=== PATIENT | female | born 1965 | race Caucasian/White ===

== ENCOUNTER → 2019-10-07 12:59 | Outpatient (BNVA) | payer MEDICAID, SELFPAY | PROVIDERS: Family Provider Internal Medicine; PCP Internal Medicine; Visit Provider Nurse Practitioner | DX: F33.2 Major depressive disorder, recurrent severe without psychotic features (principal); R41.83 Borderline intellectual functioning | CPT/HCPCS: 99213 ==

== ENCOUNTER → 2019-12-28 08:07 | Outpatient (BNVA) | payer MEDICAID, SELFPAY | PROVIDERS: Family Provider Internal Medicine; PCP Internal Medicine; Visit Provider Nurse Practitioner | DX: F33.2 Major depressive disorder, recurrent severe without psychotic features (principal); R41.83 Borderline intellectual functioning | CPT/HCPCS: 99214 ==

== ENCOUNTER → 2020-01-27 14:20 | Outpatient (BNVA) | payer MEDICAID, SELFPAY | PROVIDERS: Family Provider Internal Medicine; PCP Internal Medicine; Visit Provider Obstetrics & Gynecology | DX: Z12.4 Encounter for screening for malignant neoplasm of cervix (principal); B37.3 Candidiasis of vulva and vagina; L90.0 Lichen sclerosus et atrophicus; N90.4 Leukoplakia of vulva | CPT/HCPCS: 88175 ==

== ENCOUNTER → 2020-02-14 12:53 | Outpatient (BNVA) | payer MEDICAID, SELFPAY | PROVIDERS: Family Provider Internal Medicine; PCP Internal Medicine; Visit Provider Obstetrics & Gynecology | DX: R10.2 Pelvic and perineal pain (principal) | CPT/HCPCS: 76830 ==

== ENCOUNTER → 2020-03-05 13:01 | Outpatient (BNVA) | payer MEDICAID, SELFPAY | PROVIDERS: Family Provider Internal Medicine; PCP Internal Medicine; Visit Provider Obstetrics & Gynecology | DX: R87.612 Low grade squamous intraepithelial lesion on cytologic smear of cervix (LGSIL) (principal); B97.7 Papillomavirus as the cause of diseases classified elsewhere | CPT/HCPCS: 88305 ==

== ENCOUNTER → 2020-03-16 07:54 | Outpatient (BNVA) | payer MEDICAID, SELFPAY | PROVIDERS: Family Provider Internal Medicine; PCP Internal Medicine; Visit Provider Nurse Practitioner | DX: F33.2 Major depressive disorder, recurrent severe without psychotic features (principal); R41.83 Borderline intellectual functioning | CPT/HCPCS: 99213 ==

== ENCOUNTER 2020-04-29 14:23 | Emergency (ER) | payer MEDICAID, SELFPAY ==
[2020-04-29 14:35] VITALS: BP 153/92; PULSE 98; RESP 16; TEMP 36.6; O2SAT 95; BMI 30.5
--- NOTE | 2020-04-29 16:05 | ED_ITS ---
Documented by User: Adelaida Nguyen APRN 04/29/20 17:02 HPI - General Adult General: Chief complaint: General Medical Stated complaint: WEAKNESS; VOMITING Time Seen by Provider: 04/29/20 15:55 Source: patient Mode of arrival: ambulatory Limitations: no limitations History of Present Illness: HPI narrative: Patient states she ate a bowl of Cheerios this morning and felt fine until around 12 PM at that time she had an isolated incident of vomiting. She states that she vomits if her blood sugar gets too high, and that her blood sugar at that point was 300. Patient says she is a very difficult to control diabetic and that she sees endocrinology in [place] along with Dr. Landa locally. She presents to the ER because she feels that something is wrong causing her blood sugar to be more elevated than normal. Onset (ago): hour(s) Associated symptoms: Reports nausea, vomiting (once) and weakness Treatments prior to arrival: none Review of Systems General: Reports: 10 or more systems reviewed and unremarkable except in HPI and below GI: Reports: nausea and vomiting (once) [facility] ED PFSH: Medical History (Updated 04/29/20 @ 17:21 by DIANA Walsh) Borderline intellectual functioning Major depressive disorder, recurrent severe without psychotic features Yeast infection involving the vagina and surrounding area Family History Father Diabetes Grandmother Diabetes paternal Brother Diabetes Grandfather Stroke paternal Sister Thyroid condition Denies family history of Clotting disorder Hyperlipidemia Anesthesia complication Bleeding disorder Hypertension Social History Smoking and tobacco status: former smoker Quit status (tobacco): has quit using tobacco Year quit tobacco: 2009 Alcohol intake: never Physical Exam Const: COMMON NORMALS: no acute distress, average body habitus and patient oriented x3 HENMT: COMMON NORMALS: normocephalic and atraumatic HEAD & SCALP: normocephalic and atraumatic Eye: COMMON NORMALS: Equal, round and reactive pupils present and EOMs intact bilaterally PUPIL: Yes Equal, round and reactive pupils present Neck/C-Spine: COMMON NORMALS: full ROM, no lymphadenopathy, supple and no JVD Lymph: LYMPHATIC: no lymphadenopathy noted and no lymphedema noted Chest: COMMONS NORMALS: normal inspection of the chest and normal palpation of entire chest wall Resp: COMMON NORMALS: normal respiratory effort, No retractions, No use of accessory muscles and clear to auscultation bilaterally AUSCULTATION: clear to auscultation bilaterally Cardio: COMMON NORMALS: no JVD, regular rate, regular rhythm, S1 normal heart sound present and S2 normal heart sound present RATE: regular rate RHYTHM: regular rhythm HEART SOUNDS: S1 normal heart sound present and S2 normal heart sound present GI: COMMON NORMALS: Normal to inspection, nondistended, normoactive bowel sounds present, Soft to palpation and non-tender PALPATION: Yes Soft to palpation Extremity: COMMON NORMALS: normal to inspection, full ROM and capillary refill normal Neuro: COMMON NORMALS: patient oriented x3 Psych: COMMON NORMALS: mental status grossly normal Skin: COMMON NORMALS: no rashes or lesions noted, no wounds and turgor normal GENERAL SKIN EXAM: no rashes or lesions noted and turgor normal Course Vital Signs: Vital signs: Vital Signs Temperature 97.9 F 04/29/20 14:35 Pulse Rate 86 04/29/20 17:21 Respiratory Rate 14 04/29/20 17:21 Blood Pressure 126/63 04/29/20 17:21 Pulse Oximetry 94 04/29/20 17:21 MDM - General Adult Lab Data: Labs: Lab Results 04/29/20 04/29/20 04/29/20 Range/Units 16:11 16:11 16:15 WBC 10.8 H (4.0-10.0) 10^3/ uL RBC 5.04 (4.1-5.3) 10^6/u L Hgb 14.4 (11.5-15.3) g/dL Hct 43.2 (37.0-47.0) % MCV 85.7 (81-99) fL MCH 28.6 (28.0-34.0) pg MCHC 33.3 (30.0-36.0) g/dL RDW 12.0 L (12.1-15.1) % Plt Count 247 (130-400) 10^3/c mm MPV 10.8 H (7.4-10.4) fL Neut % (Auto) 72.2 % Lymph % (Auto) 19.6 % [place] % (Auto) 6.5 % Eos % (Auto) 0.4 % Baso % (Auto) 0.6 % Neut # (Auto) 7.77 H (1.8-7.7) 10^3/u L Lymph # (Auto) 2.1 (0.8-4.8) 10^3/u L [place] # (Auto) 0.7 (0.2-0.9) 10^3/u L Eos # (Auto) 0.0 (0.0-0.8) 10^3/u L Baso # (Auto) 0.1 (0.0-0.1) 10^3/u L Nucleated RBC % (a uto) 0 % Nucleated RBCs # 0.0 /100WBC Sodium 132 L (136-145) mmol/L Potassium 3.8 (3.5-5.1) mmol/L Chloride 97 L (98-107) mmol/L Carbon Dioxide 25 (22-29) mmol/L Anion Gap 13.8 (5-19) BUN 8 (6-20) mg/dL Creatinine 0.7 (0.5-0.9) mg/dL GFR Calculation 86.6 L (90-130) mL/min Glucose 255 H (65-115) mg/dL Calculated Osmolal ity 279 L (285-295) mOsm/k g Calcium 9.7 (8.5-10.5) mg/dL Total Bilirubin 0.6 (0.15-1.2) mg/dL AST 27 (0-32) U/L ALT 57 H (0-33) U/L Alkaline Phosphata se 121 H (35-105) IU/L Total Protein 7.5 (6.6-8.7) g/dL Albumin 4.4 (3.5-5.2) g/dL Globulin 3.1 (1.3-4.6) g/dL Lipase 16 (13-60) U/L Urine Color Straw (Yellow) Urine Appearance Clear (CLEAR) Urine pH 5 (5-7) Ur Specific Gravit y 1.020 (1.005-1.030) Urine Protein Neg (Negative) Urine Glucose (UA) 4+ H (Normal) Urine Ketones 1+ H (Negative) Urine Blood Neg (Negative) Urine Nitrate Negative (Negative) Urine Bilirubin Neg (NEGATIVE) Urine Urobilinogen Norm (Negative) mg/dL Ur Leukocyte Adriana ase Negative (Negative) Discharge Plan Discharge Patient Disposition: Home Clinical Impression: Uncontrolled diabetes mellitus Qualifiers: Diabetes mellitus type: type 2 Glycemic state: with hyperglycemia Qualified Code(s): E11.65 - Type 2 diabetes mellitus with hyperglycemia Condition: Stable Prescriptions: New Zofran 4 mg tablet 4 mg PO Q6H PRN (Reason: nausea and vomiting) Qty: 14 RF: 0 No Action bupropion HCl [Wellbutrin XL] 150 mg tablet extended release 24 hr 150 mg PO QAM Qty: 30 RF: 2 bupropion HCl [Wellbutrin XL] 300 mg tablet extended release 24 hr 300 mg PO QAM Qty: 30 RF: 2 metformin 500 mg tablet 1,000 mg PO BID RF: 0 Bydureon 2 mg/0.65 mL pen injector 2 mg SUBCUT Q7D RF: 0 lisinopril 20 mg tablet 20 mg PO DAILY RF: 0 insulin aspart U-100 [Novolog Flexpen U-100 Insulin] 100 unit/mL (3 mL) insulin pen 30 unit SUBCUT TID RF: 0 Lantus Solostar U-100 Insulin 100 unit/mL (3 mL) insulin pen 86 unit SUBCUT BEDTIME RF: 0 Zyrtec 10 mg capsule 10 mg PO DAILY PRN (Reason: Allergy Symptoms) RF: 0 Pepcid 20 mg Tablet 20 mg PO BID PRN (Reason: UNKNOWN) RF: 0 Crestor 20 mg Tablet 20 mg PO BEDTIME RF: 0 hydrocortisone 1 % ointment 1 applic TOPICAL PRN RF: 0 trazodone 100 mg tablet 200 mg PO BEDTIME RF: 0 hydroxyzine HCl 25 mg tablet 50 mg PO BEDTIME RF: 0 Discharge Orders: Discharge Order (Routine); Ordered 04/29/20 Ordered By: Hope Shell Referrals: HARJINDER LANDA DO [Primary Care Provider] - Patient Instructions: Diabetes Mellitus Type 2 in Adults (ED) Activity Restrictions/Additional Instructions: Please followup with your emergency communications operator to try and gain better control of your blood sugars. Return to ED for repetitive episodes of vomiting, abdominal pain, diarrhea, generally feeling ill, or any other concerns you may have. Sign Out Sign Out Data: Patient Sign Out occurred on 04/29/20 at 17:16. Patient's care was discussed, and care was transferred from to DIANA Walsh. Coding Level of Care Code ED Load Out Person for Chg Fwd Exam Comprehensive Documented by User: DIANA Walsh 04/29/20 17:32 HPI - General Adult General: Chief complaint: General Medical Stated complaint: WEAKNESS; VOMITING Time Seen by Provider: 04/29/20 15:55 PFSH ED PFSH: Medical History (Updated 04/29/20 @ 17:21 by DIANA Walsh) Borderline intellectual functioning Major depressive disorder, recurrent severe without psychotic features Yeast infection involving the vagina and surrounding area Family History Father Diabetes Grandmother Diabetes paternal Brother Diabetes Grandfather Stroke paternal Sister Thyroid condition Denies family history of Clotting disorder Hyperlipidemia Anesthesia complication Bleeding disorder Hypertension Social History Smoking and tobacco status: former smoker Quit status (tobacco): has quit using tobacco Year quit tobacco: 2009 Alcohol intake: never Course Vital Signs: Vital signs: Vital Signs Temperature 97.9 F 04/29/20 14:35 Pulse Rate 86 04/29/20 17:21 Respiratory Rate 14 04/29/20 17:21 Blood Pressure 126/63 04/29/20 17:21 Pulse Oximetry 94 04/29/20 17:21 MDM - General Adult MDM Narrative: Medical decision making narrative: I assumed care of patient from LAYLA Gonsales. I agree with her HPI. I went in and spoke to patient myself to confirm her past history. She tells me earlier this morning after eating a bowl of Cheerios she had one single episode of nonbloody vomit. Patient tells me she checks her blood sugars daily and they normally run anywhere from 200-500. Patient tells me she just saw her emergency communications operator in [place] last week. Patient's vitals are completely stable. Her labs overall are non-concerning. Her glucose is 255 which again according to her history is normal for her. Her potassium and bicarb are normal. She is not complaining of any pain currently. She had one isolated episode of vomiting. At this time I have no concerns for DKA or other emergent process. Patient will be sent home with nausea medications should this persist and return to ED precautions were given. Lab Data: Labs: Lab Results 04/29/20 04/29/20 04/29/20 Range/Units 16:11 16:11 16:15 WBC 10.8 H (4.0-10.0) 10^3/ uL RBC 5.04 (4.1-5.3) 10^6/u L Hgb 14.4 (11.5-15.3) g/dL Hct 43.2 (37.0-47.0) % MCV 85.7 (81-99) fL MCH 28.6 (28.0-34.0) pg MCHC 33.3 (30.0-36.0) g/dL RDW 12.0 L (12.1-15.1) % Plt Count 247 (130-400) 10^3/c mm MPV 10.8 H (7.4-10.4) fL Neut % (Auto) 72.2 % Lymph % (Auto) 19.6 % [place] % (Auto) 6.5 % Eos % (Auto) 0.4 % Baso % (Auto) 0.6 % Neut # (Auto) 7.77 H (1.8-7.7) 10^3/u L Lymph # (Auto) 2.1 (0.8-4.8) 10^3/u L [place] # (Auto) 0.7 (0.2-0.9) 10^3/u L Eos # (Auto) 0.0 (0.0-0.8) 10^3/u L Baso # (Auto) 0.1 (0.0-0.1) 10^3/u L Nucleated RBC % (a uto) 0 % Nucleated RBCs # 0.0 /100WBC Sodium 132 L (136-145) mmol/L Potassium 3.8 (3.5-5.1) mmol/L Chloride 97 L (98-107) mmol/L Carbon Dioxide 25 (22-29) mmol/L Anion Gap 13.8 (5-19) BUN 8 (6-20) mg/dL Creatinine 0.7 (0.5-0.9) mg/dL GFR Calculation 86.6 L (90-130) mL/min Glucose 255 H (65-115) mg/dL Calculated Osmolal ity 279 L (285-295) mOsm/k g Calcium 9.7 (8.5-10.5) mg/dL Total Bilirubin 0.6 (0.15-1.2) mg/dL AST 27 (0-32) U/L ALT 57 H (0-33) U/L Alkaline Phosphata se 121 H (35-105) IU/L Total Protein 7.5 (6.6-8.7) g/dL Albumin 4.4 (3.5-5.2) g/dL Globulin 3.1 (1.3-4.6) g/dL Lipase 16 (13-60) U/L Urine Color Straw (Yellow) Urine Appearance Clear (CLEAR) Urine pH 5 (5-7) Ur Specific Gravit y 1.020 (1.005-1.030) Urine Protein Neg (Negative) Urine Glucose (UA) 4+ H (Normal) Urine Ketones 1+ H (Negative) Urine Blood Neg (Negative) Urine Nitrate Negative (Negative) Urine Bilirubin Neg (NEGATIVE) Urine Urobilinogen Norm (Negative) mg/dL Ur Leukocyte Adriana ase Negative (Negative) Discharge Plan Discharge Patient Disposition: Home Clinical Impression: Uncontrolled diabetes mellitus Qualifiers: Diabetes mellitus type: type 2 Glycemic state: with hyperglycemia Qualified Code(s): E11.65 - Type 2 diabetes mellitus with hyperglycemia Condition: Stable Prescriptions: New Zofran 4 mg tablet 4 mg PO Q6H PRN (Reason: nausea and vomiting) Qty: 14 RF: 0 No Action bupropion HCl [Wellbutrin XL] 150 mg tablet extended release 24 hr 150 mg PO QAM Qty: 30 RF: 2 bupropion HCl [Wellbutrin XL] 300 mg tablet extended release 24 hr 300 mg PO QAM Qty: 30 RF: 2 metformin 500 mg tablet 1,000 mg PO BID RF: 0 Bydureon 2 mg/0.65 mL pen injector 2 mg SUBCUT Q7D RF: 0 lisinopril 20 mg tablet 20 mg PO DAILY RF: 0 insulin aspart U-100 [Novolog Flexpen U-100 Insulin] 100 unit/mL (3 mL) insulin pen 30 unit SUBCUT TID RF: 0 Lantus Solostar U-100 Insulin 100 unit/mL (3 mL) insulin pen 86 unit SUBCUT BEDTIME RF: 0 Zyrtec 10 mg capsule 10 mg PO DAILY PRN (Reason: Allergy Symptoms) RF: 0 Pepcid 20 mg Tablet 20 mg PO BID PRN (Reason: UNKNOWN) RF: 0 Crestor 20 mg Tablet 20 mg PO BEDTIME RF: 0 hydrocortisone 1 % ointment 1 applic TOPICAL PRN RF: 0 trazodone 100 mg tablet 200 mg PO BEDTIME RF: 0 hydroxyzine HCl 25 mg tablet 50 mg PO BEDTIME RF: 0 Discharge Orders: Discharge Order (Routine); Ordered 04/29/20 Ordered By: Hope Shell Referrals: HARJINDER LANDA DO [Primary Care Provider] - Patient Instructions: Diabetes Mellitus Type 2 in Adults (ED) Activity Restrictions/Additional Instructions: Please followup with your emergency communications operator to try and gain better control of your blood sugars. Return to ED for repetitive episodes of vomiting, abdominal pain, diarrhea, generally feeling ill, or any other concerns you may have. Sign Out Sign Out Data: Patient Sign Out occurred on 04/29/20 at 17:16. Patient's care was discussed, and care was transferred from to DIANA Walsh. Coding Level of Care Code ED Load Out Person for Mecheg Fwd Exam Comprehensive
[2020-04-29 16:16] LABS: Basophils # 0.1 10^3/uL (0.0-0.1); Basophils % 0.6 %; Eosinophils % 0.4 %; Hematocrit 43.2 % (37.0-47.0); Hemoglobin 14.4 g/dL (11.5-15.3); Lymphocytes # 2.1 10^3/uL (0.8-4.8); Lymphocytes % 19.6 %; Mean Corpuscular HGB Conc 33.3 g/dL (30.0-36.0); Mean Corpuscular Hemoglobin 28.6 pg (28.0-34.0); Mean Corpuscular Volume 85.7 fL (81-99); Mean Platelet Volume 10.8 fL (7.4-10.4); Monocytes # 0.7 10^3/uL (0.2-0.9); Monocytes % 6.5 %; Neutrophils # 7.77 10^3/uL (1.8-7.7); Neutrophils % 72.2 %; Nucleated Red Blood Cells % 0 %; Platelet Count 247 10^3/cmm (130-400); Red Blood Count 5.04 10^6/uL (4.1-5.3); White Blood Count 10.8 10^3/uL (4.0-10.0)
[2020-04-29 16:33] LABS: Add Urine Microscopic? NO
[2020-04-29 16:34] LABS: Alanine Aminotransferase 57 U/L (0-33); Albumin Level 4.4 g/dL (3.5-5.2); Alkaline Phosphatase 121 IU/L (35-105); Anion Gap 13.8 (5-19); Aspartate Amino Transferase 27 U/L (0-32); Blood Urea Nitrogen 8 mg/dL (6-20); Calcium 9.7 mg/dL (8.5-10.5); Carbon Dioxide 25 mmol/L (22-29); Chloride 97 mmol/L (98-107); Globulin 3.1 g/dL (1.3-4.6); Glomerular Filtration Rate 86.6 mL/min (90-130); Glucose 255 mg/dL (65-115); Lipase 16 U/L (13-60); Osmolality Calculated 279 mOsm/kg (285-295); Potassium 3.8 mmol/L (3.5-5.1); Sodium 132 mmol/L (136-145); Total Bilirubin 0.6 mg/dL (0.15-1.2); Total Protein 7.5 g/dL (6.6-8.7)
[2020-04-29 16:38] LABS: Bilirubin Urine Neg (NEGATIVE); Blood Urine Neg (Negative); Glucose Urine UA 4+ (Normal); Ketones Urine 1+ (Negative); Leukocyte Esterase Urine Negative (Negative); Nitrate Urine Negative (Negative); Protein Urine Neg (Negative); Urine Appearance Clear (CLEAR); Urine Color Straw (Yellow); Urobilinogen Urine Norm (Negative); pH Urine 5 (5-7)
[2020-04-29 17:21] VITALS: BP 126/63; PULSE 86; RESP 14; O2SAT 94
[2020-04-29 17:38] VITALS: BP 144/79; PULSE 85; RESP 14; O2SAT 95
== END 2020-04-29 17:39 | disposition home or self-care (01) ==
PROVIDERS: Nurse Practitioner Family; Emergency Provider Physician Assistant; PCP Internal Medicine
DX: E11.65 Type 2 diabetes mellitus with hyperglycemia (principal); Z79.4 Long term (current) use of insulin; Z87.891 Personal history of nicotine dependence
CPT/HCPCS: 12345; 36415; 80053; 81003; 83690; 85025; 99282

== ENCOUNTER → 2020-06-25 07:40 | Outpatient (BNVA) | payer MEDICAID, SELFPAY | PROVIDERS: PCP Internal Medicine; Visit Provider Nurse Practitioner | DX: R41.83 Borderline intellectual functioning (principal); F33.2 Major depressive disorder, recurrent severe without psychotic features | CPT/HCPCS: 99213 ==

== ENCOUNTER → 2020-07-10 09:55 | Outpatient (BNVA) | payer MEDICAID, SELFPAY | PROVIDERS: PCP Internal Medicine; Visit Provider Internal Medicine | DX: B37.3 Candidiasis of vulva and vagina (principal); E11.40 Type 2 diabetes mellitus with diabetic neuropathy, unspecified; E78.5 Hyperlipidemia, unspecified; I10 Essential (primary) hypertension | CPT/HCPCS: 99204 ==

== ENCOUNTER 2020-09-07 13:10 | Outpatient (CLI) | payer MEDICAID, SELFPAY ==
--- NOTE | 2020-09-07 13:14 | MM_ITS ---
WS: [id number] Bilateral screening digital mammogram, 09/07/2020 Clinical Data: SCREENING Comparison: 02/06/2016, 05/11/2013, 04/01/2011, 07/05/2007. Findings: The breast parenchymal pattern shows heterogeneous density No spiculated masses or clustered calcific ations are seen. There are no secondary signs of carcinoma. Is a calcification in the medial aspect o f the right breast unchanged. MM/[place] [id number] Impression: 1. Negative bilateral mammogram unchanged. 2. Recommend annual screening mammograms. BIRADS: 1-Negative FOLLOW UP: 1 Year Follow-up The CAD cargo checker was used.
== END 2020-09-07 13:11 | disposition home or self-care (01) ==
LOC: RADSHAW 13:13
PROVIDERS: PCP Internal Medicine; Visit Provider Family Medicine
DX: Z12.31 Encounter for screening mammogram for malignant neoplasm of breast (principal)
CPT/HCPCS: 77067

== ENCOUNTER → 2020-09-11 08:13 | Outpatient (BNVA) | payer MEDICAID, SELFPAY | PROVIDERS: PCP Internal Medicine; Visit Provider Nurse Practitioner | DX: R41.83 Borderline intellectual functioning (principal); F33.2 Major depressive disorder, recurrent severe without psychotic features | CPT/HCPCS: 99213 ==

== ENCOUNTER → 2020-10-09 12:39 | Outpatient (BNVA) | payer MEDICAID, SELFPAY | PROVIDERS: PCP Internal Medicine; Visit Provider Internal Medicine | DX: E11.42 Type 2 diabetes mellitus with diabetic polyneuropathy (principal); Z79.4 Long term (current) use of insulin | CPT/HCPCS: 99215 ==

== ENCOUNTER → 2021-01-10 08:18 | Outpatient (BNVA) | payer MEDICAID, SELFPAY | PROVIDERS: PCP Internal Medicine; Visit Provider Nurse Practitioner | DX: R41.83 Borderline intellectual functioning (principal); F33.2 Major depressive disorder, recurrent severe without psychotic features | CPT/HCPCS: 99214 ==

== ENCOUNTER → 2021-04-09 08:03 | Outpatient (BNVA) | payer MEDICAID, SELFPAY | PROVIDERS: PCP Internal Medicine; Visit Provider Nurse Practitioner | DX: F33.2 Major depressive disorder, recurrent severe without psychotic features (principal); R41.83 Borderline intellectual functioning | CPT/HCPCS: 99214 ==

== ENCOUNTER → 2021-07-04 08:32 | Outpatient (BNVA) | payer MEDICARE, MEDICAID, SELFPAY | PROVIDERS: PCP Internal Medicine; Visit Provider Nurse Practitioner | DX: F33.2 Major depressive disorder, recurrent severe without psychotic features (principal); R41.83 Borderline intellectual functioning | CPT/HCPCS: 99214 ==

== ENCOUNTER 2021-08-07 12:36 | Outpatient (CLI) | payer MEDICARE, MEDICAID, SELFPAY ==
--- NOTE | 2021-08-07 12:44 | XR_ITS ---
WS: [id number] Exam: XR KUB [id number] Date/Time of Exam: 08/07/2021 12:56 PM Reason For Exam: ABDOMINAL BLOATING/CONSTIPATION No bowel obstruction or free air. No sign of organ enlargement. Moderate amount of stool in the colon . Regional bony structures are intact. Nonspecific small pelvic calcifications. XR/XR KUB [id number] IMPRESSION: 1. No acute abdominal process identified. 2. Moderate amount retained stool in the colon.
== END 2021-08-07 12:37 | disposition home or self-care (01) ==
LOC: RAD 12:39
PROVIDERS: PCP Internal Medicine; Visit Provider Nurse Practitioner Family
DX: R14.0 Abdominal distension (gaseous) (principal)
CPT/HCPCS: 74018

== ENCOUNTER 2021-10-28 14:56 | Outpatient (CLI) | payer MEDICARE, MEDICAID, SELFPAY ==
--- NOTE | 2021-10-28 15:24 | CT_ITS ---
WS: [id number] CT NECK WITH CONTRAST HISTORY: OTALGIA, BILATERAL TECHNIQUE: Contiguous 5 mm axial images are performed through the neck with intravenous contrast. Sag ittal and coronal reformats are also submitted. All CT scans at [facility] use at least one o f these dose optimization techniques: automated exposure control; mA and/or kV adjustment per patient size (includes targeted exams where dose is matched to clinical indication); or iterative reconstruc tion. CONTRAST: CONTRAST: Omnipaque 300; 95 mL IV. DLP: 218.19 mGy.cm COMPARISON: None available. Nasopharynx, oropharynx, hypopharynx and larynx are unremarkable. No soft tissue masses or abnormal e nhancement. Torus tubarius and fossa of Rosenmuller and parapharyngeal fat are normal. No significant lymphadenopathy is identified. Thyroid gland and salivary glands are normally enhancing with no masses. No osseous abnormalities. Visualized portions of the skull base demonstrate no abnormalities. Orbits and globes are within norm al limits. No soft tissue masses. Visualized paranasal sinuses and mastoid air cells are normal. Lung apices are clear. CT/CT neck w con* [id number] IMPRESSION: Unremarkable neck CT. No neck mass or adenopathy.
[2021-10-28] MEDS: iohexol 300 mg/mL 100 mL Btl IV (15:49)
== END 2021-10-28 14:57 | disposition home or self-care (01) ==
LOC: RAD 14:58
PROVIDERS: PCP Nurse Practitioner Family; Visit Provider Specialist
DX: H92.03 Otalgia, bilateral (principal)
CPT/HCPCS: 70491

== ENCOUNTER → 2021-11-12 11:13 | Outpatient (BNVA) | payer MEDICARE, MEDICAID, SELFPAY | PROVIDERS: PCP Nurse Practitioner Family; Visit Provider Nurse Practitioner | DX: F33.2 Major depressive disorder, recurrent severe without psychotic features (principal); R41.83 Borderline intellectual functioning | CPT/HCPCS: 99214 ==

== ENCOUNTER → 2022-02-11 14:30 | Outpatient (BNVA) | payer MEDICARE, MEDICAID, SELFPAY | PROVIDERS: PCP Nurse Practitioner Family; Visit Provider Nurse Practitioner | DX: F33.2 Major depressive disorder, recurrent severe without psychotic features (principal); R41.83 Borderline intellectual functioning | CPT/HCPCS: 99214 ==

== ENCOUNTER 2022-03-25 13:11 | Outpatient (CLI) | payer MEDICARE, MEDICAID, SELFPAY ==
--- NOTE | 2022-03-25 13:25 | XR_ITS ---
WS: [id number] Exam: XR cervical spine fl/ex [id number] Date/Time of Exam: 03/25/2022 1:27 PM Reason For Exam: CERVICALGIA Flexion and extension views of the cervical spine demonstrate no instability or subluxation. Mild fac et DJD at all levels. Straightening of the C-spine. Disc spaces are preserved. Normal paraspinal soft tissues. XR/XR cervical spine fl/ex [id number] IMPRESSION: 1. No flexion or extension instability. Minimal degenerative change. Straighten ing.
== END 2022-03-25 13:12 | disposition home or self-care (01) ==
PROVIDERS: PCP Nurse Practitioner Family; Visit Provider Nurse Practitioner
DX: M54.2 Cervicalgia (principal)
CPT/HCPCS: 72040

== ENCOUNTER → 2022-05-01 14:48 | Outpatient (BNVA) | payer MEDICARE, MEDICAID, SELFPAY | PROVIDERS: PCP Nurse Practitioner Family; Visit Provider Internal Medicine | DX: E11.42 Type 2 diabetes mellitus with diabetic polyneuropathy (principal); E78.5 Hyperlipidemia, unspecified; Z79.4 Long term (current) use of insulin | CPT/HCPCS: 99214 ==

== ENCOUNTER 2022-06-04 13:19 | Outpatient (CLI) | payer MEDICARE, MEDICAID, SELFPAY ==
--- NOTE | 2022-06-04 13:27 | MM_ITS ---
WS: [id number] BILATERAL 3D TOMOSYNTHESIS DIGITAL SCREENING MAMMOGRAPHY WITH CAD CLINICAL INFORMATION: SCREENING HISTORY: Screening mammogram. No current complaints. COMPARISON: September 07, 2020 TECHNIQUE: Bilateral CC and MLO views. FINDINGS: The breasts are composed of heterogeneous fibroglandular density tissue, which can limit the detectio n of small underlying mass lesions. No suspicious mass, asymmetry, calcifications, or architectural d istortion. No evidence of malignancy. Punctate and lucent centered calcifications. Stable dystrophic calcification RIGHT breast. MM/[place] [id number] IMPRESSION: BI-RADS: 2-Benign FOLLOW UP: 1 Year Follow-up Recommend return to annual screening mammography.
== END 2022-06-04 13:20 | disposition home or self-care (01) ==
LOC: RAD 13:19
PROVIDERS: PCP Nurse Practitioner Family; Visit Provider Nurse Practitioner Family
DX: Z12.31 Encounter for screening mammogram for malignant neoplasm of breast (principal)
CPT/HCPCS: 77063; 77067

== ENCOUNTER → 2022-07-28 14:48 | Outpatient (BNVA) | payer MEDICARE, MEDICAID, SELFPAY | PROVIDERS: PCP Nurse Practitioner Family; Visit Provider Surgery | DX: K59.00 Constipation, unspecified (principal); K21.9 Gastro-esophageal reflux disease without esophagitis; Z86.010 Personal history of colon polyps | CPT/HCPCS: 99203 ==

== ENCOUNTER 2022-10-29 12:22 | Outpatient (CLI) | payer MEDICARE, MEDICAID, SELFPAY ==
--- NOTE | 2022-10-29 13:53 | XR_ITS ---
WS: [id number] XR lumbar spine 6V w f/e [id number] REASON FOR EXAM: PIRIFORMIS MUSCLE SPASM, RIGHT FINDINGS: Mild rotatory scoliosis convex left. Normal lordosis. Minimal biconcave compression deformities L1-L5. Intervertebral disc spaces are relatively well-preserved. Mild narrowing of the disc space at L5-S1. No spondylolysis. 3 mm of anterolisthesis of L5 on S1. Mild to moderate degenerative changes in the facet joints L4-S1. XR/XR lumbar spine 6V w f/e [id number] IMPRESSION: Degenerative spondylosis as above.
== END 2022-10-29 12:23 | disposition home or self-care (01) ==
LOC: LAB 12:28 → RAD 12:31
PROVIDERS: PCP Family Medicine; Visit Provider Family Medicine
DX: M62.838 Other muscle spasm (principal); M51.36 Other intervertebral disc degeneration, lumbar region
CPT/HCPCS: 72114

== ENCOUNTER 2022-11-05 13:04 | Outpatient (CLI) | payer MEDICARE, MEDICAID, SELFPAY ==
--- NOTE | 2022-11-05 13:22 | XR_ITS ---
WS: [id number] Right hip, 2 views, 11/05/2022 Clinical Data: R LEG PAIN/R SCIATICA Comparison: None. Findings: No fractures or dislocations are seen. The hip joint is intact. The right hip shows no erosion, scler osis, narrowing, cyst formation or fragmentation of the right femoral head. The soft tissues are not remarkable. The adjacent pelvis is normal. XR/XR hip RT 2-3V wo/w pel* [id number] Impression: Negative right hip. Tonnis classification: grade 0: normal radiographs
--- NOTE | 2022-11-05 13:24 | XR_ITS ---
WS: [id number] Right femur and thigh, AP and lateral views, 11/05/2022 Clinical Data: R LEG PAIN/R SCIATICA Comparison: None. Findings: No fractures or dislocations are seen. The soft tissues are normal. The visualized knee shows no abno rmalities. XR/XR femur RT min 2V* [id number] Impression: Negative right femur and thigh.
== END 2022-11-05 13:05 | disposition home or self-care (01) ==
PROVIDERS: PCP Family Medicine; Visit Provider Nurse Practitioner Family
DX: M79.604 Pain in right leg (principal); M54.31 Sciatica, right side
CPT/HCPCS: 73502; 73552

== ENCOUNTER → 2022-11-20 14:20 | Outpatient (BNVA) | payer MEDICARE, MEDICAID, SELFPAY | PROVIDERS: PCP Family Medicine; Visit Provider Internal Medicine | DX: E11.40 Type 2 diabetes mellitus with diabetic neuropathy, unspecified (principal); E11.42 Type 2 diabetes mellitus with diabetic polyneuropathy; E78.5 Hyperlipidemia, unspecified; Z79.4 Long term (current) use of insulin; Z79.84 Long term (current) use of oral hypoglycemic drugs | CPT/HCPCS: 99214 ==

== ENCOUNTER → 2022-12-15 14:25 | Outpatient (BNVA) | payer MEDICARE, MEDICAID, SELFPAY | PROVIDERS: PCP Family Medicine; Referring Provider Nurse Practitioner Family; Visit Provider Specialist | DX: M70.61 Trochanteric bursitis, right hip (principal) | CPT/HCPCS: 20610; 73502; 99214; J1100; J2795; J3301 ==

== ENCOUNTER 2023-01-08 13:09 | Outpatient (RCR) | payer MEDICARE, MEDICAID, SELFPAY | END 2023-01-28 23:59 | disposition home or self-care (01) | LOC: SPT 13:09 | PROVIDERS: PCP Family Medicine; Visit Provider Specialist | DX: M25.551 Pain in right hip (principal); M70.61 Trochanteric bursitis, right hip | CPT/HCPCS: 97110; 97161 ==

== ENCOUNTER 2023-01-29 06:00 | Outpatient (RCR) | payer MEDICARE, MEDICAID, SELFPAY | END 2023-02-04 23:59 | disposition home or self-care (01) | LOC: SPT 06:00 | PROVIDERS: PCP Family Medicine; Visit Provider Specialist | DX: M25.551 Pain in right hip (principal); M70.61 Trochanteric bursitis, right hip | CPT/HCPCS: 97110 ==

== ENCOUNTER → 2023-02-24 14:12 | Outpatient (BNVA) | payer MEDICARE, MEDICAID, SELFPAY | PROVIDERS: PCP Family Medicine; Visit Provider Internal Medicine | DX: E11.40 Type 2 diabetes mellitus with diabetic neuropathy, unspecified (principal); E11.42 Type 2 diabetes mellitus with diabetic polyneuropathy; E78.5 Hyperlipidemia, unspecified; Z79.4 Long term (current) use of insulin; Z79.84 Long term (current) use of oral hypoglycemic drugs | CPT/HCPCS: 99214 ==

== ENCOUNTER → 2023-04-29 15:38 | Outpatient (BNVA) | payer MEDICARE, MEDICAID, SELFPAY | PROVIDERS: PCP Family Medicine; Visit Provider Internal Medicine | DX: E11.40 Type 2 diabetes mellitus with diabetic neuropathy, unspecified (principal); E78.5 Hyperlipidemia, unspecified | CPT/HCPCS: 36415; 80053; 80061; 82044; 83036 ==

== ENCOUNTER → 2023-06-04 11:19 | Outpatient (BNVA) | payer MEDICARE, MEDICAID, SELFPAY | PROVIDERS: PCP Family Medicine; Visit Provider Internal Medicine | DX: E11.40 Type 2 diabetes mellitus with diabetic neuropathy, unspecified (principal); E11.42 Type 2 diabetes mellitus with diabetic polyneuropathy; Z79.4 Long term (current) use of insulin; E78.5 Hyperlipidemia, unspecified; Z79.84 Long term (current) use of oral hypoglycemic drugs | CPT/HCPCS: 99214 ==

== ENCOUNTER → 2023-06-29 13:11 | Outpatient (BNVA) | payer MEDICARE, MEDICAID, SELFPAY | PROVIDERS: PCP Family Medicine; Visit Provider Podiatrist Foot & Ankle Surgery | DX: B35.1 Tinea unguium (principal); E11.40 Type 2 diabetes mellitus with diabetic neuropathy, unspecified; E11.42 Type 2 diabetes mellitus with diabetic polyneuropathy; Z79.4 Long term (current) use of insulin | CPT/HCPCS: 11721; 99203 ==

== ENCOUNTER 2023-08-05 10:35 | Outpatient (CLI) | payer MEDICARE, MEDICAID, SELFPAY ==
--- NOTE | 2023-08-05 10:39 | USCV_ITS ---
Julia Lovett Age: 58 Gender: F : 1965 Exam Date: 08/05/2023 11:12 Ordering Phys: Kati Singh DO Technologist: BENEDICTO Exam Location: [facility] [place] Indication: LE Pain Risk Factors: Previous Vascular Surgery: RIGHT LEFT BP: 166.0 / 110.00 BP: 149.0/ 92.00 0 0 Waveform Velocity (cm/s) Velocity (cm/s) Waveform Triphasic 111.1 Iliac Prox 114.9 Triphasic Triphasic 91.1 Iliac Mid 97.7 Triphasic Triphasic 97.1 Iliac Distal 109.5 Triphasic Triphasic 78.4 SKIN TOGGLER 101.0 Triphasic Triphasic 101.3 SFA Prox 108.8 Triphasic Triphasic 89.9 SFA Mid 87.0 Triphasic Biphasic SFA Dist Triphasic 78.4 76.2 Biphasic 47.9 POP 48.9 Triphasic Biphasic 58.1 QA ARCHITECT 65.5 Triphasic Biphasic 72.6 DPA 81.1 Triphasic 1.0 SHANTANU 1.0 FINDINGS Normal arterial Doppler flow velocities and waveforms. No unstable plaques or lesions noted. Resting SHANTANU 1.0 on the right side Resting SHANTANU of 1.0 on the left CONCLUSIONS 1. Normal resting ABIs bilaterally with anormal arterial Doppler waveforms and velocities 2. No evidence of any significant arterial obstruction, based on the above findings. Dr Asim Mares MD [facility] (Electronically Signed) Final Date: 07 August 2023 12:17 S
== END 2023-08-05 10:36 | disposition home or self-care (01) ==
LOC: RAD 10:35
PROVIDERS: PCP Family Medicine; Visit Provider Family Medicine
DX: M79.605 Pain in left leg (principal); M79.604 Pain in right leg
CPT/HCPCS: 93925

== ENCOUNTER → 2023-08-07 10:40 | Outpatient (BNVA) | payer MEDICARE, MEDICAID, SELFPAY | PROVIDERS: PCP Family Medicine; Visit Provider Internal Medicine | DX: E11.42 Type 2 diabetes mellitus with diabetic polyneuropathy (principal); Z79.4 Long term (current) use of insulin; E11.40 Type 2 diabetes mellitus with diabetic neuropathy, unspecified; E78.5 Hyperlipidemia, unspecified | CPT/HCPCS: 99214 ==

== ENCOUNTER → 2023-09-28 12:36 | Outpatient (BNVA) | payer MEDICARE, MEDICAID, SELFPAY ==
[2023-08-26 14:35] VITALS: BP 121/85; BMI 27.8
== END ==
PROVIDERS: PCP Family Medicine; Visit Provider Podiatrist Foot & Ankle Surgery
DX: B35.1 Tinea unguium (principal); E11.40 Type 2 diabetes mellitus with diabetic neuropathy, unspecified; E11.42 Type 2 diabetes mellitus with diabetic polyneuropathy; Z79.4 Long term (current) use of insulin
CPT/HCPCS: 11721

== ENCOUNTER → 2023-10-14 10:33 | Outpatient (BNVA) | payer MEDICARE, MEDICAID, SELFPAY ==
[2023-08-26 14:35] VITALS: BP 121/85; BMI 27.8
== END ==
PROVIDERS: PCP Family Medicine; Visit Provider Internal Medicine
DX: E11.42 Type 2 diabetes mellitus with diabetic polyneuropathy (principal); Z79.4 Long term (current) use of insulin; E78.5 Hyperlipidemia, unspecified; Z79.85 Long-term (current) use of injectable non-insulin antidiabetic drugs
CPT/HCPCS: 99214

== ENCOUNTER 2023-11-05 12:48 | Outpatient (CLI) | payer MEDICARE, MEDICAID, SELFPAY ==
[2023-08-26 14:35] VITALS: BP 121/85; BMI 27.8
--- NOTE | 2023-11-05 13:53 | OP.DCCON ---
Reason for Visit: Type 2 diabetes mellitius with diabetic polyneurop Person Interviewed: Patient Medical History, Labs and Background: DM2, neuropathy Height: 5 ft 4 in Weight: 164 lb BMI: 28.2 kg/m2 Weight History: When asked, Julia replied she never really was heavy and didn't give any more information. Concerns and Goals: As she walked in, Julia said she knew I was going to tell her to cut carbs and she has talked about eating before. I asked how could I best help her and she said Diabetes and lowering her A1c. Sleep Hygiene: It sounds as if Julia has a difficult time following asleep and she mentioned taking meds and listening to music helped her fall asleep Physical Activity: Julia mentioned she walks everyday and likes doing thins with her friends like walking or Bingo, movies, etc. Feeding Issues: Dentures Other Feeding Issues: She mentioned her dentures but said they don't really affect her eating. Food Allergies and Sensitivities: At first Julia said she had no allergies, but then she said she didn't like milk and it made her stomach hurt. 24 Hour Recall: Breakfast Time: 7-9am 2 poptarts, coffee w/no sugar Snack Time: Lunch Time: 1pm sandwich w/lunchmeat and cheese, water, potato chips Snack Time: orange or banana Dinner Time: 4-5pm chicken nuggets -10, tater tots, bag salad water Snack Time: potato chips Soda vs Milk vs Water: She mentioned liking fast food but couldn't answer re: frequency of meals. Additional Comments: Julia mentioned not liking sweet, but then stated she needed to stop eating sweets. The conversation, though pleasant, seemed to veer between contradicting statements. It was unintentional I think and showed a sort of free flow of thought that was hard to follow? She also said she had spoken with other professionals about a diabetic diet and knew a lot and started our time together telling me what I was probably going to tell her. Recommendations: Assessment: Julia wants to lower her A1c and wants to get rid of the pain from her neuropathy, but doesn't seem motivated to actually change. It was easy to discuss things with her, but she had the attitude of I have heard this before and know what you are going to say - but in a very congenial way. Nutrition Dx: Altered nutr. related labs r/t per Pt's report a high HbA1c AEB consult for DM education. Intervention: Though pleasant, Julia was fidgety and didn't want to be there. We talked through the Diabetic MyPlate emphasizing the importance of balancing carbs w/protein and fat, and then she would say I am trying to not eat carbs and I don't like sweets. I printed of 5 days of diabetic meal plans of 1500 kcals and suggested she get ideas for meals or use the way they balance meals as a template. We also talked about drinking water, staying active, and asking her daughter and sister (whom she chose) to be her support system as she tries to make changes. Monitoring and Evaluation: Julia was eager to leave after 30 minutes so we wrapped things up and I pointed out my office number and email on the take home sheet where we together wrote down goals. As I walked her out she surprised me by asking how she could see me again. I told her to talk to her provider and have them send another order for f/u MNT. Coding Level of Care Code Nutrition/Individ/Init 30 Min Time Spent (min) 30
== END 2023-11-05 12:49 | disposition home or self-care (01) ==
LOC: DIET 12:49
PROVIDERS: PCP Family Medicine; Visit Provider Internal Medicine
DX: Z71.3 Dietary counseling and surveillance (principal); E11.42 Type 2 diabetes mellitus with diabetic polyneuropathy; Z79.4 Long term (current) use of insulin; Z68.28 Body mass index [BMI] 28.0-28.9, adult
CPT/HCPCS: 97802

== ENCOUNTER 2023-11-09 13:08 | Outpatient (CLI) | payer MEDICARE, MEDICAID, SELFPAY ==
[2023-08-26 14:35] VITALS: BP 121/85; BMI 27.8
--- NOTE | 2023-11-09 13:09 | MM_ITS ---
WS: [id number] BILATERAL 3D TOMOSYNTHESIS DIGITAL SCREENING MAMMOGRAPHY WITH CAD CLINICAL INFORMATION: SCREENING HISTORY: Screening mammogram. No current complaints. COMPARISON: 2021 TECHNIQUE: Bilateral CC and MLO views. FINDINGS: The breasts are composed of heterogeneous fibroglandular density tissue, which can limit the detectio n of small underlying mass lesions. No suspicious mass, asymmetry, calcifications, or architectural d istortion. No evidence of malignancy. Dystrophic calcification RIGHT breast. A few incidental punctat e calcifications. IMPRESSION: MM/[place] [id number] BI-RADS: 2-Benign FOLLOW UP: 1 Year Follow-up Recommend return to annual screening mammography.
== END 2023-11-09 13:09 | disposition home or self-care (01) ==
LOC: RAD 13:08
PROVIDERS: PCP Family Medicine; Visit Provider Family Medicine
DX: Z12.31 Encounter for screening mammogram for malignant neoplasm of breast (principal)
CPT/HCPCS: 77063; 77067

== ENCOUNTER → 2023-12-16 11:16 | Outpatient (BNVA) | payer MEDICARE, MEDICAID, SELFPAY ==
[2023-08-26 14:35] VITALS: BP 121/85; BMI 27.8
== END ==
PROVIDERS: PCP Family Medicine; Visit Provider Internal Medicine
DX: E11.42 Type 2 diabetes mellitus with diabetic polyneuropathy (principal); Z79.4 Long term (current) use of insulin; E78.5 Hyperlipidemia, unspecified; E11.40 Type 2 diabetes mellitus with diabetic neuropathy, unspecified; Z79.85 Long-term (current) use of injectable non-insulin antidiabetic drugs
CPT/HCPCS: 99214

== ENCOUNTER → 2023-12-28 13:01 | Outpatient (BNVA) | payer MEDICARE, MEDICAID, SELFPAY ==
[2023-12-16 12:16] VITALS: BP 121/85; BMI 27.8
== END ==
PROVIDERS: PCP Family Medicine; Visit Provider Podiatrist Foot & Ankle Surgery
DX: B35.1 Tinea unguium (principal); E11.40 Type 2 diabetes mellitus with diabetic neuropathy, unspecified; E11.42 Type 2 diabetes mellitus with diabetic polyneuropathy; Z79.4 Long term (current) use of insulin
CPT/HCPCS: 11721

== ENCOUNTER → 2024-02-12 11:55 | Outpatient (BNVA) | payer MEDICARE, MEDICAID, SELFPAY ==
[2023-12-16 12:16] VITALS: BP 121/85; BMI 27.8
== END ==
PROVIDERS: PCP Family Medicine; Visit Provider Internal Medicine
DX: E11.42 Type 2 diabetes mellitus with diabetic polyneuropathy (principal); Z79.4 Long term (current) use of insulin; E78.5 Hyperlipidemia, unspecified; Z79.85 Long-term (current) use of injectable non-insulin antidiabetic drugs
CPT/HCPCS: 99214

== ENCOUNTER → 2024-02-23 13:51 | Outpatient (BNVA) | payer MEDICARE, MEDICAID, SELFPAY ==
[2023-12-16 12:16] VITALS: BP 121/85; BMI 27.8
== END ==
PROVIDERS: PCP Family Medicine; Visit Provider Podiatrist Foot & Ankle Surgery
DX: B35.1 Tinea unguium (principal); E11.40 Type 2 diabetes mellitus with diabetic neuropathy, unspecified; E11.42 Type 2 diabetes mellitus with diabetic polyneuropathy; Z79.4 Long term (current) use of insulin
CPT/HCPCS: 11721

== ENCOUNTER → 2024-03-21 12:41 | Outpatient (BNVA) | payer MEDICARE, MEDICAID, SELFPAY ==
[2023-12-16 12:16] VITALS: BP 121/85; BMI 27.8
== END ==
PROVIDERS: PCP Family Medicine; Visit Provider Surgery
DX: Z12.11 Encounter for screening for malignant neoplasm of colon (principal); Z86.010 Personal history of colon polyps; K21.9 Gastro-esophageal reflux disease without esophagitis
CPT/HCPCS: 99214

== ENCOUNTER → 2024-04-26 14:03 | Outpatient (BNVA) | payer MEDICARE, MEDICAID, SELFPAY ==
[2023-12-16 12:16] VITALS: BP 121/85; BMI 27.8
== END ==
PROVIDERS: PCP Family Medicine; Visit Provider Podiatrist Foot & Ankle Surgery
DX: B35.1 Tinea unguium (principal); E11.40 Type 2 diabetes mellitus with diabetic neuropathy, unspecified; E11.42 Type 2 diabetes mellitus with diabetic polyneuropathy; Z79.4 Long term (current) use of insulin
CPT/HCPCS: 11721

== ENCOUNTER 2024-05-11 05:38 | Day surgery (SDC) | payer MEDICARE, MEDICAID, SELFPAY ==
[2023-12-16 12:16] VITALS: BP 121/85; BMI 27.8
[2024-05-11 06:11] VITALS: PULSE 105; RESP 18; TEMP 36.3; O2SAT 97; BMI 27.4
[2024-05-11] MEDS: sodium chloride 0.9% 1,000 ML 30 ML IV (06:14)
[2024-05-11 06:26] LABS: Glucose Point of Care 352 mg/dL (70-110)
--- NOTE | 2024-05-11 06:32 | ANES.PREANE2 ---
Pre-Anesthetic Assessment Height/Weight: Height 1.63 m Weight 72.575 kg Temp Pulse Resp Pulse Ox O2 Del Method 97.3 F L 105 H 18 97 Room Air 05/11/24 06:11 05/11/24 06:11 05/11/24 06:11 05/11/24 06:11 05/11/24 06:11 Operation Date: 05/11/24 07:00 Proposed Procedures p EGD 69165, [id number], G0105, Z12.11, Z86.010, K21.9(Not Applicable) - Bishnu Kendall DO s Colonoscopy(Not Applicable) - Bishnu Kendall DO Familial anesthetic complications: None Was Beta Joan taken within 24 hours: N/A Was Clonidine taken within 24 hours: N/A Last intake: Intake Last Liquid Date 05/10/24 Last Liquid Time 22:00 Last Solid Date 05/09/24 Last Solid Time 15:00 Social No alcohol and No tobacco Exam alert, oriented x 3, clear to auscultation bilaterally and regular rate & rhythm Airway Submandibular: within normal limits Cervical ROM: within normal limits Mallampati: Class II Dentition: false History/ROS No significant history except as noted and No significant complaints Pulmonary None reported CV/HEM Hypertension None reported Hepatic None reported GI Gastroesophageal Reflux Disease Metabolic Diabetes Mellitus and Hyperlipidemia [facility] Osteoarthritis/DJD Neuropsych Neuropathy Anesthetic Plan ASA status: 3 Anesthesia: Anesthesia Evaluation, General and MAC Risk of > 500 ml blood loss (7ml/kg in children): No Medications/Allergies Home Medications Medication Instructions Recorded Confirmed Last Taken Type cetirizine 10 mg capsule (Zyrtec) 10 mg PO DAILY PRN Allergy Symptoms 01/27/20 05/09/24 Unknown History lisinopril 20 mg tablet 20 mg PO DAILY 01/27/20 05/09/24 05/09/24 History famotidine 20 mg tablet (Pepcid) 20 mg PO BID PRN UNKNOWN 04/29/20 05/09/24 Unknown History hydrocortisone 1 % topical ointment 1 applic topical PRN 04/29/20 05/09/24 Unknown History ondansetron HCl 4 mg tablet 4 mg PO Q6H PRN nausea and 04/29/20 05/09/24 Unknown Rx (Zofran) vomiting #14 tabs nystatin 100,000 unit/gram topical 1 applic topical BID 5 days #30 02/19/21 05/09/24 05/09/24 Rx cream grams triamcinolone acetonide 0.1 % 1 applic topical BID 5 days #80 02/19/21 05/09/24 05/09/24 Rx topical cream grams lancets 32 gauge #400 ea 03/11/22 05/09/24 Unknown Rx blood sugar diagnostic #400 ea 05/19/22 05/09/24 Unknown Rx blood-glucose meter #1 ea 05/19/22 05/09/24 Unknown Rx lancets 33 gauge (OneTouch Delica #400 ea 08/27/22 05/09/24 Unknown Rx Lancets) tizanidine 2 mg capsule 2 mg PO BID PRN Spasms 11/18/22 05/09/24 Unknown History diabetic shoes with 3 inserts #1 ea 09/28/23 05/09/24 Unknown Rx blood-glucose meter,continuous #1 ea 10/14/23 05/09/24 Unknown Rx (Dexcom G7 Quality Assurance Consultant) blood-glucose sensor (Dexcom G7 #9 ea 10/14/23 05/09/24 Unknown Rx Sensor device) blood sugar diagnostic (OneTouch #400 ea 12/10/23 05/09/24 Unknown Rx Verio test strips) pen needle, diabetic 31 gauge x #100 ea 02/12/24 05/09/24 Unknown Rx 5/16 bupropion HCl 150 mg 24 hr tablet, 150 mg PO QAM #90 tabs 03/11/24 05/09/24 05/09/24 Rx extended release (Wellbutrin XL) bupropion HCl 300 mg 24 hr tablet, 300 mg PO QAM #90 tabs 03/11/24 05/09/24 05/09/24 Rx extended release (Wellbutrin XL) pen needle, diabetic 32 gauge x #100 ea 04/27/24 05/09/24 Unknown Rx 5/32 (BD Ultra-Fine Elyse Pen Needle) atorvastatin 40 mg tablet 40 mg PO BEDTIME 05/09/24 05/09/24 05/09/24 History cyanocobalamin (vitamin B-12) 1,000 mcg IM .QMO 05/09/24 05/09/24 05/09/24 History 1,000 mcg/mL injection solution gabapentin 600 mg tablet 600 mg PO TID 05/09/24 05/09/24 05/09/24 History hydroxyzine HCl 25 mg tablet 50 mg PO BEDTIME 05/09/24 05/09/24 05/09/24 History insulin aspart U-100 100 unit/mL 10 unit SUBCUT TID 05/09/24 05/09/24 05/09/24 History (3 mL) subcutaneous pen (Novolog FlexPen U-100 Insulin aspart) insulin glargine 100 unit/mL (3 70 unit SUBCUT BEDTIME 05/09/24 05/09/24 05/09/24 History mL) subcutaneous pen (Lantus Solostar U-100 Insulin) naproxen 500 mg tablet 500 mg PO BID PRN Pain 05/09/24 05/09/24 Unknown History trazodone 100 mg tablet 300 mg PO BEDTIME 05/09/24 05/09/24 05/09/24 History Allergies Allergy/AdvReac Type Severity Reaction Status Date / Time No Known Allergies Allergy Verified 04/26/24 14:17 Current Medications Generic Name Dose Route Start Last Admin Trade Name Freq PRN Reason Stop Dose Admin Sodium Chloride 1,000 mls @ 30 mls/hr 05/11/24 06:00 05/11/24 06:14 Sodium Chloride 0.9% IV 05/12/24 05:59 30 mls/hr .Q24H TOBIN Administration PFSH Anesthesia Medical History History of colon polyps GERD (gastroesophageal reflux disease) Psychiatric care Type 2 diabetes mellitus Yeast infection involving the vagina and surrounding area Borderline intellectual functioning Major depressive disorder, recurrent severe without psychotic features Surgical History Hx of colonoscopy with polypectomy 2016 H/O tubal ligation H/O section x2 Family History Father Diabetes Grandmother Diabetes paternal Brother Diabetes Grandfather Stroke paternal Sister Thyroid disease Denies family history of Clotting disorder Hyperlipidemia Anesthesia complication Bleeding disorder Hypertension Social History Smoking and tobacco/nicotine status: never used tobacco/nicotine Quit status (tobacco/nicotine): has quit using Year quit tobacco: 2012 Second hand smoke exposure: Yes Alcohol intake: never Substance/Drug Use: never Adopted: No Caregiver/support person: No Lives independently: Yes Household members: none Housing: Apartment Marital status: Marital status details: 2005 Number of children: 2 Number of grandchildren: 3 Highest education level completed: 9th Grade Current occupational status: disabled Pets and animals: No Leisure activites: music, games, reading and other 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
[2024-05-11] MEDS: insulin regular-human 10 UNIT in SYRINGE 1 EACH IVP (06:36)
--- NOTE | 2024-05-11 07:01 | PM.HP ---
Providers/Chief Complaint Primary Care Provider: Kati Singh DO Chief Complaint: Z12.11 History of Present Illness Julia Lovett is a 59 year old female Review of Systems General: Reports: 10 or more systems reviewed and unremarkable except in HPI and below Medications/Allergies Home Medications Medication Instructions Recorded Confirmed Last Taken Type cetirizine 10 mg capsule (Zyrtec) 10 mg PO DAILY PRN Allergy Symptoms 01/27/20 05/09/24 Unknown History lisinopril 20 mg tablet 20 mg PO DAILY 01/27/20 05/09/24 05/09/24 History famotidine 20 mg tablet (Pepcid) 20 mg PO BID PRN UNKNOWN 04/29/20 05/09/24 Unknown History hydrocortisone 1 % topical ointment 1 applic topical PRN 04/29/20 05/09/24 Unknown History ondansetron HCl 4 mg tablet 4 mg PO Q6H PRN nausea and 04/29/20 05/09/24 Unknown Rx (Zofran) vomiting #14 tabs nystatin 100,000 unit/gram topical 1 applic topical BID 5 days #30 02/19/21 05/09/24 05/09/24 Rx cream grams triamcinolone acetonide 0.1 % 1 applic topical BID 5 days #80 02/19/21 05/09/24 05/09/24 Rx topical cream grams lancets 32 gauge #400 ea 03/11/22 05/09/24 Unknown Rx blood sugar diagnostic #400 ea 05/19/22 05/09/24 Unknown Rx blood-glucose meter #1 ea 05/19/22 05/09/24 Unknown Rx lancets 33 gauge (OneTouch Delica #400 ea 08/27/22 05/09/24 Unknown Rx Lancets) tizanidine 2 mg capsule 2 mg PO BID PRN Spasms 11/18/22 05/09/24 Unknown History diabetic shoes with 3 inserts #1 ea 09/28/23 05/09/24 Unknown Rx blood-glucose meter,continuous #1 ea 10/14/23 05/09/24 Unknown Rx (Dexcom G7 Head Mechanic) blood-glucose sensor (Dexcom G7 #9 ea 10/14/23 05/09/24 Unknown Rx Sensor device) blood sugar diagnostic (OneTouch #400 ea 12/10/23 05/09/24 Unknown Rx Verio test strips) pen needle, diabetic 31 gauge x #100 ea 02/12/24 05/09/24 Unknown Rx 5/16 bupropion HCl 150 mg 24 hr tablet, 150 mg PO QAM #90 tabs 03/11/24 05/09/24 05/09/24 Rx extended release (Wellbutrin XL) bupropion HCl 300 mg 24 hr tablet, 300 mg PO QAM #90 tabs 03/11/24 05/09/24 05/09/24 Rx extended release (Wellbutrin XL) pen needle, diabetic 32 gauge x #100 ea 04/27/24 05/09/24 Unknown Rx / (BD Ultra-Fine Elyse Pen Needle) atorvastatin 40 mg tablet 40 mg PO BEDTIME 05/09/24 05/09/24 05/09/24 History cyanocobalamin (vitamin B-12) 1,000 mcg IM .QMO 05/09/24 05/09/24 05/09/24 History 1,000 mcg/mL injection solution gabapentin 600 mg tablet 600 mg PO TID 05/09/24 05/09/24 05/09/24 History hydroxyzine HCl 25 mg tablet 50 mg PO BEDTIME 05/09/24 05/09/24 05/09/24 History insulin aspart U-100 100 unit/mL 10 unit SUBCUT TID 05/09/24 05/09/24 05/09/24 History (3 mL) subcutaneous pen (Novolog FlexPen U-100 Insulin aspart) insulin glargine 100 unit/mL (3 70 unit SUBCUT BEDTIME 05/09/24 05/09/24 05/09/24 History mL) subcutaneous pen (Lantus Solostar U-100 Insulin) naproxen 500 mg tablet 500 mg PO BID PRN Pain 05/09/24 05/09/24 Unknown History trazodone 100 mg tablet 300 mg PO BEDTIME 05/09/24 05/09/24 05/09/24 History Allergies Allergy/AdvReac Type Severity Reaction Status Date / Time No Known Allergies Allergy Verified 04/26/24 14:17 PFSH Acute PFSH: Medical History History of colon polyps GERD (gastroesophageal reflux disease) Psychiatric care Type 2 diabetes mellitus Yeast infection involving the vagina and surrounding area Borderline intellectual functioning Major depressive disorder, recurrent severe without psychotic features Surgical History Hx of colonoscopy with polypectomy 2016 H/O tubal ligation H/O section x2 Family History Father Diabetes Grandmother Diabetes paternal Brother Diabetes Grandfather Stroke paternal Sister Thyroid disease Denies family history of Clotting disorder Hyperlipidemia Anesthesia complication Bleeding disorder Hypertension Social History Smoking and tobacco/nicotine status: never used tobacco/nicotine Quit status (tobacco/nicotine): has quit using Year quit tobacco: 2012 Second hand smoke exposure: Yes Alcohol intake: never Substance/Drug Use: never Adopted: No Caregiver/support person: No Lives independently: Yes Household members: none Housing: Apartment Marital status: Marital status details: 2005 Number of children: 2 Number of grandchildren: 3 Highest education level completed: 9th Grade Current occupational status: disabled Pets and animals: No Leisure activites: music, games, reading and other Leisure activities details: [employer] Sexually active: Yes Do you think of yourself as: Straight/Heterosexual Current gender identity: Female Soraida/Adventist: Episcopalian Special soraida needs: No Agree to transfusion: Yes Female Reproductive History: Para: 2 Spontaneous abortions: Yes Vitals/I&O/Wt Last Vital Signs Temp 97.3 F L 05/11/24 06:11 Pulse 105 H 05/11/24 06:11 Resp 18 05/11/24 06:11 Pulse Ox 97 05/11/24 06:11 O2 Del Method Room Air 05/11/24 06:11 Weight last 48 hrs Weight 160 lb A&P Assessment and plan (1) History of colon polyps: Plan Colonoscopy Attestations Medical Necessity Statement*: Home Coding Level of Care Code Acute Code for Chg Fwd Diagnoses History of colon polyps Z86.010
[2024-05-11 07:27] VITALS: BP 106/73; PULSE 83; RESP 14; TEMP 36.3; O2SAT 94
[2024-05-11 07:29] LABS: Glucose Point of Care 274 mg/dL (70-110)
[2024-05-11 07:35] VITALS: BP 118/79; PULSE 91; RESP 18; O2SAT 97
--- NOTE | 2024-05-11 08:40 | ANE.PACU2 ---
Inpatient post-anesthesia follow up: Airway intact: Yes Vital signs: Temperature 97.3 F Pulse Rate 91 Respiratory Rate 18 Blood Pressure 118/79 Pulse Oximetry 97 Oxygen Delivery Me thod Room Air Oxygen Flow Rate Fraction of Inspir ed Oxygen Hydration adequate: Yes Nausea and vomiting: No Pain level: 1 Mental status: Baseline
== END 2024-05-11 08:41 | disposition home or self-care (01) ==
PROVIDERS: PCP Family Medicine; Visit Provider Surgery
PROC: 0DJ08ZZ Inspection of Upper Intestinal Tract, Via Natural or Artificial Opening Endoscopic (ICD-10-PCS; CPT 43235; principal; 2024-05-11 07:00)
PROC: 0DJD8ZZ Inspection of Lower Intestinal Tract, Via Natural or Artificial Opening Endoscopic (ICD-10-PCS; CPT 45378; 2024-05-11 07:00)
DX: Z12.11 Encounter for screening for malignant neoplasm of colon (principal); Z86.010 Personal history of colon polyps; K29.70 Gastritis, unspecified, without bleeding; K21.00 Gastro-esophageal reflux disease with esophagitis, without bleeding; Z79.4 Long term (current) use of insulin; E78.5 Hyperlipidemia, unspecified; M19.90 Unspecified osteoarthritis, unspecified site; E11.40 Type 2 diabetes mellitus with diabetic neuropathy, unspecified; Z87.891 Personal history of nicotine dependence
CPT/HCPCS: 36416; 43239; 45378; 82962; 88305; 88342; J1815; J2704; J7030

== ENCOUNTER → 2024-05-26 10:07 | Outpatient (BNVA) | payer MEDICARE, MEDICAID, SELFPAY ==
[2023-12-16 12:16] VITALS: BP 121/85; BMI 27.8
== END ==
PROVIDERS: PCP Family Medicine; Visit Provider Surgery
DX: Z09 Encounter for follow-up examination after completed treatment for conditions other than malignant neoplasm (principal); K21.00 Gastro-esophageal reflux disease with esophagitis, without bleeding; R10.13 Epigastric pain; R14.0 Abdominal distension (gaseous); R11.0 Nausea
CPT/HCPCS: 99214

== ENCOUNTER → 2024-06-06 11:08 | Outpatient (BNVA) | payer MEDICARE, MEDICAID, SELFPAY ==
[2023-12-16 12:16] VITALS: BP 121/85; BMI 27.8
== END ==
PROVIDERS: PCP Family Medicine; Visit Provider Internal Medicine
DX: E11.42 Type 2 diabetes mellitus with diabetic polyneuropathy (principal); E78.5 Hyperlipidemia, unspecified; Z79.85 Long-term (current) use of injectable non-insulin antidiabetic drugs; Z79.4 Long term (current) use of insulin
CPT/HCPCS: 99214

== ENCOUNTER 2024-06-27 09:27 | Outpatient (CLI) | payer MEDICARE, MEDICAID, SELFPAY ==
[2023-12-16 12:16] VITALS: BP 121/85; BMI 27.8
--- NOTE | 2024-06-27 10:00 | NM_ITS ---
WS: [id number] NUCLEAR MEDICINE HIDA SCAN WITH GALLBLADDER EJECTION FRACTION HISTORY: Epsigastric pain COMPARISON: None available. TECHNIQUE: The patient was intravenously injected with 8.7 mCi of TC99m Mebrofenin. Immediate imaging over the right upper quadrant was followed by 5 minute image and additional images for a total of 60 minutes. Normal uptake of radiotracer throughout the liver. Activity identified in the gallbladder at 15 minutes and well distended by 60 minutes. Activity in the proximal small bowel was seen by 15 minutes. Good washout of the radiotracer from the liver by 60 minutes. The patient then drank 8 ounces of Ensure Plus. Ejection fraction at 70 minutes was 86%. Normal GB ej ection fraction is 35-75%. Post fatty meal symptoms: None. NM/NM hepatobiliary w phar* [id number] IMPRESSION: 1. Normal HIDA scan. 2. Normal gallbladder ejection fraction.
== END 2024-06-27 09:28 | disposition home or self-care (01) ==
PROVIDERS: PCP Family Medicine; Visit Provider Surgery
DX: R14.0 Abdominal distension (gaseous) (principal); R10.13 Epigastric pain; K21.00 Gastro-esophageal reflux disease with esophagitis, without bleeding
CPT/HCPCS: 78227; A9537

== ENCOUNTER → 2024-06-28 14:27 | Outpatient (BNVA) | payer MEDICARE, MEDICAID, SELFPAY ==
[2023-12-16 12:16] VITALS: BP 121/85; BMI 27.8
== END ==
PROVIDERS: PCP Family Medicine; Visit Provider Podiatrist Foot & Ankle Surgery
DX: B35.1 Tinea unguium (principal); E11.40 Type 2 diabetes mellitus with diabetic neuropathy, unspecified; E11.42 Type 2 diabetes mellitus with diabetic polyneuropathy; Z79.4 Long term (current) use of insulin
CPT/HCPCS: 11721

== ENCOUNTER → 2024-07-11 08:46 | Outpatient (BNVA) | payer MEDICARE, MEDICAID, SELFPAY ==
[2023-12-16 12:16] VITALS: BP 121/85; BMI 27.8
== END ==
PROVIDERS: PCP Family Medicine; Visit Provider Surgery
DX: K82.8 Other specified diseases of gallbladder (principal)
CPT/HCPCS: 99214

== ENCOUNTER → 2024-08-01 11:44 | Outpatient (BNVA) | payer MEDICARE, MEDICAID, SELFPAY ==
[2024-08-01 12:22] VITALS: BP 121/85; BMI 27.8
== END ==
PROVIDERS: PCP Family Medicine; Visit Provider Internal Medicine
DX: E11.42 Type 2 diabetes mellitus with diabetic polyneuropathy (principal); E78.5 Hyperlipidemia, unspecified; Z79.4 Long term (current) use of insulin
CPT/HCPCS: 99214

== ENCOUNTER → 2024-08-16 11:32 | Outpatient (BNVA) | payer MEDICARE, MEDICAID, SELFPAY ==
[2024-08-01 12:22] VITALS: BP 121/85; BMI 27.8
== END ==
PROVIDERS: PCP Family Medicine; Visit Provider Internal Medicine Cardiovascular Disease
DX: R07.9 Chest pain, unspecified (principal)
CPT/HCPCS: 93005; 99204

== ENCOUNTER → 2024-09-07 14:48 | Outpatient (BNVA) | payer MEDICARE, MEDICAID, SELFPAY ==
[2024-08-01 12:22] VITALS: BP 121/85; BMI 27.8
== END ==
PROVIDERS: PCP Family Medicine; Visit Provider Podiatrist Foot & Ankle Surgery
DX: B35.1 Tinea unguium (principal); E11.40 Type 2 diabetes mellitus with diabetic neuropathy, unspecified; E11.42 Type 2 diabetes mellitus with diabetic polyneuropathy; Z79.4 Long term (current) use of insulin; L84 Corns and callosities
CPT/HCPCS: 11056; 11721

== ENCOUNTER 2024-09-13 05:38 | Day surgery (SDC) | payer MEDICARE, MEDICAID, SELFPAY ==
[2024-08-01 12:22] VITALS: BP 121/85; BMI 27.8
[2024-09-13] VITALS (10 sets, daily range): BP systolic 111–152; BP diastolic 71–88; PULSE 93–107; RESP 12–28; TEMP 36.1–36.6; O2SAT 92–97; BMI 27.4
[2024-09-13 06:12] LABS: Glucose Point of Care 323 mg/dL (70-110)
--- NOTE | 2024-09-13 06:19 | P.ANESASSM_ITS ---
Pre-Anesthetic Assessment Height/Weight: Height 5 ft 4 in Weight 160 lb Temp Pulse Resp BP Pulse Ox O2 Del Method 97.0 F L 93 16 149/88 97 Room Air 09/13/24 06:06 09/13/24 06:06 09/13/24 06:06 09/13/24 06:06 09/13/24 06:06 09/13/24 06:06 Preop Diagnosis: Biliary dyskinesia Operation Date: 09/13/24 07:00 Proposed Procedures p Laparoscopic Cholecystectomy - 97261, k82.8(Not Applicable) - Bishnu Kendall, DO Was Beta Joan taken within 24 hours: N/A Was Clonidine taken within 24 hours: N/A Last intake: Intake Last Liquid Date 09/12/24 Last Liquid Time 20:00 Last Solid Date 09/12/24 Last Solid Time 18:00 Social No alcohol and No tobacco Quit smoking in 2018 Exam alert, oriented x 3, clear to auscultation bilaterally and regular rate & rhythm Airway Submandibular: within normal limits Cervical ROM: within normal limits Mallampati: Class II Comments: Comments: Edentulous Anesthetic Plan ASA status: 3 Anesthesia: General Other: No prior issues with anesthesia NPO since yesterday History of type 2 diabetes on insulin. Preop BS 323. Hemoglobin A1c 10.8. Patient takes 60 units of Lantus at bedtime and 40 units NovoLog before meals. She only took half her insulin. Will give 20 units insulin and recheck GERD on Protonix Hypertension on lisinopril Labs pending EKG showing sinus rhythm Plan for GETA Medications/Allergies Home Medications Medication Instructions Recorded Confirmed Last Taken Type cetirizine 10 mg capsule (Zyrtec) 10 mg PO DAILY PRN Allergy Symptoms 01/27/20 09/12/24 09/12/24 History lisinopril 20 mg tablet 20 mg PO DAILY 01/27/20 09/12/24 09/11/24 History lancets 32 gauge #400 ea 03/11/22 09/07/24 Unknown Rx blood sugar diagnostic #400 ea 05/19/22 09/07/24 Unknown Rx blood-glucose meter #1 ea 05/19/22 09/07/24 Unknown Rx tizanidine 2 mg capsule 2 mg PO BEDTIME PRN Spasms 11/18/22 09/12/24 09/11/24 History diabetic shoes with 3 inserts #1 ea 09/28/23 09/07/24 Unknown Rx blood-glucose meter,continuous #1 ea 10/14/23 09/07/24 Unknown Rx (Dexcom G7 County Engineer) blood-glucose sensor (Dexcom G7 #9 ea 10/14/23 09/07/24 Unknown Rx Sensor device) blood sugar diagnostic (OneTouch #400 ea 12/10/23 09/07/24 Unknown Rx Verio test strips) pen needle, diabetic 31 gauge x #100 ea 02/12/24 09/07/24 Unknown Rx 01/13 cyanocobalamin (vitamin B-12) 1,000 mcg IM .QMO 05/09/24 09/12/24 08/30/24 History 1,000 mcg/mL injection solution gabapentin 600 mg tablet 1,200 mg PO BEDTIME 05/09/24 09/12/24 09/11/24 History naproxen 500 mg tablet 500 mg PO BID PRN Pain 05/09/24 09/12/24 09/11/24 History pen needle, diabetic 32 gauge x #100 ea 06/06/24 09/07/24 Unknown Rx (BD Elyse 2nd Gen Pen Needle) bupropion HCl 150 mg 24 hr tablet, 150 mg PO QAM #90 tabs 06/09/24 09/12/24 09/12/24 Rx extended release (Wellbutrin XL) bupropion HCl 300 mg 24 hr tablet, 300 mg PO QAM #90 tabs 06/09/24 09/12/24 09/12/24 Rx extended release (Wellbutrin XL) hydroxyzine HCl 25 mg tablet 50 mg (2 x 25 mg) PO BEDTIME #60 06/09/24 09/12/24 09/11/24 Rx tabs trazodone 100 mg tablet 300 mg (3 x 100 mg) PO BEDTIME #90 06/09/24 09/12/24 09/11/24 Rx tabs diabetic shoes with 3 inserts #1 ea 06/28/24 09/07/24 Unknown Rx atorvastatin 80 mg tablet (Lipitor) 80 mg PO DAILY #90 tabs 08/16/24 09/12/24 09/12/24 Rx ezetimibe 10 mg tablet (Zetia) 10 mg PO DAILY #30 tabs 08/16/24 09/12/24 09/12/24 Rx insulin aspart U-100 100 unit/mL 40 unit SUBCUT TID 09/12/24 09/12/24 09/12/24 History (3 mL) subcutaneous pen (Novolog FlexPen U-100 Insulin aspart) insulin glargine 100 unit/mL (3 60 unit SUBCUT BEDTIME 09/12/24 09/12/24 09/11/24 History mL) subcutaneous pen (Lantus Solostar U-100 Insulin) lancets 33 gauge (OneTouch Delica #100 ea 09/12/24 Unknown Rx Plus Lancet) montelukast 10 mg tablet 10 mg PO DAILY 09/12/24 09/12/24 09/12/24 History (Singulair) pantoprazole 40 mg tablet,delayed 40 mg PO DAILY 09/12/24 09/12/24 09/12/24 History release (Protonix) Allergies Allergy/AdvReac Type Severity Reaction Status Date / Time No Known Allergies Allergy Verified 09/12/24 09:29 [facility] Anesthesia Medical History History of colon polyps GERD (gastroesophageal reflux disease) Psychiatric care Type 2 diabetes mellitus Yeast infection involving the vagina and surrounding area Borderline intellectual functioning Major depressive disorder, recurrent severe without psychotic features Surgical History Hx of colonoscopy with polypectomy 2016 H/O tubal ligation H/O section x2 Family History Father Diabetes Grandmother Diabetes paternal Brother Diabetes Grandfather Stroke paternal Sister Thyroid disease Denies family history of Clotting disorder Hyperlipidemia Anesthesia complication Bleeding disorder Hypertension Social History Smoking and tobacco/nicotine status: former use of tobacco/nicotine Quit status (tobacco/nicotine): has quit using Year quit tobacco: 2012 Second hand smoke exposure: Yes Alcohol intake: never Substance/Drug Use: never Adopted: No Caregiver/support person: No Lives independently: Yes Household members: none Housing: Apartment Marital status: Marital status details: 2005 Number of children: 2 Number of grandchildren: 3 Highest education level completed: 9th Grade Current occupational status: disabled Pets and animals: No Leisure activites: music, games, reading and other Leisure activities details: Recommend Sexually active: Yes Do you think of yourself as: Straight/Heterosexual Current gender identity: Female Soraida/Anglican: Uatsdin Special soraida needs: No Agree to transfusion: Yes Female Reproductive History Para: 2 Spontaneous abortions: Yes Data Anesthesia 09/13/24 06:09 09/13/24 06:09 Cardiac Studies: 2 No Data to Display
[2024-09-13] MEDS: sodium chloride 0.9% 1,000 ML 30 ML IV (06:20)
[2024-09-13 06:26] LABS: Basophils # 0.1 10^3/uL (0.0-0.1); Basophils % 0.7 %; Eosinophils # 0.2 10^3/uL (0.0-0.8); Eosinophils % 2.1 %; Hematocrit 40.2 % (36-47); Lymphocytes # 3.2 10^3/uL (0.8-4.8); Lymphocytes % 37.2 %; Mean Corpuscular HGB Conc 34.1 g/dL (30-55); Mean Corpuscular Hemoglobin 28.5 pg (27-33); Mean Corpuscular Volume 83.6 fl (85-98); Mean Platelet Volume 10.8 fL (7.4-10.4); Monocytes # 0.8 10^3/uL (0.2-0.9); Monocytes % 9.8 %; Neutrophils # 4.23 10^3/uL (1.8-7.7); Neutrophils % 49.5 %; Nucleated Red Blood Cells % 0 %; Platelet Count 248 10^3/cmm (157-399); Red Blood Count 4.81 10^6/uL (3.85-5.65); Red Cell Distribution Width 12.2 % (12.1-15.1); White Blood Count 8.55 10^3/uL (3.29-11.43)
[2024-09-13] MEDS: insulin regular-human 100 units/1 mL 20 UNIT IVP (06:41)
[2024-09-13 06:42] LABS: Anion Gap 15.2 (5-19); Blood Urea Nitrogen 14 mg/dL (8-23); Calcium 9.3 mg/dL (8.5-10.5); Carbon Dioxide 26 mmol/L (22-29); Chloride 96 mmol/L (98-107); Creatinine Clr Calc Pharmacy 97.3565; Glucose 315 mg/dL (65-115); Osmolality Calculated 289 mOsm/kg (285-295); Potassium 4.2 mmol/L (3.5-5.1); Sodium 133 mmol/L (136-145)
--- NOTE | 2024-09-13 06:59 | P.HP_ITS ---
Providers/Chief Complaint 2 Primary Care Provider: Kati Singh DO Chief Complaint: K82.8 History of Present Illness Julia Lovett is a 59 year old female Review of Systems 2 General: Reports: 10 or more systems reviewed and unremarkable except in HPI and below Medications/Allergies Home Medications Medication Instructions Recorded Confirmed Last Taken Type cetirizine 10 mg capsule (Zyrtec) 10 mg PO DAILY PRN Allergy Symptoms 01/27/20 09/12/24 09/12/24 History lisinopril 20 mg tablet 20 mg PO DAILY 01/27/20 09/12/24 09/11/24 History lancets 32 gauge #400 ea 03/11/22 09/07/24 Unknown Rx blood sugar diagnostic #400 ea 05/19/22 09/07/24 Unknown Rx blood-glucose meter #1 ea 05/19/22 09/07/24 Unknown Rx tizanidine 2 mg capsule 2 mg PO BEDTIME PRN Spasms 11/18/22 09/12/24 09/11/24 History diabetic shoes with 3 inserts #1 ea 09/28/23 09/07/24 Unknown Rx blood-glucose meter,continuous #1 ea 10/14/23 09/07/24 Unknown Rx (Dexcom G7 Door Frame Builder) blood-glucose sensor (Dexcom G7 #9 ea 10/14/23 09/07/24 Unknown Rx Sensor device) blood sugar diagnostic (OneTouch #400 ea 12/10/23 09/07/24 Unknown Rx Verio test strips) pen needle, diabetic 31 gauge x #100 ea 02/12/24 09/07/24 Unknown Rx 5/16 cyanocobalamin (vitamin B-12) 1,000 mcg IM .QMO 05/09/24 09/12/24 08/30/24 History 1,000 mcg/mL injection solution gabapentin 600 mg tablet 1,200 mg PO BEDTIME 05/09/24 09/12/24 09/11/24 History naproxen 500 mg tablet 500 mg PO BID PRN Pain 05/09/24 09/12/24 09/11/24 History pen needle, diabetic 32 gauge x #100 ea 06/06/24 09/07/24 Unknown Rx 5/32 (BD Elyse 2nd Gen Pen Needle) bupropion HCl 150 mg 24 hr tablet, 150 mg PO QAM #90 tabs 06/09/24 09/12/24 09/12/24 Rx extended release (Wellbutrin XL) bupropion HCl 300 mg 24 hr tablet, 300 mg PO QAM #90 tabs 06/09/24 09/12/24 09/12/24 Rx extended release (Wellbutrin XL) hydroxyzine HCl 25 mg tablet 50 mg (2 x 25 mg) PO BEDTIME #60 06/09/24 09/12/24 09/11/24 Rx tabs trazodone 100 mg tablet 300 mg (3 x 100 mg) PO BEDTIME #90 06/09/24 09/12/24 09/11/24 Rx tabs diabetic shoes with 3 inserts #1 ea 06/28/24 09/07/24 Unknown Rx atorvastatin 80 mg tablet (Lipitor) 80 mg PO DAILY #90 tabs 08/16/24 09/12/24 09/12/24 Rx ezetimibe 10 mg tablet (Zetia) 10 mg PO DAILY #30 tabs 08/16/24 09/12/24 09/12/24 Rx insulin aspart U-100 100 unit/mL 40 unit SUBCUT TID 09/12/24 09/12/24 09/12/24 History (3 mL) subcutaneous pen (Novolog FlexPen U-100 Insulin aspart) insulin glargine 100 unit/mL (3 60 unit SUBCUT BEDTIME 09/12/24 09/12/24 09/11/24 History mL) subcutaneous pen (Lantus Solostar U-100 Insulin) lancets 33 gauge (OneTouch Delica #100 ea 09/12/24 Unknown Rx Plus Lancet) montelukast 10 mg tablet 10 mg PO DAILY 09/12/24 09/12/24 09/12/24 History (Singulair) pantoprazole 40 mg tablet,delayed 40 mg PO DAILY 09/12/24 09/12/24 09/12/24 History release (Protonix) Allergies Allergy/AdvReac Type Severity Reaction Status Date / Time No Known Allergies Allergy Verified 09/12/24 09:29 PFSH Acute 2 PFSH: Medical History History of colon polyps GERD (gastroesophageal reflux disease) Psychiatric care Type 2 diabetes mellitus Yeast infection involving the vagina and surrounding area Borderline intellectual functioning Major depressive disorder, recurrent severe without psychotic features Surgical History Hx of colonoscopy with polypectomy 2016 H/O tubal ligation H/O section x2 Family History Father Diabetes Grandmother Diabetes paternal Brother Diabetes Grandfather Stroke paternal Sister Thyroid disease Denies family history of Clotting disorder Hyperlipidemia Anesthesia complication Bleeding disorder Hypertension Social History Smoking and tobacco/nicotine status: former use of tobacco/nicotine Quit status (tobacco/nicotine): has quit using Year quit tobacco: 2012 Second hand smoke exposure: Yes Alcohol intake: never Substance/Drug Use: never Adopted: No Caregiver/support person: No Lives independently: Yes Household members: none Housing: Apartment Marital status: Marital status details: 2005 Number of children: 2 Number of grandchildren: 3 Highest education level completed: 9th Grade Current occupational status: disabled Pets and animals: No Leisure activites: music, games, reading and other Leisure activities details: [employer] Sexually active: Yes Do you think of yourself as: Straight/Heterosexual Current gender identity: Female Soraida/Oriental Orthodox: Christian Special soraida needs: No Agree to transfusion: Yes Female Reproductive History: Para: 2 Spontaneous abortions: Yes Vitals/I&O/Wt Last Vital Signs Temp 97.0 F L 09/13/24 06:06 Pulse 93 09/13/24 06:06 Resp 16 09/13/24 06:06 BP 149/88 09/13/24 06:06 Pulse Ox 97 09/13/24 06:06 O2 Del Method Room Air 09/13/24 06:06 Weight last 48 hrs Weight 160 lb Data 09/13/24 06:09 09/13/24 06:09 A&P Assessment and plan (1) Biliary dyskinesia: Plan LAPAROSCOPIC CHOLECYSTECTOMY Attestations 2 Medical Necessity Statement*: home Coding Level of Care Code Acute Code for Chg Fwd Diagnoses Biliary dyskinesia K82.8
[2024-09-13] MEDS: ceFAZolin 2,000 mg SDV 2000 MG IVP (07:00)
[2024-09-13] MEDS: lidocaine-epi 2% PF 1:200,000 20 mL SDV 5 ML XX (07:30)
[2024-09-13 07:37] LABS: Glucose Point of Care 231 mg/dL (70-110)
--- NOTE | 2024-09-13 07:39 | P.OP_ITS ---
Operative Report Date of procedure: September 13, 2024 Surgeon: Bishnu Kendall DO Brief History: This is a very pleasant 59-year-old female who presented to my office with abdominal pain nausea and bloating with eating. She was diagnosed with biliary dyskinesia. Laparoscopic cholecystectomy is indicated. The risks and benefits were explained and documented. Procedure: Preoperative diagnosis: Biliary dyskinesia Postoperative diagnosis: Same Procedure performed: Laparoscopic cholecystectomy Surgeon: Dr. Bishnu Kendall DO Estimated blood loss: 5 mL Specimens: Gallbladder to pathology Complications: None apparent Description of procedure: Patient was wheeled into the operative room and placed on the OR table in a supine position. Abdomen was inspected prepped and draped in usual sterile fashion. Time-out was performed and all present were in agreement. A 15 blade scalp was used to make a stab incision in the left upper quadrant and intra- abdominal insufflation was achieved using a Veress needle. After localizing the tissue incisions were made and a 5 millimeter trocar was placed into the umbilicus as well as 2 in the right upper quadrant. A 12 millimeter trocar was placed in the epigastrium. Gallbladder was grasped and elevated. The triangle of Calot was carefully dissected using blunt dissection and electrocautery until the triangle of Calot clearly identified. The cystic duct was clipped proximally and double clipped distally. The duct was then ligated proximally. The cystic artery was doubly clipped and ligated. The gallbladder was then rem esteban from the liver bed using electrocautery. The gallbladder was removed from the abdomen using an Endo-Catch bag through the epigastric incision. The liver bed was inspected and no bleeding was seen. The abdomen was irrigated and suctioned. All ports removed. Skin was washed and dried. Incisions were closed with 4-0 Monocryl in a subcuticular interrupted fashion. Skin glue was applied. Patient tolerated the procedure well.
[2024-09-13 08:12] LABS: Glucose Point of Care 149 mg/dL (70-110)
[2024-09-13 08:26] LABS: Glucose Point of Care 172 mg/dL (70-110)
--- NOTE | 2024-09-13 09:37 | ANE.PACU2 ---
Inpatient post-anesthesia follow up: Airway intact: Yes Vital signs: Temperature 98 F Pulse Rate 93 Respiratory Rate 15 Blood Pressure 133/72 Pulse Oximetry 95 Oxygen Delivery Me thod Room Air Oxygen Flow Rate Fraction of Inspir ed Oxygen Hydration adequate: Yes Nausea and vomiting: No Pain level: 1 Mental status: Baseline
--- NOTE | 2024-09-13 09:58 | SUR.PHASEII ---
09 [facility] called to pick pt up to bring home [id number] [facility] here and pt assisted to vehicle, still no c/o pain
== END 2024-09-13 09:30 | disposition home or self-care (01) ==
PROVIDERS: Student in an Organized Health Care Education/Training Program; PCP Family Medicine; Visit Provider Surgery
PROC: 0FT44ZZ Resection of Gallbladder, Percutaneous Endoscopic Approach (ICD-10-PCS; CPT 47562; principal; 2024-09-13 07:00)
DX: K80.10 Calculus of gallbladder with chronic cholecystitis without obstruction (principal); E11.9 Type 2 diabetes mellitus without complications; Z79.4 Long term (current) use of insulin; K21.9 Gastro-esophageal reflux disease without esophagitis; I10 Essential (primary) hypertension; Z87.891 Personal history of nicotine dependence
CPT/HCPCS: 47562; 36415; 36416; 80048; 82962; 85025; 88304; J0690; J1200; J1815; J2371; J2704; J3010; J3490; J7030

== ENCOUNTER → 2024-09-26 09:58 | Outpatient (BNVA) | payer MEDICARE, MEDICAID, SELFPAY ==
[2024-08-01 12:22] VITALS: BP 121/85; BMI 27.8
== END ==
PROVIDERS: PCP Family Medicine; Visit Provider Surgery
DX: K58.9 Irritable bowel syndrome, unspecified (principal); R10.13 Epigastric pain; R14.0 Abdominal distension (gaseous); Z90.49 Acquired absence of other specified parts of digestive tract
CPT/HCPCS: 99214

== ENCOUNTER → 2024-10-24 10:25 | Outpatient (BNVA) | payer MEDICARE, MEDICAID, SELFPAY ==
[2024-08-01 12:22] VITALS: BP 121/85; BMI 27.8
== END ==
PROVIDERS: PCP Family Medicine; Visit Provider Surgery
DX: K58.9 Irritable bowel syndrome, unspecified (principal); R14.0 Abdominal distension (gaseous)
CPT/HCPCS: 99214

== ENCOUNTER → 2024-11-02 11:33 | Outpatient (BNVA) | payer MEDICARE, MEDICAID, SELFPAY ==
[2024-11-02 12:15] VITALS: BP 121/85; BMI 27.8
== END ==
PROVIDERS: PCP Family Medicine; Visit Provider Internal Medicine
DX: E11.42 Type 2 diabetes mellitus with diabetic polyneuropathy (principal); Z79.4 Long term (current) use of insulin; E11.40 Type 2 diabetes mellitus with diabetic neuropathy, unspecified; E78.5 Hyperlipidemia, unspecified
CPT/HCPCS: 99214

== ENCOUNTER → 2024-11-09 14:46 | Outpatient (BNVA) | payer MEDICARE, MEDICAID, SELFPAY ==
[2024-11-02 12:15] VITALS: BP 121/85; BMI 27.8
== END ==
PROVIDERS: PCP Family Medicine; Visit Provider Podiatrist Foot & Ankle Surgery
DX: E11.40 Type 2 diabetes mellitus with diabetic neuropathy, unspecified (principal); B35.1 Tinea unguium; E11.42 Type 2 diabetes mellitus with diabetic polyneuropathy; Z79.4 Long term (current) use of insulin
CPT/HCPCS: 11056; 11721

== ENCOUNTER 2024-11-10 09:45 | Outpatient (CLI) | payer MEDICARE, MEDICAID, SELFPAY ==
[2024-11-02 12:15] VITALS: BP 121/85; BMI 27.8
[2024-11-10 11:00] LABS: Glucose Fasting 227 mg/dL (74-106)
[2024-11-11 06:41] LABS: C-Peptide 0.25 ng/mL (0.80-3.85)
== END 2024-11-10 09:46 | disposition home or self-care (01) ==
PROVIDERS: PCP Family Medicine; Visit Provider Internal Medicine
DX: E11.42 Type 2 diabetes mellitus with diabetic polyneuropathy (principal); Z79.4 Long term (current) use of insulin; E11.40 Type 2 diabetes mellitus with diabetic neuropathy, unspecified
CPT/HCPCS: 36415; 82947; 84681; 86337; 86341

== ENCOUNTER → 2024-11-15 09:54 | Outpatient (BNVA) | payer MEDICARE, MEDICAID, SELFPAY ==
[2024-11-02 12:15] VITALS: BP 121/85; BMI 27.8
== END ==
PROVIDERS: PCP Family Medicine; Visit Provider Nurse Practitioner Family
DX: E11.42 Type 2 diabetes mellitus with diabetic polyneuropathy (principal); I10 Essential (primary) hypertension; E78.2 Mixed hyperlipidemia; Z79.4 Long term (current) use of insulin
CPT/HCPCS: 80053; 80061; 99213

== ENCOUNTER 2024-11-30 20:24 | Inpatient (IN) | payer MEDICARE, MEDICAID, SELFPAY ==
[2024-11-02 12:15] VITALS: BP 121/85; BMI 27.8
[2024-11-30 20:25] VITALS: BP 167/83; PULSE 114; RESP 18; TEMP 36.6; O2SAT 97; BMI 26.2
--- NOTE | 2024-11-30 20:33 | W.ED.GENADLT ---
HPI - General Adult General: Chief complaint: General Medical Stated complaint: high bs Time Seen by Provider: 11/30/24 20:27 History of Present Illness: 59-year-old female with a history of GERD, insulin-dependent type 2 diabetes, hypertension borderline intellectual function and depression who presents to the emergency room with hyperglycemia. She says she has not taken her insulin in about a week because she did not have any way of checking her sugar. She says she called the ambulance today because she was just feeling worse. Generalized malaise and fatigue. She has some nausea but no vomiting. No fevers. No chest pain. No shortness of breath. No abdominal pain. Related Data Home Medications ?Medication ?Instructions ?Recorded ?Confirmed cetirizine 10 mg capsule (Zyrtec) 10 mg PO DAILY PRN Allergy Symptoms 01/27/20 11/15/24 tizanidine 2 mg capsule 2 mg PO BEDTIME PRN Spasms 11/18/22 11/15/24 gabapentin 600 mg tablet 1,200 mg PO BEDTIME 05/09/24 11/15/24 naproxen 500 mg tablet 500 mg PO BID PRN Pain 05/09/24 11/15/24 Held on 09/13/24. Instructions: Resume on 09/16/24. insulin aspart U-100 100 unit/mL 40 unit SUBCUT TID 09/12/24 11/15/24 (3 mL) subcutaneous pen (Novolog FlexPen U-100 Insulin aspart) montelukast 10 mg tablet 10 mg PO DAILY 09/12/24 11/15/24 (Singulair) pantoprazole 40 mg tablet,delayed 40 mg PO DAILY 09/12/24 11/15/24 release (Protonix) Previous Rx's ?Medication ?Instructions ?Recorded lancets 32 gauge #400 ea 03/11/22 blood sugar diagnostic #400 ea 05/19/22 blood-glucose meter #1 ea 05/19/22 diabetic shoes with 3 inserts #1 ea 09/28/23 blood-glucose meter,continuous #1 ea 10/14/23 (Dexcom G7 Benefits Analyst) blood-glucose sensor (Dexcom G7 #9 ea 10/14/23 Sensor device) blood sugar diagnostic (OneTouch #400 ea 12/10/23 Verio test strips) pen needle, diabetic 31 gauge x #100 ea 02/12/2401/13 pen needle, diabetic 32 gauge x #100 ea 06/06/24 (BD Elyse 2nd Gen Pen Needle) diabetic shoes with 3 inserts #1 ea 06/28/24 atorvastatin 80 mg tablet (Lipitor) 80 mg PO DAILY #90 tabs 08/16/24 ezetimibe 10 mg tablet (Zetia) 10 mg PO DAILY #30 tabs 08/16/24 docusate sodium 100 mg capsule 100 mg PO BID #14 caps 09/13/24 (Colace) hydrocodone 7.5 mg-acetaminophen 1 tab PO Q6H PRN pain #20 tabs 09/13/24 325 mg tablet bupropion HCl 150 mg 24 hr tablet, 150 mg PO QAM #90 tabs 10/07/24 extended release (Wellbutrin XL) bupropion HCl 300 mg 24 hr tablet, 300 mg PO QAM #90 tabs 10/07/24 extended release (Wellbutrin XL) hydroxyzine HCl 25 mg tablet 50 mg (2 x 25 mg) PO BEDTIME #60 10/07/24 tabs trazodone 100 mg tablet 300 mg (3 x 100 mg) PO BEDTIME #90 10/07/24 tabs insulin glargine 100 unit/mL (3 See Rx Instructions .Route 10/12/24 mL) subcutaneous pen (Lantus .COMPLEX #75 mL Solostar U-100 Insulin) dicyclomine 20 mg tablet 40 mg (2 x 20 mg) PO QID 1 month 10/24/24 #240 tabs amlodipine 5 mg tablet 5 mg PO DAILY #30 tabs 11/15/24 lancets 33 gauge (OneTouch Delyandel #100 ea 11/28/24 Plus Lancet) Allergies Allergy/AdvReac Type Severity Reaction Status Date / Time No Known Allergies Allergy Verified 11/30/24 20:30 Review of Systems Narrative: Constitutional symptoms: Negative except as documented in HPI. Skin symptoms: Negative except as documented in HPI. Eye symptoms: Negative except as documented in HPI. ENMT symptoms: Negative except as documented in HPI. Respiratory symptoms: Negative except as documented in HPI. Cardiovascular symptoms: Negative except as documented in HPI. Gastrointestinal symptoms: Negative except as documented in HPI. Genitourinary symptoms: Negative except as documented in HPI. Musculoskeletal symptoms: Negative except as documented in HPI. Neurologic symptoms: Negative except as documented in HPI. Psychiatric symptoms: Negative except as documented in HPI. Endocrine symptoms: Negative except as documented in HPI. PFSH ED PFSH: Medical History History of colon polyps GERD (gastroesophageal reflux disease) Psychiatric care Type 2 diabetes mellitus Yeast infection involving the vagina and surrounding area Borderline intellectual functioning Major depressive disorder, recurrent severe without psychotic features Surgical History Hx laparoscopic cholecystectomy 09/13/24 Dr. Kendall Hx of colonoscopy with polypectomy 2016 H/O tubal ligation H/O section x2 Family History Father Diabetes Grandmother Diabetes paternal Brother Diabetes Grandfather Stroke paternal Sister Thyroid disease Denies family history of Clotting disorder Hyperlipidemia Anesthesia complication Bleeding disorder Hypertension Social History Smoking and tobacco/nicotine status: never used tobacco/nicotine Quit status (tobacco/nicotine): has quit using Year quit tobacco: 2012 Second hand smoke exposure: Yes Alcohol intake: never Substance/Drug Use: never Adopted: No Caregiver/support person: No Lives independently: Yes Household members: none Housing: Apartment Marital status: Marital status details: 2005 Number of children: 2 Number of grandchildren: 3 Highest education level completed: 9th Grade Current occupational status: disabled Pets and animals: No Leisure activites: music, games, reading and other Leisure activities details: [employer] Sexually active: Yes Do you think of yourself as: Straight/Heterosexual Current gender identity: Female Soraida/Baptist: Restorationist Special soraida needs: No Agree to transfusion: Yes Female Reproductive History: Para: 2 Spontaneous abortions: Yes Physical Exam Narrative: EXAM NARRATIVE: General: Alert, no acute distress. Skin: Warm, dry. Head: Normocephalic, atraumatic. Neck: Supple, trachea midline. Eye: Extraocular movements are intact. Ears, nose, mouth and throat: Tacky oral mucosa Cardiovascular: Regular, tachycardic, normal peripheral perfusion. Respiratory: Lungs are clear to auscultation, respirations are non-labored, breath sounds are equal, Symmetrical chest wall expansion. Gastrointestinal: Soft, Nontender, Non distended Musculoskeletal: Normal ROM, no deformity. Neurological: Alert and oriented, No focal neurological deficit observed. Psychiatric: Cooperative, appropriate mood & affect. Course Vital Signs: Vital signs: Vital Signs Temperature 97.9 F 11/30/24 20:25 Pulse Rate 114 H 11/30/24 20:25 Respiratory Rate 18 11/30/24 20:25 Blood Pressure 167/83 11/30/24 20:25 Pulse Oximetry 97 11/30/24 20:25 Oxygen Delivery Me thod Room Air 11/30/24 20:25 MDM - General Adult Medical Decision Making Medical decision making: Differential diagnosis for the patient with hyperglycemia would include but not be limited to and would be based on the above HPI review of systems and physical exam: DKA. Dehydration. Renal failure. Concern for electrolyte abnormalities. Concern for underlying infection that might result in hyperglycemia. Medical non-compliance Orders placed to evaluate differential diagnosis of the patient with hyperglycemia are based on the above differential, HPI and physical exam. Arterial blood gas: 7. with a bicarb of 9 on room air. Metabolic acidosis. EKG: Time 2041. Rate 120. Sinus tachycardia, No ST-T changes, no ectopy, normal [place] & QRS intervals, This was reviewed and interpreted by myself the ER physician at 2045. Lab Review: Laboratory results were reviewed and interpreted by myself the emergency room physician. Patient has a fairly significant leukocytosis with a white count of 22,000. No anemia. She does have some renal failure with a BUN/creatinine of 41.9. Blood glucose 722. Bicarb is 11. Potassium is little elevated at 6.3. Sodium is 124 but likely secondary to her glucose. I reviewed the patient's medical record. history of GERD, insulin-dependent type 2 diabetes, hypertension borderline intellectual function and depression Reexamination: Patient remained stable. No increased work of breathing. No altered mental status. No focal motor deficits. Consultation: I spoke with Dr. De Luna who is on-call for the hospitalist service who agrees to admission to the intensive care unit. Assessment and plan: Diabetic ketoacidosis Hyperglycemia Medical noncompliance Acute renal failure Dehydration Sepsis Urinary tract infection ?2 L normal saline bolus. ?10 units IV insulin ? 2 L normal saline bolus ? Initiating insulin drip. -concern for sepsis with the white count 22,000 with an 88% left shift. ?Patient has a fairly significant leukocytosis. And she was little tachycardic so she could be septic I think this is just from her hyperglycemia and DKA but I am giving broad-spectrum antibiotics and fluids. ?Urinalysis did come back and she does have a significant urinary tract infection. -2L normal saline bolus. -Cefepime e ?Added a chest x-ray. -Sepsis quality measures. -Lactic acid with a reflex was ordered. -Blood cultures were ordered. -I discussed the patient with the hospitalist on-call who is admitting the patient. - Discussed findings and plan with patient. Answered any questions. - All laboratory values were reviewed and interpreted personally by myself, the ER physician - All imaging was reviewed and interpreted personally by myself, the ER physician. - Evaluation and treatment of this problem were appropriate in the emergency setting Critical care -I spent a total of >35 minutes of critical care time managing the patient, independent of any other practitioner. -The time involved in the performance of separately reportable procedures was not counted towards critical care time. Lab Data 11/30/24 20:29 11/30/24 20: Laboratory Results WBC 22.43 10^3/uL (3.29-11.43) H 11/30/24 20: RBC 4.46 10^6/uL (3.85-5.65) 11/30/24 20: Hgb 11.90 g/dL (11.27-16.99) 11/30/24 20: Hct 38.4 % (36-47) 11/30/24: MCV 86.1 fl (85-98) 11/30/24 20: MCH 26.7 pg (27-33) L 11/30/24 20: MCHC 31.0 g/dL (30-55) 11/30/24 20: RDW 12.2 % (12.1-15.1) 11/30/24: Plt Count 536 10^3/cmm (157-399) H 11/30/24 20: MPV 9.9 fL (7.4-10.4) 11/30/24 20: Neut % (Auto) 88.6 % 11/30/24: Lymph % (Auto) 5.2 % 11/30/24: [place] % (Auto) 3.3 % 11/30/24: Eos % (Auto) 0.0 % 11/30/24: Baso % (Auto) 0.5 % 11/30/24: Neut # (Auto) 19.88 10^3/uL (1.8-7.7) H 11/30/24: Lymph # (Auto) 1.2 10^3/uL (0.8-4.8) 11/30/24: [place] # (Auto) 0.7 10^3/uL (0.2-0.9) 11/30/24: Eos # (Auto) 0.0 10^3/uL (0.0-0.8) 11/30/24 Baso # (Auto) 0.1 10^3/uL (0.0-0.1) 11/30/24 Nucleated RBC % (auto) 0 % 11/30/24 Nucleated RBCs # 0.0 /100WBC 11/30/24 Specimen Type Arterial 11/30/24: Sample Site Radial, right 11/30/24: ABG pH 7.18 (7.35-7.45) L* 11/30/24: ABG pCO2 24.8 mmHg (35-45) L 11/30/24: ABG pO2 85.6 mmHg (80.0-100.0) 11/30/24: ABG PO2/FiO2 Ratio 356 11/30/24: ABG HCO3 9.2 mmol/L (22-26) L 11/30/24 20: ABG O2 Saturation 96.2 11/30/24: ABG Base Excess -17.5 mmol/L (-2.0-2.0) L 11/30/24: [place] Test Pos 11/30/24: A-a O2 Gradient 6.6 mmHg (5-10) 11/30/24: Hematocrit 33.7 % (37-47) L 11/30/24: Hgb O2 Saturation 96.3 % (95-100) 11/30/24: Carboxyhemoglobin 1.0 %THgb (0.4-20.1) 11/30/24 20:34 Methemoglobin < 0.0 % (0.4-1.5) L 11/30/24 20:34 Total Hemoglobin 11.0 g/dL (12-16) L 11/30/24 20:34 Sodium 126.0 mmol/L (131-143) L 11/30/24 20:34 Potassium 6.1 mmol/L (3.5-5.0) H 11/30/24 20:34 Glucose 717.0 mg/dL (70-115) H 11/30/24 20:34 Ionized Calcium 1.2 mmol/L (1.1-1.4) 11/30/24:34 O2 Delivery Device Room air 11/30/24 20: FiO2 24.0 % 11/30/24 20:34 Club Room Attendant ID [id number] 11/30/24 20:34 Sodium 124 mmol/L (136-145) L 11/30/24 20: Potassium 6.3 mmol/L (3.5-5.1) H 11/30/24 20: Chloride 79 mmol/L (98-107) L 11/30/24 20:29 Carbon Dioxide 11 mmol/L (22-29) L 11/30/24 20: Anion Gap 40.3 (5-19) H 11/30/24 20:29 BUN 48 mg/dL (8-23) H 11/30/24 20:29 Creatinine 1.9 mg/dL (0.5-0.9) H 11/30/24 20:29 GFR Calculation 27.0 mL/min (90-130) L 11/30/24 20:29 Glucose 722 mg/dL (65-115) H* 11/30/24 20:29 POC Glucose > 600 mg/dL (70-110) H* 11/30/24 21:00 Calculated Osmolality 305 mOsm/kg (285-295) H 11/30/24 20: Calcium 10.1 mg/dL (8.5-10.5) 11/30/24 20: Total Bilirubin 0.3 mg/dL (0.15-1.2) 11/30/24 20: AST 9 U/L (0-32) 11/30/24 20:29 ALT 15 U/L (0-33) 11/30/24 20:29 Alkaline Phosphatase 264 U/L (35-105) H 11/30/24 20:29 Total Protein 8.7 g/dL (6.6-8.7) 11/30/24 20: Albumin 4.2 g/dL (3.5-5.2) 11/30/24 20: Globulin 4.5 g/dL (1.3-4.6) 11/30/24 20: Urine Color Other (Yellow) A 11/30/24 21: Urine Appearance Slightly cloudy (CLEAR) 11/30/24 21: Urine pH 5 (5-7) 11/30/24 21: Ur Specific [place] 1.015 (1.005-1.030) 11/30/24 21: Urine Protein Trace (Negative) 11/30/24 21: Urine Glucose (UA) 4+ (Normal) H 11/30/24 21: Urine Ketones 3+ (Negative) H 11/30/24 21: Urine Blood 3+ (Negative) H 11/30/24 21: Urine Nitrate Negative (Negative) 11/30/24 21: Urine Bilirubin Neg (Negative) 11/30/24 21: Urine Urobilinogen Norm mg/dL (Negative) 11/30/24 21:05 Ur Leukocyte Esterase 1+ (Negative) H 11/30/24 21:05 Urine RBC 0-4 /hpf (0-2) H 11/30/24 21:05 Urine WBC 40-55 /hpf (0-5) H 11/30/24 21:05 Ur Squamous Epith Cells 0-4 /hpf (0-5) H 11/30/24 21:05 Amorphous Sediment Not Reportable 11/30/24 21:05 Urine Bacteria Trace /hpf (NONE) 11/30/24 21:05 Serum Ketones Positive (Negative) H 11/30/24 20:29 Influenza A (PCR) Negative (Negative) 11/30/24 20:44 Influenza Type B (PCR) Negative (Negative) 11/30/24 20:44 RSV (PCR) Negative (Negative) 11/30/24 20:44 SARS-CoV-2 (PCR) Negative (Negative) 11/30/24 20:44 No radiology studies performed this visit Discharge Plan Discharge Patient Disposition: Admitted As Inpatient Clinical Impression: DKA (diabetic ketoacidosis), Acute renal failure, Dehydration, Hyperglycemia, Sepsis, Urinary tract infection Condition: Stable Coding Level of Care Code ED Physical Education Specialist for Nik Brenner
[2024-11-30] MEDS: ondansetron 2 mg/ML SDV 2 mL 4 MG IVP ×2 (20:42→23:16)
[2024-11-30] MEDS: sodium chloride 0.9% 1,000 ML 999 ML IV ×2 (20:42→21:31)
--- NOTE | 2024-11-30 20:42 | ECG_ITS ---
[facility]: 2024-11-30 Pat Name: Julia Lovett Department: Room: Gender: Female Group Controller: : [id number] Requested By: Génesis Suarez Order Number: [id number] Naz MD: Alan Domínguez M.D. Measurements Intervals [place] Rate: 120 P: 97 [place]: 180 QRS: -3 QRSD: 103 T: 29 QT: 331 QTc: 468 Interpretive Statements SINUS TACHYCARDIA PROBABLE INFERIOR MYOCARDIAL INFARCTION , PROBABLY OLD [35 ms Q WAVE IN II/aVF] Compared to ECG 08/16/2024 11:37:28 Myocardial infarct finding now present Sinus rhythm no longer present Electronically Signed On 12-01-2024 17:35:34 CDT by Alan Domínguez M.D. [id number] [id number]
[2024-11-30 20:43] LABS: ABG PCO2 24.8 mmHg (35-45); Alveolar-Arterial Oxygen Gradi 6.6 mmHg (5-10); Arterial Blood Gas Hematocrit 33.7 % (37-47); Base Excess ABG -17.5 mmol/L (-2.0-2.0); Blood Gas Allen Test Pos; Blood Gas Operator Identificat jlb; Blood Gas Sample Site Radial, right; Blood Gas Sample Type Arterial; HCO3 ABG 9.2 mmol/L (22-26); HGB O2 Sat 96.3 % (95-100); Ionized Calcium Level - ABG 1.2 mmol/L (1.1-1.4); Methemoglobin < 0.0 % (0.4-1.5); Oxygen Device ROOM AIR; Oxygen Saturation ABG 96.2; PO2 ABG 85.6 mmHg (80.0-100.0); PO2 FiO2 Ratio Arterial Blood 356; Potassium Level - ABG 6.1 mmol/L (3.5-5.0)
[2024-11-30] MEDS: insulin regular-human 100 units/1 mL 10 UNIT IVP (20:43)
[2024-11-30 20:45] LABS: ABG PH Result 7.18 (7.35-7.45)
[2024-11-30 20:54] LABS: Ketone (Acetest) Serum Positive (Negative)
[2024-11-30 20:55] LABS: Basophils # 0.1 10^3/uL (0.0-0.1); Basophils % 0.5 %; Hematocrit 38.4 % (36-47); Lymphocytes # 1.2 10^3/uL (0.8-4.8); Lymphocytes % 5.2 %; Mean Corpuscular Hemoglobin 26.7 pg (27-33); Mean Corpuscular Volume 86.1 fl (85-98); Mean Platelet Volume 9.9 fL (7.4-10.4); Monocytes # 0.7 10^3/uL (0.2-0.9); Monocytes % 3.3 %; Neutrophils # 19.88 10^3/uL (1.8-7.7); Neutrophils % 88.6 %; Nucleated Red Blood Cells % 0 %; Platelet Count 536 10^3/cmm (157-399); Red Blood Count 4.46 10^6/uL (3.85-5.65); Red Cell Distribution Width 12.2 % (12.1-15.1); White Blood Count 22.43 10^3/uL (3.29-11.43)
[2024-11-30 21:03] LABS: Glucose Point of Care > 600 mg/dL (70-110)
[2024-11-30 21:05] LABS: Alanine Aminotransferase 15 U/L (0-33); Albumin Level 4.2 g/dL (3.5-5.2); Alkaline Phosphatase 264 U/L (35-105); Anion Gap 40.3 (5-19); Aspartate Amino Transferase 9 U/L (0-32); Blood Urea Nitrogen 48 mg/dL (8-23); Calcium 10.1 mg/dL (8.5-10.5); Carbon Dioxide 11 mmol/L (22-29); Chloride 79 mmol/L (98-107); Creatinine Clr Calc Pharmacy 30.1129; Globulin 4.5 g/dL (1.3-4.6); Osmolality Calculated 305 mOsm/kg (285-295); Potassium 6.3 mmol/L (3.5-5.1); Sodium 124 mmol/L (136-145); Total Bilirubin 0.3 mg/dL (0.15-1.2); Total Protein 8.7 g/dL (6.6-8.7)
[2024-11-30 21:07] LABS: Glucose 722 mg/dL (65-115)
[2024-11-30 21:26] LABS: Influenza A NEGATIVE (Negative); Influenza B NEGATIVE (Negative); Respiratory Syncytial Virus Ce NEGATIVE (Negative); SARS-CoV-2 PCR NEGATIVE (Negative)
[2024-11-30] MEDS: INSULIN REGULAR IN 0.9 % NACL 100 UNIT/100 ML BAG 6.5 UNIT IV (21:28)
--- NOTE | 2024-11-30 21:29 | XRR_ITS ---
PROCEDURE INFORMATION: Exam: XR Chest Exam date and time: 11/30/2024 9:41 PM Age: 59 years old Clinical indication: Other: Weakness TECHNIQUE: Imaging protocol: Radiologic exam of the chest. Views: 1 view. COMPARISON: No relevant prior studies available. FINDINGS: Lungs: Clear, symmetrically inflated lungs. Pleural spaces: No pleural effusion. No pneumothorax. Heart/Mediastinum: Cardiac silhouette is normal in size for technique. Bones/joints: Age appropriate. XR/XR chest 1V portable [id number] IMPRESSION: No acute cardiopulmonary abnormality.
[2024-11-30 21:51] LABS: Bilirubin Urine Neg (Negative); Blood Urine 3+ (Negative); Glucose Urine UA 4+ (Normal); Ketones Urine 3+ (Negative); Leukocyte Esterase Urine 1+ (Negative); Nitrate Urine Negative (Negative); Protein Urine Trace (Negative); Specific Gravity, Urine 1.015 (1.005-1.030); UA Slide Review UA Slide Review Perf; Urine Appearance Slightly Cloudy (CLEAR); Urine Color Other (Yellow); Urobilinogen Urine Norm (Negative); pH Urine 5 (5-7)
[2024-11-30 21:52] LABS: RBC Urine 0-4 /hpf (0-2)
[2024-11-30 21:53] LABS: Add Urine Culture? Yes; Bacteria Urine TRACE /hpf; Squamous Epithelial Cell Urine 0-4 /hpf (0-5); WBC Urine 40-55 /hpf (0-5)
[2024-11-30] MEDS: cefepime 2,000 mg SDV 2000 MG IVP (21:53)
[2024-11-30] MEDS: famotidine 20 mg/2 mL INJ 40 MG IVP (21:54)
[2024-11-30] MEDS: ondansetron hcl ODT 4 mg Tab 8 MG PO (21:54)
[2024-11-30 22:12] LABS: Lactic Sepsis W/Reflex 1.8 mmol/L (0.5-2.2)
[2024-11-30 22:25] VITALS: BP 143/86; PULSE 123; RESP 21; O2SAT 97
--- NOTE | 2024-11-30 22:25 | P.HP_ITS ---
Providers/Chief Complaint 2 Admitting Physician: Pratibha De Luna MD Primary Care Provider: Kati Singh DO Chief Complaint: high bs History of Present Illness History was obtained from the patient and her daughter, Arlin, who was on the phone. Julia Lovett is a 59 year old female, w/ IDDM2 w/ diabetic neuropathy, HTN, HLD, GERD, IBS, and MDD who was brought to [facility]'s ED on 11/30/2024, via EMS, on 11/30/2024, with complaints of nausea and poor energy, poor appetite, and generalized weakness since Tuesday 11/28. She states that she has felt dizzy and light headed such that when she gets up, she gets the urge to lose consciousness. She states that she visited her daughter on Thursday night 11/27 and when she got home, she fell because she was so dizzy and light headed. She states that her nausea, poor appetite, generalized weakness, malaise and poor energy progressed to the point that she called EMS. She called EMS and they checked her BG and it was >600. She states that she has a glucometer, but it has not been working. Her daughter says that her BG has been out of control for the last two weeks. She states that her dexcom became detached around Thursday11/21/2024 and her daughter states that when the patient visited her 2 weeks ago, her Dexcome was constantly alarming due to the high glucose levels. She endorses chills, viscual disturbances, increased urinary urgency/frequency. She tells me that she has a vaginal yeast infection, and when asked why, she endorses vaginal pruritus and burning. She denies fever, GI symptoms, SOB, CP, palpitations In the ED her vital signs were significant for tachycardia. Her labs are significant for leukocytosis of 22.4, lactic acid of 1.8, hyponatremia of 124, hyperkalemia of 6.3, bicarb of 11, BG of >723, ABG of 7.18/24/85.6, and an KACEY w/ Cr of 1.9 (Baseline Cr of 0.6 in 08/2024). Her CXR showed no acute abnormality. Her UA was concerning for possible UTI. She was given 40 mEq of IV K-Phos, 10 units IVP of insulin regular x 1, and she was started on an insulin drip. 4 mg IVP x 1 of Zofran, & 8 mg p.o. of Zofran x 1. 1L NS bolus x 2 was ordered, but she was given 1L. While examining the patient, the patient had a wound in her left index finger, which the patient states that she had within the last 2 weeks. Per daughter, there was greenish/yellow abscess from the wound and the patient declined to go to and see the physician. #DKA: Continue insulin drip. #Sepsis: likely secondary to a UTI. f/u BCx, UCx. Started Cefepime #Possible Vaginal Candidiasis: #IDDM2 w/ diabetic neuropathy #Hyponatremia: Likely pseudohyponatremia - Continue Insulin drip and IVF. #High AGAP Metabolic acidosis - Due to DKA #KACEY: Likely pre-renal. Continue IVF #HTN: IV Hydralazine prn. Held home meds #HLD: Held #GERD: Pantoprazole IV #MDD: She sees a therapist in addition to being on Bupropion. #Seasonal Allergic rhinitis: Held #IBS: Held Review of Systems 2 Narrative: Constitutional: (-) fever(s), (+) chills, (-) body aches, (+) poor appetite, (-) change in weight, (+) fatigue, (+) malaise, (-) night sweats, (-) diaphoresis Eyes: (-) change in vision, (+) blurry vision, (+) diplopia, (-) floaters, ENT: (-) ear pain, (-) ear discharge, (-) aural fullness, (-) tinnitus, (+) chronic nasal discharge due to allergic rhinitis, (-)nasal congestion, (-) post nasal drip, (-)dysphagia, (-)odynophagia, (-)hoarseness, Card: (-) Chest pain, (-) palpitations, (-) pedal edema, (-) orthopnea, (+) lightheadedness, (+) syncope, (+) pre-syncope, (-) leg pain with exertion Resp: (-)dyspnea, (-)dyspnea on exertion, (-) cough, (-) wheezing, (-) hemoptysis GI: (+) abdominal pain, (+) nausea, (-) vomiting, (-) hematemesis, (-) diarrhea, (-) constipation, (-) hematochezia, (-) melena : (-) flank pain, (-) dysuria, (-) hematuria, (+) urinary urgency, (+) urinary frequency, (-)oliguria, (-) difficulty voiding, (-) urinary incontinence, (+) genital pruritis and burning, (-)vaginal odor, (-) vaginal discharge MSK: (-) myalgias, (-) arthralgias Skin/Breast: (-) rash, (-) sores, (-) new lesions, (-) breast tenderness, (-) breast pain, or (-) nipple discharge Neuro: (-) headaches, (-) dizziness, (-) generalized weakness, (-) weakness in the extremities, (-) numbness in extremities, (+) tingling, (-) frequent falls, (-) Slurred speech present, (-) seizure-like activity Psych: (-) anxiety, (+) depression, (-)paranoia, (-) visual hallucinations, (-) auditory hallucinations, (-)tactile hallucinations, (-) suicidal ideation, (-) homicidal ideation Endo: (+) polyuria, (-) polydipsia, (-) polyphagia, (-)cold intolerance, (-) heat intolerance Heme/Lymph: (+) easy bruising, (-) easy bleeding, (-) petechiae, (-) purpura, (- ) enlarged lymph nodes, (-) tender lymph nodes Allergy/Immunlogy: (-) food intolerance, (-) hives/urticaria, (-) itchy/watery eyes, (-) tongue/throat swelling, (-) facial swelling, Medications/Allergies Home Medications ?Medication ?Instructions ?Recorded ?Confirmed ?Last Taken ?Type cetirizine 10 mg capsule (Zyrtec) 10 mg PO DAILY PRN A llergy Symptoms 01/27/20 11/15/24 09/12/24 History lancets 32 gauge #400 ea 03/11/22 11/11/24 Un known Rx blood sugar diagnostic #400 ea 05/19/22 11/11/24 Un known Rx blood-glucose meter #1 ea 05/19/22 11/11/24 Unkn own Rx tizanidine 2 mg capsule 2 mg PO BEDTIME PRN Spasms 0 11/18/22 11/15/24 09/11/24 History diabetic shoes with 3 inserts #1 ea 09/28/23 11/11/24 Unknown Rx blood-glucose meter,continuous #1 ea 10/14/23 11/11/24 Unknown Rx (Dexcom G7 Business Analytics Analyst) blood-glucose sensor (Dexcom G7 #9 ea 10/14/23 5 Unknown Rx Sensor device) blood sugar diagnostic (OneTouch #400 ea 12/10/2310/29 Unknown Rx Verio test strips) pen needle, diabetic 31 gauge x #100 ea 02/12/2411/11 Unknown Rx /16 gabapentin 600 mg tablet 1,200 mg PO BEDTIME 05/09/24 11/15/24 09/11/24 History naproxen 500 mg tablet 500 mg PO BID PRN Pain 05/0911/15/24 09/11/24 History Held on 09/13/24. Instructions: Resume on 09/16/24. pen needle, diabetic 32 gauge x #100 ea 06/06/2411/11 Unknown Rx 5/32 (BD Elyse 2nd Gen Pen Needle) diabetic shoes with 3 inserts #1 ea 06/28/24 11/11/24 Unknown Rx atorvastatin 80 mg tablet (Lipitor) 80 mg PO DAILY #90 tabs 08/16/24 11/15/24 09/12/24 Rx ezetimibe 10 mg tablet (Zetia) 10 mg PO DAILY #30 tabs 08/16/24 11/15/24 09/12/24 Rx insulin aspart U-100 100 unit/mL 40 unit SUBCUT TID 11/15/24 09/12/24 History (3 mL) subcutaneous pen (Novolog FlexPen U-100 Insulin aspart) montelukast 10 mg tablet 10 mg PO DAILY 09/12/2410/2909/12/24 History (Singulair) pantoprazole 40 mg tablet,delayed 40 mg PO DAILY 09/1211/15/24 09/12/24 History release (Protonix) docusate sodium 100 mg capsule 100 mg PO BID #14 caps 09/13/24 11/15/24 Unknown Rx (Colace) hydrocodone 7.5 mg-acetaminophen 1 tab PO Q6H PRN pain #20 tabs 09/13/24 11/15/24 Unknown Rx 325 mg tablet bupropion HCl 150 mg 24 hr tablet, 150 mg PO QAM #90 t abs 10/07/24 11/15/24 Unknown Rx extended release (Wellbutrin XL) bupropion HCl 300 mg 24 hr tablet, 300 mg PO QAM #90 t abs 10/07/24 11/15/24 Unknown Rx extended release (Wellbutrin XL) hydroxyzine HCl 25 mg tablet 50 mg (2 x 25 mg) PO BEDT JEFFREY #60 10/07/24 11/15/24 Unknown Rx tabs trazodone 100 mg tablet 300 mg (3 x 100 mg) PO BEDTI ME #90 10/07/24 11/15/24 Unknown Rx tabs insulin glargine 100 unit/mL (3 See Rx Instructions .R oute 10/12/24 11/15/24 Unknown Rx mL) subcutaneous pen (Lantus .COMPLEX #75 mL Solostar U-100 Insulin) dicyclomine 20 mg tablet 40 mg (2 x 20 mg) PO QID 1 m onth 10/24/24 11/15/24 Unknown Rx #240 tabs amlodipine 5 mg tablet 5 mg PO DAILY #30 tabs 11/15 Unknown Rx lancets 33 gauge (OneTouch Delica #100 ea 11/28/24 Un known Rx Plus Lancet) Allergies Allergy/AdvReac Type Severity Reaction Status Date / Time No Known Allergies Allergy Verified 11/30/24 20:30 PFSH Acute 2 PFSH: Medical History History of colon polyps GERD (gastroesophageal reflux disease) Psychiatric care Type 2 diabetes mellitus Yeast infection involving the vagina and surrounding area Borderline intellectual functioning Major depressive disorder, recurrent severe without psychotic features Surgical History Hx laparoscopic cholecystectomy 09/13/24 Dr. Kendall Hx of colonoscopy with polypectomy 2016 H/O tubal ligation H/O section x2 Family History Father Diabetes Grandmother Diabetes paternal Brother Diabetes Grandfather Stroke paternal Sister Thyroid disease Denies family history of Clotting disorder Hyperlipidemia Anesthesia complication Bleeding disorder Hypertension Social History (Updated 11/30/24 @ 23:49 by Pratibha De Luna MD) Smoking and tobacco/nicotine status: former use of tobacco/nicotine Quit status (tobacco/nicotine): has quit using Year quit tobacco: 2012 Second hand smoke exposure: Yes Alcohol intake: never Substance/Drug Use: never Adopted: No Caregiver/support person: No Lives independently: Yes Household members: none Housing: Apartment Marital status: Marital status details: 2005 Number of children: 2 Number of grandchildren: 3 Highest education level completed: 9th Grade Current occupational status: disabled Pets and animals: No Leisure activites: music, games, reading and other Leisure activities details: [employer] Sexually active: Yes Do you think of yourself as: Straight/Heterosexual Current gender identity: Female Soraida/Christian: Denominational Special soraida needs: No Agree to transfusion: Yes Female Reproductive History: Para: 2 Spontaneous abortions: Yes Vitals/I&O/Wt Last Vital Signs Temp 97.9 F 11/30/24 20:25 Pulse 114 H 11/30/24 20:25 Resp 18 11/30/24 20:25 BP 167/83 11/30/24 20:25 Pulse Ox 97 11/30/24 20:25 O2 Del Method Room Air 11/30/24 20:25 11/30/24 11/30/24 11/30/24 06:59 14:59 22:59 Intake Total 500 / 500 Balance 500 / 500 Weight last 48 hrs Weight 69.4 kg Physical Exam 2 Narrative: Constitutional: GENERAL APPEARANCE: cooperative, uncomfortable; not combative. HENT: HEAD & SCALP: normocephalic and atraumatic; NOSE: external nose not normal EXTERNAL EAR: no external ears normal MOUTH: Normal oral and palatal mucosa present THROAT: posterior oropharynx normal Eye: PERRL, EOMI, normal conjunctiva b/l Neck: normal visual inspection, trachea midline, No anterior neck swelling, No tracheal deviation, no submandibular swelling, Thyroid normal , cervical ROM normal Lymph: no cervical, supraclavicular LAD Resp: no use of accessory muscles, CTAB, no w/r/r Cardio: RRR, no m/r/g, or clicks. 2+ radial and DP pulses. GI: normoactive bowel sounds, non-tender, non-distended, no guarding, no rigidity, no rebound tenderness, no hepatosplenomegaly. : (-) Pedro in place draining urine Back/Pelvis: Deferred Extremity: No clubbing, No cyanosis and No edema Neuro: AO to person, place and time. CN normal except as noted. Normal gait present. 5/5 motor strength present throughout. Normal motor muscle tone present throughout. No tremor noted. No motor abnormalities present. Psych: APPEARANCE: Yes grossly normal ATTITUDE: Yes calm and Yes engaged ACTIVITY/MOTOR BEHAVIOR: Yes appropriate eye contact SPEECH: Yes normal speech MOOD & AFFECT: Yes euthymic mood THOUGHT PROCESS: __ THOUGHT CONTENT: ___ ATTENTION/CONCENTRATION: Yes attention grossly intact MEMORY/COGNITION: Yes memory grossly intact Data 11/30/24 20:29 11/30/24 20:29 Micro: Microbiology 11/30/24 21:30 Blood Culture - Preliminary Blood SPECIMEN COLLECTED 11/30/24 21:20 Blood Culture - Preliminary Blood SPECIMEN COLLECTED A&P Assessment and plan (1) DKA (diabetic ketoacidosis): (2) Insulin dependent diabetes mellitus: (3) Vaginal yeast infection: (4) Acute renal failure: (5) Dehydration: (6) Urinary tract infection: (7) Sepsis: (8) Acute kidney injury: (9) Hyponatremia: (10) Diabetic neuropathy: Qualifiers: Diabetes mellitus type: type 2 (11) Major depressive disorder, recurrent severe without psychotic features: (12) High anion gap metabolic acidosis: Plan Julia Lovett is a 59 year old female, w/ IDDM2 w/ diabetic neuropathy, HTN, HLD, GERD, IBS, and MDD who was brought to [facility]'s ED on 11/30/2024, via EMS, on 11/30/2024, with complaints of nausea and poor energy, poor appetite, and generalized weakness since Tuesday 11/28. #DKA: Continue insulin drip. #Sepsis: likely secondary to a UTI. f/u BCx, UCx. Started Cefepime #Possible Vaginal Candidiasis: - Fluconazole x 1 ordered. #Possible UTI #IDDM2 w/ diabetic neuropathy #Hyponatremia: Likely pseudohyponatremia - Continue Insulin drip and IVF. #High AGAP Metabolic acidosis - Due to DKA #KACEY: Likely pre-renal. Continue IVF #HTN: IV Hydralazine prn. Held home meds #HLD: Held #GERD: Pantoprazole IV #MDD: She sees a therapist in addition to being on Bupropion. #Seasonal Allergic rhinitis: Held #IBS: Held DVT ppx:Lovenox CODE STATUS: Full code. PDMP PDMP Reviewed: Not Reviewed Attestations 2 Medical Necessity Statement*: Patient will need to be hospitalized for greater than 2 midnights for her diabetic ketoacidosis, hyperglycemia, hyponatremia, KACEY, possible sepsis, secondary to a UTI, and high anion gap metabolic acidosis. Time Spent in Patient Care: >70mins was spent on providing critical care at bedside, chart review, interviewing the patient and her daughter Maral, lab/image review, plan formulation, counseling the patient and the daughter, coordination of care, and communication of plan of care to the patient and her daughter. Coding Level of Care Code Critical Care >/= 30 minutes Critical care time (in minutes): 70 The high probability of a clinically significant, sudden or life threatening deterioration, as referenced in this documentation, required my full and direct attention, intervention and personal management. The critical care time shown is in addition to time spent performing any reported separately billable procedures and includes the following: [x] Data and vital sign review and interpretation [x ] Patient assessment, examination and intervention [x] Medication orders and management [x] Patient/Family updates as able [x] Care Coordination and Documentation. Diagnoses DKA (diabetic ketoacidosis) E11.10 Insulin dependent diabetes mellitus Vaginal yeast infection B37.3 Acute renal failure N17.9 Dehydration E86.0 Urinary tract infection N39.0 Sepsis A41.9 Acute kidney injury N17.9 Hyponatremia E87.1 Diabetic neuropathy E11.40 Diabetes mellitus type: type 2 Major depressive disorder, recurrent severe without psychotic features F33.2 High anion gap metabolic acidosis E87.29
[2024-11-30 22:30] LABS: Glucose Point of Care > 600 mg/dL (70-110)
--- NOTE | 2024-11-30 22:37 | PC.NURSE ---
This nurse notified Dr De Luna of patient's blood glucose per accucheck still reading HI , and explained that per protocol that insulin drip would be increased and patient would require an insulin weight-based bolus. Annamarie instructed nursing staff to increase as per listed protocol and as discussed.
--- NOTE | 2024-11-30 22:53 | PC.NURSE ---
Insulin drip on pump, as well as math, verified with Mery HART.
[2024-11-30 22:59] LABS: INR 1.09 (0.8-1.2); Partial Thromboplastin Time 24.5 SECONDS (23.9-36.7)
--- NOTE | 2024-11-30 23:24 | PC.NURSE ---
pt up to bedside commode at this time with 1 assist
[2024-12-01] VITALS (247 sets, daily range): BP systolic 101–181; BP diastolic 56–132; PULSE 82–132; RESP 0–27; TEMP 36.6–37.1; O2SAT 94–99; BMI 25.7
[2024-12-01 00:17] LABS: Glucose Point of Care 520 mg/dL (70-110)
--- NOTE | 2024-12-01 00:24 | PC.NURSE ---
Pt arrived at 0005. Dr De Luna at bedside reviewed insulin and gave verbal order to titrate from 15.5 ml to 8 ml/hr
[2024-12-01] MEDS: prochlorperazine 10 mg/2 mL Inj IVP (00:55)
[2024-12-01 01:02] LABS: Glucose Point of Care 454 mg/dL (70-110)
[2024-12-01 01:14] LABS: Blood Urea Nitrogen 46 mg/dL (8-23); Calcium 9.3 mg/dL (8.5-10.5); Carbon Dioxide 13 mmol/L (22-29); Chloride 92 mmol/L (98-107); Creatinine Clr Calc Pharmacy 28.3428; Glomerular Filtration Rate 25.4 mL/min (90-130); Magnesium 2.2 mg/dL (1.7-2.3); Osmolality Calculated 305 mOsm/kg (285-295); Phosphorus 4.1 mg/dL (2.5-4.5); Sodium 130 mmol/L (136-145)
[2024-12-01 01:17] LABS: Glucose 506 mg/dL (65-115)
[2024-12-01] MEDS: acetaminophen 325 mg Tablet 650 MG PO ×2 (01:28→13:57)
[2024-12-01] MEDS: pantoprazole 40 mg SDV IVP (01:29)
[2024-12-01 02:16] LABS: Glucose Point of Care 402 mg/dL (70-110)
[2024-12-01] MEDS: fluconazole 100 mg Tablet 200 MG PO (02:34)
[2024-12-01 03:20] LABS: Glucose Point of Care 397 mg/dL (70-110)
[2024-12-01 04:16] LABS: Glucose Point of Care 373 mg/dL (70-110)
[2024-12-01 04:31] LABS: Alanine Aminotransferase 11 U/L (0-33); Albumin Level 3.5 g/dL (3.5-5.2); Alkaline Phosphatase 213 U/L (35-105); Anion Gap 25.4 (5-19); Aspartate Amino Transferase 6 U/L (0-32); Blood Urea Nitrogen 43 mg/dL (8-23); Calcium 8.7 mg/dL (8.5-10.5); Carbon Dioxide 14 mmol/L (22-29); Chloride 95 mmol/L (98-107); Creatinine Clr Calc Pharmacy 28.3428; Globulin 3.7 g/dL (1.3-4.6); Glomerular Filtration Rate 25.4 mL/min (90-130); Glucose 408 mg/dL (65-115); Magnesium 2.2 mg/dL (1.7-2.3); Osmolality Calculated 296 mOsm/kg (285-295); Potassium 5.4 mmol/L (3.5-5.1); Sodium 129 mmol/L (136-145); Total Bilirubin 0.3 mg/dL (0.15-1.2); Total Protein 7.2 g/dL (6.6-8.7)
[2024-12-01 05:17] LABS: Glucose Point of Care 378 mg/dL (70-110)
[2024-12-01 06:28] LABS: Glucose Point of Care 303 mg/dL (70-110)
[2024-12-01] MEDS: INSULIN REGULAR IN 0.9 % NACL 100 UNIT/100 ML BAG 14 UNIT IV (06:28)
[2024-12-01] MEDS: sodium chloride 0.9% 1,000 ML 125 ML IV (06:28)
[2024-12-01 07:01] LABS: Glucose Point of Care 271 mg/dL (70-110)
[2024-12-01] MEDS: dextrose 5%-sod chloride 0.45% 1,000 ML 125 ML IV ×2 (08:07→15:24)
[2024-12-01 08:08] LABS: Glucose Point of Care 163 mg/dL (70-110)
[2024-12-01 08:37] LABS: Anion Gap 18.4 (5-19); Blood Urea Nitrogen 40 mg/dL (8-23); Calcium 8.8 mg/dL (8.5-10.5); Carbon Dioxide 19 mmol/L (22-29); Chloride 100 mmol/L (98-107); Creatinine Clr Calc Pharmacy 28.3428; Glomerular Filtration Rate 25.4 mL/min (90-130); Glucose 175 mg/dL (65-115); Osmolality Calculated 290 mOsm/kg (285-295); Phosphorus 2.3 mg/dL (2.5-4.5); Potassium 4.4 mmol/L (3.5-5.1); Sodium 133 mmol/L (136-145)
--- NOTE | 2024-12-01 08:37 | PC.PHAR ---
Pt unresponsive it the room. Phoned the pharmacy for current med list, last fill dates and day supply.
[2024-12-01 09:10] LABS: Glucose Point of Care 105 mg/dL (70-110)
[2024-12-01 09:23] LABS: C Reactive Protein 168.7 mg/L (0.0-4.9)
[2024-12-01 09:30] LABS: Procalcitonin 0.82 ng/mL (0-0.5)
[2024-12-01 10:19] LABS: Basophils # 0.1 10^3/uL (0.0-0.1); Basophils % 0.5 %; Eosinophils # 0.1 10^3/uL (0.0-0.8); Eosinophils % 0.5 %; Hematocrit 32.2 % (36-47); Lymphocytes # 2.2 10^3/uL (0.8-4.8); Mean Corpuscular HGB Conc 32.9 g/dL (30-55); Mean Corpuscular Hemoglobin 27.7 pg (27-33); Mean Corpuscular Volume 84.3 fl (85-98); Mean Platelet Volume 9.5 fL (7.4-10.4); Monocytes # 2.4 10^3/uL (0.2-0.9); Monocytes % 9.8 %; Neutrophils # 19.19 10^3/uL (1.8-7.7); Nucleated Red Blood Cells % 0 %; Platelet Count 413 10^3/cmm (157-399); Red Blood Count 3.82 10^6/uL (3.85-5.65); Red Cell Distribution Width 12.3 % (12.1-15.1); White Blood Count 24.25 10^3/uL (3.29-11.43)
[2024-12-01] MEDS: potassium chloride ER 20 mEq Tablet 40 MEQ PO (10:22)
[2024-12-01] MEDS: sennosides 8.6 mg Tablet 17.2 MG PO (10:22)
[2024-12-01] MEDS: docusate sodium 100 mg Capsule 200 MG PO (10:22)
[2024-12-01 10:29] LABS: Glucose Point of Care 133 mg/dL (70-110)
[2024-12-01 10:30] LABS: Erythrocyte Sedimentation Rate 80 mm/hr (0-15)
[2024-12-01 10:59] LABS: Glucose Point of Care 160 mg/dL (70-110)
--- NOTE | 2024-12-01 11:37 | CT_ITS ---
WS: [id number] CT RIGHT HAND, NONCONTRAST HISTORY: index finger cellultis Technique: All CT scans at [facility] use at least one of these dose optimization techniques: automated exposure control; mA and/or kV adjustment per patient size (includes targeted exams where dose is matched to clinical indication); or iterative reconstruction. DLP: 111.46 mGy.cm COMPARISON: None available. Soft tissue edema surrounding the second finger. No fluid collection identified on this unenhanced exam. Area of most significant edema to the mid to distal finger. No underlying foreign body. No bone destruction. Normal carpal rows. No fractures. CT/CT hand RT wo con* [id number] IMPRESSION: 1. Soft tissue edema RIGHT second finger. No focal abscess identified on this unenhanced exam. 2. No osteomyelitis or foreign body.
--- NOTE | 2024-12-01 11:47 | CT_ITS ---
WS: [id number] CT ABDOMEN AND PELVIS NONCONTRAST HISTORY: n/v TECHNIQUE: Imaging performed through the abdomen and pelvis. Coronal and sagittal reformats are submitted. All CT scans at [facility] use at least one of these dose optimization techniques: automated exposure control; mA and/or kV adjustment per patient size (includes targeted exams where dose is matched to clinical indication); or iterative reconstruction. DLP: 512.05 mGy.cm COMPARISON: None available. Lower thorax: Micronodule LEFT lung base. No pneumonia. Normal size heart. Liver: Liver is enlarged with diffuse hepatic steatosis. Gallbladder: Prior cholecystectomy. Pancreas: Normal size and attenuation. Normal pancreatic duct. No pancreatitis or mass. Spleen: Normal. Adrenal glands: Normal. No mass. Right kidney: Kidney is measuring top normal size length 12.9 cm. No obstruction or perinephric stranding. Nonobstructing calcification lower pole. Left kidney: Kidney is measuring slightly enlarged at 13.2 cm. No perinephric stranding or obstruction. Aorta: Mild atherosclerosis abdominal aorta with no aneurysm. No free fluid, intraperitoneal air or significant lymphadenopathy. GI tract: Mild constipation. No colitis or obstruction. Abdominal wall: Negative. No hernia. Pelvis: Pedro catheter present in the urinary bladder. Bladder is nondistended. No pelvic mass. Osseous structures: Unremarkable. CT/CT abdomen pelvis wo con [id number] IMPRESSION: 1. Hepatic steatosis and hepatomegaly. 2. No renal obstruction. 3. Both kidneys are measuring top normal to slightly enlarged. There is no per inephric stranding. 4. No free fluid or adenopathy. 5. Mild diffuse constipation. 6. Pedro catheter present.
[2024-12-01 11:54] LABS: Glucose Point of Care 197 mg/dL (70-110)
--- NOTE | 2024-12-01 12:48 | PC.NURSE ---
Patient is calling out and moaning in room, when assessed patient denies pain or discomfort and states, I am just tired.
[2024-12-01 13:10] LABS: Glucose Point of Care 302 mg/dL (70-110)
--- NOTE | 2024-12-01 13:25 | PHA.VACGOAL ---
Vancomycin Goal - Goal Vancomycin Goal:: 15-20 mg/L Vancomycin Indication:: Other (SEPSIS) - Therapy Current therapy:: Pip/Tazo Day of therpy:: Day 1 of [] Actual body weight (kg): 149 lb 14.629 oz - Data Labs: WBC 24.25 10^3/uL (3.29-11.43) H 12/01/24 10:05 RBC 3.82 10^6/uL (3.85-5.65) L 12/01/24 10:05 Hgb 10.60 g/dL (11.27-16.99) L 12/01/24 10:05 Hct 32.2 % (36-47) L 12/01/24 10:05 MCV 84.3 fl (85-98) L 12/01/24 10:05 MCH 27.7 pg (27-33) 12/01/24 10:05 MCHC 32.9 g/dL (30-55) D 12/01/24 10:05 RDW 12.3 % (12.1-15.1) 12/01/24 10:05 Sodium 133 mmol/L (136-145) L 12/01/24 08:00 Potassium 4.4 mmol/L (3.5-5.1) 12/01/24 08:00 Chloride 100 mmol/L (98-107) 12/01/24 08:00 Carbon Dioxide 19 mmol/L (22-29) L 12/01/24 08:00 Anion Gap 18.4 (5-19) 12/01/24 08:00 BUN 40 mg/dL (8-23) H 12/01/24 08:00 Creatinine 2.0 mg/dL (0.5-0.9) H 12/01/24 08:00 GFR Calculation 25.4 mL/min (90-130) L 12/01/24 08:00 Last dialysis session:: N/A Treatment plan:: new consult Regimen:: INITIAL LOADING DOSE OF 2000 MG PER DOSING PROTOCOL. DUE TO CRCL < 30. WILL PULSE DOSE INTERMITTENTLY. VANC LEVEL TO BE DRAWN 24 HOURS POST-LOADING DOSE. Follow up:: VANC LEVEL 12/01 @1400
[2024-12-01 13:33] LABS: Anion Gap 18.5 (5-19); Blood Urea Nitrogen 39 mg/dL (8-23); Calcium 8.7 mg/dL (8.5-10.5); Carbon Dioxide 19 mmol/L (22-29); Chloride 99 mmol/L (98-107); Glomerular Filtration Rate 28.7 mL/min (90-130); Glucose 233 mg/dL (65-115); Magnesium 2.1 mg/dL (1.7-2.3); Osmolality Calculated 289 mOsm/kg (285-295); Phosphorus 2.6 mg/dL (2.5-4.5); Potassium 5.5 mmol/L (3.5-5.1); Sodium 131 mmol/L (136-145)
[2024-12-01] MEDS: piperacillin-tazobactam 3.375 GM in sodium chloride 0.9% (plus) 50 ML IV ×2 (13:46→21:08)
[2024-12-01 14:14] LABS: Glucose Point of Care 272 mg/dL (70-110)
[2024-12-01] MEDS: vancomycin 2,000 MG/400 ML PIGGYBACK 200 MG IV (15:03)
[2024-12-01 15:14] LABS: Glucose Point of Care 273 mg/dL (70-110)
--- NOTE | 2024-12-01 15:52 | P.PN_ITS ---
Subjective 2 Subjective: Patient was seen this morning, she is alert to person, not to place, not to time, she can follow commands, she does not recognize that she is here in the hospital, no facial droop, slurring of words, no focal weakness, no headache, no blurry vision, she reports dysuria, reports vaginitis, denies being sexually active, denies any hematuria, no vaginal bleeding, no vaginal discharge, no history of STDs, no diarrhea, denies any back pain Vitals/I&O/Wt Last Vital Signs Temp 98.6 F 12/01/24 13:05 Pulse 99 12/01/24 14:58 Resp 18 12/01/24 14:15 BP 151/81 12/01/24 14:15 Pulse Ox 98 12/01/24 14:15 O2 Del Method Room Air 12/01/24 14:15 12/01/24 12/01/24 12/01/24 06:59 14:59 22:59 Intake Total 2084.317 / 2593.200 251.718 / 251.718 965.417 / 1217.135 Balance 2084.317 / 2593.200 251.718 / 251.718 965.417 / 1217.135 Weight last 48 hrs Weight 68 kg Weight 68 kg Weight 68 kg Weight 69.4 kg Physical Exam 2 Const: COMMON NORMALS: no acute distress EXAM LIMITATIONS: altered mental status ORIENTATION/CONSCIOUSNESS: Yes awake, Yes oriented to person and Yes confused; not oriented to place and not oriented to time Eye: COMMON NORMALS: Equal, round and reactive pupils present and EOMs intact bilaterally PUPIL: Yes Equal, round and reactive pupils present OTHER: Kernig sign is negative,brudunski sign is negative Neck/C-Spine: COMMON NORMALS: no lymphadenopathy Resp: COMMON NORMALS: normal respiratory effort, No retractions, No use of accessory muscles and clear to auscultation bilaterally AUSCULTATION: clear to auscultation bilaterally Cardio: COMMON NORMALS: regular rate, regular rhythm, S1 normal heart sound present and S2 normal heart sound present RATE: regular rate RHYTHM: r egular rhythm HEART SOUNDS: S1 normal heart sound present and S2 normal heart sound present GI: COMMON NORMALS: Normal to inspection, nondistended, normoactive bowel sounds present and non-tender : OTHER: Vaginal exam, with nursing staff Ansley at bedside, has erythema of labium minora bilaterally, frothy white discharge, no Bartholin gland cysts palpable Extremity: COMMON NORMALS: no pedal edema NARRATIVE EXTREMITY EXAM: right hand, swelling second finger Neuro: SENSORIUM/ORIENTATION: Yes oriented to person, No oriented to place and No oriented to time Urinary Catheter Management: Pedro: Cath Placed During This Visit: yes Urinary Catheter Date of Insertion: 12/01/24 Urinary Catheter Time of Insertion: 10:24 Data 12/01/24 10:05 12/01/24 12:47 Micro: Microbiology 11/30/24 21:30 Blood Culture - Preliminary Blood SPECIMEN COLLECTED 11/30/24 21:20 Blood Culture - Preliminary Blood SPECIMEN COLLECTED A&P Assessment and plan (1) DKA (diabetic ketoacidosis): (2) Insulin dependent diabetes mellitus: (3) Vaginal yeast infection: (4) Acute renal failure: (5) Dehydration: (6) Urinary tract infection: (7) Sepsis: (8) Acute kidney injury: (9) Hyponatremia: (10) Diabetic neuropathy: Qualifiers: Diabetes mellitus type: type 2 (11) Major depressive disorder, recurrent severe without psychotic features: (12) High anion gap metabolic acidosis: Plan Julia Lovett is a 59 year old female, w/ IDDM2 w/ diabetic neuropathy, HTN, HLD, GERD, IBS, and MDD who was brought to [facility]'s ED on 11/30/2024, via EMS, on 11/30/2024, with complaints of nausea and poor energy, poor appetite, and generalized weakness since Tuesday 11/28. # Diabetic ketoacidosis -Diabetic ketoacidosis protocol -Insulin drip -Check blood sugars hourly -Once anion gap less than 14, switch to subcu insulin, and long-acting -Maintain potassium more than 4.5 -Currently on D5 half-normal saline at 125 cc an hour # Acute encephalopathy -Source likely urinary tract infection -However does complain of nausea/vomiting, CT scan abdomen pelvis -Does have possible cellulitis of second finger right hand CT scan # Cellulitis second finger right hand -CT scan right hand #Sepsis: -Source likely UTI -Pro-Kristopher 0.8, CRP 160.7 -Vancomycin, Zosyn -Follow blood cultures -Follow urine cultures #Vaginal Candidiasis: -Status post 1 dose fluconazole #IDDM2 w/ diabetic neuropathy #Hyponatremia: Pseudohyponatremia from hyperglycemia #High AGAP Metabolic acidosis -Combination of sepsis, DKA #KACEY: Likely sec to dehydration, prerenal, CT scan abdomen pelvis #HTN: IV Hydralazine prn. #HLD: Hold #GERD: IV Protonix #MDD: Hold home medications #IBS: Hold home medications DVT ppx:Lovenox CODE STATUS: Full code. PDMP PDMP Reviewed: Not Reviewed Attestations 2 Medical Necessity Statement*: Patient requires hospitalization for acute encephalopathy, UTI, diabetic ketoacidosis increased anion gap metabolic acidosis, acute kidney injury Coding Level of Care Code Critical Care >/= 30 minutes Critical care time (in minutes): 45 The high probability of a clinically significant, sudden or life threatening deterioration, as referenced in this documentation, required my full and direct attention, intervention and personal management. The critical care time shown is in addition to time spent performing any reported separately billable procedures and includes the following: [x] Data and vital sign review and interpretation [x ] Patient assessment, examination and intervention [x] Medication orders and management [x] Patient/Family updates as able [x] Care Coordination and Documentation. Diagnoses DKA (diabetic ketoacidosis) E11.10 Insulin dependent diabetes mellitus Vaginal yeast infection B37.3 Acute renal failure N17.9 Dehydration E86.0 Urinary tract infection N39.0 Sepsis A41.9 Acute kidney injury N17.9 Hyponatremia E87.1 Diabetic neuropathy E11.40 Diabetes mellitus type: type 2 Major depressive disorder, recurrent severe without psychotic features F33.2 High anion gap metabolic acidosis E87.29
[2024-12-01 16:12] LABS: Glucose Point of Care 256 mg/dL (70-110)
[2024-12-01 16:20] LABS: Alcohol Level < 10 mg/dL (0-10)
[2024-12-01 16:52] LABS: Amphetamines Screen Urine Negative (Negative); Barbiturates Screen Urine Negative (Negative); Benzodiazepines Screen Urine Negative (Negative); Cocaine Screen Urine Negative (Negative); Opiate Screen Urine Negative (Negative); PCP Screen Urine Negative (Negative); THC Screen Urine Negative (Negative)
[2024-12-01 17:33] LABS: Glucose Point of Care 211 mg/dL (70-110)
[2024-12-01 18:24] LABS: Glucose Point of Care 154 mg/dL (70-110)
[2024-12-01 18:46] LABS: Anion Gap 18.9 (5-19); Blood Urea Nitrogen 36 mg/dL (8-23); Calcium 8.4 mg/dL (8.5-10.5); Carbon Dioxide 17 mmol/L (22-29); Chloride 100 mmol/L (98-107); Creatinine Clr Calc Pharmacy 37.7904; Glomerular Filtration Rate 35.4 mL/min (90-130); Glucose 160 mg/dL (65-115); Osmolality Calculated 284 mOsm/kg (285-295); Potassium 4.9 mmol/L (3.5-5.1); Sodium 131 mmol/L (136-145)
[2024-12-01 19:16] LABS: Glucose Point of Care 178 mg/dL (70-110)
[2024-12-01 20:31] LABS: Glucose Point of Care 211 mg/dL (70-110)
[2024-12-01] MEDS: gabapentin 300 mg Capsule 600 MG PO (20:49)
[2024-12-01] MEDS: enoxaparin 30 mg/0.3 mL Syringe SUBCUT (20:50)
[2024-12-01] MEDS: ondansetron 4 MG Tablet PO (20:51)
[2024-12-01 21:31] LABS: Glucose Point of Care 286 mg/dL (70-110)
--- NOTE | 2024-12-01 22:25 | PC.NURSE ---
Consistent carb diet Dr. De Luna contacted unit and gave order to let patient eat. D5-1/2NS and insulin infusions discussed. Order verified again to let patient eat consistent carb diet.
[2024-12-01 22:29] LABS: Glucose Point of Care 339 mg/dL (70-110)
[2024-12-01] MEDS: sodium chloride 0.9% 1,000 ML 150 ML IV (23:03)
--- NOTE | 2024-12-01 23:07 | PC.NURSE ---
Insulin Drip Dr. De Luna on unit and blood glucose discussed. Verbal orders received to titrate insulin to 6 units/hr, change maintenance fluid to NS at 150 ml/hr, and call with next blood sugar check.
--- NOTE | 2024-12-01 23:49 | PC.NURSE ---
Insulin Drip Dr. De Luna notified of patient's blood glucose 325. Order received to keep insulin drip at 6 units/hr.
[2024-12-01] MEDS: trazodone 50 mg Tablet PO (23:52)
[2024-12-02] VITALS (41 sets, daily range): BP systolic 117–170; BP diastolic 42–113; PULSE 89–116; RESP 10–27; TEMP 36.2–36.8; O2SAT 96–99
[2024-12-02 00:24] LABS: Anion Gap 16.6 (5-19); Blood Urea Nitrogen 30 mg/dL (8-23); Calcium 8.5 mg/dL (8.5-10.5); Carbon Dioxide 18 mmol/L (22-29); Chloride 98 mmol/L (98-107); Creatinine Clr Calc Pharmacy 33.3444; Glomerular Filtration Rate 30.7 mL/min (90-130); Glucose 327 mg/dL (65-115); Osmolality Calculated 285 mOsm/kg (285-295); Potassium 4.6 mmol/L (3.5-5.1); Sodium 128 mmol/L (136-145)
[2024-12-02] MEDS: hyDRALAzine 20 mg/mL INJ 1 mL 10 MG IVP ×3 (00:28→22:17)
[2024-12-02 00:32] LABS: Glucose Point of Care 300 mg/dL (70-110)
[2024-12-02 00:32] LABS: Glucose Point of Care 325 mg/dL (70-110)
--- NOTE | 2024-12-02 01:07 | PC.NURSE ---
NS Dr. De Luna notified of patient's glucose 300; orders received to keep insulin at 6 units/hr and to increase NS to 250 ml/hr.
[2024-12-02 01:28] LABS: Glucose Point of Care 232 mg/dL (70-110)
--- NOTE | 2024-12-02 02:03 | PC.NURSE ---
Fluids Dr. De Luna contacted with latest blood sugar; orders received to bolus remaining amount of NS bag hanging which is 500 ml then start D5-1/2NS at 150 ml/hr and keep insulin administering at 6 units/hr. Additional order received to make patient npo again.
[2024-12-02] MEDS: INSULIN REGULAR IN 0.9 % NACL 100 UNIT/100 ML BAG 6 UNIT IV (02:16)
[2024-12-02] MEDS: dextrose 5%-sod chloride 0.45% 1,000 ML 150 ML IV (02:34)
[2024-12-02 03:00] LABS: Glucose Point of Care 140 mg/dL (70-110)
--- NOTE | 2024-12-02 03:04 | PC.NURSE ---
Blood Glucose Dr. De Luna notified of blood glucose 140 and of insulin decreased to 1 unit/hr per protocol. No new orders received.
[2024-12-02 04:22] LABS: Glucose Point of Care 217 mg/dL (70-110)
[2024-12-02 04:31] LABS: Anion Gap 16.7 (5-19); Blood Urea Nitrogen 26 mg/dL (8-23); Calcium 8.2 mg/dL (8.5-10.5); Carbon Dioxide 17 mmol/L (22-29); Chloride 100 mmol/L (98-107); Creatinine Clr Calc Pharmacy 37.7904; Glomerular Filtration Rate 35.4 mL/min (90-130); Glucose 193 mg/dL (65-115); Osmolality Calculated 278 mOsm/kg (285-295); Potassium 4.7 mmol/L (3.5-5.1); Sodium 129 mmol/L (136-145)
[2024-12-02 04:43] LABS: C Reactive Protein 132.3 mg/L (0.0-4.9)
[2024-12-02] MEDS: piperacillin-tazobactam 3.375 GM in sodium chloride 0.9% (plus) 50 ML IV ×3 (05:02→22:16)
[2024-12-02] MEDS: pantoprazole 40 mg SDV IVP (05:02)
[2024-12-02] MEDS: orphenadrine 30 mg/mL Inj 2 mL 60 MG IVP (05:04)
[2024-12-02 05:15] LABS: Glucose Point of Care 235 mg/dL (70-110)
[2024-12-02] MEDS: ondansetron 4 MG Tablet PO ×2 (05:17→20:18)
[2024-12-02 06:12] LABS: Glucose Point of Care 282 mg/dL (70-110)
[2024-12-02 08:20] LABS: Glucose Point of Care 346 mg/dL (70-110)
--- NOTE | 2024-12-02 08:31 | PC.SOCIAL ---
IMM Update Pg. 2 of IMM updated and copy provided at bedside.
[2024-12-02] MEDS: sodium chloride 0.9% 1,000 ML 125 ML IV (08:35)
[2024-12-02 09:10] LABS: Anion Gap 16.7 (5-19); Blood Urea Nitrogen 24 mg/dL (8-23); Calcium 8.2 mg/dL (8.5-10.5); Carbon Dioxide 17 mmol/L (22-29); Chloride 100 mmol/L (98-107); Creatinine Clr Calc Pharmacy 38.1681; Glomerular Filtration Rate 35.4 mL/min (90-130); Glucose 363 mg/dL (65-115); Magnesium 1.8 mg/dL (1.7-2.3); Osmolality Calculated 287 mOsm/kg (285-295); Phosphorus 1.7 mg/dL (2.5-4.5); Potassium 4.7 mmol/L (3.5-5.1); Sodium 129 mmol/L (136-145)
[2024-12-02 09:13] LABS: Glucose Point of Care 327 mg/dL (70-110)
[2024-12-02 09:17] LABS: Procalcitonin 0.69 ng/mL (0-0.5)
[2024-12-02] MEDS: sennosides 8.6 mg Tablet 17.2 MG PO (10:25)
[2024-12-02] MEDS: docusate sodium 100 mg Capsule 200 MG PO (10:25)
[2024-12-02] MEDS: morphine 4 mg/mL SDV 1 mL 2 MG IVP (10:26)
[2024-12-02 10:35] LABS: Glucose Point of Care 237 mg/dL (70-110)
[2024-12-02 10:38] LABS: Basophils # 0.1 10^3/uL (0.0-0.1); Basophils % 0.5 %; Eosinophils # 0.2 10^3/uL (0.0-0.8); Eosinophils % 0.9 %; Hematocrit 31.5 % (36-47); Lymphocytes # 1.9 10^3/uL (0.8-4.8); Mean Corpuscular HGB Conc 32.4 g/dL (30-55); Mean Corpuscular Hemoglobin 26.6 pg (27-33); Mean Platelet Volume 9.7 fL (7.4-10.4); Monocytes # 1.1 10^3/uL (0.2-0.9); Monocytes % 6.5 %; Neutrophils # 12.79 10^3/uL (1.8-7.7); Neutrophils % 79.2 %; Nucleated Red Blood Cells % 0 %; Platelet Count 406 10^3/cmm (157-399); Red Blood Count 3.84 10^6/uL (3.85-5.65); Red Cell Distribution Width 12.4 % (12.1-15.1); White Blood Count 16.15 10^3/uL (3.29-11.43)
[2024-12-02 11:00] LABS: Anion Gap 15.7 (5-19); Blood Urea Nitrogen 23 mg/dL (8-23); Calcium 8.2 mg/dL (8.5-10.5); Carbon Dioxide 17 mmol/L (22-29); Chloride 103 mmol/L (98-107); Creatinine Clr Calc Pharmacy 40.8944; Glomerular Filtration Rate 38.4 mL/min (90-130); Glucose 270 mg/dL (65-115); Osmolality Calculated 285 mOsm/kg (285-295); Potassium 4.7 mmol/L (3.5-5.1); Sodium 131 mmol/L (136-145)
[2024-12-02 12:27] LABS: Glucose Point of Care 180 mg/dL (70-110)
[2024-12-02] MEDS: dextrose 5%-sod chloride 0.45% 1,000 ML 125 ML IV ×2 (12:28→20:45)
[2024-12-02 14:17] LABS: Glucose Point of Care 206 mg/dL (70-110)
[2024-12-02 14:17] LABS: Glucose Point of Care 239 mg/dL (70-110)
[2024-12-02 14:58] LABS: Anion Gap 17.6 (5-19); Blood Urea Nitrogen 20 mg/dL (8-23); Calcium 7.9 mg/dL (8.5-10.5); Carbon Dioxide 16 mmol/L (22-29); Chloride 100 mmol/L (98-107); Creatinine Clr Calc Pharmacy 40.8944; Glomerular Filtration Rate 38.4 mL/min (90-130); Glucose 246 mg/dL (65-115); Osmolality Calculated 279 mOsm/kg (285-295); Potassium 4.6 mmol/L (3.5-5.1); Sodium 129 mmol/L (136-145); Vancomycin Trough 14.7 ug/mL (10-15)
--- NOTE | 2024-12-02 14:59 | PM.PN ---
Subjective Subjective: Patient was seen this morning, she is alert oriented x 3, follows all commands, denies any fevers, chills, cough, discussed her anion gap being 18 with bicarb at 17, she is still in diabetic ketoacidosis plan on getting insulin drip until her gap closes to 14-15, bicarb has improved, blood sugars are also increasing to 300s, Vitals/I&O/Wt Last Vital Signs Temp 97.2 F L 12/02/24 12:00 Pulse 92 12/02/24 14:00 Resp 12 12/02/24 14:00 BP 148/87 12/02/24 14:00 Pulse Ox 98 12/02/24 14:00 O2 Del Method Room Air 12/02/24 14:00 12/01/24 12/02/24 12/02/24 22:59 06:59 14:59 Intake Total 1440.584 / 4367.882 6342.416 / 3734.718 171.817 / 171.817 Output Total 1300 / 1300 2150 / 3450 Balance 140.584 / 392.302 -107.584 / 284.718 171.817 / 171.817 Weight last 48 hrs Weight 69.5 kg Weight 68 kg Weight 68 kg Weight 68 kg Weight 69.4 kg Physical Exam Const: COMMON NORMALS: no acute distress and patient oriented x3 Resp: COMMON NORMALS: normal respiratory effort, No retractions, No use of accessory muscles and clear to auscultation bilaterally AUSCULTATION: clear to auscultation bilaterally Cardio: COMMON NORMALS: regular rate, regular rhythm, S1 normal heart sound present and S2 normal heart sound present RATE: regular rate RHYTHM: regular rhythm HEART SOUNDS: S1 normal heart sound present and S2 normal heart sound present GI: COMMON NORMALS: Normal to inspection, nondistended, normoactive bowel sounds present and non-tender Extremity: COMMON NORMALS: no clubbing, cyanosis or edema, no calf tenderness and no pedal edema Neuro: COMMON NORMALS: patient oriented x3 Psych: COMMON NORMALS: mental status grossly normal Urinary Catheter Management: Pedro: Cath Placed During This Visit: yes Reason for Continuing Indwelling Catheter: Accurate Measurement of Urinary Output in Critically Ill Patients Urinary Catheter Date of Insertion: 12/01/24 Urinary Catheter Time of Insertion: 10:24 Data 12/02/24 09:58 12/02/24 14:23 Micro: Microbiology 11/30/24 21:05 Urine Culture - Preliminary Urine,Clean Catch Gram Negative Rods 11/30/24 21:30 Blood Culture - Preliminary Blood NEGATIVE TO DATE 11/30/24 21:20 Blood Culture - Preliminary Blood NEGATIVE TO DATE A&P Assessment and plan (1) DKA (diabetic ketoacidosis): (2) Insulin dependent diabetes mellitus: (3) Vaginal yeast infection: (4) Acute renal failure: (5) Dehydration: (6) Urinary tract infection: (7) Sepsis: (8) Acute kidney injury: (9) Hyponatremia: (10) Diabetic neuropathy: Qualifiers: Diabetes mellitus type: type 2 (11) Major depressive disorder, recurrent severe without psychotic features: (12) High anion gap metabolic acidosis: Plan Julia Lovett is a 59 year old female, w/ IDDM2 w/ diabetic neuropathy, HTN, HLD, GERD, IBS, and MDD who was brought to [facility]'s ED on 11/30/2024, via EMS, on 11/30/2024, with complaints of nausea and poor energy, poor appetite, and generalized weakness since Tuesday 11/28. # Diabetic ketoacidosis -Diabetic ketoacidosis protocol -Insulin drip -Check blood sugars hourly -Once anion gap less than 14, switch to subcu insulin, and long-acting -Maintain potassium more than 4.5 -Currently on D5 half-normal saline at 125 cc an hour # Acute encephalopathy -Source likely urinary tract infection -However does complain of nausea/vomiting, CT scan abdomen pelvis no acute findings -Does have possible cellulitis of second finger # Cellulitis second finger right hand -CT scan right hand CT/CT hand RT wo con* [id number] IMPRESSION: 1. Soft tissue edema RIGHT second finger. No focal abscess identified on this unenhanced exam. 2. No osteomyelitis or foreign body. #Sepsis: -Source likely UTI -Pro-Kristopher 0.8, CRP 160.7 -Vancomycin, Zosyn -Follow blood cultures -Follow urine cultures #Vaginal Candidiasis: -Status post 1 dose fluconazole #IDDM2 w/ diabetic neuropathy #Hyponatremia: Pseudohyponatremia from hyperglycemia #High AGAP Metabolic acidosis -Combination of sepsis, DKA #KACEY: Likely sec to dehydration, prerenal, CT scan abdomen pelvis #HTN: IV Hydralazine prn. #HLD: Hold #GERD: IV Protonix #MDD: Hold home medications #IBS: Hold home medications DVT ppx:Lovenox CODE STATUS: Full code. Plan for today continue insulin drip, once anion gap closes, bicarb improved blood sugars improved from transition to subcu insulin, continue BMP every 4 hours, PDMP PDMP Reviewed: Not Reviewed Attestations Medical Necessity Statement*: Patient requires hospitalization for diabetic ketoacidosis, sepsis, UTI Coding Level of Care Code Critical Care >/= 30 minutes Critical care time (in minutes): 35 The high probability of a clinically significant, sudden or life threatening deterioration, as referenced in this documentation, required my full and direct attention, intervention and personal management. The critical care time shown is in addition to time spent performing any reported separately billable procedures and includes the following: [x] Data and vital sign review and interpretation [x] Patient assessment, examination and intervention [x] Medication orders and management [x] Patient/Family updates as able [x] Care Coordination and Documentation. Diagnoses DKA (diabetic ketoacidosis) E11.10 Insulin dependent diabetes mellitus Vaginal yeast infection B37.3 Acute renal failure N17.9 Dehydration E86.0 Urinary tract infection N39.0 Sepsis A41.9 Acute kidney injury N17.9 Hyponatremia E87.1 Diabetic neuropathy E11.40 Diabetes mellitus type: type 2 Major depressive disorder, recurrent severe without psychotic features F33.2 High anion gap metabolic acidosis E87.29
[2024-12-02 15:14] LABS: Glucose Point of Care 253 mg/dL (70-110)
[2024-12-02 16:27] LABS: Glucose Point of Care 265 mg/dL (70-110)
[2024-12-02] MEDS: acetaminophen 325 mg Tablet 650 MG PO (18:02)
[2024-12-02 18:09] LABS: Glucose Point of Care 249 mg/dL (70-110)
[2024-12-02 18:10] LABS: Glucose Point of Care 273 mg/dL (70-110)
[2024-12-02 19:11] LABS: Glucose Point of Care 252 mg/dL (70-110)
[2024-12-02 19:16] LABS: Anion Gap 14.7 (5-19); Blood Urea Nitrogen 20 mg/dL (8-23); Calcium 8.1 mg/dL (8.5-10.5); Carbon Dioxide 19 mmol/L (22-29); Chloride 101 mmol/L (98-107); Creatinine Clr Calc Pharmacy 44.0402; Glomerular Filtration Rate 41.8 mL/min (90-130); Glucose 248 mg/dL (65-115); Osmolality Calculated 281 mOsm/kg (285-295); Potassium 4.7 mmol/L (3.5-5.1); Sodium 130 mmol/L (136-145)
[2024-12-02] MEDS: gabapentin 300 mg Capsule 600 MG PO (20:18)
[2024-12-02] MEDS: enoxaparin 30 mg/0.3 mL Syringe SUBCUT (20:18)
[2024-12-02 20:25] LABS: Glucose Point of Care 203 mg/dL (70-110)
[2024-12-02 21:26] LABS: Glucose Point of Care 144 mg/dL (70-110)
[2024-12-02 22:56] LABS: Glucose Point of Care 155 mg/dL (70-110)
[2024-12-02 23:18] LABS: Anion Gap 17.7 (5-19); Blood Urea Nitrogen 19 mg/dL (8-23); Calcium 8.2 mg/dL (8.5-10.5); Carbon Dioxide 18 mmol/L (22-29); Chloride 101 mmol/L (98-107); Creatinine Clr Calc Pharmacy 44.0402; Glomerular Filtration Rate 41.8 mL/min (90-130); Glucose 179 mg/dL (65-115); Osmolality Calculated 281 mOsm/kg (285-295); Potassium 4.7 mmol/L (3.5-5.1); Sodium 132 mmol/L (136-145)
[2024-12-03] VITALS (30 sets, daily range): BP systolic 114–163; BP diastolic 61–132; PULSE 86–108; RESP 11–31; TEMP 36.2–36.9; O2SAT 95–99
[2024-12-03 00:16] LABS: Glucose Point of Care 239 mg/dL (70-110)
[2024-12-03] MEDS: acetaminophen 325 mg Tablet 650 MG PO ×2 (00:17→09:55)
[2024-12-03 00:38] LABS: Glucose Point of Care 189 mg/dL (70-110)
[2024-12-03 01:25] LABS: Glucose Point of Care 259 mg/dL (70-110)
[2024-12-03 02:29] LABS: Glucose Point of Care 286 mg/dL (70-110)
[2024-12-03] MEDS: ondansetron 4 MG Tablet PO (02:34)
[2024-12-03 03:17] LABS: Glucose Point of Care 268 mg/dL (70-110)
[2024-12-03 03:59] LABS: Anion Gap 12.4 (5-19); Blood Urea Nitrogen 16 mg/dL (8-23); Calcium 8.1 mg/dL (8.5-10.5); Carbon Dioxide 19 mmol/L (22-29); Chloride 104 mmol/L (98-107); Creatinine Clr Calc Pharmacy 44.0402; Glomerular Filtration Rate 41.8 mL/min (90-130); Glucose 283 mg/dL (65-115); Osmolality Calculated 283 mOsm/kg (285-295); Potassium 4.4 mmol/L (3.5-5.1); Sodium 131 mmol/L (136-145)
[2024-12-03 04:01] LABS: Procalcitonin 0.46 ng/mL (0-0.5)
[2024-12-03 04:17] LABS: Glucose Point of Care 252 mg/dL (70-110)
--- NOTE | 2024-12-03 04:31 | PC.NURSE ---
Insulin Dr. De Luna notified of patient's anion gap 12.4, bicarb 19. Orders to be placed by physician for lantus, insulin, and diet.
[2024-12-03] MEDS: dextrose 5%-sod chloride 0.45% 1,000 ML 125 ML IV (05:08)
[2024-12-03] MEDS: piperacillin-tazobactam 3.375 GM in sodium chloride 0.9% (plus) 50 ML IV ×3 (05:10→22:11)
[2024-12-03] MEDS: insulin glargine 100 units/1 mL 65 UNIT SUBCUT (05:10)
[2024-12-03] MEDS: pantoprazole 40 mg SDV IVP (05:12)
[2024-12-03 05:24] LABS: Glucose Point of Care 222 mg/dL (70-110)
[2024-12-03 06:57] LABS: Glucose Point of Care 212 mg/dL (70-110)
[2024-12-03 07:08] LABS: Glucose Point of Care 225 mg/dL (70-110)
[2024-12-03 07:14] LABS: Anion Gap 12.8 (5-19); Blood Urea Nitrogen 15 mg/dL (8-23); Calcium 8.1 mg/dL (8.5-10.5); Carbon Dioxide 18 mmol/L (22-29); Chloride 104 mmol/L (98-107); Creatinine Clr Calc Pharmacy 40.7595; Glomerular Filtration Rate 38.4 mL/min (90-130); Glucose 239 mg/dL (65-115); Osmolality Calculated 281 mOsm/kg (285-295); Potassium 3.8 mmol/L (3.5-5.1); Sodium 131 mmol/L (136-145)
[2024-12-03] MEDS: vancomycin 500 MG in sodium chloride 0.9% (plus) 100 ML 200 MG IV ×2 (09:46→19:44)
[2024-12-03 10:44] LABS: Basophils # 0.1 10^3/uL (0.0-0.1); Basophils % 0.5 %; Eosinophils # 0.2 10^3/uL (0.0-0.8); Eosinophils % 1.3 %; Hematocrit 32.7 % (36-47); Lymphocytes # 2.2 10^3/uL (0.8-4.8); Lymphocytes % 17.4 %; Mean Corpuscular HGB Conc 31.8 g/dL (30-55); Mean Corpuscular Hemoglobin 26.6 pg (27-33); Mean Corpuscular Volume 83.6 fl (85-98); Mean Platelet Volume 9.3 fL (7.4-10.4); Monocytes % 7.9 %; Neutrophils # 8.93 10^3/uL (1.8-7.7); Neutrophils % 70.7 %; Nucleated Red Blood Cells % 0 %; Platelet Count 381 10^3/cmm (157-399); Red Blood Count 3.91 10^6/uL (3.85-5.65); Red Cell Distribution Width 12.6 % (12.1-15.1); White Blood Count 12.64 10^3/uL (3.29-11.43)
[2024-12-03 11:53] LABS: Glucose Point of Care 314 mg/dL (70-110)
--- NOTE | 2024-12-03 12:08 | PC.NURSE ---
called to clarify insulin order. Called Dr. Gilbert to clarify insulin orders. Patient has 20units scheduled TID AC and sliding scale also ordered. Orders to give 20units now and recheck blood glucose in [address] Gilbert with blood glucose.
[2024-12-03] MEDS: insulin lispro 100 unit/1 mL 20 UNIT SUBCUT ×2 (12:09→17:37)
[2024-12-03 13:13] LABS: Glucose Point of Care 388 mg/dL (70-110)
[2024-12-03] MEDS: insulin lispro 100 unit/1 mL 8 UNIT SUBCUT (13:58)
--- NOTE | 2024-12-03 14:43 | P.PN_ITS ---
Subjective 2 Subjective: Patient was seen this morning, she is alert oriented x 3, following all commands, denies any fevers, no chills, no cough, does report feeling fatigue and malaise this morning, she is off the insulin drip, on subcu insulin, Lantus, blood sugar slowing increasing to 300s, denies any polyuria, no polydipsia, discussed monitoring her blood sugars closely, monitoring her BMP Vitals/I&O/Wt Last Vital Signs Temp 97.2 F L 12/03/24 07:30 Pulse 100 12/03/24 14:00 Resp 14 12/03/24 14:00 BP 152/125 12/03/24 14:00 Pulse Ox 97 12/03/24 14:00 O2 Del Method Room Air 12/03/24 14:00 12/02/24 12/03/24 12/03/24 22:59 06:59 14:59 Intake Total 1024.633 / 6348.029 4636.258 / 2308.708 944.333 / 944.333 Output Total 2400 / 2400 2125 / 4525 Balance -1375.367 / -1203.550 -1012.742 / -2216.292 944.333 / 944.333 Weight last 48 hrs Weight 69 kg Weight 69.5 kg Physical Exam 2 Const: COMMON NORMALS: no acute distress and patient oriented x3 Resp: COMMON NORMALS: normal respiratory effort, No retractions, No use of accessory muscles and clear to auscultation bilaterally AUSCULTATION: clear to auscultation bilaterally Cardio: COMMON NORMALS: regular rate, regular rhythm, S1 normal heart sound present and S2 normal heart sound present RATE: regular rate RHYTHM: r egular rhythm HEART SOUNDS: S1 normal heart sound present and S2 normal heart sound present GI: COMMON NORMALS: Normal to inspection, nondistended, normoactive bowel sounds present and non-tender Extremity: COMMON NORMALS: no pedal edema Neuro: COMMON NORMALS: patient oriented x3 Psych: COMMON NORMALS: mental status grossly normal Urinary Catheter Management: Pedro: Cath Placed During This Visit: yes Reason for Continuing Indwelling Catheter: Accurate Measurement of Urinary Output in Critically Ill Patients Urinary Catheter Date of Insertion: 12/01/24 Urinary Catheter Time of Insertion: 10:24 Data 12/03/24 10:29 12/03/24 06:46 Micro: Microbiology 11/30/24 21:05 Urine Culture - Final Urine,Clean Catch Proteus mirabilis A&P Assessment and plan (1) DKA (diabetic ketoacidosis): (2) Insulin dependent diabetes mellitus: (3) Vaginal yeast infection: (4) Acute renal failure: (5) Dehydration: (6) Urinary tract infection: (7) Sepsis: (8) Acute kidney injury: (9) Hyponatremia: (10) Diabetic neuropathy: Qualifiers: Diabetes mellitus type: type 2 (11) Major depressive disorder, recurrent severe without psychotic features: (12) High anion gap metabolic acidosis: Plan Julia Lovett is a 59 year old female, w/ IDDM2 w/ diabetic neuropathy, HTN, HLD, GERD, IBS, and MDD who was brought to [facility]'s ED on 11/30/2024, via EMS, on 11/30/2024, with complaints of nausea and poor energy, poor appetite, and generalized weakness since Tuesday 11/28. # Diabetic ketoacidosis, anion gap closed, transition to subcu insulin - Lantus 65 units in the morning -Takes 20 units 3 times daily with meals -Will add a low-dose insulin sliding scale on top of that -Check blood sugars hourly - Monitor blood sugars closely # Acute encephalopathy, resolving -Source likely urinary tract infection -However does complain of nausea/vomiting, CT scan abdomen pelvis no acute findings -Does have possible cellulitis of second finger # Cellulitis second finger right hand -CT scan right hand CT/CT hand RT wo con* [id number] IMPRESSION: 1. Soft tissue edema RIGHT second finger. No focal abscess identified on this unenhanced exam. 2. No osteomyelitis or foreign body. #Sepsis: -Source likely UTI -Pro-Kristopher 0.8, CRP 160.7 -Vancomycin, Zosyn -Follow blood cultures -Follow urine cultures showing Proteus species #Vaginal Candidiasis: -Status post 1 dose fluconazole #IDDM2 w/ diabetic neuropathy #Hyponatremia: Pseudohyponatremia from hyperglycemia #High AGAP Metabolic acidosis resolved -Combination of sepsis, DKA #KACEY: Likely sec to dehydration, prerenal, CT scan abdomen pelvis #HTN: IV Hydralazine prn. #HLD: Hold #GERD: IV Protonix #MDD: Hold home medications #IBS: Hold home medications DVT ppx:Lovenox CODE STATUS: Full code. Plan for today will monitor blood sugars on subcu insulin, potentially move out of ICU based upon repeat BMP PDMP PDMP Reviewed: Not Reviewed Attestations 2 Medical Necessity Statement*: Patient requires hospitalization for DKA, UTI Diagnoses DKA (diabetic ketoacidosis) E11.10 Insulin dependent diabetes mellitus Vaginal yeast infection B37.3 Acute renal failure N17.9 Dehydration E86.0 Urinary tract infection N39.0 Sepsis A41.9 Acute kidney injury N17.9 Hyponatremia E87.1 Diabetic neuropathy E11.40 Diabetes mellitus type: type 2 Major depressive disorder, recurrent severe without psychotic features F33.2 High anion gap metabolic acidosis E87.29
[2024-12-03 15:01] LABS: Glucose Point of Care 285 mg/dL (70-110)
[2024-12-03 15:20] LABS: Blood Urea Nitrogen 16 mg/dL (8-23); Calcium 8.4 mg/dL (8.5-10.5); Carbon Dioxide 19 mmol/L (22-29); Chloride 103 mmol/L (98-107); Creatinine Clr Calc Pharmacy 35.6646; Glomerular Filtration Rate 32.9 mL/min (90-130); Glucose 294 mg/dL (65-115); Osmolality Calculated 282 mOsm/kg (285-295); Sodium 130 mmol/L (136-145)
[2024-12-03 17:35] LABS: Glucose Point of Care 199 mg/dL (70-110)
[2024-12-03] MEDS: insulin lispro 100 unit/1 mL SUBCUT (17:37)
[2024-12-03] MEDS: sodium chloride 0.9% 1,000 ML 125 ML IV (19:45)
[2024-12-03] MEDS: enoxaparin 40 mg/0.4 mL Syringe SUBCUT (20:16)
[2024-12-03] MEDS: gabapentin 300 mg Capsule 600 MG PO (20:16)
--- NOTE | 2024-12-03 22:25 | PC.NURSE ---
Telephone order per Dr. De Luna for 40 mg PO protonix once. Pt complaining of heartburn/indigestion.
[2024-12-03 22:36] LABS: Glucose Point of Care 224 mg/dL (70-110)
[2024-12-03] MEDS: pantoprazole DR 40 mg Tablet PO (23:19)
[2024-12-03] MEDS: trazodone 50 mg Tablet PO (23:19)
[2024-12-04] VITALS (49 sets, daily range): BP systolic 105–175; BP diastolic 53–130; PULSE 88–112; RESP 9–24; TEMP 36.6–37.2; O2SAT 95–99
[2024-12-04 04:12] LABS: Basophils # 0.1 10^3/uL (0.0-0.1); Basophils % 0.6 %; Eosinophils # 0.1 10^3/uL (0.0-0.8); Hematocrit 33.8 % (36-47); Lymphocytes # 1.9 10^3/uL (0.8-4.8); Lymphocytes % 14.9 %; Mean Corpuscular HGB Conc 32.2 g/dL (30-55); Mean Corpuscular Hemoglobin 26.9 pg (27-33); Mean Corpuscular Volume 83.5 fl (85-98); Mean Platelet Volume 9.2 fL (7.4-10.4); Monocytes # 0.9 10^3/uL (0.2-0.9); Neutrophils # 9.22 10^3/uL (1.8-7.7); Nucleated Red Blood Cells % 0 %; Platelet Count 389 10^3/cmm (157-399); Red Blood Count 4.05 10^6/uL (3.85-5.65); Red Cell Distribution Width 12.7 % (12.1-15.1); White Blood Count 12.62 10^3/uL (3.29-11.43)
[2024-12-04] MEDS: hyDRALAzine 20 mg/mL INJ 1 mL 10 MG IVP ×2 (04:14→22:39)
[2024-12-04 04:37] LABS: Procalcitonin 0.41 ng/mL (0-0.5)
[2024-12-04] MEDS: morphine 4 mg/mL SDV 1 mL 2 MG IVP (04:42)
[2024-12-04 04:44] LABS: Alanine Aminotransferase 12 U/L (0-33); Albumin Level 3.5 g/dL (3.5-5.2); Alkaline Phosphatase 183 U/L (35-105); Anion Gap 18.3 (5-19); Aspartate Amino Transferase 8 U/L (0-32); Blood Urea Nitrogen 19 mg/dL (8-23); Calcium 8.6 mg/dL (8.5-10.5); Carbon Dioxide 21 mmol/L (22-29); Chloride 99 mmol/L (98-107); Creatinine Clr Calc Pharmacy 35.6646; Globulin 2.9 g/dL (1.3-4.6); Glomerular Filtration Rate 32.9 mL/min (90-130); Glucose 406 mg/dL (65-115); Osmolality Calculated 295 mOsm/kg (285-295); Phosphorus 3.1 mg/dL (2.5-4.5); Potassium 5.3 mmol/L (3.5-5.1); Sodium 133 mmol/L (136-145); Total Bilirubin 0.3 mg/dL (0.15-1.2); Total Protein 6.4 g/dL (6.6-8.7)
[2024-12-04 04:49] LABS: C Reactive Protein 62.6 mg/L (0.0-4.9)
[2024-12-04] MEDS: pantoprazole 40 mg SDV IVP (06:18)
[2024-12-04] MEDS: piperacillin-tazobactam 3.375 GM in sodium chloride 0.9% (plus) 50 ML IV ×3 (06:18→21:44)
[2024-12-04] MEDS: sodium chloride 0.9% 1,000 ML 125 ML IV ×2 (07:12→15:13)
[2024-12-04 07:26] LABS: Glucose Point of Care 386 mg/dL (70-110)
[2024-12-04] MEDS: insulin glargine 100 units/1 mL 75 UNIT SUBCUT (07:35)
[2024-12-04] MEDS: vancomycin 500 MG in sodium chloride 0.9% (plus) 100 ML 200 MG IV (07:35)
[2024-12-04] MEDS: insulin lispro 100 unit/1 mL 20 UNIT SUBCUT ×2 (07:35→12:09)
[2024-12-04 09:13] LABS: Glucose Point of Care 381 mg/dL (70-110)
[2024-12-04] MEDS: sennosides 8.6 mg Tablet 17.2 MG PO (09:29)
[2024-12-04] MEDS: docusate sodium 100 mg Capsule 200 MG PO (09:29)
--- NOTE | 2024-12-04 09:39 | PC.NURSE ---
Verified with Dr. Gilbert insulin sliding scale. Verbal to recheck BG in thirty minutes and dose sliding scale.
[2024-12-04] MEDS: insulin lispro 100 unit/1 mL SUBCUT ×3 (10:19→19:55)
[2024-12-04 10:20] LABS: Glucose Point of Care 379 mg/dL (70-110)
[2024-12-04 11:56] LABS: Glucose Point of Care 326 mg/dL (70-110)
[2024-12-04 13:15] LABS: Anion Gap 16.5 (5-19); Blood Urea Nitrogen 21 mg/dL (8-23); Carbon Dioxide 20 mmol/L (22-29); Chloride 101 mmol/L (98-107); Glomerular Filtration Rate 30.7 mL/min (90-130); Glucose 307 mg/dL (65-115); Osmolality Calculated 291 mOsm/kg (285-295); Potassium 4.5 mmol/L (3.5-5.1); Sodium 133 mmol/L (136-145)
[2024-12-04 13:17] LABS: Creatinine Clr Calc Pharmacy 33.2333
[2024-12-04 13:38] LABS: Glucose Point of Care 291 mg/dL (70-110)
[2024-12-04 15:53] LABS: Adenovirus Not Detected (NOT DETECT); Chlamydia Pneumoniae Not Detected (NOT DETECT); Coronavirus 229E,HKU1,NL63,OC4 Not Detected (NOT DETECT); Human Metapneumovirus Not Detected (NOT DETECT); Human Rhinovirus/Enterovirus Not Detected (NOT DETECT); Influenza A Not Detected (NOT DETECT); Influenza A H1 Not Detected (NOT DETECT); Influenza A H1-2009 Not Detected (NOT DETECT); Influenza A H3 Not Detected (NOT DETECT); Influenza B Not Detected (NOT DETECT); Mycoplasma Pneumoniae Not Detected (NOT DETECT); Parainfluenza Virus Type 1 Not Detected (NOT DETECT); Parainfluenza Virus Type 2 Not Detected (NOT DETECT); Parainfluenza Virus Type 3 Not Detected (NOT DETECT); Parainfluenza Virus Type 4 Not Detected (NOT DETECT); Respiratory Syncytial Virus A Not Detected (NOT DETECT); Respiratory Syncytial Virus B Not Detected (NOT DETECT); SARS-COV-2 Not Detected (NOT DETECT)
--- NOTE | 2024-12-04 16:16 | P.PN_ITS ---
Subjective 2 Subjective: Patient was seen this morning, she is alert oriented x 3, following all commands, denies any fevers, no chills no nausea, no vomiting, she does report feeling unwell, Vitals/I&O/Wt Last Vital Signs Temp 98.9 F 12/04/24 12:30 Pulse 95 12/04/24 16:00 Resp 15 12/04/24 16:00 BP 136/83 12/04/24 16:00 Pulse Ox 99 12/04/24 16:00 O2 Del Method Room Air 12/04/24 16:00 12/04/24 12/04/24 12/04/24 06:59 14:59 22:59 Intake Total 1530 / 2864.333 322 / 322 1000 / 1322 Output Total 2000 / 3600 1000 / 1000 Balance -470 / -735.667 -678 / -678 1000 / 322 Weight last 48 hrs Weight 67.5 kg Weight 69 kg Physical Exam 2 Const: COMMON NORMALS: no acute distress and patient oriented x3 Resp: COMMON NORMALS: normal respiratory effort, No retractions, No use of accessory muscles and clear to auscultation bilaterally AUSCULTATION: clear to auscultation bilaterally Cardio: COMMON NORMALS: regular rate, regular rhythm, S1 normal heart sound present and S2 normal heart sound present RATE: regular rate RHYTHM: r egular rhythm HEART SOUNDS: S1 normal heart sound present and S2 normal heart sound present GI: COMMON NORMALS: Normal to inspection, nondistended, normoactive bowel sounds present and non-tender Extremity: COMMON NORMALS: no pedal edema Neuro: COMMON NORMALS: patient oriented x3 Psych: COMMON NORMALS: mental status grossly normal Urinary Catheter Management: Pedro: Cath Placed During This Visit: yes Reason for Continuing Indwelling Catheter: Accurate Measurement of Urinary Output in Critically Ill Patients Urinary Catheter Date of Insertion: 12/01/24 Urinary Catheter Time of Insertion: 10:24 Data 12/04/24 03:57 12/04/24 12:53 Micro: Microbiology 11/30/24 21:05 Urine Culture - Final Urine,Clean Catch Proteus mirabilis A&P Assessment and plan (1) DKA (diabetic ketoacidosis): (2) Insulin dependent diabetes mellitus: (3) Vaginal yeast infection: (4) Acute renal failure: (5) Dehydration: (6) Urinary tract infection: (7) Sepsis: (8) Acute kidney injury: (9) Hyponatremia: (10) Diabetic neuropathy: Qualifiers: Diabetes mellitus type: type 2 (11) Major depressive disorder, recurrent severe without psychotic features: (12) High anion gap metabolic acidosis: Plan Julia Lovett is a 59 year old female, w/ IDDM2 w/ diabetic neuropathy, HTN, HLD, GERD, IBS, and MDD who was brought to [facility]'s ED on 11/30/2024, via EMS, on 11/30/2024, with complaints of nausea and poor energy, poor appetite, and generalized weakness since Tuesday 11/28. # Diabetic ketoacidosis, anion gap closed, transition to subcu insulin, however blood sugars continue to be elevated -At home she uses Lantus 80 units in the evening, and 20 units of NovoLog 3 times daily Plan - Lantus 75 units in the morning - NovoLog 20 units 3 times daily with meals -Will low-dose insulin sliding scale on top of that -Check blood sugars 3 times daily - Monitor blood sugars closely # Acute encephalopathy, resolving -Source likely urinary tract infection -However does complain of nausea/vomiting, CT scan abdomen pelvis no acute findings -Does have possible cellulitis of second finger # Cellulitis second finger right hand -CT scan right hand CT/CT hand RT wo con* [id number] IMPRESSION: 1. Soft tissue edema RIGHT second finger. No focal abscess identified on this unenhanced exam. 2. No osteomyelitis or foreign body. - Monitor #Sepsis: -Source likely UTI -Pro-Kristopher 0.8, CRP 160.7 - Zosyn -Follow blood cultures -Follow urine cultures showing Proteus species Proteus UTI, zosyn #Vaginal Candidiasis: -Status post 1 dose fluconazole #IDDM2 w/ diabetic neuropathy #Hyponatremia: Pseudohyponatremia from hyperglycemia #High AGAP Metabolic acidosis resolved -Combination of sepsis, DKA #KACEY: Likely sec to dehydration, prerenal, CT scan abdomen pelvis #HTN: IV Hydralazine prn. #HLD: Hold #GERD: IV Protonix #MDD: Hold home medications #IBS: Hold home medications DVT ppx:Lovenox CODE STATUS: Full code. Plan for today plan for today, diabetic ketoacidosis, resolved moved to medical floors, monitor blood sugars closely, UTI continue Zosyn, cellulitis, continue Zosyn, add doxycycline PDMP PDMP Reviewed: Not Reviewed Attestations 2 Medical Necessity Statement*: Patient requires hospitalization for hyperglycemia, UTI, cellulitis Diagnoses DKA (diabetic ketoacidosis) E11.10 Insulin dependent diabetes mellitus Vaginal yeast infection B37.3 Acute renal failure N17.9 Dehydration E86.0 Urinary tract infection N39.0 Sepsis A41.9 Acute kidney injury N17.9 Hyponatremia E87.1 Diabetic neuropathy E11.40 Diabetes mellitus type: type 2 Major depressive disorder, recurrent severe without psychotic features F33.2 High anion gap metabolic acidosis E87.29
[2024-12-04 17:10] LABS: Glucose Point of Care 162 mg/dL (70-110)
--- NOTE | 2024-12-04 17:12 | PC.NURSE ---
Telephone order from Dr. Gilbert for 10units humalog insulin, recheck BG in one hour and call DR. Alcantar BG is 162 now, 20 scheduled Humalog not given.
[2024-12-04] MEDS: acetaminophen 325 mg Tablet 650 MG PO ×2 (17:21→23:11)
[2024-12-04] MEDS: doxycycline 100 mg Tablet PO (17:22)
[2024-12-04] MEDS: insulin lispro 100 unit/1 mL 10 UNIT SUBCUT (17:22)
--- NOTE | 2024-12-04 18:25 | PC.NURSE ---
Dr arguello verbal order to stop sliding scale insulin order and give 5 units humalog now.
[2024-12-04 18:40] LABS: Vancomycin Trough 15.2 ug/mL (10-15)
[2024-12-04] MEDS: gabapentin 300 mg Capsule 600 MG PO (21:44)
[2024-12-04] MEDS: enoxaparin 40 mg/0.4 mL Syringe SUBCUT (21:44)
[2024-12-04 22:05] LABS: Glucose Point of Care 116 mg/dL (70-110)
[2024-12-04] MEDS: trazodone 50 mg Tablet PO (23:11)
[2024-12-05] MEDS: HYDROcodone-acetaminophen 7.5-325 mg Tablet 1 TAB PO ×3 (00:12→22:20)
[2024-12-05] MEDS: sodium chloride 0.9% 1,000 ML 125 ML IV ×3 (00:12→22:18)
[2024-12-05 03:37] LABS: Basophils # 0.1 10^3/uL (0.0-0.1); Basophils % 0.7 %; Eosinophils # 0.3 10^3/uL (0.0-0.8); Eosinophils % 1.9 %; Hematocrit 29.9 % (36-47); Lymphocytes # 2.9 10^3/uL (0.8-4.8); Mean Corpuscular HGB Conc 31.8 g/dL (30-55); Mean Corpuscular Hemoglobin 26.5 pg (27-33); Mean Corpuscular Volume 83.3 fl (85-98); Mean Platelet Volume 9.3 fL (7.4-10.4); Monocytes # 1.1 10^3/uL (0.2-0.9); Monocytes % 8.2 %; Neutrophils % 65.3 %; Nucleated Red Blood Cells % 0 %; Platelet Count 379 10^3/cmm (157-399); Red Blood Count 3.59 10^6/uL (3.85-5.65); Red Cell Distribution Width 12.7 % (12.1-15.1); White Blood Count 13.63 10^3/uL (3.29-11.43)
[2024-12-05 03:56] LABS: Alanine Aminotransferase 10 U/L (0-33); Albumin Level 3.1 g/dL (3.5-5.2); Alkaline Phosphatase 157 U/L (35-105); Anion Gap 13.9 (5-19); Aspartate Amino Transferase 12 U/L (0-32); Blood Urea Nitrogen 20 mg/dL (8-23); Calcium 8.2 mg/dL (8.5-10.5); Carbon Dioxide 21 mmol/L (22-29); Chloride 102 mmol/L (98-107); Creatinine Clr Calc Pharmacy 37.6644; Globulin 3.2 g/dL (1.3-4.6); Glomerular Filtration Rate 35.4 mL/min (90-130); Glucose 182 mg/dL (65-115); Magnesium 1.7 mg/dL (1.7-2.3); Osmolality Calculated 283 mOsm/kg (285-295); Phosphorus 2.5 mg/dL (2.5-4.5); Potassium 3.9 mmol/L (3.5-5.1); Sodium 133 mmol/L (136-145); Total Bilirubin 0.3 mg/dL (0.15-1.2); Total Protein 6.3 g/dL (6.6-8.7)
[2024-12-05] MEDS: buPROPion XL (24 HR) 300 mg Tablet PO (05:13)
[2024-12-05] MEDS: buPROPion XL (24 HR) 150 mg Tablet PO (05:13)
[2024-12-05] MEDS: piperacillin-tazobactam 3.375 GM in sodium chloride 0.9% (plus) 50 ML IV ×3 (05:14→22:19)
[2024-12-05] MEDS: pantoprazole 40 mg SDV IVP (05:14)
[2024-12-05 05:40] VITALS: BP 154/80; PULSE 99; RESP 17; TEMP 36.6; O2SAT 91; BMI 25.4
[2024-12-05 06:39] LABS: Glucose Point of Care 156 mg/dL (70-110)
[2024-12-05] MEDS: insulin glargine 100 units/1 mL 75 UNIT SUBCUT (06:51)
[2024-12-05] MEDS: insulin lispro 100 unit/1 mL 15 UNIT SUBCUT ×3 (06:51→18:08)
[2024-12-05 07:51] LABS: Glucose Point of Care 223 mg/dL (70-110)
[2024-12-05 08:00] VITALS: BP 159/76; PULSE 95; RESP 18; TEMP 36.5; O2SAT 95
[2024-12-05] MEDS: docusate sodium 100 mg Capsule 200 MG PO (09:02)
[2024-12-05] MEDS: sennosides 8.6 mg Tablet 17.2 MG PO (09:02)
[2024-12-05] MEDS: atorvastatin 40 mg Tablet 80 MG PO (09:02)
[2024-12-05] MEDS: doxycycline 100 mg Tablet PO ×2 (09:02→18:09)
[2024-12-05] MEDS: amlodipine 5 mg Tablet PO (09:02)
--- NOTE | 2024-12-05 10:35 | PC.SOCIAL ---
IMM Updated Updated pt on IMM. No questions voiced. Provided pt a copy. Initialed, dated, & timed copy in chart.
[2024-12-05 11:00] LABS: Glucose Point of Care 215 mg/dL (70-110)
[2024-12-05 11:39] VITALS: BP 161/84; PULSE 102; RESP 18; TEMP 36.4; O2SAT 94
[2024-12-05 16:31] LABS: Glucose Point of Care 230 mg/dL (70-110)
--- NOTE | 2024-12-05 16:48 | P.PN_ITS ---
Subjective 2 Subjective: Patient was seen this morning, she denies any fevers, chills, no cough, no nausea, vomiting does report generalized weakness and fatigue Vitals/I&O/Wt Last Vital Signs Temp 97.5 F L 12/05/24 11:39 Pulse 102 H 12/05/24 11:39 Resp 18 12/05/24 11:39 BP 161/84 12/05/24 11:39 Pulse Ox 94 12/05/24 11:39 O2 Del Method Room Air 12/05/24 11:39 12/05/24 12/05/24 12/05/24 06:59 14:59 22:59 Intake Total 1550 / 3952 4269.626 / 4269.626 Output Total 1150 / 4300 1700 / 1700 Balance 400 / -348 4269.626 / 4269.626 -1700 / 2569.626 Weight last 48 hrs Weight 67.132 kg Weight 67.5 kg Physical Exam 2 Const: COMMON NORMALS: no acute distress and patient oriented x3 Resp: COMMON NORMALS: normal respiratory effort, No retractions, No use of accessory muscles and clear to auscultation bilaterally AUSCULTATION: clear to auscultation bilaterally Cardio: COMMON NORMALS: regular rate, regular rhythm, S1 normal heart sound present and S2 normal heart sound present RATE: regular rate RHYTHM: r egular rhythm HEART SOUNDS: S1 normal heart sound present and S2 normal heart sound present GI: COMMON NORMALS: Normal to inspection, nondistended, normoactive bowel sounds present and non-tender Extremity: COMMON NORMALS: no pedal edema Neuro: COMMON NORMALS: patient oriented x3 Psych: COMMON NORMALS: mental status grossly normal Urinary Catheter Management: Pedro: Cath Placed During This Visit: yes Reason for Continuing Indwelling Catheter: Accurate Measurement of Urinary Output in Critically Ill Patients Urinary Catheter Date of Insertion: 12/01/24 Urinary Catheter Time of Insertion: 10:24 Data 12/05/24 02:34 12/05/24 02:34 A&P Assessment and plan (1) DKA (diabetic ketoacidosis): (2) Insulin dependent diabetes mellitus: (3) Vaginal yeast infection: (4) Acute renal failure: (5) Dehydration: (6) Urinary tract infection: (7) Sepsis: (8) Acute kidney injury: (9) Hyponatremia: (10) Diabetic neuropathy: Qualifiers: Diabetes mellitus type: type 2 (11) Major depressive disorder, recurrent severe without psychotic features: (12) High anion gap metabolic acidosis: Plan Julia Lovett is a 59 year old female, w/ IDDM2 w/ diabetic neuropathy, HTN, HLD, GERD, IBS, and MDD who was brought to [facility]'s ED on 11/30/2024, via EMS, on 11/30/2024, with complaints of nausea and poor energy, poor appetite, and generalized weakness since Tuesday 11/28. # Diabetic ketoacidosis, anion gap closed, transition to subcu insulin, however blood sugars continue to be elevated -At home she uses Lantus 80 units in the evening, and 20 units of NovoLog 3 times daily Plan - Lantus 75 units in the morning - NovoLog 20 units 3 times daily with meals -Will low-dose insulin sliding scale on top of that -Check blood sugars 3 times daily - Monitor blood sugars closely # Acute encephalopathy, resolving -Source likely urinary tract infection -However does complain of nausea/vomiting, CT scan abdomen pelvis no acute findings -Does have possible cellulitis of second finger # Cellulitis second finger right hand -CT scan right hand CT/CT hand RT wo con* [id number] IMPRESSION: 1. Soft tissue edema RIGHT second finger. No focal abscess identified on this unenhanced exam. 2. No osteomyelitis or foreign body. - Monitor #Sepsis: -Source likely UTI -Pro-Kristopher 0.8, CRP 160.7 - Zosyn -Follow blood cultures -Follow urine cultures showing Proteus species Proteus UTI, zosyn #Vaginal Candidiasis: -Status post 1 dose fluconazole #IDDM2 w/ diabetic neuropathy #Hyponatremia: Pseudohyponatremia from hyperglycemia #High AGAP Metabolic acidosis resolved -Combination of sepsis, DKA #KACEY: Likely sec to dehydration, prerenal, CT scan abdomen pelvis #HTN: IV Hydralazine prn. #HLD: Hold #GERD: IV Protonix #MDD: Hold home medications #IBS: Hold home medications DVT ppx:Lovenox CODE STATUS: Full code. Plan for today continue antibiotics, monitor blood sugars PDMP PDMP Reviewed: Not Reviewed Attestations 2 Medical Necessity Statement*: Patient requires hospitalization for hypoglycemia, UTI Diagnoses DKA (diabetic ketoacidosis) E11.10 Insulin dependent diabetes mellitus Vaginal yeast infection B37.3 Acute renal failure N17.9 Dehydration E86.0 Urinary tract infection N39.0 Sepsis A41.9 Acute kidney injury N17.9 Hyponatremia E87.1 Diabetic neuropathy E11.40 Diabetes mellitus type: type 2 Major depressive disorder, recurrent severe without psychotic features F33.2 High anion gap metabolic acidosis E87.29
[2024-12-05 18:00] VITALS: BP 154/70; PULSE 98; RESP 19; TEMP 37.1; O2SAT 96
[2024-12-05 20:53] LABS: Glucose Point of Care 233 mg/dL (70-110)
[2024-12-05 21:08] VITALS: BP 161/81; PULSE 99; RESP 14; TEMP 36.8; O2SAT 96
[2024-12-05] MEDS: gabapentin 300 mg Capsule 600 MG PO (22:19)
[2024-12-05] MEDS: trazodone 50 mg Tablet PO (22:20)
[2024-12-05] MEDS: hyDRALAzine 20 mg/mL INJ 1 mL 10 MG IVP (22:21)
[2024-12-05] MEDS: enoxaparin 40 mg/0.4 mL Syringe SUBCUT (23:09)
[2024-12-06 01:38] VITALS: BP 154/73; PULSE 100; RESP 18; TEMP 37.1; O2SAT 96
[2024-12-06 05:53] LABS: Basophils # 0.1 10^3/uL (0.0-0.1); Basophils % 0.8 %; Eosinophils # 0.3 10^3/uL (0.0-0.8); Eosinophils % 2.3 %; Hematocrit 29.2 % (36-47); Mean Corpuscular HGB Conc 31.2 g/dL (30-55); Mean Corpuscular Hemoglobin 26.7 pg (27-33); Mean Corpuscular Volume 85.6 fl (85-98); Mean Platelet Volume 9.2 fL (7.4-10.4); Monocytes # 1.1 10^3/uL (0.2-0.9); Monocytes % 8.3 %; Neutrophils # 8.56 10^3/uL (1.8-7.7); Neutrophils % 63.1 %; Nucleated Red Blood Cells % 0 %; Platelet Count 347 10^3/cmm (157-399); Red Blood Count 3.41 10^6/uL (3.85-5.65); White Blood Count 13.58 10^3/uL (3.29-11.43)
[2024-12-06] MEDS: sodium chloride 0.9% 1,000 ML 125 ML IV (05:58)
[2024-12-06] MEDS: piperacillin-tazobactam 3.375 GM in sodium chloride 0.9% (plus) 50 ML IV (05:58)
[2024-12-06] MEDS: insulin lispro 100 unit/1 mL 15 UNIT SUBCUT ×2 (05:59→13:17)
[2024-12-06] MEDS: buPROPion XL (24 HR) 300 mg Tablet PO (05:59)
[2024-12-06] MEDS: buPROPion XL (24 HR) 150 mg Tablet PO (05:59)
[2024-12-06] MEDS: HYDROcodone-acetaminophen 7.5-325 mg Tablet 1 TAB PO (05:59)
[2024-12-06] MEDS: pantoprazole 40 mg SDV IVP (05:59)
[2024-12-06] MEDS: insulin glargine 100 units/1 mL 75 UNIT SUBCUT (06:00)
[2024-12-06 06:03] VITALS: BP 144/77; PULSE 104; RESP 18; TEMP 37.1; O2SAT 97; BMI 25.4
[2024-12-06 06:13] LABS: Alanine Aminotransferase 11 U/L (0-33); Alkaline Phosphatase 156 U/L (35-105); Anion Gap 14.9 (5-19); Aspartate Amino Transferase 10 U/L (0-32); Blood Urea Nitrogen 15 mg/dL (8-23); Calcium 8.3 mg/dL (8.5-10.5); Carbon Dioxide 21 mmol/L (22-29); Chloride 103 mmol/L (98-107); Globulin 3.3 g/dL (1.3-4.6); Glomerular Filtration Rate 41.8 mL/min (90-130); Glucose 211 mg/dL (65-115); Magnesium 1.6 mg/dL (1.7-2.3); Osmolality Calculated 287 mOsm/kg (285-295); Phosphorus 2.9 mg/dL (2.5-4.5); Potassium 3.9 mmol/L (3.5-5.1); Sodium 135 mmol/L (136-145); Total Bilirubin 0.2 mg/dL (0.15-1.2); Total Protein 6.3 g/dL (6.6-8.7)
[2024-12-06 07:04] LABS: Glucose Point of Care 165 mg/dL (70-110)
[2024-12-06 07:46] VITALS: BP 126/51; PULSE 102; RESP 16; TEMP 36.8; O2SAT 95
[2024-12-06] MEDS: sennosides 8.6 mg Tablet 17.2 MG PO (08:50)
[2024-12-06] MEDS: docusate sodium 100 mg Capsule 200 MG PO (08:50)
[2024-12-06] MEDS: amlodipine 5 mg Tablet PO (08:50)
[2024-12-06] MEDS: doxycycline 100 mg Tablet PO (08:50)
[2024-12-06] MEDS: atorvastatin 40 mg Tablet 80 MG PO (08:50)
[2024-12-06 11:38] LABS: Glucose Point of Care 151 mg/dL (70-110)
[2024-12-06 11:45] VITALS: BP 163/77; PULSE 97; RESP 17; TEMP 36.8; O2SAT 96
--- NOTE | 2024-12-06 11:48 | P.DS_ITS ---
Discharge Providers Date of Admission: 11/30/24 21:13 Date of Discharge: December 06, 2024 Attending Provider at Admission: Pratibha De Luna MD Attending Provider at Discharge: Reg Gilbert MD Primary Care Provider: Kati Singh DO Diagnoses at Discharge Discharge Diagnosis (1) DKA (diabetic ketoacidosis): Status: Acute (2) Insulin dependent diabetes mellitus: Status: Acute (3) Vaginal yeast infection: Status: Acute (4) Acute renal failure: Status: Acute (5) Dehydration: Status: Acute (6) Urinary tract infection: Status: Acute (7) Sepsis: Status: Acute (8) Acute kidney injury: Status: Acute (9) Hyponatremia: Status: Acute (10) Diabetic neuropathy: Status: Acute Qualifiers: Diabetes mellitus type: type 2 (11) Major depressive disorder, recurrent severe without psychotic features: Status: Acute (12) High anion gap metabolic acidosis: Status: Acute Reason for Visit Reason for Visit: high bs Hospital Course Hospital Course This is a 59-year-old female with past medical history of insulin-dependent type 2 diabetes mellitus, diabetic neuropathy, hypertension hyperlipidemia GERD, IBS major depressive disorder, who presents [facility] due to nausea vomiting Patient presented to [facility] for diabetic ketoacidosis, required ICU admission, insulin drip, had slow clinical progress, but overall clinically improved, eventually anion gap closed, blood sugars reasonable, transition to NovoLog and Lantus. Patient will be discharged on NovoLog 12 units 3 times daily, continue home glargine 80 units daily For her urinary tract infection, sepsis, received IV antibiotics, overall clinically improved, urine cultures growing Proteus, discharged on p.o. antibiotics For concerns for cellulitis, right hand, second digit, received IV antibiotics, transition to p.o. antibiotics, CT scan no evidence of osteomyelitis/drainable abscess, continue p.o. antibiotics, follow-up with Dr. Richard as outpatient Physical Exam Const: COMMON NORMALS: no acute distress and patient oriented x3 Resp: COMMON NORMALS: normal respiratory effort, No retractions, No use of accessory muscles and clear to auscultation bilaterally AUSCULTATION: clear to auscultation bilaterally Cardio: COMMON NORMALS: regular rate, regular rhythm, S1 normal heart sound present and S2 normal heart sound present RATE: regular rate RHYTHM: regular rhythm HEART SOUNDS: S1 normal heart sound present and S2 normal heart sound present GI: COMMON NORMALS: Normal to inspection, nondistended, normoactive bowel sounds present and non-tender Extremity: COMMON NORMALS: no pedal edema Neuro: COMMON NORMALS: patient oriented x3 Psych: COMMON NORMALS: mental status grossly normal Skin: NARRATIVE SKIN EXAM: Right hand, second digit, PIP joint area, rash, area of cellulitis significantly improved, no significant drainage, no significant tenderness, no pain with range of motion, Urinary Catheter Management: Pedro: Cath Placed During This Visit: yes Reason for Continuing Indwelling Catheter: Accurate Measurement of Urinary Output in Critically Ill Patients Urinary Catheter Date of Insertion: 12/01/24 Urinary Catheter Time of Insertion: 10:24 Discharge Data Studies Completed and Pending Completed Studies During Hospitalization Category Date Time Status CT abdomen pelvis wo con [id number] Routine Cat Scan 12/01/24 11:[address] hand RT wo con* [id number] Routine Cat Scan 12/01/24 11:37 Completed XR chest 1V portable [id number] Stat Exams 11/30/24 21:29 Completed Radiology Impressions Chest X-Ray 11/30/24 21:29 IMPRESSION: No acute cardiopulmonary abnormality. Hand CT 12/01/24 11:37 IMPRESSION: 1. Soft tissue edema RIGHT second finger. No focal abscess identified on this unenhanced exam. 2. No osteomyelitis or foreign body. Abdomen/Pelvis CT 12/01/24 11:47 IMPRESSION: 1. Hepatic steatosis and hepatomegaly. 2. No renal obstruction. 3. Both kidneys are measuring top normal to slightly enlarged. There is no perinephric stranding. 4. No free fluid or adenopathy. 5. Mild diffuse constipation. 6. Pedro catheter present. Laboratory Results WBC 13.58 10^3/uL (3.29-11.43) H 12/06/24 05:08 RBC 3.41 10^6/uL (3.85-5.65) L 12/06/24 05:08 Hgb 9.10 g/dL (11.27-16.99) L 12/06/24 05:08 Hct 29.2 % (36-47) L 12/06/24 05:08 MCV 85.6 fl (85-98) 12/06/24 05:08 MCH 26.7 pg (27-33) L 12/06/24 05:08 MCHC 31.2 g/dL (30-55) 12/06/24 05:08 RDW 13.0 % (12.1-15.1) 12/06/24 05:08 Plt Count 347 10^3/cmm (157-399) 12/06/24 05:08 MPV 9.2 fL (7.4-10.4) 12/06/24 05:08 Neut % (Auto) 63.1 % 12/06/24 05:08 Lymph % (Auto) 22.0 % 12/06/24 05:08 [place] % (Auto) 8.3 % 12/06/24 05:08 Eos % (Auto) 2.3 % 12/06/24 05:08 Baso % (Auto) 0.8 % 12/06/24 05:08 Neut # (Auto) 8.56 10^3/uL (1.8-7.7) H 12/06/24 05:08 Lymph # (Auto) 3.0 10^3/uL (0.8-4.8) 12/06/24 05:08 [place] # (Auto) 1.1 10^3/uL (0.2-0.9) H 12/06/24 05:08 Eos # (Auto) 0.3 10^3/uL (0.0-0.8) 12/06/24 05:08 Baso # (Auto) 0.1 10^3/uL (0.0-0.1) 12/06/24 05:08 Nucleated RBC % (auto) 0 % 12/06/24 05:08 Nucleated RBCs # 0.0 /100WBC 12/06/24 05:08 ESR 80 mm/hr (0-15) H 12/01/24 10:05 PT 14.80 SECONDS (12.1-14.9) 11/30/24 20:29 INR 1.09 (0.8-1.2) 11/30/24 20:29 APTT 24.5 SECONDS (23.9-36.7) 11/30/24 20:29 Specimen Type Arterial 11/30/24 20:34 Sample Site Radial, right 11/30/24 20:34 ABG pH 7.18 (7.35-7.45) L* 11/30/24 20:34 ABG pCO2 24.8 mmHg (35-45) L 11/30/24 20:34 ABG pO2 85.6 mmHg (80.0-100.0) 11/30/24 20:34 ABG PO2/FiO2 Ratio 356 11/30/24 20:34 ABG HCO3 9.2 mmol/L (22-26) L 11/30/24 20:34 ABG O2 Saturation 96.2 11/30/24 20:34 ABG Base Excess -17.5 mmol/L (-2.0-2.0) L 11/30/24 20:34 [place] Test Pos 11/30/24 20:34 A-a O2 Gradient 6.6 mmHg (5-10) 11/30/24 20:34 Hematocrit 33.7 % (37-47) L 11/30/24 20:34 Hgb O2 Saturation 96.3 % (95-100) 11/30/24 20:34 Carboxyhemoglobin 1.0 %THgb (0.4-20.1) 11/30/24 20:34 Methemoglobin < 0.0 % (0.4-1.5) L 11/30/24 20:34 Total Hemoglobin 11.0 g/dL (12-16) L 11/30/24 20:34 Sodium 126.0 mmol/L (131-143) L 11/30/24 20:34 Potassium 6.1 mmol/L (3.5-5.0) H 11/30/24 20:34 Glucose 717.0 mg/dL (70-115) H 11/30/24 20:34 Ionized Calcium 1.2 mmol/L (1.1-1.4) 11/30/24 20:34 O2 Delivery Device Room air 11/30/24 20:34 FiO2 24.0 % 11/30/24 20:34 Manager Transport ID jlb 11/30/24 20:34 Sodium 135 mmol/L (136-145) L 12/06/24 05:08 Potassium 3.9 mmol/L (3.5-5.1) 12/06/24 05:08 Chloride 103 mmol/L (98-107) 12/06/24 05:08 Carbon Dioxide 21 mmol/L (22-29) L 12/06/24 05:08 Anion Gap 14.9 (5-19) 12/06/24 05:08 BUN 15 mg/dL (8-23) 12/06/24 05:08 Creatinine 1.3 mg/dL (0.5-0.9) H 12/06/24 05:08 GFR Calculation 41.8 mL/min (90-130) L 12/06/24 05:08 Glucose 211 mg/dL (65-115) H 12/06/24 05:08 POC Glucose 151 mg/dL (70-110) H 12/06/24 11:14 Calculated Osmolality 287 mOsm/kg (285-295) 12/06/24 05:08 Lactic Acid 1.8 mmol/L (0.5-2.2) 11/30/24 21:30 Calcium 8.3 mg/dL (8.5-10.5) L 12/06/24 05:08 Phosphorus 2.9 mg/dL (2.5-4.5) 12/06/24 05:08 Magnesium 1.6 mg/dL (1.7-2.3) L 12/06/24 05:08 Total Bilirubin 0.2 mg/dL (0.15-1.2) 12/06/24 05:08 AST 10 U/L (0-32) 12/06/24 05:08 ALT 11 U/L (0-33) 12/06/24 05:08 Alkaline Phosphatase 156 U/L (35-105) H 12/06/24 05:08 C-Reactive Protein 62.6 mg/L (0.0-4.9) H 12/04/24 03:57 Total Protein 6.3 g/dL (6.6-8.7) L 12/06/24 05:08 Albumin 3.0 g/dL (3.5-5.2) L 12/06/24 05:08 Globulin 3.3 g/dL (1.3-4.6) 12/06/24 05:08 Procalcitonin 0.41 ng/mL (0-0.5) 12/04/24 03:57 Urine Color Other (Yellow) A 11/30/24 21:05 Urine Appearance Slightly cloudy (CLEAR) 11/30/24 21:05 Urine pH 5 (5-7) 11/30/24 21:05 Ur Specific [place] 1.015 (1.005-1.030) 11/30/24 21:05 Urine Protein Trace (Negative) 11/30/24 21:05 Urine Glucose (UA) 4+ (Normal) H 11/30/24 21:05 Urine Ketones 3+ (Negative) H 11/30/24 21:05 Urine Blood 3+ (Negative) H 11/30/24 21:05 Urine Nitrate Negative (Negative) 11/30/24 21:05 Urine Bilirubin Neg (Negative) 11/30/24 21:05 Urine Urobilinogen Norm mg/dL (Negative) 11/30/24 21:05 Ur Leukocyte Esterase 1+ (Negative) H 11/30/24 21:05 Urine RBC 0-4 /hpf (0-2) H 11/30/24 21:05 Urine WBC 40-55 /hpf (0-5) H 11/30/24 21:05 Ur Squamous Epith Cells 0-4 /hpf (0-5) H 11/30/24 21:05 Amorphous Sediment Not Reportable 11/30/24 21:05 Urine Bacteria Trace /hpf (NONE) 11/30/24 21:05 Vancomycin Trough 15.2 ug/mL (10-15) H 12/04/24 18:12 Urine Opiates Screen Negative ng/mL (Negative) 12/01/24 15:59 Ur Barbiturates Screen Negative ng/mL (Negative) 12/01/24 15:59 Ur Phencyclidine Scrn Negative ng/mL (Negative) 12/01/24 15:59 Ur Amphetamines Screen Negative ng/mL (Negative) 12/01/24 15:59 U Benzodiazepines Scrn Negative ng/mL (Negative) 12/01/24 15:59 Urine Cocaine Screen Negative ng/mL (Negative) 12/01/24 15:59 U Marijuana (THC) Screen Negative ng/mL (Negative) 12/01/24 15:59 Ethyl Alcohol < 10 mg/dL (0-10) 12/01/24 12:47 Serum Ketones Positive (Negative) H 11/30/24 20:29 Adenovirus (PCR) Not detected (NOT DETECT) 12/04/24 13:56 C. pneumoniae DNA (PCR) Not detected (NOT DETECT) 12/04/24 13:56 Coronavirus 229E (PCR) Not detected (NOT DETECT) 12/04/24 13:56 Human Metapneumovir PCR Not detected (NOT DETECT) 12/04/24 13:56 Influenza A (H1) PCR Not detected (NOT DETECT) 12/04/24 13:56 Influenza A (PCR) Negative (Negative) 11/30/24 20:44 Influ A (H1/09) PCR Not detected (NOT DETECT) 12/04/24 13:56 Influenza A (H3) PCR Not detected (NOT DETECT) 12/04/24 13:56 Influenza Type A (PCR) Not detected (NOT DETECT) 12/04/24 13:56 Influenza Type B (PCR) Not detected (NOT DETECT) 12/04/24 13:56 M. pneumoniae (PCR) Not detected (NOT DETECT) 12/04/24 13:56 Parainfluenza 1 (PCR) Not detected (NOT DETECT) 12/04/24 13:56 Parainfluenza 2 (PCR) Not detected (NOT DETECT) 12/04/24 13:56 Parainfluenza 3 (PCR) Not detected (NOT DETECT) 12/04/24 13:56 Parainfluenza 4 (PCR) Not detected (NOT DETECT) 12/04/24 13:56 RSV (PCR) Negative (Negative) 11/30/24 20:44 RSV Type A (PCR) Not detected (NOT DETECT) 12/04/24 13:56 RSV Type B (PCR) Not detected (NOT DETECT) 12/04/24 13:56 Entero/Rhino (PCR) Not detected (NOT DETECT) 12/04/24 13:56 SARS-CoV-2 (PCR) Not detected (NOT DETECT) 12/04/24 13:56 Vitals Last Vital Signs Temp 98.3 F 12/06/24 11:45 Pulse 97 12/06/24 11:45 Resp 17 12/06/24 11:45 BP 163/77 12/06/24 11:45 Pulse Ox 96 12/06/24 11:45 O2 Del Method Room Air 12/06/24 11:45 Discharge Plan Discharge Patient Disposition: Home Condition: Stable Prescriptions: New (DME) Dexcom G7 Sensor Device See Rx Instructions .Route Qty: 1 0RF Rx Instructions: As directed (DME) Dexcom G7 [employer] Misc See Rx Instructions .Route Qty: 1 0RF Rx Instructions: As directed (DME) Dexcom G7 [employer] Misc See Rx Instructions .Route Qty: 1 0RF Rx Instructions: As directed (DME) Dexcom G7 Sensor Device See Rx Instructions .Route Qty: 1 0RF Rx Instructions: As directed cefdinir 300 mg capsule 300 mg PO BID 5 Days Qty: 10 0RF doxycycline hyclate 100 mg tablet 100 mg PO BID 5 Days Qty: 10 0RF glucagon HCl [Glucagon (HCl) Emergency Kit] 1 mg recon soln 1 mg IM Q20M PRN (Reason: hypoglycemia) Qty: 1 0RF Rx Instructions: until target blood sugar attained Continued Zyrtec 10 mg capsule 10 mg PO DAILY PRN (Reason: Allergy Symptoms) (DME) Dexcom G7 [employer] Misc See Rx Instructions .Route Qty: 1 0RF Rx Instructions: As directed (DME) blood sugar diagnostic Strip See Rx Instructions .Route Qty: 400 3RF Rx Instructions: Check BS 5 times a day. atorvastatin [Lipitor] 80 mg tablet 80 mg PO DAILY Qty: 90 3RF ezetimibe [Zetia] 10 mg tablet 10 mg PO DAILY Qty: 30 5RF bupropion HCl [Wellbutrin XL] 300 mg tablet extended release 24 hr 300 mg PO QAM Qty: 90 0RF Rx Instructions: along with 150mg ta=577gn total bupropion HCl [Wellbutrin XL] 150 mg tablet extended release 24 hr 150 mg PO QAM Qty: 90 0RF Rx Instructions: along with 300mg ww=477iu total trazodone 100 mg tablet 300 mg PO BEDTIME Qty: 90 2RF hydroxyzine HCl 25 mg tablet 50 mg PO BEDTIME Qty: 60 2RF amlodipine 5 mg tablet 5 mg PO DAILY Qty: 30 2RF gabapentin 600 mg tablet 1,200 mg PO BEDTIME montelukast [Singulair] 10 mg Tablet 10 mg PO DAILY hydrocodone-acetaminophen 7.5-325 mg tablet 1 tab PO Q6H PRN (Reason: pain) Qty: 20 0RF docusate sodium [Colace] 100 mg capsule 100 mg PO BID Qty: 14 0RF tizanidine 2 mg tablet 2 mg PO BEDTIME PRN (Reason: Pain) lisinopril 20 mg tablet 20 mg PO QAM cyanocobalamin (vitamin B-12) 1,000 mcg/mL solution 1,000 mcg IM .Q30D omeprazole 20 mg capsule,delayed release(DR/EC) 20 mg PO DAILY ondansetron 4 mg tablet,disintegrating 4 mg PO Q6H PRN (Reason: Nausea) Changed insulin glargine [Lantus Solostar U-100 Insulin] 100 unit/mL (3 mL) insulin pen See Rx Instructions .ROUTE .COMPLEX Qty: 75 1RF Dose Instruction: inject 80 units SUBCUTANEOUSLY AT BEDTIME Rx Instructions: inject 80 units SUBCUTANEOUSLY QAM insulin aspart U-100 [Novolog FlexPen U-100 Insulin] 100 unit/mL (3 mL) insulin pen 12 unit SUBCUT TID Qty: 15 0RF Discontinued dicyclomine 20 mg tablet 40 mg PO QID 30 Days Qty: 240 12RF naproxen 500 mg tablet 500 mg PO BID PRN (Reason: Pain) No Action (DME) Dexcom G7 Sensor Device See Rx Instructions .ROUTE .MEDSUPPLY Qty: 9 0RF Rx Instructions: Change every 10days (DME) diabetic shoes with 3 inserts See Rx Instructions .Route .MEDSUPPLY Qty: 1 0RF Rx Instructions: As directed to HOME (DME) blood-glucose meter Misc See Rx Instructions .Route Qty: 1 0RF Rx Instructions: Check BS 5 times a day. (DME) pen needle, diabetic 31 gauge x 5/16 needle See Rx Instructions .Route Qty: 100 3RF Rx Instructions: check sugars 5 times a day (DME) pen needle, diabetic [BD Elyse 2nd Gen Pen Needle] 32 gauge x 5/32 needle See Rx Instructions .ROUTE .COMPLEX Qty: 100 3RF Dose Instruction: check sugars five times a DAY Rx Instructions: check sugars five times a DAY (DME) lancets 32 gauge misc See Rx Instructions .Route Qty: 400 3RF Rx Instructions: Check BS 4 times a day. (DME) diabetic shoes with 3 inserts See Rx Instructions .Route .MEDSUPPLY Qty: 1 0RF Rx Instructions: As directed to the shoe guys (DME) OneTouch Verio test strips Strip See Rx Instructions .Route Qty: 400 3RF Rx Instructions: Check Blood Sugar up to 3 Type 2 diabetes mellitus E11.42 (DME) lancets [OneTouch Delica Plus Lancet] 33 gauge misc See Rx Instructions .ROUTE .COMPLEX Qty: 100 3RF Dose Instruction: CHECK SUGARS FIVE TIMES A DAY Rx Instructions: CHECK SUGARS FIVE TIMES A DAY Discharge Orders: Discharge Order (Routine); Ordered 12/06/24 Ordered By: Reg Gilbert Other Ambulatory Orders: DME: Walker (Order) Location: None Selected Ordered By: Reg Gilbert Referrals: [facility] [place] [Outside] Kati Singh DO [Primary Care Provider] - 12/12/24 1:30 pm Kaiser Richard DO [Physician] - 7-10 days (right hand, 2 digit, cellulitis) Discharge Diet: Cardiac Discharge Activity: Resume usual activity Patient Instructions: Doxycycline (By mouth), Cefdinir (By mouth), Opioid Safety Activity Restrictions/Additional Instructions: - For your soft tissue edema, right second finger, continue antibiotics, keep area clean and dry, follow-up with orthopedics - For UTI continue antibiotics -Please monitor your blood sugars closely -Monitor your blood sugars 3 times daily as after meals -Please record your blood sugars, and a blood sugar log -If your blood sugar is greater than 500 go to the emergency room -If your blood sugar is less than 60 or at anytime you feel lightheaded or dizzy or diaphoretic or have chest palpitations check your blood sugar, and eat a hard candy or drink orange juice and go immediately to the emergency room -Remember hypoglycemia kills, so if his blood sugar is less than 60 we have to increase it by taking in a sugary meal such as a hard candy or orange juice and go to the emergency room -If you have any questions please call us where here to help Discharge Attestations Time Spent in Discharge Care*: greater than 30 min Quality Metrics Clinical Quality Measures [ No reported AMI, CVA or VTE this stay] Coding Level of Care Code 81019 Total time (in minutes) for Discharge: 45 Diagnoses DKA (diabetic ketoacidosis) E11.10 Insulin dependent diabetes mellitus Vaginal yeast infection B37.3 Acute renal failure N17.9 Dehydration E86.0 Urinary tract infection N39.0 Sepsis A41.9 Acute kidney injury N17.9 Hyponatremia E87.1 Diabetic neuropathy E11.40 Diabetes mellitus type: type 2 Major depressive disorder, recurrent severe without psychotic features F33.2 High anion gap metabolic acidosis E87.29
[2024-12-06 14:06] LABS: Glucose Point of Care 299 mg/dL (70-110)
[2024-12-06 15:23] VITALS: BP 163/77; PULSE 97; RESP 17; TEMP 36.8; O2SAT 96
== END 2024-12-06 16:10 | disposition home or self-care (01) | DRG 871 ==
LOC: ER 21:56 → ICU 23:29 → MEDSURG 12-04 23:03
PROVIDERS: Admitting Provider Internal Medicine; Emergency Provider Emergency Medicine; PCP Family Medicine; Visit Provider Family Medicine
DX: A41.9 Sepsis, unspecified organism (principal); E11.10 Type 2 diabetes mellitus with ketoacidosis without coma; G93.41 Metabolic encephalopathy; B37.49 Other urogenital candidiasis; N17.9 Acute kidney failure, unspecified; N39.0 Urinary tract infection, site not specified; F33.2 Major depressive disorder, recurrent severe without psychotic features; R65.20 Severe sepsis without septic shock; Z79.4 Long term (current) use of insulin; E86.0 Dehydration; E11.40 Type 2 diabetes mellitus with diabetic neuropathy, unspecified; E78.5 Hyperlipidemia, unspecified; I10 Essential (primary) hypertension; K21.9 Gastro-esophageal reflux disease without esophagitis; K58.9 Irritable bowel syndrome, unspecified; B96.4 Proteus (mirabilis) (morganii) as the cause of diseases classified elsewhere; L03.011 Cellulitis of right finger; Z87.891 Personal history of nicotine dependence; Z86.0100 Personal history of colon polyps, unspecified; Z90.49 Acquired absence of other specified parts of digestive tract; T38.3X6A Underdosing of insulin and oral hypoglycemic [antidiabetic] drugs, initial encounter; Z91.128 Patient's intentional underdosing of medication regimen for other reason; R41.83 Borderline intellectual functioning; Z79.891 Long term (current) use of opiate analgesic
CPT/HCPCS: 36415; 36416; 36600; 51702; 71045; 73200; 74176; 80048; 80051; 80053; 80202; 80306; 80307; 81001; 82009; 82330; 82805; 82962; 83605; 83735; 84100; 84145; 85025; 85610; 85651; 85730; 86140; 87040; 87077; 87086; 87186; 87486; 87581; 87633; 87637; 93005; 96365; 96366; 96367; 96372; 96374; 96375; 96376; 97161; 97165; 99285; J0360; J0692; J0780; J1650; J1815; J2270; J2360; J2405; J2470; J2543; J3370; J3372; J3490; J7030; J7799; J9999; Q0162

== ENCOUNTER 2024-12-09 12:53 | Outpatient (CLI) | payer OTHER, MEDICAID, SELFPAY ==
[2024-11-02 12:15] VITALS: BP 121/85; BMI 27.8
== END 2024-12-09 12:54 | disposition home or self-care (01) ==
LOC: LAB 12:55
PROVIDERS: PCP Family Medicine; Visit Provider Internal Medicine
DX: E11.10 Type 2 diabetes mellitus with ketoacidosis without coma (principal); E11.42 Type 2 diabetes mellitus with diabetic polyneuropathy; Z79.4 Long term (current) use of insulin
CPT/HCPCS: 36415; 86337; 86341

== ENCOUNTER 2024-12-10 18:38 | Observation (INO) | payer OTHER, MEDICAID, SELFPAY ==
[2024-11-02 12:15] VITALS: BP 121/85; BMI 27.8
[2024-12-10 18:45] VITALS: BP 179/94; PULSE 92; RESP 18; TEMP 36.6; O2SAT 94; BMI 26.1
[2024-12-10 18:59] LABS: Basophils # 0.1 10^3/uL (0.0-0.1); Basophils % 0.7 %; Eosinophils # 0.1 10^3/uL (0.0-0.8); Eosinophils % 1.2 %; Hematocrit 30.8 % (36-47); Lymphocytes # 2.4 10^3/uL (0.8-4.8); Lymphocytes % 19.4 %; Mean Corpuscular HGB Conc 32.5 g/dL (30-55); Mean Corpuscular Hemoglobin 27.2 pg (27-33); Mean Corpuscular Volume 83.9 fl (85-98); Mean Platelet Volume 9.6 fL (7.4-10.4); Monocytes # 1.1 10^3/uL (0.2-0.9); Neutrophils # 8.25 10^3/uL (1.8-7.7); Neutrophils % 67.6 %; Nucleated Red Blood Cells % 0 %; Platelet Count 359 10^3/cmm (157-399); Red Blood Count 3.67 10^6/uL (3.85-5.65); Red Cell Distribution Width 13.2 % (12.1-15.1); White Blood Count 12.17 10^3/uL (3.29-11.43)
[2024-12-10 19:01] LABS: Glucose Point of Care 427 mg/dL (70-110)
[2024-12-10 19:14] LABS: Alanine Aminotransferase 11 U/L (0-33); Albumin Level 3.7 g/dL (3.5-5.2); Alkaline Phosphatase 187 U/L (35-105); Anion Gap 19.4 (5-19); Aspartate Amino Transferase 9 U/L (0-32); Blood Urea Nitrogen 36 mg/dL (8-23); Calcium 9.5 mg/dL (8.5-10.5); Carbon Dioxide 22 mmol/L (22-29); Chloride 93 mmol/L (98-107); Creatinine Clr Calc Pharmacy 35.6518; Globulin 3.7 g/dL (1.3-4.6); Glomerular Filtration Rate 32.9 mL/min (90-130); Glucose 438 mg/dL (65-115); Osmolality Calculated 297 mOsm/kg (285-295); Potassium 4.4 mmol/L (3.5-5.1); Sodium 130 mmol/L (136-145); Total Bilirubin 0.2 mg/dL (0.15-1.2); Total Protein 7.4 g/dL (6.6-8.7)
[2024-12-10 20:20] VITALS: BP 137/86; PULSE 83; RESP 16; O2SAT 94
[2024-12-10 20:31] LABS: Glucose Point of Care 434 mg/dL (70-110)
--- NOTE | 2024-12-10 20:43 | W.ED.RECABL ---
HPI - Recheck/Abnormal Lab/Rx General: Chief Complaint: Recheck/Abnormal Lab/Rx Stated Complaint: hyperglycemia Time Seen by Provider: 12/10/24 18:42 Source: patient, family and EMS Mode of arrival: EMS Limitations: no limitations History of Present Illness: Patient has some forgetfulness. Daughter is on the phone on speaker phone to help with history. Brought in by EMS for hypoglycemia. Patient was reportedly recently admitted for DKA. Has been out of her NovoLog. Still does not have her NovoLog but was discharged home regardless has been taking her Lantus. Even tried to use the Lantus to do a bolus dose but then the tourniquet going up. Patient has a Dexcom but her sugar has not been below 300 so it just Adlee reads high. Patient has not seen his sugar below 300 at home in the past few months. They report that she is eating minimal carbs but just unable control sugar. She is reportedly on 60 units of Lantus nightly and supposed to be on 20 units of NovoLog 3 times a day but has been out. Today patient has had essentially no carbs and still has a sugar in the 400s on arrival. Related Data Home Medications ?Medication ?Instructions ?Recorded ?Confirmed cetirizine 10 mg capsule (Zyrtec) 10 mg PO DAILY PRN Allergy Symptoms 01/27/20 12/01/24 gabapentin 600 mg tablet 1,200 mg PO BEDTIME 05/09/24 12/01/24 montelukast 10 mg tablet 10 mg PO DAILY 09/12/24 12/01/24 (Singulair) cyanocobalamin (vitamin B-12) 1,000 mcg IM .Q30D 12/01/24 12/01/24 1,000 mcg/mL injection solution lisinopril 20 mg tablet 20 mg PO QAM 12/01/24 12/01/24 omeprazole 20 mg capsule,delayed 20 mg PO DAILY 12/01/24 12/01/24 release ondansetron 4 mg disintegrating 4 mg PO Q6H PRN Nausea 12/01/24 12/01/24 tablet tizanidine 2 mg tablet 2 mg PO BEDTIME PRN Pain 12/01/24 12/01/24 Previous Rx's ?Medication ?Instructions ?Recorded lancets 32 gauge #400 ea 03/11/22 blood sugar diagnostic #400 ea 05/19/22 blood-glucose meter #1 ea 05/19/22 diabetic shoes with 3 inserts #1 ea 09/28/23 blood-glucose meter,continuous #1 ea 10/14/23 (Dexcom G7 Men'S Garment Fitter) blood-glucose sensor (Dexcom G7 #9 ea 10/14/23 Sensor device) blood sugar [facility] 12/10/23 Verio test strips) pen needle, diabetic 31 gauge x #100 ea 02/12/2401/13 pen needle, diabetic 32 gauge x #100 ea 06/06/24 (BD Elyse 2nd Gen Pen Needle) diabetic shoes with 3 inserts #1 ea 06/28/24 atorvastatin 80 mg tablet (Lipitor) 80 mg PO DAILY #90 tabs 08/16/24 ezetimibe 10 mg tablet (Zetia) 10 mg PO DAILY #30 tabs 08/16/24 docusate sodium 100 mg capsule 100 mg PO BID #14 caps 09/13/24 (Colace) hydrocodone 7.5 mg-acetaminophen 1 tab PO Q6H PRN pain #20 tabs 09/13/24 325 mg tablet bupropion HCl 150 mg 24 hr tablet, 150 mg PO QAM #90 tabs 10/07/24 extended release (Wellbutrin XL) bupropion HCl 300 mg 24 hr tablet, 300 mg PO QAM #90 tabs 10/07/24 extended release (Wellbutrin XL) hydroxyzine HCl 25 mg tablet 50 mg (2 x 25 mg) PO BEDTIME #60 10/07/24 tabs trazodone 100 mg tablet 300 mg (3 x 100 mg) PO BEDTIME #90 10/07/24 tabs amlodipine 5 mg tablet 5 mg PO DAILY #30 tabs 11/15/24 lancets 33 gauge (OneTouch Delica #100 ea 11/28/24 Plus Lancet) blood-glucose meter,continuous #1 ea 12/06/24 (Dexcom G7 Men'S Garment Fitter) blood-glucose meter,continuous #1 ea 12/06/24 (Dexcom G7 Men'S Garment Fitter) blood-glucose sensor (Dexcom G7 #1 ea 12/06/24 Sensor device) blood-glucose sensor (Dexcom G7 #1 ea 12/06/24 Sensor device) cefdinir 300 mg capsule 300 mg PO BID 5 days #10 caps 12/06/24 doxycycline hyclate 100 mg tablet 100 mg PO BID 5 days #10 tabs 12/06/24 glucagon HCl 1 mg solution for 1 mg IM Q20M PRN hypoglycemia #1 ea 12/06/24 injection (Glucagon (HCl) Emergency Kit) insulin aspart U-100 100 unit/mL 12 unit (0.12 mL) SUBCUT TID #15 mL 12/06/24 (3 mL) subcutaneous pen (Novolog FlexPen U-100 Insulin aspart) insulin glargine 100 unit/mL (3 See Rx Instructions .Route 12/06/24 mL) subcutaneous pen (Lantus .COMPLEX #75 mL Solostar U-100 Insulin) Allergies Allergy/AdvReac Type Severity Reaction Status Date / Time No Known Allergies Allergy Verified 11/30/24 20:30 Review of Systems General: Reports: 10 or more systems reviewed and unremarkable except in HPI and below PFSH ED PFSH: Medical History History of colon polyps GERD (gastroesophageal reflux disease) Psychiatric care Type 2 diabetes mellitus Yeast infection involving the vagina and surrounding area Borderline intellectual functioning Major depressive disorder, recurrent severe without psychotic features Surgical History Hx laparoscopic cholecystectomy 09/13/24 Dr. Kendall Hx of colonoscopy with polypectomy 2016 H/O tubal ligation H/O section x2 Family History Father Diabetes Grandmother Diabetes paternal Brother Diabetes Grandfather Stroke paternal Sister Thyroid disease Denies family history of Clotting disorder Hyperlipidemia Anesthesia complication Bleeding disorder Hypertension Social History (Updated 11/30/24 @ 23:49 by Pratibha De Luna MD) Smoking and tobacco/nicotine status: former use of tobacco/nicotine Quit status (tobacco/nicotine): has quit using Year quit tobacco: 2012 Second hand smoke exposure: Yes Alcohol intake: never Substance/Drug Use: never Adopted: No Caregiver/support person: No Lives independently: Yes Household members: none Housing: Apartment Marital status: Marital status details: 2005 Number of children: 2 Number of grandchildren: 3 Highest education level completed: 9th Grade Current occupational status: disabled Pets and animals: No Leisure activites: music, games, reading and other Leisure activities details: [employer] Sexually active: Yes Do you think of yourself as: Straight/Heterosexual Current gender identity: Female Soraida/Synagogue: Bahai Special soraida needs: No Agree to transfusion: Yes Female Reproductive History: Para: 2 Spontaneous abortions: Yes Physical Exam Const: COMMON NORMALS: no acute distress, average body habitus, patient oriented x3, healthy appearing, alert and well nourished GENERAL APPEARANCE: well kempt and well developed HENMT: COMMON NORMALS: normocephalic, atraumatic, external ears normal and moist oral mucous membranes HEAD & SCALP: normocephalic and atraumatic EXTERNAL EAR: Yes external ears normal Eye: COMMON NORMALS: Equal, round and reactive pupils present, EOMs intact bilaterally and conjunctivae normal CONJUNCTIVA: Yes conjunctivae normal PUPIL: Yes Equal, round and reactive pupils present Neck/C-Spine: COMMON NORMALS: full ROM, no lymphadenopathy and supple Chest: CHEST: Yes Symmetrical chest wall rise and No Surgical scars present (Chest) Resp: COMMON NORMALS: normal respiratory effort, No retractions, No use of accessory muscles and clear to auscultation bilaterally AUSCULTATION: clear to auscultation bilaterally Cardio: COMMON NORMALS: regular rate, regular rhythm, S1 normal heart sound present, S2 normal heart sound present, No gallops present (Cardio), No clicks present (Cardio), No murmurs present (Cardio) and No rub (Cardio) RATE: regular rate RHYTHM: regular rhythm HEART SOUNDS: S1 normal heart sound present, S2 normal heart sound present and no murmurs PERIPHERAL PULSES: other (Radial pulses 2+ and symmetric) GI: COMMON NORMALS: Soft to palpation, non-tender and no masses INSPECTION: No abdominal distension PALPATION: Yes Soft to palpation, No Guarding due to palpation present (GI) and No Rebound tenderness present : COMMON NORMALS: Yes no CVA tenderness BLADDER/KIDNEY EXAM: Yes no CVA tenderness Back/Pelvis: COMMON NORMALS: no CVA tenderness Extremity: COMMON NORMALS: normal to inspection, full ROM, capillary refill normal and no clubbing, cyanosis or edema Neuro: COMMON NORMALS: patient oriented x3 SENSORIUM/ORIENTATION: Yes alert Psych: APPEARANCE: Yes well kempt Skin: COMMON NORMALS: no rashes or lesions noted, no wounds, turgor normal and no jaundice GENERAL SKIN EXAM: no rashes or lesions noted and turgor normal Course Vital Signs: Vital signs: Vital Signs Temperature 98 F 12/10/24 18:45 Pulse Rate 83 12/10/24 21:37 Respiratory Rate 16 12/10/24 21:37 Blood Pressure 162/85 12/10/24 21:37 Pulse Oximetry 95 12/10/24 21:37 Oxygen Delivery Me thod Room Air 12/10/24 21:37 MDM - Recheck/Abnormal Lab/Rx Medical Decision Making 5-year-old female with recent episode of DKA. Sent up here for persistent elevated blood sugar. Patient has a Dexcom but is noted nothing but high for the past few months. Patient was recent hospital and even on day of discharge was having blood sugars in the 400s. Was prescribed NovoLog to take at home but has been able to get it secondary to insuranc issue versus pharmaceutical availability. Patient is taking her Lantus but is only taking 60 units. Per the discharge summary it appears she should been taking 80 units. Of note however patient have not achieve glycemic control at time of discharge reviewing the lab work. Unsure how patient with encephalopathy is supposed to go home and control blood sugar when we could not control it in the hospital. Dr. Arenas is in agreement and will admit the patient. Medical Records I reviewed the patient's medical records. Lab Data I reviewed the patient's lab results. 12/10/24 18:53 12/10/24 18:53 Laboratory Results WBC 12.17 10^3/uL (3.29-11.43) H 12/10/24 18:53 RBC 3.67 10^6/uL (3.85-5.65) L 12/10/24 18:53 Hgb 10.00 g/dL (11.27-16.99) L 12/10/24 18:53 Hct 30.8 % (36-47) L 12/10/24 18:53 MCV 83.9 fl (85-98) L 12/10/24 18:53 MCH 27.2 pg (27-33) 12/10/24 18:53 MCHC 32.5 g/dL (30-55) 12/10/24 18:53 RDW 13.2 % (12.1-15.1) 12/10/24 18:53 Plt Count 359 10^3/cmm (157-399) 12/10/24 18:53 MPV 9.6 fL (7.4-10.4) 12/10/24 18:53 Neut % (Auto) 67.6 % 12/10/24 18:53 Lymph % (Auto) 19.4 % 12/10/24 18:53 Morrison % (Auto) 9.0 % 12/10/24 18:53 Eos % (Auto) 1.2 % 12/10/24 18:53 Baso % (Auto) 0.7 % 12/10/24 18:53 Neut # (Auto) 8.25 10^3/uL (1.8-7.7) H 12/10/24 18:53 Lymph # (Auto) 2.4 10^3/uL (0.8-4.8) 12/10/24 18:53 Morrison # (Auto) 1.1 10^3/uL (0.2-0.9) H 12/10/24 18:53 Eos # (Auto) 0.1 10^3/uL (0.0-0.8) 12/10/24 18:53 Baso # (Auto) 0.1 10^3/uL (0.0-0.1) 12/10/24 18:53 Nucleated RBC % (auto) 0 % 12/10/24 18:53 Nucleated RBCs # 0.0 /100WBC 12/10/24 18:53 Sodium 130 mmol/L (136-145) L 12/10/24 18:53 Potassium 4.4 mmol/L (3.5-5.1) 12/10/24 18:53 Chloride 93 mmol/L (98-107) L 12/10/24 18:53 Carbon Dioxide 22 mmol/L (22-29) 12/10/24 18:53 Anion Gap 19.4 (5-19) H 12/10/24 18:53 BUN 36 mg/dL (8-23) H 12/10/24 18:53 Creatinine 1.6 mg/dL (0.5-0.9) H 12/10/24 18:53 GFR Calculation 32.9 mL/min (90-130) L 12/10/24 18:53 Glucose 438 mg/dL (65-115) H 12/10/24 18:53 POC Glucose 266 mg/dL (70-110) H 12/10/24 22:51 Calculated Osmolality 297 mOsm/kg (285-295) H 12/10/24 18:53 Calcium 9.5 mg/dL (8.5-10.5) 12/10/24 18:53 Total Bilirubin 0.2 mg/dL (0.15-1.2) 12/10/24 18:53 AST 9 U/L (0-32) 12/10/24 18:53 ALT 11 U/L (0-33) 12/10/24 18:53 Alkaline Phosphatase 187 U/L (35-105) H 12/10/24 18:53 Total Protein 7.4 g/dL (6.6-8.7) 12/10/24 18:53 Albumin 3.7 g/dL (3.5-5.2) 12/10/24 18:53 Globulin 3.7 g/dL (1.3-4.6) 12/10/24 18:53 Urine Color Yellow (Yellow) 12/10/24 21:12 Urine Appearance Slightly cloudy (CLEAR) 12/10/24 21:12 Urine pH 6 (5-7) 12/10/24 21:12 Ur Specific [place] 1.005 (1.005-1.030) 12/10/24 21:12 Urine Protein Neg (Negative) 12/10/24 21:12 Urine Glucose (UA) 4+ (Normal) H 12/10/24 21:12 Urine Ketones Negative (Negative) 12/10/24 21:12 Urine Blood 2+ (Negative) A 12/10/24 21:12 Urine Nitrate Negative (Negative) 12/10/24 21:12 Urine Bilirubin Neg (Negative) 12/10/24 21:12 Urine Urobilinogen Norm mg/dL (Negative) 12/10/24 21:12 Ur Leukocyte Esterase 2+ (Negative) A 12/10/24 21:12 Urine RBC 0-2 /hpf (0-2) 12/10/24 21:12 Urine WBC >100 /hpf (0-5) H 12/10/24 21:12 Ur Squamous Epith Cells 0-5 /hpf (0-5) 12/10/24 21:12 Amorphous Sediment Not Reportable 12/10/24 21:12 Urine Bacteria None seen /hpf (NONE) 12/10/24 21:12 Hyaline Casts 0.40 /lpf 12/10/24 21:12 All radiology interpretation(s) finalized by discharge Discharge Plan Discharge Patient Disposition: Admitted As Inpatient Clinical Impression: Acute hyperglycemia, Encephalopathy acute, Insulin dependent diabetes mellitus Condition: Stable Discharge Diet: Diabetic Coding Level of Care Code ED Remote Broadcast Technician for Nik Brenner
[2024-12-10 21:26] LABS: Add Urine Culture? Yes; Add Urine Microscopic? YES; Bacteria Urine None Seen /hpf; Bilirubin Urine Neg (Negative); Blood Urine 2+ (Negative); Glucose Urine UA 4+ (Normal); Ketones Urine Negative (Negative); Leukocyte Esterase Urine 2+ (Negative); Nitrate Urine Negative (Negative); Protein Urine Neg (Negative); RBC Urine 0-2 /hpf (0-2); Specific Gravity, Urine 1.005 (1.005-1.030); Squamous Epithelial Cell Urine 0-5 /hpf (0-5); Urine Appearance Slightly Cloudy (CLEAR); Urine Color Yellow (Yellow); Urobilinogen Urine Norm (Negative); WBC Urine >100 /hpf (0-5); pH Urine 6 (5-7)
[2024-12-10] MEDS: insulin regular-human 100 units/1 mL 10 UNIT IVP (21:30)
--- NOTE | 2024-12-10 21:30 | PC.NURSE ---
bg 337
[2024-12-10] MEDS: sodium chloride 0.9% 1,000 ML 999 ML IV (21:36)
--- NOTE | 2024-12-10 21:36 | PC.NURSE ---
only gave 5 units of regular insulin per dr verbal order
[2024-12-10 21:37] VITALS: BP 162/85; PULSE 83; RESP 16; O2SAT 95
[2024-12-10 21:49] LABS: Glucose Point of Care 337 mg/dL (70-110)
--- NOTE | 2024-12-10 22:41 | PM.HP ---
Providers/Chief Complaint Admitting Physician: Barry Arenas MD Primary Care Provider: Kati Singh DO Chief Complaint: hyperglycemia History of Present Illness Julia Lovett is a 59 year old female with history of poorly controlled diabetes. She was recently discharged from the hospital with DKA, UTI and yeast infection. She just received her antibiotics but has not started taking them yet. She did not receive the NovoLog states the [facility] pharmacy did not have it. She has been using Lantus 60 units a day instead of 80 units a day but also is using it as a sliding scale but it has not been effective. Blood sugars have been running mostly high and manual glucometer check corresponds to over 500. She had some blood sugars 180-250 but most of them are all high. 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 Medications/Allergies Home Medications ?Medication ?Instructions ?Recorded ?Confirmed ?Last Taken ?Type cetirizine 10 mg capsule (Zyrtec) 10 mg PO DAILY PRN Allergy Symptoms 01/27/20 12/01/24 09/12/24 History lancets 32 gauge #400 ea 03/11/22 12/01/24 Unknown Rx blood sugar diagnostic #400 ea 05/19/22 12/01/24 Unknown Rx blood-glucose meter #1 ea 05/19/22 12/01/24 Unknown Rx diabetic shoes with 3 inserts #1 ea 09/28/23 12/01/24 Unknown Rx blood-glucose meter,continuous #1 ea 10/14/23 12/01/24 Unknown Rx (Dexcom G7 Test Center Administrator) blood-glucose sensor (Dexcom G7 #9 ea 10/14/23 12/01/24 Unknown Rx Sensor device) blood sugar diagnostic (OneTouch #400 ea 12/10/23 12/01/24 Unknown Rx Verio test strips) pen needle, diabetic 31 gauge x #100 ea 02/12/24 12/01/24 Unknown Rx 5/16 gabapentin 600 mg tablet 1,200 mg PO BEDTIME 05/09/24 12/01/24 09/11/24 History pen needle, diabetic 32 gauge x #100 ea 06/06/24 12/01/24 Unknown Rx (BD Elyse 2nd Gen Pen Needle) diabetic shoes with 3 inserts #1 ea 06/28/24 12/01/24 Unknown Rx atorvastatin 80 mg tablet (Lipitor) 80 mg PO DAILY #90 tabs 08/16/24 12/01/24 09/12/24 Rx ezetimibe 10 mg tablet (Zetia) 10 mg PO DAILY #30 tabs 08/16/24 12/01/24 09/12/24 Rx montelukast 10 mg tablet 10 mg PO DAILY 09/12/24 12/01/24 09/12/24 History (Singulair) docusate sodium 100 mg capsule 100 mg PO BID #14 caps 09/13/24 12/01/24 Unknown Rx (Colace) hydrocodone 7.5 mg-acetaminophen 1 tab PO Q6H PRN pain #20 tabs 09/13/24 12/01/24 Unknown Rx 325 mg tablet bupropion HCl 150 mg 24 hr tablet, 150 mg PO QAM #90 tabs 10/07/24 12/01/24 Unknown Rx extended release (Wellbutrin XL) bupropion HCl 300 mg 24 hr tablet, 300 mg PO QAM #90 tabs 10/07/24 12/01/24 Unknown Rx extended release (Wellbutrin XL) hydroxyzine HCl 25 mg tablet 50 mg (2 x 25 mg) PO BEDTIME #60 10/07/24 12/01/24 Unknown Rx tabs trazodone 100 mg tablet 300 mg (3 x 100 mg) PO BEDTIME #90 10/07/24 12/01/24 Unknown Rx tabs amlodipine 5 mg tablet 5 mg PO DAILY #30 tabs 11/15/24 12/01/24 Unknown Rx lancets 33 gauge (OneTouch Delica #100 ea 11/28/24 12/01/24 Unknown Rx Plus Lancet) cyanocobalamin (vitamin B-12) 1,000 mcg IM .Q30D 12/01/24 12/01/24 Unknown History 1,000 mcg/mL injection solution lisinopril 20 mg tablet 20 mg PO QAM 12/01/24 12/01/24 Unknown History omeprazole 20 mg capsule,delayed 20 mg PO DAILY 12/01/24 12/01/24 Unknown History release ondansetron 4 mg disintegrating 4 mg PO Q6H PRN Nausea 12/01/24 12/01/24 Unknown History tablet tizanidine 2 mg tablet 2 mg PO BEDTIME PRN Pain 12/01/24 12/01/24 Unknown History blood-glucose meter,continuous #1 ea 12/06/24 Unknown Rx (Dexcom G7 Test Center Administrator) blood-glucose meter,continuous #1 ea 12/06/24 Unknown Rx (Dexcom G7 Test Center Administrator) blood-glucose sensor (Dexcom G7 #1 ea 12/06/24 Unknown Rx Sensor device) blood-glucose sensor (Dexcom G7 #1 ea 12/06/24 Unknown Rx Sensor device) cefdinir 300 mg capsule 300 mg PO BID 5 days #10 caps 12/06/24 Unknown Rx doxycycline hyclate 100 mg tablet 100 mg PO BID 5 days #10 tabs 12/06/24 Unknown Rx glucagon HCl 1 mg solution for 1 mg IM Q20M PRN hypoglycemia #1 ea 12/06/24 Unknown Rx injection (Glucagon (HCl) Emergency Kit) insulin aspart U-100 100 unit/mL 12 unit (0.12 mL) SUBCUT TID #15 mL 12/06/24 12/01/24 09/12/24 Rx (3 mL) subcutaneous pen (Novolog FlexPen U-100 Insulin aspart) insulin glargine 100 unit/mL (3 See Rx Instructions .Route 12/06/24 12/01/24 Unknown Rx mL) subcutaneous pen (Lantus .COMPLEX #75 mL Solostar U-100 Insulin) Allergies Allergy/AdvReac Type Severity Reaction Status Date / Time No Known Allergies Allergy Verified 11/30/24 20:30 PFSH Acute PFSH: Medical History History of colon polyps GERD (gastroesophageal reflux disease) Psychiatric care Type 2 diabetes mellitus Yeast infection involving the vagina and surrounding area Borderline intellectual functioning Major depressive disorder, recurrent severe without psychotic features Surgical History Hx laparoscopic cholecystectomy 09/13/24 Dr. Kendall Hx of colonoscopy with polypectomy 2016 H/O tubal ligation H/O section x2 Family History Father Diabetes Grandmother Diabetes paternal Brother Diabetes Grandfather Stroke paternal Sister Thyroid disease Denies family history of Clotting disorder Hyperlipidemia Anesthesia complication Bleeding disorder Hypertension Social History (Updated 11/30/24 @ 23:49 by Pratibha De Luna MD) Smoking and tobacco/nicotine status: former use of tobacco/nicotine Quit status (tobacco/nicotine): has quit using Year quit tobacco: 2012 Second hand smoke exposure: Yes Alcohol intake: never Substance/Drug Use: never Adopted: No Caregiver/support person: No Lives independently: Yes Household members: none Housing: Apartment Marital status: Marital status details: 2005 Number of children: 2 Number of grandchildren: 3 Highest education level completed: 9th Grade Current occupational status: disabled Pets and animals: No Leisure activites: music, games, reading and other Leisure activities details: [employer] Sexually active: Yes Do you think of yourself as: Straight/Heterosexual Current gender identity: Female Soraida/Worship: Orthodoxy Special soraida needs: No Agree to transfusion: Yes Female Reproductive History: Para: 2 Spontaneous abortions: Yes Vitals/I&O/Wt Last Vital Signs Temp 98 F 12/10/24 18:45 Pulse 83 12/10/24 21:37 Resp 16 12/10/24 21:37 BP 162/85 12/10/24 21:37 Pulse Ox 95 12/10/24 21:37 O2 Del Method Room Air 12/10/24 21:37 12/10/24 12/10/24 12/10/24 06:59 14:59 22:59 Intake Total 0 / 0 Balance 0 / 0 Weight last 48 hrs Weight 68.946 kg Physical Exam Narrative: General well-developed well-nourished modestly overweight female in no acute cardiopulmonary stress Oral edentulous no exudate CV regular rate and rhythm Lungs clear to auscultation bilaterally Abdomen positive bowel sounds soft soft nontender Calves no edema Mentation alert and orient x 3 Data 12/10/24 18:53 12/10/24 18:53 A&P Assessment and plan (1) Insulin dependent diabetes mellitus: Patient will be on Lantus 80 units and add high-dose sliding scale insulin Humalog. If her kidney function improves she may be a candidate for metformin but I would avoid that right now for risk of lactic acidosis with creatinine at 1.6 (2) Acute hyperglycemia: Start insulin. This should decrease the polyuria and patient is to be taking p.o. well (3) CKD (chronic kidney disease): GFR has been running 30-50 avoid metformin she may be a candidate for Jardiance or semaglutide (4) Borderline intellectual functioning: I think the patient has poor understanding of her insulin and Dexcom. Her daughter is helping her and patient is currently staying with her but daughter did not come in today. Also the patient has been out of her Humalog for a month PDMP PDMP Reviewed: Not Reviewed Attestations Medical Necessity Statement*: Patient will be admitted to the hospital on observation with 1-2 midnights expected for controlling her blood sugars and helping her to obtain insulin. She will need diabetic teaching Coding Level of Care Code 34848 Diagnoses Insulin dependent diabetes mellitus Acute hyperglycemia R73.9 CKD (chronic kidney disease) N18.9 Borderline intellectual functioning R41.83 Time Spent (min) 55
[2024-12-10 22:54] LABS: Glucose Point of Care 266 mg/dL (70-110)
[2024-12-10 23:07] VITALS: BP 137/77; PULSE 79; RESP 16; O2SAT 93
[2024-12-10 23:11] LABS: Thyroid Stimulating Hormone 1.72 uIU/mL (0.27-4.20)
[2024-12-10 23:34] VITALS: BP 143/78; PULSE 84; RESP 18; O2SAT 94
[2024-12-10] MEDS: gabapentin 400 mg Capsule 1200 MG PO (23:55)
[2024-12-10] MEDS: cefTRIAXone 1,000 mg SDV 1000 MG IVP (23:57)
[2024-12-10] MEDS: trazodone 100 mg Tablet 300 MG PO (23:58)
[2024-12-11] VITALS: BP 144/64; PULSE 81; RESP 16; TEMP 36.7; O2SAT 93
[2024-12-11 00:01] VITALS: BMI 19.3
[2024-12-11] MEDS: sodium chloride 0.9% 1,000 ML 999 ML IV (00:13)
[2024-12-11 04:00] VITALS: BP 132/80; PULSE 78; RESP 17; TEMP 36.8; O2SAT 95
[2024-12-11 06:27] LABS: Glucose Point of Care 166 mg/dL (70-110)
[2024-12-11 07:02] LABS: Anion Gap 15.2 (5-19); Blood Urea Nitrogen 29 mg/dL (8-23); Calcium 8.7 mg/dL (8.5-10.5); Carbon Dioxide 24 mmol/L (22-29); Chloride 102 mmol/L (98-107); Glomerular Filtration Rate 35.4 mL/min (90-130); Glucose 161 mg/dL (65-115); Osmolality Calculated 293 mOsm/kg (285-295); Potassium 4.2 mmol/L (3.5-5.1); Sodium 137 mmol/L (136-145)
[2024-12-11 07:07] LABS: Creatinine Clr Calc Pharmacy 34.0189
[2024-12-11 07:30] VITALS: BP 118/67; PULSE 77; RESP 17; TEMP 37.1; O2SAT 96
[2024-12-11] MEDS: amlodipine 5 mg Tablet PO (08:36)
[2024-12-11] MEDS: docusate sodium 100 mg Capsule PO ×2 (08:36→17:07)
[2024-12-11] MEDS: ezetimibe 10 mg Tablet PO (08:37)
[2024-12-11] MEDS: enoxaparin 40 mg/0.4 mL Syringe SUBCUT (08:37)
[2024-12-11] MEDS: pantoprazole DR 40 mg Tablet PO (08:37)
[2024-12-11] MEDS: buPROPion XL (24 HR) 300 mg Tablet PO (08:37)
[2024-12-11] MEDS: atorvastatin 40 mg Tablet 80 MG PO (08:37)
[2024-12-11] MEDS: lisinopril 20 mg Tablet PO (08:37)
[2024-12-11] MEDS: insulin lispro 100 unit/1 mL SUBCUT ×4 (08:38→21:23)
[2024-12-11] MEDS: insulin glargine 100 units/1 mL 80 UNIT SUBCUT (08:40)
[2024-12-11 11:00] LABS: Glucose Point of Care 239 mg/dL (70-110)
[2024-12-11 11:13] VITALS: BP 142/80; PULSE 83; RESP 17; TEMP 36.4; O2SAT 95
--- NOTE | 2024-12-11 13:24 | P.PN_ITS ---
Subjective 2 Subjective: Patient was seen this morning, she is alert oriented x 3, following all commands, denies any fevers, chills, nausea, no vomiting, no dysuria, no hematuria Vitals/I&O/Wt Last Vital Signs Temp 97.6 F 12/11/24 11:13 Pulse 83 12/11/24 11:13 Resp 17 12/11/24 11:13 BP 142/80 12/11/24 11:13 Pulse Ox 95 12/11/24 11:13 O2 Del Method Room Air 12/11/24 11:13 12/10/24 12/11/24 12/11/24 22:59 06:59 14:59 Intake Total 0 / 0 1999 480 / 480 Balance 0 / 0 1999 480 / 480 Weight last 48 hrs Weight 53.025 kg Weight 51.075 kg Weight 68.946 kg Physical Exam 2 Const: COMMON NORMALS: no acute distress and patient oriented x3 Resp: COMMON NORMALS: normal respiratory effort, No retractions, No use of accessory muscles and clear to auscultation bilaterally AUSCULTATION: clear to auscultation bilaterally Cardio: COMMON NORMALS: regular rate, regular rhythm, S1 normal heart sound present and S2 normal heart sound present RATE: regular rate RHYTHM: r egular rhythm HEART SOUNDS: S1 normal heart sound present and S2 normal heart sound present GI: COMMON NORMALS: Normal to inspection, nondistended, normoactive bowel sounds present and non-tender Extremity: COMMON NORMALS: no calf tenderness and no pedal edema Neuro: COMMON NORMALS: patient oriented x3 Psych: COMMON NORMALS: mental status grossly normal Data 12/10/24 18:53 12/11/24 06:31 A&P Assessment and plan (1) Insulin dependent diabetes mellitus: (2) Acute hyperglycemia: (3) CKD (chronic kidney disease): (4) Borderline intellectual functioning: Plan Acute hyperglycemia - During her last hospitalization she was managed on NovoLog 12 units 3 times daily, with Lantus 80 units daily - Will continue Lantus 80 units daily - Will switch to NovoLog sliding scale - Patient will require extensive diabetic education, during this hospitalization -Likely discharge tomorrow, once blood sugars are under control - Urinary tract infection continue Rocephin PDMP PDMP Reviewed: Not Reviewed Attestations 2 Medical Necessity Statement*: Patient requires hospitalization for type 2 diabetes, hyperglycemia Diagnoses Insulin dependent diabetes mellitus Acute hyperglycemia R73.9 CKD (chronic kidney disease) N18.9 Borderline intellectual functioning R41.83
[2024-12-11 15:38] VITALS: BP 121/79; PULSE 90; RESP 18; TEMP 35.8; O2SAT 97
[2024-12-11 16:46] LABS: Glucose Point of Care 268 mg/dL (70-110)
[2024-12-11] MEDS: acetaminophen 325 mg Tablet 650 MG PO (17:07)
[2024-12-11 20:08] VITALS: BP 146/78; PULSE 96; RESP 16; TEMP 36.6; O2SAT 95
[2024-12-11 20:50] LABS: Glucose Point of Care 415 mg/dL (70-110)
[2024-12-11] MEDS: trazodone 100 mg Tablet 300 MG PO (21:24)
[2024-12-11] MEDS: gabapentin 400 mg Capsule 1200 MG PO (21:25)
[2024-12-11] MEDS: cefTRIAXone 1,000 mg SDV 1000 MG IVP (22:37)
[2024-12-12 00:12] VITALS: BP 161/82; PULSE 79; RESP 16; TEMP 37; O2SAT 97
[2024-12-12 03:14] LABS: Basophils # 0.1 10^3/uL (0.0-0.1); Basophils % 0.7 %; Eosinophils # 0.3 10^3/uL (0.0-0.8); Eosinophils % 1.9 %; Hematocrit 28.3 % (36-47); Lymphocytes # 3.4 10^3/uL (0.8-4.8); Lymphocytes % 24.7 %; Mean Corpuscular HGB Conc 31.4 g/dL (30-55); Mean Corpuscular Hemoglobin 27.1 pg (27-33); Mean Corpuscular Volume 86.3 fl (85-98); Mean Platelet Volume 10.4 fL (7.4-10.4); Monocytes # 1.4 10^3/uL (0.2-0.9); Monocytes % 10.4 %; Neutrophils # 8.29 10^3/uL (1.8-7.7); Neutrophils % 60.4 %; Nucleated Red Blood Cells % 0 %; Platelet Count 370 10^3/cmm (157-399); Red Blood Count 3.28 10^6/uL (3.85-5.65); Red Cell Distribution Width 13.3 % (12.1-15.1); White Blood Count 13.71 10^3/uL (3.29-11.43)
[2024-12-12 03:38] LABS: Blood Urea Nitrogen 27 mg/dL (8-23); Calcium 8.9 mg/dL (8.5-10.5); Carbon Dioxide 25 mmol/L (22-29); Chloride 100 mmol/L (98-107); Creatinine Clr Calc Pharmacy 31.8927; Glomerular Filtration Rate 32.9 mL/min (90-130); Glucose 187 mg/dL (65-115); Osmolality Calculated 292 mOsm/kg (285-295); Sodium 136 mmol/L (136-145)
[2024-12-12 03:40] LABS: Anion Gap 14.9 (5-19); Potassium 3.9 mmol/L (3.5-5.1)
[2024-12-12 05:32] VITALS: BP 127/64; PULSE 85; RESP 15; TEMP 37.2; O2SAT 96
[2024-12-12 07:05] LABS: Glucose Point of Care 162 mg/dL (70-110)
[2024-12-12 07:09] VITALS: BP 107/65; PULSE 84; RESP 17; TEMP 36.4; O2SAT 95
[2024-12-12] MEDS: atorvastatin 40 mg Tablet 80 MG PO (08:47)
[2024-12-12] MEDS: buPROPion XL (24 HR) 300 mg Tablet PO (08:47)
[2024-12-12] MEDS: pantoprazole DR 40 mg Tablet PO (08:47)
[2024-12-12] MEDS: amlodipine 5 mg Tablet PO (08:47)
[2024-12-12] MEDS: lisinopril 20 mg Tablet PO (08:47)
[2024-12-12] MEDS: enoxaparin 40 mg/0.4 mL Syringe SUBCUT (08:47)
[2024-12-12] MEDS: docusate sodium 100 mg Capsule PO (08:47)
[2024-12-12] MEDS: ezetimibe 10 mg Tablet PO (08:47)
[2024-12-12] MEDS: insulin lispro 100 unit/1 mL SUBCUT ×2 (08:49→13:15)
[2024-12-12] MEDS: insulin glargine 100 units/1 mL 80 UNIT SUBCUT (10:59)
--- NOTE | 2024-12-12 11:00 | PC.CHAP ---
Pastoral Care Encounter/Spiritual Assessment Type of Contact [] Declined risk management director visit [] Patient/Family/Request visit [] Outpatient visit [] Follow-up visit [] Physician referral [] Code/Alert [x] Routine visit [] Staff referral [] Actively dying [x] Patient sleeping [] Family support [] [] Out of room [] Palliative care [] [] Receiving care in room [] Pre-surgical visit [] Trauma [] Long length of stay [] ICU visit [] Other: Relational/Emotional Strength [] Patient feels connected with others/family/visitors/staff [] Distress [] Loneliness/isolation [] Abandonment Spirituality of Patient [] Person of Soraida [] Attends Episcopalian of their Soraida [] Believes in Prayer [] Reads Bible or Rastafarian materials [] There are Spiritual issues to be addressed Lead Ramp Service Man Interventions [x] Prayer [] Active listening [] Non-anxious presence [] Spiritual/emotional support [] Crisis/trauma care [] Spiritual counseling [] Bereavement support [] Provided bereavement packet [] Provided Bible/devotional materials [] Provided toy/stuffed animal, coloring book to patient or family member [] Provided Communion [] Anointing/[place] [] Salvation [] Completed spiritual assessment [] Other: Impact on Illness or Injury [] Angry [] Fearful [] Anxious [] Often cries [] Exhaustion [] Unable to work [] Unable to attend orthodox [] Unable to walk/stand [] Unable to read [] Unable to drive [] Unable to eat/drink [] Unable to sleep [] Unable to be with family [] Patient intubated [] Other: Summary Time spent with patient
[2024-12-12 11:14] LABS: Glucose Point of Care 291 mg/dL (70-110)
[2024-12-12 11:20] VITALS: BP 118/74; PULSE 89; RESP 17; TEMP 36.3; O2SAT 97
--- NOTE | 2024-12-12 13:00 | P.DS_ITS ---
Discharge Providers Date of Admission: 12/10/24 22:35 Date of Discharge: December 12, 2024 Attending Provider at Admission: Barry Arenas MD Attending Provider at Discharge: Reyonld Rodriguez MD Primary Care Provider: Kati Singh DO Diagnoses at Discharge Discharge Diagnosis (1) Insulin dependent diabetes mellitus: Status: Acute (2) Acute hyperglycemia: Status: Acute (3) CKD (chronic kidney disease): Status: Chronic (4) Borderline intellectual functioning: Status: Acute Reason for Visit Reason for Visit: hyperglycemia Brief History: History as per HPI: Julia Lovett is a 59 year old female with history of poorly controlled diabetes. She was recently discharged from the hospital with DKA, UTI and yeast infection. She just received her antibiotics but has not started taking them yet. She did not receive the NovoLog states the [facility] pharmacy did not have it. She has been using Lantus 60 units a day instead of 80 units a day but also is using it as a sliding scale but it has not been effective. Blood sugars have been running mostly high and manual glucometer check corresponds to over 500. She had some blood sugars 180-250 but most of them are all high. Hospital Course Hospital Course Patient was admitted to the hospital for evaluation and management of uncontrolled hyperglycemia. DKA was ruled out. She was started on IV hydration. Her insulins were adjusted. Patient and her daughter was counseled in detail regarding blood sugar management and insulin dosage. She has been discharged in hemodynamically stable condition on Lantus 50 units twice daily, Humalog 5 units 3 times daily premeals along with sliding scale which has been provided to the patient. Glipizide 5 mg oral daily has been added to the medication list. Dose of bupropion has been changed to 300 mg oral daily. Gabapentin has been changed to 600 mg twice daily rather than 1200 mg nightly. She is advised to follow-up to her primary care provider and with endocrinology office with the Dexcom readings within next 1 month for further adjustment of medications. Physical Exam Const: COMMON NORMALS: no acute distress and patient oriented x3 Resp: COMMON NORMALS: normal respiratory effort, No retractions, No use of accessory muscles and clear to auscultation bilaterally AUSCULTATION: clear to auscultation bilaterally Cardio: COMMON NORMALS: regular rate, regular rhythm, S1 normal heart sound present and S2 normal heart sound present RATE: regular rate RHYTHM: regular rhythm HEART SOUNDS: S1 normal heart sound present and S2 normal heart sound present GI: COMMON NORMALS: Normal to inspection, nondistended, normoactive bowel sounds present and non-tender Extremity: COMMON NORMALS: no calf tenderness and no pedal edema Neuro: COMMON NORMALS: patient oriented x3 Psych: COMMON NORMALS: mental status grossly normal Discharge Data Studies Completed and Pending Pending at discharge Category Date Time Status Urine Culture Stat Lab 12/10/24 21:12 Results Laboratory Results WBC 13.71 10^3/uL (3.29-11.43) H 12/12/24 01:41 RBC 3.28 10^6/uL (3.85-5.65) L 12/12/24 01:41 Hgb 8.90 g/dL (11.27-16.99) L 12/12/24 01:41 Hct 28.3 % (36-47) L 12/12/24 01:41 MCV 86.3 fl (85-98) 12/12/24 01:41 MCH 27.1 pg (27-33) 12/12/24 01:41 MCHC 31.4 g/dL (30-55) 12/12/24 01:41 RDW 13.3 % (12.1-15.1) 12/12/24 01:41 Plt Count 370 10^3/cmm (157-399) 12/12/24 01:41 MPV 10.4 fL (7.4-10.4) 12/12/24 01:41 Neut % (Auto) 60.4 % 12/12/24 01:41 Lymph % (Auto) 24.7 % 12/12/24 01:41 [place]pher[place] % (Auto) 10.4 % 12/12/24 01:41 Eos % (Auto) 1.9 % 12/12/24 01:41 Baso % (Auto) 0.7 % 12/12/24 01:41 Neut # (Auto) 8.29 10^3/uL (1.8-7.7) H 12/12/24 01:41 Lymph # (Auto) 3.4 10^3/uL (0.8-4.8) 12/12/24 01:41 Mcpherson # (Auto) 1.4 10^3/uL (0.2-0.9) H 12/12/24 01:41 Eos # (Auto) 0.3 10^3/uL (0.0-0.8) 12/12/24 01:41 Baso # (Auto) 0.1 10^3/uL (0.0-0.1) 12/12/24 01:41 Nucleated RBC % (auto) 0 % 12/12/24 01:41 Nucleated RBCs # 0.0 /100WBC 12/12/24 01:41 Sodium 136 mmol/L (136-145) 12/12/24 01:41 Potassium 3.9 mmol/L (3.5-5.1) 12/12/24 01:41 Chloride 100 mmol/L (98-107) 12/12/24 01:41 Carbon Dioxide 25 mmol/L (22-29) 12/12/24 01:41 Anion Gap 14.9 (5-19) 12/12/24 01:41 BUN 27 mg/dL (8-23) H 12/12/24 01:41 Creatinine 1.6 mg/dL (0.5-0.9) H 12/12/24 01:41 GFR Calculation 32.9 mL/min (90-130) L 12/12/24 01:41 Glucose 187 mg/dL (65-115) H 12/12/24 01:41 POC Glucose 291 mg/dL (70-110) H 12/12/24 10:58 Calculated Osmolality 292 mOsm/kg (285-295) 12/12/24 01:41 Calcium 8.9 mg/dL (8.5-10.5) 12/12/24 01:41 Total Bilirubin 0.2 mg/dL (0.15-1.2) 12/10/24 18:53 AST 9 U/L (0-32) 12/10/24 18:53 ALT 11 U/L (0-33) 12/10/24 18:53 Alkaline Phosphatase 187 U/L (35-105) H 12/10/24 18:53 Total Protein 7.4 g/dL (6.6-8.7) 12/10/24 18:53 Albumin 3.7 g/dL (3.5-5.2) 12/10/24 18:53 Globulin 3.7 g/dL (1.3-4.6) 12/10/24 18:53 TSH 1.72 uIU/mL (0.27-4.20) 12/10/24 18:53 Urine Color Yellow (Yellow) 12/10/24 21:12 Urine Appearance Slightly cloudy (CLEAR) 12/10/24 21:12 Urine pH 6 (5-7) 12/10/24 21:12 Ur Specific [place] 1.005 (1.005-1.030) 12/10/24 21:12 Urine Protein Neg (Negative) 12/10/24 21:12 Urine Glucose (UA) 4+ (Normal) H 12/10/24 21:12 Urine Ketones Negative (Negative) 12/10/24 21:12 Urine Blood 2+ (Negative) A 12/10/24 21:12 Urine Nitrate Negative (Negative) 12/10/24 21:12 Urine Bilirubin Neg (Negative) 12/10/24 21:12 Urine Urobilinogen Norm mg/dL (Negative) 12/10/24 21:12 Ur Leukocyte Esterase 2+ (Negative) A 12/10/24 21:12 Urine RBC 0-2 /hpf (0-2) 12/10/24 21:12 Urine WBC >100 /hpf (0-5) H 12/10/24 21:12 Ur Squamous Epith Cells 0-5 /hpf (0-5) 12/10/24 21:12 Amorphous Sediment Not Reportable 12/10/24 21:12 Urine Bacteria None seen /hpf (NONE) 12/10/24 21:12 Hyaline Casts 0.40 /lpf 12/10/24 21:12 Vitals Last Vital Signs Temp 97.4 F L 12/12/24 11:20 Pulse 89 12/12/24 11:20 Resp 17 12/12/24 11:20 BP 118/74 12/12/24 11:20 Pulse Ox 97 12/12/24 11:20 O2 Del Method Room Air 12/12/24 11:20 Discharge Plan Discharge Patient Disposition: Home Health Service Condition: Stable Prescriptions: New (DME) lancets Misc See Rx Instructions .ROUTE .MEDSUPPLY Qty: 100 0RF Rx Instructions: As directed insulin lispro [Humalog KwikPen Insulin] 100 unit/mL insulin pen See Protocol SUBCUT TID Qty: 15 0RF Protocol: Insulin Corrective High-Dose Regimen Condition: Fingerstick Blood Glucose Dose/Route: Insulin Units Condition: 141-180 mg/dl Dose/Route: 2 units/SQ Condition: 181-220 mg/dl Dose/Route: 3 units/SQ Condition: 221-260 mg/dl Dose/Route: 4 units/SQ Condition: 261-300 mg/dl Dose/Route: 6 units/SQ Condition: 301-350 mg/dl Dose/Route: 8 units/SQ Condition: 351-400 mg/dl Dose/Route: 10 units/SQ Condition: greater than 400 mg/dl Dose/Route: 12 units/SQ glipizide 5 mg tablet 5 mg PO DAILY Qty: 30 0RF Continued Zyrtec 10 mg capsule 10 mg PO DAILY PRN (Reason: Allergy Symptoms) atorvastatin [Lipitor] 80 mg tablet 80 mg PO DAILY Qty: 90 3RF ezetimibe [Zetia] 10 mg tablet 10 mg PO DAILY Qty: 30 5RF bupropion HCl [Wellbutrin XL] 300 mg tablet extended release 24 hr 300 mg PO QAM Qty: 90 0RF Rx Instructions: along with 150mg vc=[id number] total trazodone 100 mg tablet 300 mg PO BEDTIME Qty: 90 2RF hydroxyzine HCl 25 mg tablet 50 mg PO BEDTIME Qty: 60 2RF amlodipine 5 mg tablet 5 mg PO DAILY Qty: 30 2RF montelukast [Singulair] 10 mg Tablet 10 mg PO DAILY hydrocodone-acetaminophen 7.5-325 mg tablet 1 tab PO Q6H PRN (Reason: pain) Qty: 20 0RF docusate sodium [Colace] 100 mg capsule 100 mg PO BID Qty: 14 0RF tizanidine 2 mg tablet 2 mg PO BEDTIME PRN (Reason: Pain) lisinopril 20 mg tablet 20 mg PO QAM cyanocobalamin (vitamin B-12) 1,000 mcg/mL solution 1,000 mcg IM .Q30D omeprazole 20 mg capsule,delayed release(DR/EC) 20 mg PO DAILY ondansetron 4 mg tablet,disintegrating 4 mg PO Q6H PRN (Reason: Nausea) glucagon HCl [Glucagon (HCl) Emergency Kit] 1 mg recon soln 1 mg IM Q20M PRN (Reason: hypoglycemia) Qty: 1 0RF Rx Instructions: until target blood sugar attained Changed gabapentin 600 mg tablet 600 mg PO BID Qty: 10 0RF insulin aspart U-100 [Novolog FlexPen U-100 Insulin] 100 unit/mL (3 mL) insulin pen 5 unit SUBCUT TID Qty: 15 0RF Rx Instructions: In addition to the sliding scale insulin glargine [Lantus Solostar U-100 Insulin] 100 unit/mL (3 mL) insulin pen 50 unit SUBCUT BID Qty: 15 1RF Rx Instructions: 50 units subcutaneously twice daily Discontinued bupropion HCl [Wellbutrin XL] 150 mg tablet extended release 24 hr 150 mg PO QAM Qty: 90 0RF Rx Instructions: along with 300mg pb=898ic total Discharge Orders: Discharge Order (Routine); Ordered 12/12/24 Ordered By: Reynold Rodriguez Referrals: [facility]) [Outside] Kati Singh DO [Primary Care Provider] - 12/19/24 10:30 am Adri Watson MD [Physician] - 01/04/25 11:45 am (We have notified your physician's clinic of the need for a follow-up appointment to be scheduled. If you have not heard from them within the next 2 business days, please call them directly. ) Discharge Diet: Diabetic Discharge Activity: Resume usual activity and Increase activity as tolerated Patient Instructions: Glipizide (By mouth), Insulin Lispro (By injection) (Humalog, Humalog Pen, Lispro-PFC,..., Hyperglycemia, Opioid Safety Activity Restrictions/Additional Instructions: Please take Lantus 50 units in the morning and 50 units in the evening. Take Lantus when you wake up and before going to the bed. Take Humalog which is a slow acting insulin 5 units before each meal in addition to the sliding scale Sliding scale is as below. If Fingerstick Blood Glucose, then Insulin Units; If 141-180 mg/dl, then 2 units/SQ; If 181-220 mg/dl, then 3 units/SQ; If 221-260 mg/dl, then 4 units/SQ; If 261-300 mg/dl, then 6 units/SQ; If 301-350 mg/dl, then 8 units/SQ; If 351-400 mg/dl, then 10 units/SQ; If greater than 400 mg/dl, then 12 units/SQ Your fasting blood sugar for now should be less than 140 while Premeal should be less than 180. If you have any dizziness, cold sweats please check your blood sugars immediately to rule out hypoglycemia. Do not drink more than 1 can of diet soda per day. Please follow-up with your primary care provider and with the [facility] within next 1 month with your Dexcom readings. Bupropion has been changed to 300 mg daily. Gabapentin has been changed to 600 mg twice daily rather than 1200 mg at night. Discharge Attestations Time Spent in Discharge Care*: greater than 30 min Specific Discharge Activities: educating patient, discussing with pcp/other providers, discussing with leather case finisher/social workers/dc planners, documenting/other paperwork and evaluating patient/reviewing data Status at Discharge: Cognitive status at discharge: mildly impaired cognition , Behavioral status at discharge: cooperative , Functional status at discharge: independent ambulation , Overall status at discharge: patient is progressing back to baseline Quality Metrics Clinical Quality Measures [ No reported AMI, CVA or VTE this stay] Coding Level of Care Code 67901 Total time (in minutes) for Discharge: 60 Diagnoses Insulin dependent diabetes mellitus Acute hyperglycemia R73.9 CKD (chronic kidney disease) N18.9 Borderline intellectual functioning R41.83
== END 2024-12-12 15:30 | disposition home health service (06) ==
LOC: ER 21:37 → MEDSURG 23:20
PROVIDERS: Family Medicine; Admitting Provider Internal Medicine; Emergency Provider Emergency Medicine; PCP Family Medicine; Visit Provider Student in an Organized Health Care Education/Training Program
DX: E11.65 Type 2 diabetes mellitus with hyperglycemia (principal); E11.22 Type 2 diabetes mellitus with diabetic chronic kidney disease; N18.9 Chronic kidney disease, unspecified; R41.83 Borderline intellectual functioning; K21.9 Gastro-esophageal reflux disease without esophagitis; Z79.4 Long term (current) use of insulin; F32.9 Major depressive disorder, single episode, unspecified; Z83.3 Family history of diabetes mellitus; Z87.891 Personal history of nicotine dependence
CPT/HCPCS: 36415; 36416; 80048; 80053; 81001; 82962; 84443; 85025; 87086; 96361; 96372; 96374; 96375; 99285; G0378; J0696; J1650; J1815; J7030; J9999

== ENCOUNTER → 2025-01-04 11:50 | Outpatient (BNVA) | payer MEDICARE, MEDICAID, SELFPAY ==
[2024-12-22 17:38] VITALS: BP 118/74
== END ==
PROVIDERS: PCP Family Medicine; Visit Provider Internal Medicine
DX: E11.42 Type 2 diabetes mellitus with diabetic polyneuropathy (principal); Z79.4 Long term (current) use of insulin; E78.5 Hyperlipidemia, unspecified; E11.40 Type 2 diabetes mellitus with diabetic neuropathy, unspecified
CPT/HCPCS: 99214

== ENCOUNTER → 2025-01-11 13:15 | Outpatient (BNVA) | payer MEDICARE, SELFPAY ==
[2024-12-22 17:38] VITALS: BP 118/74
== END ==
PROVIDERS: PCP Family Medicine; Visit Provider Podiatrist Foot & Ankle Surgery
DX: E11.42 Type 2 diabetes mellitus with diabetic polyneuropathy (principal); B35.1 Tinea unguium; E11.40 Type 2 diabetes mellitus with diabetic neuropathy, unspecified; Z79.4 Long term (current) use of insulin
CPT/HCPCS: 11056; 11721

== ENCOUNTER 2025-02-14 00:12 | Emergency (ER) | payer OTHER, SELFPAY ==
[2024-12-22 17:38] VITALS: BP 118/74
[2025-02-14 00:29] VITALS: BP 95/62; PULSE 81; RESP 15; TEMP 36.7; O2SAT 96; BMI 25.7
[2025-02-14 00:38] LABS: Glucose Point of Care 405 mg/dL (70-110)
[2025-02-14 01:54] LABS: Basophils # 0.1 10^3/uL (0.0-0.1); Basophils % 0.6 %; Eosinophils # 0.2 10^3/uL (0.0-0.8); Eosinophils % 1.6 %; Hematocrit 32.7 % (36-47); Lymphocytes # 2.5 10^3/uL (0.8-4.8); Lymphocytes % 20.7 %; Mean Corpuscular HGB Conc 32.1 g/dL (30-55); Mean Corpuscular Hemoglobin 26.1 pg (27-33); Mean Corpuscular Volume 81.1 fl (85-98); Mean Platelet Volume 9.5 fL (7.4-10.4); Neutrophils # 8.37 10^3/uL (1.8-7.7); Neutrophils % 68.4 %; Nucleated Red Blood Cells % 0 %; Platelet Count 350 10^3/cmm (157-399); Red Blood Count 4.03 10^6/uL (3.85-5.65); Red Cell Distribution Width 13.1 % (12.1-15.1); White Blood Count 12.25 10^3/uL (3.29-11.43)
[2025-02-14 02:14] LABS: Lactic Sepsis W/Reflex 1.2 mmol/L (0.5-2.2)
[2025-02-14 02:15] LABS: Alanine Aminotransferase 10 U/L (0-33); Albumin Level 3.6 g/dL (3.5-5.2); Alkaline Phosphatase 138 U/L (35-105); Anion Gap 15.5 (5-19); Aspartate Amino Transferase 9 U/L (0-32); Blood Urea Nitrogen 31 mg/dL (8-23); C Reactive Protein 65.9 mg/L (0.0-4.9); Calcium 9.4 mg/dL (8.5-10.5); Carbon Dioxide 24 mmol/L (22-29); Chloride 97 mmol/L (98-107); Creatinine Clr Calc Pharmacy 29.8423; Globulin 4.3 g/dL (1.3-4.6); Glucose 370 mg/dL (65-115); Osmolality Calculated 296 mOsm/kg (285-295); Potassium 4.5 mmol/L (3.5-5.1); Sodium 132 mmol/L (136-145); Total Protein 7.9 g/dL (6.6-8.7)
--- NOTE | 2025-02-14 03:40 | ED_ITS ---
HPI - Female Genitourinary 2 General: Chief complaint: Urogenital-Female Stated complaint: BLOOD IN URINE Time Seen by Provider: 02/14/25 03:40 History of Present Illness: 59-year-old female with history of diabe jaime hypertension and chronic kidney disease who presents the emergency room with concern for blood in her urine. She said it looked red. She also noted that her sugar was elevated at over 500 at home. No fevers. No chest pain. No abdominal pain. No vomiting. Related Data Home Medications ?Medication ?Instructions ?Recorded ?Confirmed cetirizine 10 mg capsule (Zyrtec) 10 mg PO DAILY PRN A llergy Symptoms 01/27/20 01/16/25 montelukast 10 mg tablet 10 mg PO DAILY 09/12/2412/29 (Singulair) cyanocobalamin (vitamin B-12) 1,000 mcg IM .Q30D 12/0101/16/25 1,000 mcg/mL injection solution lisinopril 20 mg tablet 20 mg PO QAM 12/01/24 omeprazole 20 mg capsule,delayed 20 mg PO DAILY 01/16/25 release ondansetron 4 mg disintegrating 4 mg PO Q6H PRN Nausea 12/01/24 01/16/25 tablet tizanidine 2 mg tablet 2 mg PO BEDTIME PRN Pain 11/2201/16/25 Previous Rx's ?Medication ?Instructions ?Recorded atorvastatin 80 mg tablet (Lipitor) 80 mg PO DAILY #90 tabs 08/16/24 docusate sodium 100 mg capsule 100 mg PO BID #14 caps 09/13/24 (Colace) hydrocodone 7.5 mg-acetaminophen 1 tab PO Q6H PRN pain #20 tabs 09/13/24 325 mg tablet glucagon HCl 1 mg solution for 1 mg IM Q20M PRN hypogl ycemia #1 ea 12/06/24 injection (Glucagon (HCl) Emergency Kit) gabapentin 600 mg tablet 600 mg PO BID #10 tabs 12/12 glipizide 5 mg tablet 5 mg PO DAILY #30 tabs 12/12 insulin aspart U-100 100 unit/mL 5 unit (0.05 mL) SUBC UT TID #15 mL 12/12/24 (3 mL) subcutaneous pen (Novolog FlexPen U-100 Insulin aspart) lancets #100 ea 12/12/24 ezetimibe 10 mg tablet See Rx Instructions .Route 0 12/27/24 .COMPLEX #30 tabs amlodipine 5 mg tablet See Rx Instructions .Route 0 12/30/24 .COMPLEX #30 tabs blood-glucose sensor (Dexcom G7 #3 ea 01/04/25 Sensor device) insulin lispro 100 unit/mL See Protocol SUBCUT TID #15 mL 01/04/25 subcutaneous pen (Humalog KwikPen (U-100) Insulin) Held on 01/04/25. Instructions: Doctor's Order blood sugar diagnostic (OneTouch #400 ea 01/06/25 Verio test strips) bupropion HCl 300 mg 24 hr tablet, 300 mg PO QAM #90 t abs 01/06/25 extended release (Wellbutrin XL) hydroxyzine HCl 25 mg tablet 50 mg (2 x 25 mg) PO BEDT JEFFREY #60 01/06/25 tabs trazodone 100 mg tablet 300 mg (3 x 100 mg) PO BEDTI ME #90 01/06/25 tabs insulin glargine 100 unit/mL (3 50 unit (0.5 mL) SUBCU T BID #30 mL 01/31/25 mL) subcutaneous pen (Lantus Solostar U-100 Insulin) rosuvastatin 20 mg tablet (Crestor) 20 mg PO DAILY #30 tabs 01/31/25 cefdinir 300 mg capsule 300 mg PO BID 10 days #20 ca ps 02/14/25 Allergies Allergy/AdvReac Type Severity Reaction Status Date / Time No Known Allergies Allergy Verified 01/16/25 16:51 Review of Systems 2 Narrative: Constitutional symptoms: Negative except as documented in HPI. Skin symptoms: Negative except as documented in HPI. Eye symptoms: Negative except as documented in HPI. ENMT symptoms: Negative except as documented in HPI. Respiratory symptoms: Negative except as documented in HPI. Cardiovascular symptoms: Negative except as documented in HPI. Gastrointestinal symptoms: Negative except as documented in HPI. Genitourinary symptoms: Negative except as documented in HPI. Musculoskeletal symptoms: Negative except as documented in HPI. Neurologic symptoms: Negative except as documented in HPI. Psychiatric symptoms: Negative except as documented in HPI. Endocrine symptoms: Negative except as documented in HPI. PFSH ED 2 PFSH: Medical History History of colon polyps GERD (gastroesophageal reflux disease) Psychiatric care Type 2 diabetes mellitus Yeast infection involving the vagina and surrounding area Borderline intellectual functioning Major depressive disorder, recurrent severe without psychotic features Surgical History Hx laparoscopic cholecystectomy 09/13/24 Dr. Kendall Hx of colonoscopy with polypectomy 2016 H/O tubal ligation H/O section x2 Family History Father Diabetes Grandmother Diabetes paternal Brother Diabetes Grandfather Stroke paternal Sister Thyroid disease Denies family history of Clotting disorder Hyperlipidemia Anesthesia complication Bleeding disorder Hypertension Social History Smoking and tobacco/nicotine status: unknown if used tobacco/nicotine Quit status (tobacco/nicotine): has quit using Year quit tobacco: 2013 Second hand smoke exposure: Yes Alcohol intake: never Substance/Drug Use: never Adopted: No Caregiver/support person: No Lives independently: Yes Household members: none Housing: Apartment Marital status: Marital status details: 2005 Number of children: 2 Number of grandchildren: 3 Highest education level completed: 9th Grade Current occupational status: disabled Pets and animals: No Leisure activites: music, games, reading and other Leisure activities details: [employer] Sexually active: Yes Do you think of yourself as: Straight/Heterosexual Current gender identity: Female Soraida/Congregational: Restoration Special soraida needs: No Agree to transfusion: Yes Female Reproductive History: Para: 2 Spontaneous abortions: Yes Physical Exam 2 Narrative: EXAM NARRATIVE: General: Alert, no acute distress. Skin: Warm, dry. Head: Normocephalic, atraumatic. Neck: Supple, trachea midline. Eye: Extraocular movements are intact. Ears, nose, mouth and throat: mucosa moist. Tacky oral mucosa l peripheral perfusion. Respiratory: Lungs are clear to auscultation, respirations are non-labored, breath sounds are equal, Symmetrical chest wall expansion. Gastrointestinal: Soft, Nontender, Non distended Musculoskeletal: Normal ROM, no deformity. Neurological: Alert and oriented, No focal neurological deficit observed. Psychiatric: Cooperative, appropriate mood & affect. Course 2 Vital Signs: Vital signs: Vital Signs Temperature 98.0 F 02/14/25 00:29 Pulse Rate 63 02/14/25 05:03 Respiratory Rate 14 02/14/25 05:03 Blood Pressure 119/51 02/14/25 05:03 Pulse Oximetry 94 02/14/25 05:03 Oxygen Delivery Me thod Room Air 02/14/25 05:03 MDM - Female Medical Decision Making Medical decision making: Differential diagnosis for complaint of hematuria including but not limited to and based on the above HPI, review of systems and physical exam: UTI / hemorrhagic cystitis, pyelonephritis, kidney stones, bladder cancer Orders placed to evaluate differential diagnosis based on the above differential, HPI and physical exam Lab Review: Laboratory results were reviewed and interpreted by myself the emergency room physician. Mild leukocytosis. No anemia. Stable chronic renal insufficiency with a BUN/creatinine of 31 and 1.9. Glucose is elevated at around 400 initially on Accu-Chek. Was 370 on BMP and down to around 300 after the first liter of fluids. She is receiving a second liter of fluids. She is also receiving IV Rocephin for urinary tract infection. She has greater than 100 whites greater than 100 reds, no bacteria are seen. She does have leukocyte Estrace. Most likely this is hemorrhagic cystitis secondary to infection. I reviewed the patient's medical record. Reexamination: Patient remained stable. No increased work of breathing. No altered mental status. No focal motor deficits. Assessment and plan: Hemorrhagic cystitis Hyperglycemia Dehydration ?IV Rocephin and 2 L normal saline bolus in the emergency room. - Discharged home - Discussed plan with patient. Answered any questions. - Evaluation and treatment of this problem were appropriate in the emergency setting. Lab Data 02/14/25 01:48 02/14/25 01:48 Laboratory Results WBC 12.25 10^3/uL (3.29-11.43) H 02/14/25 01:48 RBC 4.03 10^6/uL (3.85-5.65) 02/14/25 01:48 Hgb 10.50 g/dL (11.27-16.99) L 02/14/25 01:48 Hct 32.7 % (36-47) L 02/14/25 01:48 MCV 81.1 fl (85-98) L 02/14/25 01:48 MCH 26.1 pg (27-33) L 02/14/25 01:48 MCHC 32.1 g/dL (30-55) 02/14/25 01:48 RDW 13.1 % (12.1-15.1) 02/14/25 01:48 Plt Count 350 10^3/cmm (157-399) 02/14/25 01:48 MPV 9.5 fL (7.4-10.4) 02/14/25 01:48 Neut % (Auto) 68.4 % 02/14/25 01:48 Lymph % (Auto) 20.7 % 02/14/25 01:48 [place] % (Auto) 8.0 % 02/14/25 01:48 Eos % (Auto) 1.6 % 02/14/25 01:48 Baso % (Auto) 0.6 % 02/14/25 01:48 Neut # (Auto) 8.37 10^3/uL (1.8-7.7) H 02/14/25 01:48 Lymph # (Auto) 2.5 10^3/uL (0.8-4.8) 02/14/25 01:48 [place] # (Auto) 1.0 10^3/uL (0.2-0.9) H 02/14/25 01:48 Eos # (Auto) 0.2 10^3/uL (0.0-0.8) 02/14/25 01:48 Baso # (Auto) 0.1 10^3/uL (0.0-0.1) 02/14/25 01:48 Nucleated RBC % (auto) 0 % 02/14/25 01:48 Nucleated RBCs # 0.0 /100WBC 02/14/25 01:48 Sodium 132 mmol/L (136-145) L 02/14/25 01:48 Potassium 4.5 mmol/L (3.5-5.1) 02/14/25 01:48 Chloride 97 mmol/L (98-107) L 02/14/25 01:48 Carbon Dioxide 24 mmol/L (22-29) 02/14/25 01:48 Anion Gap 15.5 (5-19) 02/14/25 01:48 BUN 31 mg/dL (8-23) H 02/14/25 01:48 Creatinine 1.9 mg/dL (0.5-0.9) H 02/14/25 01:48 GFR Calculation 27.0 mL/min (90-130) L 02/14/25 01:48 Glucose 370 mg/dL (65-115) H 02/14/25 01:48 POC Glucose 299 mg/dL (70-110) H 02/14/25 03:56 Calculated Osmolality 296 mOsm/kg (285-295) H 02/14/25 01:48 Lactic Acid 1.2 mmol/L (0.5-2.2) 02/14/25 01:48 Calcium 9.4 mg/dL (8.5-10.5) 02/14/25 01:48 Total Bilirubin 0.2 mg/dL (0.15-1.2) 02/14/25 01:48 AST 9 U/L (0-32) 02/14/25 01:48 ALT 10 U/L (0-33) 02/14/25 01:48 Alkaline Phosphatase 138 U/L (35-105) H 02/14/25 01:48 C-Reactive Protein 65.9 mg/L (0.0-4.9) H 02/14/25 01:48 Total Protein 7.9 g/dL (6.6-8.7) 02/14/25 01:48 Albumin 3.6 g/dL (3.5-5.2) 02/14/25 01:48 Globulin 4.3 g/dL (1.3-4.6) 02/14/25 01:48 Urine Color Red (Yellow) A 02/14/25 04:00 Urine Appearance Cloudy (CLEAR) A 02/14/25 04:00 Urine pH 6.5 (5-7) 02/14/25 04:00 Ur Specific [place] 1.014 (1.005-1.030) 02/14/25 04:00 Urine Protein 2+ (Negative) A 02/14/25 04:00 Urine Glucose (UA) 3+ (Normal) H 02/14/25 04:00 Urine Ketones Negative (Negative) 02/14/25 04:00 Urine Blood 3+ (Negative) A 02/14/25 04:00 Urine Nitrate Negative (Negative) 02/14/25 04:00 Urine Bilirubin Negative (Negative) 02/14/25 04:00 Urine Urobilinogen 1.0 mg/dL (Negative) 02/14/25 04:00 Ur Leukocyte Esterase 3+ (Negative) A 02/14/25 04:00 Urine RBC >100 /hpf (0-2) H 02/14/25 04:00 Urine WBC >100 /hpf (0-5) H 02/14/25 04:00 Ur Squamous Epith Cells 0-5 /hpf (0-5) 02/14/25 04:00 Amorphous Sediment Not Reportable 02/14/25 04:00 Urine Bacteria None seen /hpf (NONE) 02/14/25 04:00 Hyaline Casts 0-4 /lpf H 02/14/25 04:00 No radiology studies performed this visit Discharge Plan Discharge Patient Disposition: Home Clinical Impression: Urinary tract infection, Hematuria, Hyperglycemia, Dehydration Condition: Stable Prescriptions: New cefdinir 300 mg capsule 300 mg PO BID 10 Days Qty: 20 0RF No Action Zyrtec 10 mg capsule 10 mg PO DAILY PRN (Reason: Allergy Symptoms) bupropion HCl [Wellbutrin XL] 300 mg tablet extended release 24 hr 300 mg PO QAM Qty: 90 0RF Rx Instructions: along with 150mg se=187rt total trazodone 100 mg tablet 300 mg PO BEDTIME Qty: 90 2RF hydroxyzine HCl 25 mg tablet 50 mg PO BEDTIME Qty: 60 2RF insulin lispro [Humalog KwikPen Insulin] 100 unit/mL insulin pen See Protocol SUBCUT TID Qty: 15 0RF Protocol: Insulin Corrective High-Dose Regimen Condition: Fingerstick Blood Glucose Dose/Route: Insulin Units Condition: 141-180 mg/dl Dose/Route: 2 units/SQ Condition: 181-220 mg/dl Dose/Route: 3 units/SQ Condition: 221-260 mg/dl Dose/Route: 4 units/SQ Condition: 261-300 mg/dl Dose/Route: 6 units/SQ Condition: 301-350 mg/dl Dose/Route: 8 units/SQ Condition: 351-400 mg/dl Dose/Route: 10 units/SQ Condition: greater than 400 mg/dl Dose/Route: 12 units/SQ atorvastatin [Lipitor] 80 mg tablet 80 mg PO DAILY Qty: 90 3RF ezetimibe 10 mg tablet See Rx Instructions .ROUTE .COMPLEX Qty: 30 5RF Dose Instruction: TAKE 1 TABLET BY MOUTH EVERY DAY Rx Instructions: TAKE 1 TABLET BY MOUTH EVERY DAY amlodipine 5 mg tablet See Rx Instructions .ROUTE .COMPLEX Qty: 30 2RF Dose Instruction: TAKE 1 TABLET BY MOUTH EVERY DAY Rx Instructions: TAKE 1 TABLET BY MOUTH EVERY DAY (DME) Dexcom G7 Sensor Device See Rx Instructions .Route Qty: 3 6RF Rx Instructions: As directed (DME) OneTouch Verio test strips Strip See Rx Instructions .Route Qty: 400 3RF Rx Instructions: Check Blood Sugar up to 3 Type 2 diabetes mellitus E11.42 insulin glargine [Lantus Solostar U-100 Insulin] 100 unit/mL (3 mL) insulin pen 50 unit SUBCUT BID Qty: 30 3RF Rx Instructions: 50 units subcutaneously twice daily rosuvastatin [Crestor] 20 mg tablet 20 mg PO DAILY Qty: 30 4RF montelukast [Singulair] 10 mg Tablet 10 mg PO DAILY hydrocodone-acetaminophen 7.5-325 mg tablet 1 tab PO Q6H PRN (Reason: pain) Qty: 20 0RF docusate sodium [Colace] 100 mg capsule 100 mg PO BID Qty: 14 0RF tizanidine 2 mg tablet 2 mg PO BEDTIME PRN (Reason: Pain) lisinopril 20 mg tablet 20 mg PO QAM cyanocobalamin (vitamin B-12) 1,000 mcg/mL solution 1,000 mcg IM .Q30D omeprazole 20 mg capsule,delayed release(DR/EC) 20 mg PO DAILY ondansetron 4 mg tablet,disintegrating 4 mg PO Q6H PRN (Reason: Nausea) glucagon HCl [Glucagon (HCl) Emergency Kit] 1 mg recon soln 1 mg IM Q20M PRN (Reason: hypoglycemia) Qty: 1 0RF Rx Instructions: until target blood sugar attained (DME) lancets Misc See Rx Instructions .ROUTE .MEDSUPPLY Qty: 100 0RF Rx Instructions: As directed glipizide 5 mg tablet 5 mg PO DAILY Qty: 30 0RF insulin aspart U-100 [Novolog FlexPen U-100 Insulin] 100 unit/mL (3 mL) insulin pen 5 unit SUBCUT TID Qty: 15 0RF Rx Instructions: In addition to the sliding scale gabapentin 600 mg tablet 600 mg PO BID Qty: 10 0RF Discharge Orders: Discharge ED (Routine); Ordered 02/14/25 Ordered By: Génesis Baumann Referrals: Kati Singh DO [Primary Care Provider, BEVERAGE INSPECTION MACHINE TENDER] Discharge Diet: Usual diet Discharge Activity: Increase activity as tolerated Patient Instructions: Hemorrhagic Cystitis, Urinary Tract Infection in Women (DC), Opioid Safety, Pain Management Activity Restrictions/Additional Instructions: Thank you for choosing [facility] for your healthcare needs today. You have been screened and evaluated and felt safe for discharge. Health conditions do change or evolve sometimes and as such it is important that you follow up with your Primary Doctor to be re checked, 3-5 days is a general good time frame for follow up. You are always welcome to return to the ED for re assessment if your symptoms are worsening or you have new concerns Print Language: Citizen Of [place] Coding Level of Care Code ED Local Hazmat Driver for Nik Brenner
[2025-02-14 04:00] LABS: Glucose Point of Care 299 mg/dL (70-110)
[2025-02-14 04:14] VITALS: PULSE 82; RESP 16; O2SAT 95
[2025-02-14 04:15] LABS: Bilirubin Urine Negative (Negative); Blood Urine 3+ (Negative); Glucose Urine UA 3+ (Normal); Ketones Urine Negative (Negative); Leukocyte Esterase Urine 3+ (Negative); Nitrate Urine Negative (Negative); Protein Urine 2+ (Negative); Specific Gravity, Urine 1.014 (1.005-1.030); Urine Appearance Cloudy (CLEAR); pH Urine 6.5 (5-7)
[2025-02-14] MEDS: sodium chloride 0.9% 1,000 ML 999 ML IV ×2 (04:16→05:13)
[2025-02-14 04:20] LABS: Bacteria Urine None Seen /hpf; Hyaline Casts Urine 0-4 /lpf; RBC Urine >100 /hpf (0-2); Squamous Epithelial Cell Urine 0-5 /hpf (0-5); WBC Urine >100 /hpf (0-5)
[2025-02-14 04:33] LABS: Total Bilirubin 0.2 mg/dL (0.15-1.2)
[2025-02-14 04:59] LABS: Add Urine Culture? Yes; Urine Color Red (Yellow)
[2025-02-14 05:03] VITALS: BP 119/51; PULSE 63; RESP 14; O2SAT 94
[2025-02-14] MEDS: cefTRIAXone 1,000 mg SDV 1000 MG IVP (05:13)
[2025-02-14 06:25] VITALS: BP 140/78; PULSE 82; RESP 16; O2SAT 97
== END 2025-02-14 06:26 | disposition home or self-care (01) ==
PROVIDERS: Emergency Provider Emergency Medicine; PCP Family Medicine
DX: N39.0 Urinary tract infection, site not specified (principal); R31.9 Hematuria, unspecified; E86.0 Dehydration; E11.65 Type 2 diabetes mellitus with hyperglycemia; E11.22 Type 2 diabetes mellitus with diabetic chronic kidney disease; I12.9 Hypertensive chronic kidney disease with stage 1 through stage 4 chronic kidney disease, or unspecified chronic kidney disease; N18.9 Chronic kidney disease, unspecified
CPT/HCPCS: 36415; 36416; 80053; 81001; 82962; 83605; 85025; 86140; 87040; 87086; 96361; 96374; 99284; J0696; J7030

== ENCOUNTER 2025-03-03 14:51 | Emergency (ER) | payer OTHER, SELFPAY ==
[2024-12-22 17:38] VITALS: BP 118/74
[2025-03-03 14:53] VITALS: BP 146/84; PULSE 100; RESP 16; TEMP 36.7; O2SAT 95; BMI 25.9
--- OUTSIDE RECORDS SUMMARY | 2025-03-03 14:56 | XMS_ITS | Patient Health Record ---
Author Organization [facility] Address [address] [place], [place] [id number] Care Team Providers Care Pellet Mill Operator Name Role Phone Jailene Avila Primary Care Provider Valerio Hughes MD, Miguel Unavailable [phone] Maximus Fong MD Unavailable Unavailable Allergies Allergen (clinical drug ingredient) Drug/Non Drug Allergy documented on EMR Reaction Allergy Type Onset Date Status Seasonal allergies (uncoded) Unknown Allergy Active Reason For Referral No Information Medications Medication SIG (Take, Route, Frequency, Duration) Notes Start Date End Date Status buPROPion 300 mg/24 hours 1 tab orally e very 24 hours Active Victoza 18 mg/3 mL as directed subcutan eously once a day for 30 day(s) Active cetirizine 10 mg 1 tab orally once a day Active rosuvastatin 40 mg 1 tab orally once a day Active atorvastatin 40 mg 1 tab orally once a day Active traZODone 100 mg 2 tabs orally at bedtime Active montelukast 10 mg 1 tab orally once a day Active NovoLOG FlexPen 100 units/mL as directed subcutaneously A ctive Lantus Solostar Pen 100 units/mL as directed subcutaneously A ctive metFORMIN 500 mg 2 tabs orally 2 time s a day Active gabapentin 400 mg 1 cap po orally Q8H Active hydrOXYzine hydrochloride 25 mg 2 tabs orally at bedtime Act karen fluconazole 150 mg 1 tab orally once as directed Active Social History Tobacco Use: Social History Observation Description Date Details (start date - stop date) Former Smoker NA - NA alcohol Question Answer Notes Did you have a drink containing alcohol in the p ast year? No Points 0 Interpretation Negative Tobacco use: Question Answer Notes : former smoker quit in 2013 Problems Problem Type SNOMED Code ICD Code Onset Dates Problem Status W/U Status Risk Notes Problem Hypersomnia (97910929) Hypersomnia, unspecified (G47.10) Active confirmed Problem Cervicalgia (67117545) Cervicalgia (M54.2) Active confirmed Problem Jaw pain (369908627) Jaw pain (R68.84) Active confirmed Problem Long-term current use of drug therapy (095603904) Other intermediate (current) drug therapy (Z79.899) Active confirmed Plan Of Treatment No Information Insurance Providers Payer Name Payer Address Payer Phone Subscriber Number Group Number Insured Name Patient Relationship to Insured Coverage Start Date Coverage End Date [employer] Medicare Part B Claims Department [address] [address] [place] [address] [id number] Julia Adrian Self - patient is the insured [place] [address] [place] [address] [phone] [id number] Julia Adrian Self - patient is the insured Medical (General) History Medical History History ICD Code Jaw pain, intermittent, moderate to collins re Cervicalgia, mild Anxiety Reflux Hyperlipidemia Sleep disorder, long - term Hypertension Diabetes Surgical History Surgery Date(Month/Year) x 2 1989
--- OUTSIDE RECORDS SUMMARY | 2025-03-03 14:56 | XMS_ITS | Patient Health Record ---
Author Organization [facility] Address [address] [place] [address] Care Team Providers Care Rn Gynecology Name Role Phone Jasson Tamayo Unavailable [phone] Reason For Referral No Information Problems Problem Type SNOMED Code ICD Code Onset Dates Problem Status W/U Status Risk Notes Problem Type II diabetes mellitus uncontrolled (459424248) Type 2 diabetes, uncontrolled (250.02) 2016 Active confirmed [id number]- Problem Candidiasis (33491660) Yeast infection (112.9) 2016 Active confirmed [id number]- Problem Essential hypertension (29683621) Essential hypertension (401.1) 2015 Active confirmed [id number]- Problem General weakness (39397869) Generalized weakness (780.79) 2015 Problem resolved confirmed [id number]- Problem Vaginitis and vulvovaginitis (477878118) Vaginal discharge, unspecified (616.10) 2016 Problem resolved confirmed [id number]- Problem Hypercholesterolemia (78064062) Hypercholesterolemia (272.0) 2017 Problem resolved confirmed [id number]- Problem Onychomycosis caused by dermatophyte (058895983) Toe onychomycosis (110.1) 2017 Problem resolved confirmed [id number]- Problem Candidal vulvovaginitis (75593801) Yeast vaginitis (112.1) 2015 Problem resolved confirmed [id number]- Problem Screening for colon cancer (267376841) Screening for colon cancer (V76.49) 2015 Problem resolved confirmed [id number]- Problem Disorder of hematopoietic system (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) Other abnormal findings on blood examination (790.99) 2015 Problem resolved confirmed [id number]- Problem Sore throat (930751511) Sore Throat (462) 2016 Problem resolved confirmed [id number]- Problem Superficial inju ry of foot, NEC (917.8) 2015 Problem resolved confirmed [id number]- Problem Foot pain (60801143) Foot pain (729.5) 2015 Problem resolved confirmed [id number]- Problem Peripheral neuropath y (844744511) Peripheral neuropathy (356.9) 2015 Problem resolved confirmed [id number]- Problem Precordial pain (42903269) Precordial chest pain (786.51) 2016 Problem resolved confirmed [id number]- Problem Needs influenza immunization (762524133) Vaccination against other viral diseases, Influenza (V04.81) 2016 Problem resolved confirmed [id number]- Problem Neoplasm of uncertai n behavior of skin (99100726) Atypical skin lesion (238.2) 2015 Problem resolved confirmed [id number]- Problem Type II diabetes mellitus without complication (151728785) Type 2 diabetes (250.00) 2016 Problem resolved confirmed [id number]- Problem Screening mammograph y (23269338) Screening mammogram - other (V76.12) 2015 Problem resolved confirmed [id number]- Plan Of Treatment No Information
[2025-03-03 15:28] VITALS: BP 163/84; PULSE 88; O2SAT 91
[2025-03-03 15:53] LABS: Glucose Urine UA Negative (Normal); Nitrate Urine Negative (Negative); Specific Gravity, Urine 1.001 (1.005-1.030)
[2025-03-03 15:58] VITALS: BP 161/76; PULSE 92; O2SAT 97
[2025-03-03 15:58] LABS: Add Urine Microscopic? YES
[2025-03-03 16:28] VITALS: BP 159/71; PULSE 90; O2SAT 95
[2025-03-03 16:36] LABS: UA Slide Review UA Slide Review Perf
[2025-03-03 16:55] LABS: Hematocrit 35.5 % (36-47); Hemoglobin 11.00 g/dL (11.27-16.99); Mean Corpuscular HGB Conc 31.0 g/dL (30-55); Mean Corpuscular Hemoglobin 26.4 pg (27-33); Mean Corpuscular Volume 85.3 fl (85-98); Nucleated Red Blood Cells % 0 %; Platelet Count 241 10^3/cmm (157-399); Red Blood Count 4.16 10^6/uL (3.85-5.65); White Blood Count 11.39 10^3/uL (3.29-11.43)
[2025-03-03 16:58] VITALS: BP 164/73; PULSE 89; O2SAT 95
[2025-03-03 17:22] LABS: Alanine Aminotransferase 13 U/L (0-33); Albumin Level 3.7 g/dL (3.5-5.2); Alkaline Phosphatase 130 U/L (35-105); Anion Gap 15.8 (5-19); Aspartate Amino Transferase 9 U/L (0-32); Blood Urea Nitrogen 24 mg/dL (8-23); Calcium 9.6 mg/dL (8.5-10.5); Carbon Dioxide 25 mmol/L (22-29); Chloride 99 mmol/L (98-107); Creatinine Clr Calc Pharmacy 37.8916; Globulin 4.0 g/dL (1.3-4.6); Glucose 75 mg/dL (65-115); Osmolality Calculated 285 mOsm/kg (285-295); Potassium 3.8 mmol/L (3.5-5.1); Sodium 136 mmol/L (136-145); Total Protein 7.7 g/dL (6.6-8.7)
[2025-03-03 17:28] VITALS: BP 156/75; PULSE 90; O2SAT 96
--- NOTE | 2025-03-03 17:50 | W.ED.FEMALGU ---
HPI - Female Genitourinary General: Chief complaint: Urogenital-Female Stated complaint: urinary Time Seen by Provider: 03/03/25 15:01 History of Present Illness: 59-year-old female patient presents to the emergency department complaining of dysuria and blood in her urine. Patient states she had a UTI about 3 weeks ago and did not complete her antibiotics patient states it is now back and worse. Patient denies any fever. Patient denies any flank pain. Patient states she has a diabetic. Patient denies any other complaints Related Data Home Medications ?Medication ?Instructions ?Recorded ?Confirmed cetirizine 10 mg capsule (Zyrtec) 10 mg PO DAILY PRN Allergy Symptoms 01/27/20 01/16/25 montelukast 10 mg tablet 10 mg PO DAILY 09/12/24 01/16/25 (Singulair) cyanocobalamin (vitamin B-12) 1,000 mcg IM .Q30D 12/01/24 01/16/25 1,000 mcg/mL injection solution lisinopril 20 mg tablet 20 mg PO QAM 12/01/24 01/16/25 omeprazole 20 mg capsule,delayed 20 mg PO DAILY 12/01/24 01/16/25 release ondansetron 4 mg disintegrating 4 mg PO Q6H PRN Nausea 12/01/24 01/16/25 tablet tizanidine 2 mg tablet 2 mg PO BEDTIME PRN Pain 12/01/24 01/16/25 Previous Rx's ?Medication ?Instructions ?Recorded atorvastatin 80 mg tablet (Lipitor) 80 mg PO DAILY #90 tabs 08/16/24 docusate sodium 100 mg capsule 100 mg PO BID #14 caps 09/13/24 (Colace) hydrocodone 7.5 mg-acetaminophen 1 tab PO Q6H PRN pain #20 tabs 09/13/24 325 mg tablet glucagon HCl 1 mg solution for 1 mg IM Q20M PRN hypoglycemia #1 ea 12/06/24 injection (Glucagon (HCl) Emergency Kit) gabapentin 600 mg tablet 600 mg PO BID #10 tabs 12/12/24 glipizide 5 mg tablet 5 mg PO DAILY #30 tabs 12/12/24 lancets #100 ea 12/12/24 ezetimibe 10 mg tablet See Rx Instructions .Route 12/27/24 .COMPLEX #30 tabs amlodipine 5 mg tablet See Rx Instructions .Route 12/30/24 .COMPLEX #30 tabs blood-glucose sensor (Dexcom G7 #3 ea 01/04/25 Sensor device) insulin lispro 100 unit/mL See Protocol SUBCUT TID #15 mL 01/04/25 subcutaneous pen (Humalog KwikPen (U-100) Insulin) Held on 01/04/25. Instructions: Doctor's Order blood sugar diagnostic (OneTouch #400 ea 01/06/25 Verio test strips) bupropion HCl 300 mg 24 hr tablet, 300 mg PO QAM #90 tabs 01/06/25 extended release (Wellbutrin XL) hydroxyzine HCl 25 mg tablet 50 mg (2 x 25 mg) PO BEDTIME #60 01/06/25 tabs trazodone 100 mg tablet 300 mg (3 x 100 mg) PO BEDTIME #90 01/06/25 tabs insulin glargine 100 unit/mL (3 50 unit (0.5 mL) SUBCUT BID #30 mL 01/31/25 mL) subcutaneous pen (Lantus Solostar U-100 Insulin) rosuvastatin 20 mg tablet (Crestor) 20 mg PO DAILY #30 tabs 01/31/25 cephalexin 500 mg capsule 500 mg PO Q8H 7 days #21 caps 03/03/25 Allergies Allergy/AdvReac Type Severity Reaction Status Date / Time No Known Allergies Allergy Verified 03/03/25 14:57 Review of Systems General: Reports: 10 or more systems reviewed and unremarkable except in HPI and below PFSH ED PFSH: Medical History History of colon polyps GERD (gastroesophageal reflux disease) Psychiatric care Type 2 diabetes mellitus Yeast infection involving the vagina and surrounding area Borderline intellectual functioning Major depressive disorder, recurrent severe without psychotic features Surgical History Hx laparoscopic cholecystectomy 09/13/24 Dr. Kendall Hx of colonoscopy with polypectomy 2016 H/O tubal ligation H/O section x2 Family History Father Diabetes Grandmother Diabetes paternal Brother Diabetes Grandfather Stroke paternal Sister Thyroid disease Denies family history of Clotting disorder Hyperlipidemia Anesthesia complication Bleeding disorder Hypertension Social History Smoking and tobacco/nicotine status: unknown if used tobacco/nicotine Quit status (tobacco/nicotine): has quit using Year quit tobacco: 2012 Second hand smoke exposure: Yes Alcohol intake: never Substance/Drug Use: never Adopted: No Caregiver/support person: No Lives independently: Yes Household members: none Housing: Apartment Marital status: Marital status details: 2005 Number of children: 2 Number of grandchildren: 3 Highest education level completed: 9th Grade Current occupational status: disabled Pets and animals: No Leisure activites: music, games, reading and other Leisure activities details: [employer] Sexually active: Yes Do you think of yourself as: Straight/Heterosexual Current gender identity: Female Soraida/Evangelical: Caodaism Special soraida needs: No Agree to transfusion: Yes Female Reproductive History: Para: 2 Spontaneous abortions: Yes Physical Exam Const: COMMON NORMALS: no acute distress, patient oriented x3, no limitations, alert and well nourished Resp: COMMON NORMALS: normal respiratory effort, No retractions, No use of accessory muscles and clear to auscultation bilaterally AUSCULTATION: clear to auscultation bilaterally Cardio: COMMON NORMALS: regular rate and regular rhythm RATE: regular rate RHYTHM: regular rhythm GI: COMMON NORMALS: Normal to inspection, nondistended, normoactive bowel sounds present, Soft to palpation and non-tender PALPATION: Yes Soft to palpation : COMMON NORMALS: Yes no CVA tenderness BLADDER/KIDNEY EXAM: Yes no CVA tenderness Back/Pelvis: COMMON NORMALS: no CVA tenderness, thoracic and lumbar spine normal to inspection, no thoracic nor lumbar tenderness and thoraco-lumbar ROM normal Neuro: COMMON NORMALS: patient oriented x3 SENSORIUM/ORIENTATION: Yes alert Psych: COMMON NORMALS: mental status grossly normal, Normal thought process present, cooperative, normal affect and speech normal SPEECH: Yes normal speech THOUGHT PROCESS: Normal thought process present Skin: COMMON NORMALS: no rashes or lesions noted and no wounds GENERAL SKIN EXAM: no rashes or lesions noted Course Vital Signs: Vital signs: Vital Signs Temperature 98.1 F 03/03/25 14:53 Pulse Rate 90 03/03/25 17:28 Respiratory Rate 16 03/03/25 14:53 Blood Pressure 156/75 03/03/25 17:28 Pulse Oximetry 96 03/03/25 17:28 Oxygen Delivery Me thod Room Air 03/03/25 16:58 MDM - Female Medical Decision Making 59-year-old female patient presents to the emergency department complaining of dysuria and blood in her urine. Patient states she had a UTI about 3 weeks ago and did not complete her antibiotics patient states it is now back and worse. Patient denies any fever. Patient denies any flank pain. Patient states she has a diabetic. Patient denies any other complaints patient is well-appearing nontoxic and in no acute distress. Patient's abdomen is soft and nontender patient does not have any CVA tenderness. Patient's labs to include CBC and CMP are unremarkable kidney function is normal. Based on patient's urinalysis and her presenting complaints I will go ahead and prescribe antibiotics for UTI at this time. I will send culture off. I have advised patient that she needs to follow-up with her primary care physician to ensure her hematuria normalizes. I discussed with patient return precautions as well as home care. Lab Data 03/03/25 16:39 03/03/25 16:39 Laboratory Results WBC 11.39 10^3/uL (3.29-11.43) 03/03/25 16:39 RBC 4.16 10^6/uL (3.85-5.65) 03/03/25 16:39 Hgb 11.00 g/dL (11.27-16.99) L 03/03/25 16:39 Hct 35.5 % (36-47) L 03/03/25 16:39 MCV 85.3 fl (85-98) 03/03/25 16:39 MCH 26.4 pg (27-33) L 03/03/25 16:39 MCHC 31.0 g/dL (30-55) 03/03/25 16:39 RDW 13.6 % (12.1-15.1) 03/03/25 16:39 Plt Count 241 10^3/cmm (157-399) 03/03/25 16:39 MPV 10.2 fL (7.4-10.4) 03/03/25 16:39 Neut % (Auto) 59.9 % 03/03/25 16:39 Lymph % (Auto) 28.7 % 03/03/25 16:39 [place] % (Auto) 8.7 % 03/03/25 16:39 Eos % (Auto) 1.7 % 03/03/25 16:39 Baso % (Auto) 0.4 % 03/03/25 16:39 Neut # (Auto) 6.82 10^3/uL (1.8-7.7) 03/03/25 16:39 Lymph # (Auto) 3.3 10^3/uL (0.8-4.8) 03/03/25 16:39 [place] # (Auto) 1.0 10^3/uL (0.2-0.9) H 03/03/25 16:39 Eos # (Auto) 0.2 10^3/uL (0.0-0.8) 03/03/25 16:39 Baso # (Auto) 0.1 10^3/uL (0.0-0.1) 03/03/25 16:39 Nucleated RBC % (auto) 0 % 03/03/25 16:39 Nucleated RBCs # 0.0 /100WBC 03/03/25 16:39 Sodium 136 mmol/L (136-145) 03/03/25 16:39 Potassium 3.8 mmol/L (3.5-5.1) 03/03/25 16:39 Chloride 99 mmol/L (98-107) 03/03/25 16:39 Carbon Dioxide 25 mmol/L (22-29) 03/03/25 16:39 Anion Gap 15.8 (5-19) 03/03/25 16:39 BUN 24 mg/dL (8-23) H 03/03/25 16:39 Creatinine 1.5 mg/dL (0.5-0.9) H 03/03/25 16:39 GFR Calculation 35.4 mL/min (90-130) L 03/03/25 16:39 Glucose 75 mg/dL (65-115) 03/03/25 16:39 POC Glucose 94 mg/dL (70-110) 03/03/25 15:20 Calculated Osmolality 285 mOsm/kg (285-295) 03/03/25 16:39 Calcium 9.6 mg/dL (8.5-10.5) 03/03/25 16:39 Total Bilirubin 0.4 mg/dL (0.15-1.2) 03/03/25 16:39 AST 9 U/L (0-32) 03/03/25 16:39 ALT 13 U/L (0-33) 03/03/25 16:39 Alkaline Phosphatase 130 U/L (35-105) H 03/03/25 16:39 Total Protein 7.7 g/dL (6.6-8.7) 03/03/25 16:39 Albumin 3.7 g/dL (3.5-5.2) 03/03/25 16:39 Globulin 4.0 g/dL (1.3-4.6) 03/03/25 16:39 Urine Color Yellow (Yellow) 03/03/25 15:13 Urine Appearance Clear (CLEAR) 03/03/25 15:13 Urine pH 7.5 (5-7) 03/03/25 15:13 Ur Specific [place] 1.001 (1.005-1.030) L 03/03/25 15:13 Urine Protein Negative (Negative) 03/03/25 15:13 Urine Glucose (UA) Negative (Normal) 03/03/25 15:13 Urine Ketones Negative (Negative) 03/03/25 15:13 Urine Blood 3+ (Negative) A 03/03/25 15:13 Urine Nitrate Negative (Negative) 03/03/25 15:13 Urine Bilirubin Negative (Negative) 03/03/25 15:13 Urine Urobilinogen 0.2 mg/dL (Negative) 03/03/25 15:13 Ur Leukocyte Esterase 2+ (Negative) A 03/03/25 15:13 Urine RBC 0-2 /hpf (0-2) 03/03/25 15:13 Urine WBC 11-20 /hpf (0-5) H 03/03/25 15:13 Ur Squamous Epith Cells 0-5 /hpf (0-5) 03/03/25 15:13 Amorphous Sediment Not Reportable 03/03/25 15:13 Urine Bacteria None seen /hpf (NONE) 03/03/25 15:13 Hyaline Casts 0.40 /lpf 03/03/25 15:13 No radiology studies performed this visit Discharge Plan Discharge Patient Disposition: Home Clinical Impression: Urinary tract infection Qualifiers: Urinary tract infection type: acute cystitis Hematuria presence: with hematuria Qualified Code(s): N30.01 - Acute cystitis with hematuria Condition: Stable Prescriptions: New cephalexin 500 mg capsule 500 mg PO Q8H 7 Days Qty: 21 0RF No Action Zyrtec 10 mg capsule 10 mg PO DAILY PRN (Reason: Allergy Symptoms) bupropion HCl [Wellbutrin XL] 300 mg tablet extended release 24 hr 300 mg PO QAM Qty: 90 0RF Rx Instructions: along with 150mg [id number]=402yg total trazodone 100 mg tablet 300 mg PO BEDTIME Qty: 90 2RF hydroxyzine HCl 25 mg tablet 50 mg PO BEDTIME Qty: 60 2RF insulin lispro [Humalog KwikPen Insulin] 100 unit/mL insulin pen See Protocol SUBCUT TID Qty: 15 0RF Protocol: Insulin Corrective High-Dose Regimen Condition: Fingerstick Blood Glucose Dose/Route: Insulin Units Condition: 141-180 mg/dl Dose/Route: 2 units/SQ Condition: 181-220 mg/dl Dose/Route: 3 units/SQ Condition: 221-260 mg/dl Dose/Route: 4 units/SQ Condition: 261-300 mg/dl Dose/Route: 6 units/SQ Condition: 301-350 mg/dl Dose/Route: 8 units/SQ Condition: 351-400 mg/dl Dose/Route: 10 units/SQ Condition: greater than 400 mg/dl Dose/Route: 12 units/SQ atorvastatin [Lipitor] 80 mg tablet 80 mg PO DAILY Qty: 90 3RF ezetimibe 10 mg tablet See Rx Instructions .ROUTE .COMPLEX Qty: 30 5RF Dose Instruction: TAKE 1 TABLET BY MOUTH EVERY DAY Rx Instructions: TAKE 1 TABLET BY MOUTH EVERY DAY amlodipine 5 mg tablet See Rx Instructions .ROUTE .COMPLEX Qty: 30 2RF Dose Instruction: TAKE 1 TABLET BY MOUTH EVERY DAY Rx Instructions: TAKE 1 TABLET BY MOUTH EVERY DAY ([facility]) Dexcom G7 Sensor Device See Rx Instructions .Route Qty: 3 6RF Rx Instructions: As directed ([facility]) OneTouch Verio test strips Strip See Rx Instructions .Route Qty: 400 3RF Rx Instructions: Check Blood Sugar up to 3 Type 2 diabetes mellitus E11.42 insulin glargine [Lantus Solostar U-100 Insulin] 100 unit/mL (3 mL) insulin pen 50 unit SUBCUT BID Qty: 30 3RF Rx Instructions: 50 units subcutaneously twice daily rosuvastatin [Crestor] 20 mg tablet 20 mg PO DAILY Qty: 30 4RF montelukast [Singulair] 10 mg Tablet 10 mg PO DAILY hydrocodone-acetaminophen 7.5-325 mg tablet 1 tab PO Q6H PRN (Reason: pain) Qty: 20 0RF docusate sodium [Colace] 100 mg capsule 100 mg PO BID Qty: 14 0RF tizanidine 2 mg tablet 2 mg PO BEDTIME PRN (Reason: Pain) lisinopril 20 mg tablet 20 mg PO QAM cyanocobalamin (vitamin B-12) 1,000 mcg/mL solution 1,000 mcg IM .Q30D omeprazole 20 mg capsule,delayed release(DR/EC) 20 mg PO DAILY ondansetron 4 mg tablet,disintegrating 4 mg PO Q6H PRN (Reason: Nausea) glucagon HCl [Glucagon (HCl) Emergency Kit] 1 mg recon soln 1 mg IM Q20M PRN (Reason: hypoglycemia) Qty: 1 0RF Rx Instructions: until target blood sugar attained (DME) lancets Misc See Rx Instructions .ROUTE .MEDSUPPLY Qty: 100 0RF Rx Instructions: As directed glipizide 5 mg tablet 5 mg PO DAILY Qty: 30 0RF gabapentin 600 mg tablet 600 mg PO BID Qty: 10 0RF Discharge Orders: Discharge ED (Routine); Ordered 03/03/25 Ordered By: Maria Luisa Torres Referrals: Kati Singh DO [Primary Care Provider, DIETETIC TECHNICIAN REGISTERED] Discharge Diet: Advance as tolerated Discharge Activity: Resume usual activity Patient Instructions: Opioid Safety, Pain Management, Patient Portal & Melanie Instructions, Urinary Tract Infection in Women (DC) Activity Restrictions/Additional Instructions: Please take medications as prescribed Please follow-up with a primary care physician for repeat urinalysis to ensure hematuria and normalizes Please return to the emergency department with any worsening of symptoms or concerns to include flank pain back pain fever abdominal pain Print Language: Monegasque Coding Level of Care Code ED Account Executive for Nik Brenner
[2025-03-03] MEDS: cefTRIAXone 1,000 MG in water for injection-sterile 2.1 ML 999 MG IM (18:01)
== END 2025-03-03 18:18 | disposition home or self-care (01) ==
PROVIDERS: Emergency Provider Registered Nurse; PCP Family Medicine
DX: N30.01 Acute cystitis with hematuria (principal); Z79.4 Long term (current) use of insulin; Z87.891 Personal history of nicotine dependence; E11.9 Type 2 diabetes mellitus without complications
CPT/HCPCS: 36415; 36416; 80053; 81001; 82962; 85025; 87086; 96372; 99284; J0696

== ENCOUNTER → 2025-03-15 13:39 | Outpatient (BNVA) | payer OTHER, SELFPAY ==
[2024-12-22 17:38] VITALS: BP 118/74
== END ==
PROVIDERS: PCP Family Medicine; Visit Provider Podiatrist Foot & Ankle Surgery
DX: E11.42 Type 2 diabetes mellitus with diabetic polyneuropathy (principal); B35.1 Tinea unguium; Z79.4 Long term (current) use of insulin; E11.40 Type 2 diabetes mellitus with diabetic neuropathy, unspecified
CPT/HCPCS: 11721

== ENCOUNTER 2025-03-17 11:40 | Emergency (ER) | payer OTHER, SELFPAY ==
[2024-12-22 17:38] VITALS: BP 118/74
[2025-03-17 11:43] VITALS: BP 146/82; PULSE 87; RESP 18; TEMP 36.7; O2SAT 96; BMI 26.2
--- NOTE | 2025-03-17 11:55 | ED_ITS ---
HPI - Female Genitourinary 2 General: Chief complaint: Urogenital-Female Stated complaint: blood in urine Time Seen by Provider: 03/17/25 11:43 History of Present Illness: 60-year-old female presents emergency ro om complaining of intermittent hematuria. She has been here twice before the first time she did go out [facility] on her urine culture was in January 2017. She returned on January for that urine culture was negative at that time she is also complaining of hematuria. She returns again today complaining of intermittent huge hematuria no flank pain no fever sweats or chills Associated symptoms: Deny abdominal pain Related Data Home Medications ?Medication ?Instructions ?Recorded ?Confirmed cetirizine 10 mg capsule (Zyrtec) 10 mg PO DAILY PRN A llergy Symptoms 01/27/20 03/15/25 montelukast 10 mg tablet 10 mg PO DAILY 09/12/2402/28 (Singulair) cyanocobalamin (vitamin B-12) 1,000 mcg IM .Q30D 12/0103/15/25 1,000 mcg/mL injection solution lisinopril 20 mg tablet 20 mg PO QAM 12/01/24 omeprazole 20 mg capsule,delayed 20 mg PO DAILY 03/15/25 release ondansetron 4 mg disintegrating 4 mg PO Q6H PRN Nausea 12/01/24 03/15/25 tablet tizanidine 2 mg tablet 2 mg PO BEDTIME PRN Pain 11/2203/15/25 Previous Rx's ?Medication ?Instructions ?Recorded atorvastatin 80 mg tablet (Lipitor) 80 mg PO DAILY #90 tabs 08/16/24 docusate sodium 100 mg capsule 100 mg PO BID #14 caps 09/13/24 (Colace) hydrocodone 7.5 mg-acetaminophen 1 tab PO Q6H PRN pain #20 tabs 09/13/24 325 mg tablet glucagon HCl 1 mg solution for 1 mg IM Q20M PRN hypogl ycemia #1 ea 12/06/24 injection (Glucagon (HCl) Emergency Kit) gabapentin 600 mg tablet 600 mg PO BID #10 tabs 12/12 glipizide 5 mg tablet 5 mg PO DAILY #30 tabs 12/12 lancets #100 ea 12/12/24 ezetimibe 10 mg tablet See Rx Instructions .Route 0 12/27/24 .COMPLEX #30 tabs amlodipine 5 mg tablet See Rx Instructions .Route 0 12/30/24 .COMPLEX #30 tabs blood-glucose sensor (Dexcom G7 #3 ea 01/04/25 Sensor device) insulin lispro 100 unit/mL See Protocol SUBCUT TID #15 mL 01/04/25 subcutaneous pen (Humalog KwikPen (U-100) Insulin) Held on 01/04/25. Instructions: Doctor's Order blood sugar diagnostic (OneTouch #400 ea 01/06/25 Verio test strips) bupropion HCl 300 mg 24 hr tablet, 300 mg PO QAM #90 t abs 01/06/25 extended release (Wellbutrin XL) hydroxyzine HCl 25 mg tablet 50 mg (2 x 25 mg) PO BEDT JEFFREY #60 01/06/25 tabs trazodone 100 mg tablet 300 mg (3 x 100 mg) PO BEDTI ME #90 01/06/25 tabs insulin glargine 100 unit/mL (3 50 unit (0.5 mL) SUBCU T BID #30 mL 01/31/25 mL) subcutaneous pen (Lantus Solostar U-100 Insulin) rosuvastatin 20 mg tablet (Crestor) 20 mg PO DAILY #30 tabs 01/31/25 cefdinir 300 mg capsule 300 mg PO BID 10 days #20 ca ps 03/17/25 Allergies Allergy/AdvReac Type Severity Reaction Status Date / Time No Known Allergies Allergy Verified 03/15/25 12:55 Review of Systems 2 Const: Denies: fever(s) or chills Card: Denies: chest pain Resp: Denies: dyspnea GI: Denies: abdominal pain : Denies: dysuria, urinary frequency or urinary urgency Musc: Denies: neck pain or back pain Skin/Breast: Denies: rash PFSH ED 2 PFSH: Medical History History of colon polyps GERD (gastroesophageal reflux disease) Psychiatric care Type 2 diabetes mellitus Yeast infection involving the vagina and surrounding area Borderline intellectual functioning Major depressive disorder, recurrent severe without psychotic features Surgical History Hx laparoscopic cholecystectomy 09/13/24 Dr. Kendall Hx of colonoscopy with polypectomy 2016 H/O tubal ligation H/O section x2 Family History Father Diabetes Grandmother Diabetes paternal Brother Diabetes Grandfather Stroke paternal Sister Thyroid disease Denies family history of Clotting disorder Hyperlipidemia Anesthesia complication Bleeding disorder Hypertension Social History Smoking and tobacco/nicotine status: unknown if used tobacco/nicotine Quit status (tobacco/nicotine): has quit using Year quit tobacco: 2012 Second hand smoke exposure: Yes Alcohol intake: never Substance/Drug Use: never Adopted: No Caregiver/support person: No Lives independently: Yes Household members: none Housing: Apartment Marital status: Marital status details: 2005 Number of children: 2 Number of grandchildren: 3 Highest education level completed: 9th Grade Current occupational status: disabled Pets and animals: No Leisure activites: music, games, reading and other Leisure activities details: [employer] Sexually active: Yes Do you think of yourself as: Straight/Heterosexual Current gender identity: Female Soraida/Scientology: Mosque Special soraida needs: No Agree to transfusion: Yes Female Reproductive History: Para: 2 Spontaneous abortions: Yes Physical Exam 2 Const: GENERAL APPEARANCE: cooperative and comfortable O RIENTATION/CONSCIOUSNESS: Yes awake, Yes oriented to person, Yes oriented to place and Yes oriented to time HENMT: COMMON NORMALS: normocephalic, atraumatic and hearing grossly normal bilaterally HEAD & SCALP: normocephalic and atraumatic Resp: COMMON NORMALS: normal respiratory effort, No retractions, No use of accessory muscles and clear to auscultation bilaterally AUSCULTATION: clear to auscultation bilaterally Cardio: COMMON NORMALS: regular rate, regular rhythm and No murmurs present (Cardio) RATE: regular rate RHYTHM: regular rhythm GI: COMMON NORMALS: Soft to palpation and No hepatosplenomegaly present A USCULTATION: Yes normoactive bowel sounds PALPATION: Yes Soft to palpation, No Tenderness to palpation present (GI), No Guarding due to palpation present (GI) and Yes No hepatosplenomegaly present : COMMON NORMALS: Yes no CVA tenderness BLADDER/KIDNEY EXAM: Yes no CVA tenderness Back/Pelvis: COMMON NORMALS: no CVA tenderness Extremity: COMMON NORMALS: normal to inspection, capillary refill normal, no clubbing, cyanosis or edema, no calf tenderness and no pedal edema Neuro: SENSORIUM/ORIENTATION: Yes oriented to person, Yes oriented to place and Yes oriented to time Skin: COMMON NORMALS: no rashes or lesions noted GENERAL SKIN EXAM: no rashes or lesions noted Course 2 Vital Signs: Vital signs: Vital Signs Temperature 98.1 F 03/17/25 11:43 Pulse Rate 87 03/17/25 11:43 Respiratory Rate 18 03/17/25 11:43 Blood Pressure 146/82 03/17/25 11:43 Pulse Oximetry 96 03/17/25 11:43 Oxygen Delivery Me thod Room Air 03/17/25 11:43 MDM - Female Medical Decision Making UA shows signs of cystitis. No leukocytosis will treat as an outpatient given ceftriaxone here discharged home on cefdinir follow-up with primary care if has recurrent symptoms Lab Data 03/17/25 12:00 03/17/25 12:00 Laboratory Results WBC 7.35 10^3/uL (3.29-11.43) 03/17/25 12:00 RBC 4.08 10^6/uL (3.85-5.65) 03/17/25 12:00 Hgb 10.80 g/dL (11.27-16.99) L 03/17/25 12:00 Hct 33.8 % (36-47) L 03/17/25 12:00 MCV 82.8 fl (85-98) L 03/17/25 12:00 MCH 26.5 pg (27-33) L 03/17/25 12:00 MCHC 32.0 g/dL (30-55) 03/17/25 12:00 RDW 13.8 % (12.1-15.1) 03/17/25 12:00 Plt Count 213 10^3/cmm (157-399) 03/17/25 12:00 MPV 10.3 fL (7.4-10.4) 03/17/25 12:00 Neut % (Auto) 62.5 % 03/17/25 12:00 Lymph % (Auto) 26.5 % 03/17/25 12:00 Dickey % (Auto) 7.1 % 03/17/25 12:00 Eos % (Auto) 2.6 % 03/17/25 12:00 Baso % (Auto) 0.5 % 03/17/25 12:00 Neut # (Auto) 4.59 10^3/uL (1.8-7.7) 03/17/25 12:00 Lymph # (Auto) 2.0 10^3/uL (0.8-4.8) 03/17/25 12:00 Dickey # (Auto) 0.5 10^3/uL (0.2-0.9) 03/17/25 12:00 Eos # (Auto) 0.2 10^3/uL (0.0-0.8) 03/17/25 12:00 Baso # (Auto) 0.0 10^3/uL (0.0-0.1) 03/17/25 12:00 Nucleated RBC % (auto) 0 % 03/17/25 12:00 Nucleated RBCs # 0.0 /100WBC 03/17/25 12:00 Sodium 136 mmol/L (136-145) 03/17/25 12:00 Potassium 4.2 mmol/L (3.5-5.1) 03/17/25 12:00 Chloride 98 mmol/L (98-107) 03/17/25 12:00 Carbon Dioxide 25 mmol/L (22-29) 03/17/25 12:00 Anion Gap 17.2 (5-19) 03/17/25 12:00 BUN 20 mg/dL (8-23) 03/17/25 12:00 Creatinine 1.5 mg/dL (0.5-0.9) H 03/17/25 12:00 GFR Calculation 35.3 mL/min (90-130) L 03/17/25 12:00 Glucose 365 mg/dL (65-115) H 03/17/25 12:00 Calculated Osmolality 299 mOsm/kg (285-295) H 03/17/25 12:00 Calcium 8.9 mg/dL (8.5-10.5) 03/17/25 12:00 Total Bilirubin 0.3 mg/dL (0.15-1.2) 03/17/25 12:00 AST 10 U/L (0-32) 03/17/25 12:00 ALT 14 U/L (0-33) 03/17/25 12:00 Alkaline Phosphatase 119 U/L (35-105) H 03/17/25 12:00 Total Protein 7.1 g/dL (6.6-8.7) 03/17/25 12:00 Albumin 3.7 g/dL (3.5-5.2) 03/17/25 12:00 Globulin 3.4 g/dL (1.3-4.6) 03/17/25 12:00 Urine Color Yellow (Yellow) 03/17/25 12:00 Urine Appearance Clear (CLEAR) 03/17/25 12:00 Urine pH 6.5 (5-7) 03/17/25 12:00 Ur Specific [place] 1.013 (1.005-1.030) 03/17/25 12:00 Urine Protein Trace (Negative) A 03/17/25 12:00 Urine Glucose (UA) 3+ (Normal) H 03/17/25 12:00 Urine Ketones Negative (Negative) 03/17/25 12:00 Urine Blood 2+ (Negative) A 03/17/25 12:00 Urine Nitrate Negative (Negative) 03/17/25 12:00 Urine Bilirubin Negative (Negative) 03/17/25 12:00 Urine Urobilinogen 0.2 mg/dL (Negative) 03/17/25 12:00 Ur Leukocyte Esterase 2+ (Negative) A 03/17/25 12:00 Urine RBC 51-100 /hpf (0-2) H 03/17/25 12:00 Urine WBC >100 /hpf (0-5) H 03/17/25 12:00 Ur Squamous Epith Cells 0-5 /hpf (0-5) 03/17/25 12:00 Amorphous Sediment Not Reportable 03/17/25 12:00 Urine Bacteria None seen /hpf (NONE) 03/17/25 12:00 Hyaline Casts 0-4 /lpf H 03/17/25 12:00 No radiology studies performed this visit Discharge Plan Discharge Patient Disposition: Home Clinical Impression: Cystitis Condition: Stable Prescriptions: New cefdinir 300 mg capsule 300 mg PO BID 10 Days Qty: 20 0RF No Action Zyrtec 10 mg capsule 10 mg PO DAILY PRN (Reason: Allergy Symptoms) bupropion HCl [Wellbutrin XL] 300 mg tablet extended release 24 hr 300 mg PO QAM Qty: 90 0RF Rx Instructions: along with 150mg [id number] total trazodone 100 mg tablet 300 mg PO BEDTIME Qty: 90 2RF hydroxyzine HCl 25 mg tablet 50 mg PO BEDTIME Qty: 60 2RF insulin lispro [Humalog KwikPen Insulin] 100 unit/mL insulin pen See Protocol SUBCUT TID Qty: 15 0RF Protocol: Insulin Corrective High-Dose Regimen Condition: Fingerstick Blood Glucose Dose/Route: Insulin Units Condition: 141-180 mg/dl Dose/Route: 2 units/SQ Condition: 181-220 mg/dl Dose/Route: 3 units/SQ Condition: 221-260 mg/dl Dose/Route: 4 units/SQ Condition: 261-300 mg/dl Dose/Route: 6 units/SQ Condition: 301-350 mg/dl Dose/Route: 8 units/SQ Condition: 351-400 mg/dl Dose/Route: 10 units/SQ Condition: greater than 400 mg/dl Dose/Route: 12 units/SQ atorvastatin [Lipitor] 80 mg tablet 80 mg PO DAILY Qty: 90 3RF ezetimibe 10 mg tablet See Rx Instructions .ROUTE .COMPLEX Qty: 30 5RF Dose Instruction: TAKE 1 TABLET BY MOUTH EVERY DAY Rx Instructions: TAKE 1 TABLET BY MOUTH EVERY DAY amlodipine 5 mg tablet See Rx Instructions .ROUTE .COMPLEX Qty: 30 2RF Dose Instruction: TAKE 1 TABLET BY MOUTH EVERY DAY Rx Instructions: TAKE 1 TABLET BY MOUTH EVERY DAY (DME) Dexcom G7 Sensor Device See Rx Instructions .Route Qty: 3 6RF Rx Instructions: As directed ([facility]) OneTouch Verio test strips Strip See Rx Instructions .Route Qty: 400 3RF Rx Instructions: Check Blood Sugar up to 3 Type 2 diabetes mellitus E11.42 insulin glargine [Lantus Solostar U-100 Insulin] 100 unit/mL (3 mL) insulin pen 50 unit SUBCUT BID Qty: 30 3RF Rx Instructions: 50 units subcutaneously twice daily rosuvastatin [Crestor] 20 mg tablet 20 mg PO DAILY Qty: 30 4RF montelukast [Singulair] 10 mg Tablet 10 mg PO DAILY hydrocodone-acetaminophen 7.5-325 mg tablet 1 tab PO Q6H PRN (Reason: pain) Qty: 20 0RF docusate sodium [Colace] 100 mg capsule 100 mg PO BID Qty: 14 0RF tizanidine 2 mg tablet 2 mg PO BEDTIME PRN (Reason: Pain) lisinopril 20 mg tablet 20 mg PO QAM cyanocobalamin (vitamin B-12) 1,000 mcg/mL solution 1,000 mcg IM .Q30D omeprazole 20 mg capsule,delayed release(DR/EC) 20 mg PO DAILY ondansetron 4 mg tablet,disintegrating 4 mg PO Q6H PRN (Reason: Nausea) glucagon HCl [Glucagon (HCl) Emergency Kit] 1 mg recon soln 1 mg IM Q20M PRN (Reason: hypoglycemia) Qty: 1 0RF Rx Instructions: until target blood sugar attained (DME) lancets Misc See Rx Instructions .ROUTE .MEDSUPPLY Qty: 100 0RF Rx Instructions: As directed glipizide 5 mg tablet 5 mg PO DAILY Qty: 30 0RF gabapentin 600 mg tablet 600 mg PO BID Qty: 10 0RF Discharge Orders: Discharge ED (Routine); Ordered 03/17/25 Ordered By: Angel Contreras Referrals: Kati Singh DO [Primary Care Provider, [employer]] Discharge Diet: Usual diet Discharge Activity: Resume usual activity Patient Instructions: Urinary Tract Infection in Women (ED), Opioid Safety, Pain Management, Patient Portal & Melanie Instructions Activity Restrictions/Additional Instructions: Thank you for choosing [facility] for your healthcare needs today. It is very important that you follow up as instructed or that you return to the Emergency Department should you have concerns or if your condition changes or worsens in any way. You were seen in the emergency room with complaint of blood in your urine. Urine does show signs of infection at this visit at your previous ER visit culture was negative. Based on the cultures in the past the antibiotics you are given today should treat this bladder infection. You should follow-up with your primary care doctor. If you have recurrent symptoms or blood in urine follow-up with your primary care doctor for referral to a urologist. Print Language: Grenadian Coding Level of Care Code ED Rn Transport for Nik Brenner
[2025-03-17 12:08] LABS: Hematocrit 33.8 % (36-47); Hemoglobin 10.80 g/dL (11.27-16.99); Mean Corpuscular HGB Conc 32.0 g/dL (30-55); Mean Corpuscular Hemoglobin 26.5 pg (27-33); Mean Corpuscular Volume 82.8 fl (85-98); Nucleated Red Blood Cells % 0 %; Platelet Count 213 10^3/cmm (157-399); Red Blood Count 4.08 10^6/uL (3.85-5.65); White Blood Count 7.35 10^3/uL (3.29-11.43)
--- OUTSIDE RECORDS SUMMARY | 2025-03-17 12:11 | XMS_ITS | Patient Health Record ---
Author Organization [facility] Address [address] [place], [place] [id number] Care Team Providers Care History Department Chair Name Role Phone Jailene Avila Primary Care Provider Valerio Hughes MD, Miguel Unavailable [phone] Maximus Fong MD Unavailable Unavailable Allergies Allergen [...] Status W/U Status Risk Notes Problem Hypersomnia (59155306) Hypersomnia, unspecified (G47.10) Active confirmed Problem Cervicalgia (27375533) Cervicalgia (M54.2) Active confirmed Problem Jaw pain (154709595) Jaw pain (R68.84) Active confirmed Problem Long-term current use of drug therapy (820723801) Other snf (current) drug therapy (Z79.899) Active confirmed Plan Of Treatment No Information Insurance Providers Payer Name Payer Address Payer Phone Subscriber Number Group Number Insured Name Patient Relationship to Insured Coverage Start Date Coverage End Date WPS Medicare Part B Claims Department [address] [address] [place] [address] [id number] Julia Adrian Self - patient is the insured [place] [address] [place] [id number] Julia Adrian Self - patient is the insured Medical (General) History Medical History History ICD Code Jaw pain, intermittent, moderate to collins re Cervicalgia, mild Anxiety Reflux Hyperlipidemia Sleep disorder, long - term Hypertension Diabetes Surgical History Surgery Date(Month/Year) x 2 1989
--- OUTSIDE RECORDS SUMMARY | 2025-03-17 12:11 | XMS_ITS | Patient Health Record ---
Author Organization [facility] Address [address] [place] [address] Care Team Providers Care Coal Bagger Name Role Phone Jasson Tamayo Unavailable [phone] Reason For Referral No Information Problems Problem Type SNOMED Code ICD Code Onset Dates Problem Status W/U Status Risk Notes Problem Type II diabetes mellitus uncontrolled (145470620) Type 2 diabetes, uncontrolled (250.02) 2016 Active confirmed [id number]- Problem Candidiasis (57359851) Yeast infection (112.9) 2016 Active confirmed [id number]- Problem Essential hypertension (99088779) Essential hypertension (401.1) 2015 Active confirmed [id number]- Problem General weakness (40734762) Generalized weakness (780.79) 2015 Problem resolved confirmed [id number]- Problem Vaginal discharge (finding) (175056207) Vaginal discharge, unspecified (616.10) 2016 Problem resolved confirmed [id number]- Problem Hypercholesterolemia (06037088) Hypercholesterolemia (272.0) 2017 Problem resolved confirmed [id number]- Problem Onychomycosis caused by dermatophyte (915789297) Toe onychomycosis (110.1) 2017 Problem resolved confirmed [id number]- Problem Candidal vulvovaginitis (45623967) Yeast vaginitis (112.1) 2015 Problem resolved confirmed [id number]- Problem Screening for colon cancer (101925555) Screening for colon cancer (V76.49) 2015 Problem resolved confirmed [id number]- Problem 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) Other abnormal findings on blood examination (790.99) 2015 Problem resolved confirmed [id number]- Problem Sore throat (692264076) Sore Throat (462) 2016 Problem resolved confirmed [id number]- Problem Superficial inju ry of foot, NEC (917.8) 2015 Problem resolved confirmed [id number]- Problem Foot pain (95325499) Foot pain (729.5) 2015 Problem resolved confirmed [id number]- Problem Peripheral neuropath y (258393797) Peripheral neuropathy (356.9) 2015 Problem resolved confirmed [id number]- Problem Precordial pain (93608065) Precordial chest pain (786.51) 2016 Problem resolved confirmed [id number]- Problem Needs influenza immunization (178428249) Vaccination against other viral diseases, Influenza (V04.81) 2016 Problem resolved confirmed [id number]- Problem Neoplasm of uncertai n behavior of skin (98856350) Atypical skin lesion (238.2) 2015 Problem resolved confirmed [id number]- Problem Diabetes mellitus type 2 (disorder) (42437498) Type 2 diabetes (250.00) 2016 Problem resolved confirmed [id number]- Problem Screening mammograph y (85379298) Screening mammogram - other (V76.12) 2015 Problem resolved confirmed [id number]- Plan Of Treatment No Information
[2025-03-17 12:13] LABS: Glucose Urine UA 3+ (Normal); Nitrate Urine Negative (Negative); Specific Gravity, Urine 1.013 (1.005-1.030)
[2025-03-17 12:18] LABS: Add Urine Microscopic? YES
[2025-03-17 12:31] LABS: Alanine Aminotransferase 14 U/L (0-33); Albumin Level 3.7 g/dL (3.5-5.2); Alkaline Phosphatase 119 U/L (35-105); Anion Gap 17.2 (5-19); Aspartate Amino Transferase 10 U/L (0-32); Blood Urea Nitrogen 20 mg/dL (8-23); Calcium 8.9 mg/dL (8.5-10.5); Carbon Dioxide 25 mmol/L (22-29); Chloride 98 mmol/L (98-107); Creatinine Clr Calc Pharmacy 37.6662; Globulin 3.4 g/dL (1.3-4.6); Glucose 365 mg/dL (65-115); Osmolality Calculated 299 mOsm/kg (285-295); Potassium 4.2 mmol/L (3.5-5.1); Sodium 136 mmol/L (136-145); Total Protein 7.1 g/dL (6.6-8.7)
[2025-03-17] MEDS: cefTRIAXone 1,000 mg SDV 1000 MG IVP (12:55)
[2025-03-17 12:59] VITALS: BP 146/88; PULSE 88; O2SAT 98
== END 2025-03-17 13:18 | disposition home or self-care (01) ==
PROVIDERS: Emergency Provider Family Medicine; PCP Family Medicine
DX: N30.91 Cystitis, unspecified with hematuria (principal); Z79.4 Long term (current) use of insulin; Z87.891 Personal history of nicotine dependence; E11.9 Type 2 diabetes mellitus without complications
CPT/HCPCS: 80053; 81001; 85025; 87077; 87086; 87186; 96374; 99284; J0696

== ENCOUNTER → 2025-04-11 10:46 | Outpatient (BNVA) | payer OTHER, MEDICAID, SELFPAY ==
[2024-12-22 17:38] VITALS: BP 118/74
== END ==
PROVIDERS: PCP Family Medicine; Referring Provider Family Medicine; Visit Provider Psychiatry & Neurology Neurology
DX: E11.42 Type 2 diabetes mellitus with diabetic polyneuropathy (principal); E11.40 Type 2 diabetes mellitus with diabetic neuropathy, unspecified; N18.9 Chronic kidney disease, unspecified; Z79.4 Long term (current) use of insulin; E55.9 Vitamin D deficiency, unspecified; G62.9 Polyneuropathy, unspecified; R68.89 Other general symptoms and signs
CPT/HCPCS: 36415; 82306; 82525; 82607; 82746; 83735; 83921; 84155; 84165; 84207; 85651; 86160; 86162; 86235; 86255; 86334; 86376; 86431; 86592; 99203

== ENCOUNTER 2025-04-12 09:20 | Inpatient (IN) | payer OTHER, MEDICAID, SELFPAY ==
[2024-12-22 17:38] VITALS: BP 118/74
[2025-04-12] VITALS (8 sets, daily range): BP systolic 122–146; BP diastolic 71–100; PULSE 83–132; RESP 16–20; TEMP 36.4–37.9; O2SAT 94–98; BMI 26.4
--- NOTE | 2025-04-12 09:22 | CT_ITS ---
WS: [id number] CT ABDOMEN PELVIS TECHNIQUE: Contrast-enhanced CT of the abdomen and pelvis with coronal and sagittal reformatted images. CLINICAL INFORMATION: abd pain COMPARISON: 12/01/2024 DLP: 596.[address] scans at [facility] use at least one of these dose optimization techniques: automated exposure control; mA and/or kV adjustment per patient size (includes targeted exams where dose is matched to clinical indication); or iterative reconstruction. FINDINGS: Bilateral heterogeneous renal enhancement compatible with pyelonephritis. Mild RIGHT pelvicaliectasis and ureterectasis. Tiny 2 mm calculus in or adjacent to the RIGHT distal ureter is unchanged since 12/01/2024 likely nonobstructing. Fatty liver. Hepatomegaly. Cholecystectomy. Normal portal vein and splenic vein. Small esophageal hiatal hernia. Adrenal glands are normal. Normal spleen. Normal pancreatic parenchymal enhancement. Normal caliber abdominal aorta. Atelectasis in the lung bases. Normal caliber abdominal aorta. Sigmoid constipation. Diffuse thickening of the endometrium abnormal in a patient of this age. This could be followed up with ultrasound and/or hysteroscopy. Endometrium measures [address]/CT abdomen pelvis w con* [id number] IMPRESSION: 1. Bilateral pyelonephritis with RIGHT greater than LEFT pelvicaliectasis and ureterectasis. 2. Tiny calculus adjacent to or in the distal RIGHT ureter is unchanged since 12/01/2024 measuring 2 mm probably incidental and nonobstructing. 3. Fatty liver. 4. Cholecystectomy. 5. Small esophageal hiatal hernia. 6. Abnormal thickening of the endometrium measuring 13 mm suspicious for neopl eileen or hyperplasia in a patient this age. Recommend further evaluation.
--- NOTE | 2025-04-12 09:23 | W.ED.ABDPA2 ---
HPI - Abdominal Pain General: Chief Complaint: Nausea/Vomiting/Diarrhea Stated Complaint: N/V Time Seen by Provider: 04/12/25 09:22 Source: patient and EMS Mode of arrival: EMS Limitations: no limitations History of Present Illness: 60-year-old female has a history of diabetes along with IBS states she had been having nausea vomiting since the middle of the night. States she has had multiple episodes of vomiting and is having lower abdominal cramping. She states the pains currently a 4 out of 10 she denies any fevers denies any dysuria denies any worse improved factors. Associated Symptoms: Reports nausea and vomiting; Denies chills, diarrhea and fever(s) Related Data Home Medications ?Medication ?Instructions ?Recorded ?Confirmed cetirizine 10 mg capsule (Zyrtec) 10 mg PO DAILY PRN Allergy Symptoms 01/27/20 04/11/25 montelukast 10 mg tablet 10 mg PO DAILY 09/12/24 04/11/25 (Singulair) cyanocobalamin (vitamin B-12) 1,000 mcg IM .Q30D 12/01/24 04/11/25 1,000 mcg/mL injection solution lisinopril 20 mg tablet 20 mg PO QAM 12/01/24 04/11/25 omeprazole 20 mg capsule,delayed 20 mg PO DAILY 12/01/24 04/11/25 release ondansetron 4 mg disintegrating 4 mg PO Q6H PRN Nausea 12/01/24 04/11/25 tablet tizanidine 2 mg tablet 2 mg PO BEDTIME PRN Pain 12/01/24 04/11/25 amlodipine 5 mg tablet 5 mg PO DAILY 03/17/25 04/11/25 dicyclomine 20 mg tablet 40 mg PO QID 03/17/25 04/11/25 pregabalin 75 mg capsule 75 mg PO BID 03/17/25 04/11/25 Previous Rx's ?Medication ?Instructions ?Recorded glucagon HCl 1 mg solution for 1 mg IM Q20M PRN hypoglycemia #1 ea 12/06/24 injection (Glucagon (HCl) Emergency Kit) glipizide 5 mg tablet 5 mg PO DAILY #30 tabs 12/12/24 lancets #100 ea 12/12/24 blood-glucose sensor ([employer] G7 #3 ea 01/04/25 Sensor device) insulin lispro 100 unit/mL See Protocol SUBCUT TID #15 mL 01/04/25 subcutaneous pen (Humalog KwikPen (U-100) Insulin) Held on 01/04/25. Instructions: Doctor's Order blood sugar diagnostic (OneTouch #400 ea 01/06/25 Verio test strips) insulin glargine 100 unit/mL (3 50 unit (0.5 mL) SUBCUT BID #30 mL 01/31/25 mL) subcutaneous pen (Lantus Solostar U-100 Insulin) rosuvastatin 20 mg tablet (Crestor) 20 mg PO DAILY #30 tabs 01/31/25 bupropion HCl 300 mg 24 hr tablet, 300 mg PO QAM #90 tabs 04/03/25 extended release (Wellbutrin XL) hydroxyzine HCl 25 mg tablet 50 mg (2 x 25 mg) PO BEDTIME #60 04/03/25 tabs trazodone 100 mg tablet 300 mg (3 x 100 mg) PO BEDTIME #90 04/03/25 tabs Allergies Allergy/AdvReac Type Severity Reaction Status Date / Time No Known Allergies Allergy Verified 04/11/25 11:05 Review of Systems Const: Denies: fever(s), chills, body aches or change in appetite Eyes: Denies: blurry vision or eye discomfort ENMT: Denies: throat pain or dental pain Card: Denies: chest pain Resp: Denies: dyspnea GI: Reports: abdominal pain, nausea and vomiting; Denies: diarrhea Musc: Denies: neck pain or back pain Skin/Breast: Denies: rash Neuro: Denies: headache(s) PFSH ED PFSH: Medical History History of colon polyps GERD (gastroesophageal reflux disease) Psychiatric care Type 2 diabetes mellitus Yeast infection involving the vagina and surrounding area Borderline intellectual functioning Major depressive disorder, recurrent severe without psychotic features Surgical History Hx laparoscopic cholecystectomy 09/13/24 Dr. Kendall Hx of colonoscopy with polypectomy 2016 H/O tubal ligation H/O section x2 Family History Father Diabetes Grandmother Diabetes paternal Brother Diabetes Grandfather Stroke paternal Sister Thyroid disease Denies family history of Clotting disorder Hyperlipidemia Anesthesia complication Bleeding disorder Hypertension Social History Smoking and tobacco/nicotine status: former use of tobacco/nicotine Quit status (tobacco/nicotine): has quit using Year quit tobacco: 2012 Second hand smoke exposure: Yes Alcohol intake: never Substance/Drug Use: never Adopted: No Caregiver/support person: No Lives independently: Yes Household members: none Housing: Apartment Marital status: Marital status details: 2005 Number of children: 2 Number of grandchildren: 3 Highest education level completed: 9th Grade Current occupational status: disabled Pets and animals: No Leisure activites: music, games, reading and other Leisure activities details: [employer] Sexually active: Yes Do you think of yourself as: Straight/Heterosexual Current gender identity: Female Soraida/Mu-Ism: Advent Special soraida needs: No Agree to transfusion: Yes Female Reproductive History: Para: 2 Spontaneous abortions: Yes Physical Exam Const: COMMON NORMALS: no acute distress, patient oriented x3 and healthy appearing HENMT: COMMON NORMALS: normocephalic and atraumatic HEAD & SCALP: normocephalic and atraumatic Eye: COMMON NORMALS: conjunctivae normal CONJUNCTIVA: Yes conjunctivae normal Neck/C-Spine: COMMON NORMALS: full ROM and supple Chest: COMMONS NORMALS: normal inspection of the chest Resp: COMMON NORMALS: normal respiratory effort, No retractions, No use of accessory muscles and clear to auscultation bilaterally AUSCULTATION: clear to auscultation bilaterally Cardio: COMMON NORMALS: regular rate, regular rhythm and No murmurs present (Cardio) RATE: regular rate RHYTHM: regular rhythm GI: COMMON NORMALS: Normal to inspection, nondistended, normoactive bowel sounds present, Soft to palpation and no masses PALPATION: Yes Soft to palpation OTHER: Mild diffuse tenderness Extremity: COMMON NORMALS: normal to inspection and full ROM Neuro: COMMON NORMALS: patient oriented x3, moves all extremities and no focal motor deficits Psych: COMMON NORMALS: mental status grossly normal, Normal thought process present and cooperative THOUGHT PROCESS: Normal thought process present Skin: COMMON NORMALS: no rashes or lesions noted and no wounds GENERAL SKIN EXAM: no rashes or lesions noted Course Vital Signs: Vital signs: Vital Signs Temperature 97.6 F 04/12/25 09:21 Pulse Rate 99 04/12/25 09:21 Respiratory Rate 16 04/12/25 09:21 Blood Pressure 145/71 04/12/25 09:21 Pulse Oximetry 96 04/12/25 09:21 Oxygen Delivery Me thod Room Air 04/12/25 09:21 MDM - Abdominal Pain Medical Decision Making Patient presents here with vomiting along with abdominal pain CT does show bilateral pyelonephritis that is nonobstructive. Does have an elevated white count no signs of being septic we will start IV antibiotic spoke to hospitalist will admit Medical Records I reviewed the patient's medical records. Lab Data I reviewed the patient's lab results. 04/12/25 09:34 04/12/25 09:34 Labs/Radiology: Radiology Impressions Abdomen/Pelvis CT 04/12/25 09:22 IMPRESSION: 1. Bilateral pyelonephritis with RIGHT greater than LEFT pelvicaliectasis and ureterectasis. 2. Tiny calculus adjacent to or in the distal RIGHT ureter is unchanged since 12/01/2024 measuring 2 mm probably incidental and nonobstructing. 3. Fatty liver. 4. Cholecystectomy. 5. Small esophageal hiatal hernia. 6. Abnormal thickening of the endometrium measuring 13 mm suspicious for neoplasia or hyperplasia in a patient this age. Recommend further evaluation. Laboratory Results WBC 18.28 10^3/uL (3.29-11.43) H 04/12/25 09:34 RBC 4.68 10^6/uL (3.85-5.65) 04/12/25 09:34 Hgb 12.70 g/dL (11.27-16.99) 04/12/25 09:34 Hct 39.1 % (36-47) 04/12/25 09:34 MCV 83.5 fl (85-98) L 04/12/25 09:34 MCH 27.1 pg (27-33) 04/12/25 09:34 MCHC 32.5 g/dL (30-55) 04/12/25 09:34 RDW 14.0 % (12.1-15.1) 04/12/25 09:34 Plt Count 267 10^3/cmm (157-399) 04/12/25 09:34 MPV 10.6 fL (7.4-10.4) H 04/12/25 09:34 Neut % (Auto) 81.3 % 04/12/25 09:34 Lymph % (Auto) 11.5 % 04/12/25 09:34 Sibley % (Auto) 5.6 % 04/12/25 09:34 Eos % (Auto) 0.6 % 04/12/25 09:34 Baso % (Auto) 0.4 % 04/12/25 09:34 Neut # (Auto) 14.85 10^3/uL (1.8-7.7) H 04/12/25 09:34 Lymph # (Auto) 2.1 10^3/uL (0.8-4.8) 04/12/25 09:34 Sibley # (Auto) 1.0 10^3/uL (0.2-0.9) H 04/12/25 09:34 Eos # (Auto) 0.1 10^3/uL (0.0-0.8) 04/12/25 09:34 Baso # (Auto) 0.1 10^3/uL (0.0-0.1) 04/12/25 09:34 Nucleated RBC % (auto) 0 % 04/12/25 09:34 Nucleated RBCs # 0.0 /100WBC 04/12/25 09:34 Sodium 141 mmol/L (136-145) 04/12/25 09:34 Potassium 4.1 mmol/L (3.5-5.1) 04/12/25 09:34 Chloride 103 mmol/L (98-107) 04/12/25 09:34 Carbon Dioxide 27 mmol/L (22-29) 04/12/25 09:34 Anion Gap 15.1 (5-19) 04/12/25 09:34 BUN 20 mg/dL (8-23) 04/12/25 09:34 Creatinine 1.7 mg/dL (0.5-0.9) H 04/12/25 09:34 GFR Calculation 30.6 mL/min (90-130) L 04/12/25 09:34 Glucose 142 mg/dL (65-115) H 04/12/25 09:34 Calculated Osmolality 297 mOsm/kg (285-295) H 04/12/25 09:34 Calcium 9.1 mg/dL (8.5-10.5) 04/12/25 09:34 Total Bilirubin 0.4 mg/dL (0.15-1.2) 04/12/25 09:34 AST 15 U/L (0-32) 04/12/25 09:34 ALT 20 U/L (0-33) 04/12/25 09:34 Alkaline Phosphatase 133 U/L (35-105) H 04/12/25 09:34 Total Protein 7.9 g/dL (6.6-8.7) 04/12/25 09:34 Albumin 4.3 g/dL (3.5-5.2) 04/12/25 09:34 Globulin 3.6 g/dL (1.3-4.6) 04/12/25 09:34 Lipase 21 U/L (13-60) 04/12/25 09:34 Amorphous Sediment Not Reportable 04/12/25 11:22 All radiology interpretation(s) finalized by discharge Discharge Plan Discharge Patient Disposition: Admitted As Inpatient Clinical Impression: Pyelonephritis, Vomiting Condition: Stable Coding Level of Care Code ED Professor Of Food Biochemistry for Nik Brenner
[2025-04-12] MEDS: morphine 4 mg/mL SDV 1 mL IVP (09:35)
[2025-04-12] MEDS: ondansetron 2 mg/ML SDV 2 mL 4 MG IVP (09:35)
[2025-04-12 09:42] LABS: Hematocrit 39.1 % (36-47); Hemoglobin 12.70 g/dL (11.27-16.99); Mean Corpuscular HGB Conc 32.5 g/dL (30-55); Mean Corpuscular Hemoglobin 27.1 pg (27-33); Mean Corpuscular Volume 83.5 fl (85-98); Nucleated Red Blood Cells % 0 %; Platelet Count 267 10^3/cmm (157-399); Red Blood Count 4.68 10^6/uL (3.85-5.65); White Blood Count 18.28 10^3/uL (3.29-11.43)
[2025-04-12 10:01] LABS: Alanine Aminotransferase 20 U/L (0-33); Albumin Level 4.3 g/dL (3.5-5.2); Alkaline Phosphatase 133 U/L (35-105); Anion Gap 15.1 (5-19); Aspartate Amino Transferase 15 U/L (0-32); Blood Urea Nitrogen 20 mg/dL (8-23); Calcium 9.1 mg/dL (8.5-10.5); Carbon Dioxide 27 mmol/L (22-29); Chloride 103 mmol/L (98-107); Creatinine Clr Calc Pharmacy 33.3343; Globulin 3.6 g/dL (1.3-4.6); Glucose 142 mg/dL (65-115); Lipase 21 U/L (13-60); Osmolality Calculated 297 mOsm/kg (285-295); Potassium 4.1 mmol/L (3.5-5.1); Sodium 141 mmol/L (136-145); Total Protein 7.9 g/dL (6.6-8.7)
[2025-04-12] MEDS: iohexol 350 mg/mL 500 mL Btl (per mL) IV (10:43)
[2025-04-12] MEDS: cefTRIAXone 1,000 mg SDV 1000 MG IVP (11:27)
[2025-04-12 11:29] LABS: Glucose Urine UA Negative (Normal); Nitrate Urine Negative (Negative)
[2025-04-12 11:35] LABS: Add Urine Microscopic? YES
[2025-04-12 11:44] LABS: Specific Gravity, Urine 1.037 (1.005-1.030)
--- NOTE | 2025-04-12 12:28 | PM.HP ---
Providers/Chief Complaint Primary Care Provider: Kati Singh DO Chief Complaint: N/V History of Present Illness Julia Lovett is a 60 year old woman with a history of type 2 diabetes mellitus, gastroesophageal reflux disease, major depressive disorder, borderline intellectual functioning, chronic kidney disease, hypertension, and hyperlipidemia who presented to the emergency department overnight for new-onset nausea and vomiting beginning in the middle of last night, accompanied by lower abdominal cramping. She denies diarrhea but reports constipation over the past two days without bowel movement. No hematemesis, melena, hematochezia, fever, cough, dyspnea, or sputum production. In the emergency department she received 2 L normal saline, ceftriaxone, morphine, and ondansetron and notes some ongoing abdominal discomfort. Prior urine cultures (November, January, February) grew Proteus species resistant to ampicillin. Computed tomography of the abdomen/pelvis demonstrated bilateral pyelonephritis (right > left), mild hydronephrosis/ureterectasis, a non-obstructing 2 mm distal right ureteral calculus, fatty liver infiltration, a small ventral hernia, and thickened endometrium (13 mm) concerning for hyperplasia/neoplasia. She confirms long-standing recurrent urinary tract infections and has not yet seen a urologist. Current insulin regimen is Lantus 50 units at bedtime with sliding-scale Humalog before meals; she also takes amlodipine, lisinopril, a statin, a proton-pump inhibitor, and trazodone. She is a former smoker and regularly drinks dark sodas. No drug or alcohol use reported. Review of Systems Const: Reports: malaise; Denies: fever(s), chills or body aches ENMT: Denies: throat pain Card: Denies: chest pain, edema, pre-syncope or dyspnea on exertion Resp: Denies: dyspnea, productive cough, change in phlegm color or hemoptysis GI: Reports: abdominal pain, nausea, vomiting and constipation; Denies: diarrhea, hematochezia or melena : Denies: flank pain, urinary frequency or hematuria Musc: Denies: back pain, joint swelling or joint redness Skin/Breast: Denies: rash or new lesions Neuro: Denies: headache(s) or confusion Medications/Allergies Home Medications ?Medication ?Instructions ?Recorded ?Confirmed ?Last Taken ?Type montelukast 10 mg tablet 10 mg PO DAILY 09/12/24 04/12/25 03/17/25 History (Singulair) lisinopril 20 mg tablet 20 mg PO QAM 12/01/24 04/12/25 04/11/25 History omeprazole 20 mg capsule,delayed 20 mg PO DAILY 12/01/24 04/12/25 04/11/25 History release tizanidine 2 mg tablet 2 mg PO BEDTIME PRN Pain 12/01/24 04/12/25 04/11/25 20:00 History glucagon HCl 1 mg solution for 1 mg IM Q20M PRN hypoglycemia #1 ea 12/06/24 04/12/25 Unknown Rx injection (Glucagon (HCl) Emergency Kit) lancets #100 ea 12/12/24 04/12/25 Unknown Rx blood-glucose sensor ([employer] G7 #3 ea 01/04/25 04/12/25 Unknown Rx Sensor device) blood sugar diagnostic (OneTouch #400 ea 01/06/25 04/12/25 Unknown Rx Verio test strips) insulin glargine 100 unit/mL (3 50 unit (0.5 mL) SUBCUT BID #30 mL 01/31/25 04/12/25 04/11/25 Rx mL) subcutaneous pen (Lantus Solostar U-100 Insulin) rosuvastatin 20 mg tablet (Crestor) 20 mg PO DAILY #30 tabs 01/31/25 04/12/25 03/16/25 Rx amlodipine 5 mg tablet 5 mg PO DAILY 03/17/25 04/12/25 04/11/25 History dicyclomine 20 mg tablet 40 mg PO QID 03/17/25 04/12/25 03/17/25 History pregabalin 75 mg capsule 75 mg PO BID 03/17/25 04/12/25 04/11/25 History bupropion HCl 300 mg 24 hr tablet, 300 mg PO QAM #90 tabs 04/03/25 04/12/25 04/11/25 Rx extended release (Wellbutrin XL) hydroxyzine HCl 25 mg tablet 50 mg (2 x 25 mg) PO BEDTIME #60 04/03/25 04/12/25 04/11/25 19:00 Rx tabs trazodone 100 mg tablet 300 mg (3 x 100 mg) PO BEDTIME #90 04/03/25 04/12/25 04/11/25 19:00 Rx tabs ezetimibe 10 mg tablet 10 mg PO DAILY 04/12/25 04/12/25 04/11/25 History insulin lispro 100 unit/mL 5 unit SUBCUT TID 04/12/25 04/12/25 04/11/25 History subcutaneous pen Allergies Allergy/AdvReac Type Severity Reaction Status Date / Time No Known Allergies Allergy Verified 04/11/25 11:05 PFSH Acute PFSH: Medical History (Updated 04/12/25 @ 12:50 by Robbie Stapleton MD) History of colon polyps GERD (gastroesophageal reflux disease) Psychiatric care Type 2 diabetes mellitus Yeast infection involving the vagina and surrounding area Borderline intellectual functioning Major depressive disorder, recurrent severe without psychotic features Surgical History Hx laparoscopic cholecystectomy 09/13/24 Dr. Kendall Hx of colonoscopy with polypectomy 2016 H/O tubal ligation H/O section x2 Family History Father Diabetes Grandmother Diabetes paternal Brother Diabetes Grandfather Stroke paternal Sister Thyroid disease Denies family history of Clotting disorder Hyperlipidemia Anesthesia complication Bleeding disorder Hypertension Social History Smoking and tobacco/nicotine status: former use of tobacco/nicotine Quit status (tobacco/nicotine): has quit using Year quit tobacco: 2012 Second hand smoke exposure: Yes Alcohol intake: never Substance/Drug Use: never Adopted: No Caregiver/support person: No Lives independently: Yes Household members: none Housing: Apartment Marital status: Marital status details: 2005 Number of children: 2 Number of grandchildren: 3 Highest education level completed: 9th Grade Current occupational status: disabled Pets and animals: No Leisure activites: music, games, reading and other Leisure activities details: [employer] Sexually active: Yes Do you think of yourself as: Straight/Heterosexual Current gender identity: Female Soraida/Confucianist: Confucianism Special soraida needs: No Agree to transfusion: Yes Female Reproductive History: Para: 2 Spontaneous abortions: Yes Vitals/I&O/Wt Last Vital Signs Temp 97.6 F 04/12/25 09:21 Pulse 83 04/12/25 12:26 Resp 16 08/13/25 09:21 BP 130/91 04/12/25 12:26 Pulse Ox 98 04/12/25 12:26 O2 Del Method Room Air 04/12/25 09:21 Weight last 48 hrs Weight 69.853 kg Physical Exam Const: COMMON NORMALS: patient oriented x3 and alert GENERAL APPEARANCE: cooperative ORIENTATION/CONSCIOUSNESS: Yes awake HENMT: COMMON NORMALS: oropharynx normal Neck/C-Spine: COMMON NORMALS: no JVD Resp: COMMON NORMALS: normal respiratory effort and clear to auscultation bilaterally AUSCULTATION: clear to auscultation bilaterally Cardio: COMMON NORMALS: no JVD, regular rhythm, S1 normal heart sound present, S2 normal heart sound present and No murmurs present (Cardio) RHYTHM: regular rhythm HEART SOUNDS: S1 normal heart sound present and S2 normal heart sound present GI: COMMON NORMALS: Normal to inspection, nondistended, normoactive bowel sounds present, Soft to palpation and non-tender PALPATION: Yes Soft to palpation Extremity: COMMON NORMALS: no joint enlargement and no pedal edema Neuro: COMMON NORMALS: patient oriented x3 and moves all extremities SENSORIUM/ORIENTATION: Yes alert Skin: COMMON NORMALS: no rashes or lesions noted GENERAL SKIN EXAM: no rashes or lesions noted Data 04/12/25 09:34 04/12/25 09:34 A&P Assessment and plan 1. Pyelonephritis: Bilateral pyelonephritis (complicated urinary tract infection) : CT abdomen/pelvis shows bilateral pyelonephritis with right-sided predominance; recurrent Proteus urinary tract infections noted with prior cultures resistant to ampicillin. Reviewed vitals, CBC, CMP, lipase, prior urine cultures, UA, CT abdomen pelvis, ED provider note, discussed with ED provider. - Continue intravenous ceftriaxone (started in ED). - Send and follow up urine culture. - Admit to medical-surgical floor for at least overnight observation. - Provide intravenous hydration. Monitor for risk of fluid overload. - Transition to oral antibiotics once tolerating diet. - Arrange outpatient follow-up with urology after discharge due to recurrent UTI. - Antiemetic as needed. Tylenol as needed. IV morphine as needed for breakthrough pain. 2. Acute kidney injury superimposed on CKD: Creatinine 1.7 mg/dL (baseline 1.4-1.5 mg/dL) likely prerenal/infectious. - Provide intravenous fluids for renal perfusion. - Monitor renal function during hospitalization. - Hold ezetimibe and lisinopril. Plan: Nausea and vomiting : Onset overnight with abdominal cramping; received ondansetron and fluid bolus in ED. - Administer ondansetron as needed for nausea. - Allow sips of water and advance diet as tolerated. Diabetes mellitus type 2 : Insulin-dependent DM; glucose 142 mg/dL on presentation. - Continue insulin glargine 50 units nightly. - Continue sliding-scale insulin lispro before meals. Hypertension : Chronic; BP 145/71 mmHg in ED. - Continue amlodipine. - Continue lisinopril. Hyperlipidemia : History of hyperlipidemia; fatty liver also present. - Continue statin therapy. Gastroesophageal reflux disease : Chronic GERD. - Continue proton-pump inhibitor. Fatty liver disease : Incidental fatty liver infiltration on CT scan. 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 Endometrial thickening : Incidentally found endometrial lining [address] concerning for hyperplasia or neoplasia. Discussed with her - Follow-up for outpatient pelvic ultrasound. - Recommend follow-up with primary care physician and consider gynecology referral. Major depressive disorder : Chronic MDD; currently takes trazodone for sleep. - Continue trazodone at bedtime. Constipation : Reports no bowel movement for two days and ongoing constipation. Follow-up : Need for coordinated outpatient care post-discharge. - Send hospitalization note to primary care provider (Dr. Raúl Singh). - Provide discharge paperwork to patient to share with outpatient clinicians. - Reassess daily; discharge once tolerating oral intake, afebrile, and clinically improved. PDMP PDMP Reviewed: Not Reviewed Attestations Medical Necessity Statement*: Place in observation for assessment management of bilateral nonobstructing pyelonephritis with history of recurrent KACEY, KACEY on CKD, recurrent nausea and vomiting. and High MDM includes amount and/or complexity of data reviewed/ordered [ previous or external records, resulted lab(s)/test(s), ordered lab(s)/test(s) and other healthcare professional discussion] and described risk of complication, morbidity or mortality of management as documented Diagnoses Pyelonephritis N12 Acute kidney injury superimposed on CKD N17.9; N18.9
--- NOTE | 2025-04-12 14:04 | ECG_ITS ---
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
[2025-04-12] MEDS: insulin glargine 100 units/1 mL 40 UNIT SUBCUT (22:49)
[2025-04-13] MEDS: ondansetron 2 mg/ML SDV 2 mL 4 MG IVP ×2 (02:09→13:05)
--- NOTE | 2025-04-13 02:19 | PC.NURSE ---
pt voided and missed the hat. pt voided large amount. pale yellow, cloudy and foul odor
[2025-04-13 04:00] VITALS: BP 134/73; PULSE 92; RESP 17; TEMP 37.2; O2SAT 95
[2025-04-13 05:11] LABS: Hematocrit 31.9 % (36-47); Hemoglobin 10.10 g/dL (11.27-16.99); Mean Corpuscular HGB Conc 31.7 g/dL (30-55); Mean Corpuscular Hemoglobin 26.8 pg (27-33); Mean Corpuscular Volume 84.6 fl (85-98); Nucleated Red Blood Cells % 0 %; Platelet Count 204 10^3/cmm (157-399); Red Blood Count 3.77 10^6/uL (3.85-5.65); White Blood Count 11.06 10^3/uL (3.29-11.43)
[2025-04-13 05:37] LABS: Alanine Aminotransferase 15 U/L (0-33); Albumin Level 3.4 g/dL (3.5-5.2); Alkaline Phosphatase 108 U/L (35-105); Anion Gap 11.4 (5-19); Aspartate Amino Transferase 15 U/L (0-32); Blood Urea Nitrogen 17 mg/dL (8-23); Calcium 8.7 mg/dL (8.5-10.5); Carbon Dioxide 27 mmol/L (22-29); Chloride 107 mmol/L (98-107); Creatinine Clr Calc Pharmacy 35.0080; Globulin 2.9 g/dL (1.3-4.6); Glucose 126 mg/dL (65-115); Magnesium 1.9 mg/dL (1.7-2.3); Osmolality Calculated 295 mOsm/kg (285-295); Potassium 4.4 mmol/L (3.5-5.1); Sodium 141 mmol/L (136-145); Total Protein 6.3 g/dL (6.6-8.7)
--- NOTE | 2025-04-13 06:10 | PC.NURSE ---
pt up to bathroom, when back to bed pt stated there's that man over there patient indicated area where sharps container is. Pt also asked her daughter if she is seeing the man standing there .
[2025-04-13 08:00] VITALS: BP 130/75; PULSE 94; RESP 18; TEMP 38; O2SAT 96
[2025-04-13] MEDS: cefTRIAXone 1,000 mg SDV 1000 MG IVP (08:49)
--- NOTE | 2025-04-13 10:06 | PC.CHAP ---
Pastoral Care Encounter/Spiritual Assessment Type of Contact [] Declined sheriff's sergeant visit [] Patient/Family/Request visit [] Outpatient visit [] Follow-up visit [] Physician referral [] Code/Alert [x] Routine visit [] Staff referral [] Actively dying [] Patient sleeping [x] Family support [] [] Out of room [] Palliative care [] [] Receiving care in room [] Pre-surgical visit [] Trauma [] Long length of stay [] ICU visit [] Other: Relational/Emotional Strength [x] Patient feels connected with others/family/visitors/staff [] Distress [] Loneliness/isolation [] Abandonment Spirituality of Patient [x] Person of Soraida [] Attends Mandaen of their Soraida [x] Believes in Prayer [] Reads Bible or Taoism materials [] There are Spiritual issues to be addressed [employer]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 Interventions [x] Prayer [x] Active listening [x] Non-anxious presence [x] Spiritual/emotional support [] Crisis/trauma care [] Spiritual counseling [] Bereavement support [] Provided bereavement packet [] Provided Bible/devotional materials [] Provided toy/stuffed animal, coloring book to patient or family member [] Provided Communion [] Anointing/[place] [] Salvation [x] Completed spiritual assessment [] Other: Impact on Illness or Injury [] Angry [] Fearful [] Anxious [] Often cries [] Exhaustion [] Unable to work [] Unable to attend adventism [] Unable to walk/stand [] Unable to read [] Unable to drive [] Unable to eat/drink [] Unable to sleep [] Unable to be with family [] Patient intubated [] Other: Summary Time spent with patient 5 min
[2025-04-13 12:00] VITALS: BP 114/71; PULSE 79; RESP 17; TEMP 36.6; O2SAT 96
--- NOTE | 2025-04-13 13:55 | P.PN_ITS ---
Subjective 2 Subjective: Running a fever this morning, 100.4 Fahrenheit. Having some hallucinations with seeing a man who was not there. Vitals/I&O/Wt Last Vital Signs Temp 97.9 F 04/13/25 12:00 Pulse 79 04/13/25 12:00 Resp 17 04/13/25 12:00 BP 114/71 04/13/25 12:00 Pulse Ox 96 04/13/25 12:00 O2 Del Method Room Air 04/13/25 04:00 04/12/25 04/13/25 04/13/25 22:59 06:59 14:59 Intake Total 3090 / 3090 1540 / 4630 600 / 600 Output Total 100 / 100 500 / 600 600 / 600 Balance 2990 / 2990 1040 / 4030 0 / 0 Weight last 48 hrs Weight 67.614 kg Weight 68.096 kg Weight 69.853 kg Physical Exam 2 Narrative: Echo obtained by her family including her daughter. Const: COMMON NORMALS: patient oriented x3 and alert GENERAL APPEARANCE: c ooperative ORIENTATION/CONSCIOUSNESS: Yes awake HENMT: COMMON NORMALS: oropharynx normal Neck/C-Spine: COMMON NORMALS: no JVD Resp: COMMON NORMALS: normal respiratory effort and clear to auscultation bilaterally AUSCULTATION: clear to auscultation bilaterally Cardio: COMMON NORMALS: no JVD, regular rhythm, S1 normal heart sound present, S2 normal heart sound present and No murmurs present (Cardio) RHYTHM: regular rhythm HEART SOUNDS: S1 normal heart sound present and S2 normal heart sound present GI: COMMON NORMALS: Normal to inspection, nondistended, normoactive bowel sounds present, Soft to palpation and non-tender PALPATION: Yes Soft to palpation Extremity: COMMON NORMALS: no joint enlargement and no pedal edema Neuro: COMMON NORMALS: patient oriented x3 and moves all extremities S ENSORIUM/ORIENTATION: Yes alert Skin: COMMON NORMALS: no rashes or lesions noted GENERAL SKIN EXAM: no rashes or lesions noted Data 04/13/25 05:01 04/13/25 05:01 Micro: Microbiology 04/12/25 11:22 Urine Culture - Preliminary Urine,Clean Catch Gram Negative Rods A&P Assessment and plan 1. Pyelonephritis: Complicated by acute metabolic encephalopathy with delirium with hallucinations per history obtained from her daughter who stayed in her room. Febrile. Continue treatment of pyelonephritis with IV antibiotics at this time. Reassess mental status. Reviewed vitals, CBC, chemistry, reviewed urine culture, noted growing gram-negative rods. Follow-up. Discussed with nursing, human services case manager. - Continue intravenous ceftriaxone, adjust based on culture - Send and follow up urine culture. -Stop intravenous hydration. Monitor for risk of fluid overload. - Transition to oral antibiotics once tolerating diet. - Arrange outpatient follow-up with urology after discharge due to recurrent UTI. - Antiemetic as needed. Tylenol as needed. IV morphine as needed for breakthrough pain. 2. Acute kidney injury superimposed on CKD: Noted improving creatinine down to 1.6. Will stop further IV fluid. Creatinine 1.7 mg/dL (baseline 1.4-1.5 mg/dL) likely prerenal/infectious. - Monitor renal function during hospitalization. - Hold ezetimibe and lisinopril. Plan: Nausea and vomiting : So far improving. Will advance diet for trial of soft diet. Continue antiemetic as needed. - Administer ondansetron as needed for nausea. - Allow sips of water and advance diet as tolerated. Diabetes mellitus type 2 : Insulin-dependent DM; reviewed glucose. - Continue insulin glargine 50 units nightly. - Continue sliding-scale insulin lispro before meals. Hypertension : Chronic; BP 145/71 mmHg in ED. - Continue amlodipine. - Held lisinopril for now with KACEY on CKD, reassess renal function. Hyperlipidemia : History of hyperlipidemia; fatty liver also present. - Continue statin therapy. Gastroesophageal reflux disease : Chronic GERD. - Continue proton-pump inhibitor. Fatty liver disease : Incidental fatty liver infiltration on CT scan. - Bottom Cager on low-cholesterol, Mediterranean-style diet and increased physical activity. Endometrial thickening : Incidentally found endometrial lining [address] concerning for hyperplasia or neoplasia. Discussed with her and her daughter. - Follow-up for outpatient pelvic ultrasound. - Recommend follow-up with primary care physician and consider gynecology referral. Major depressive disorder : Chronic MDD; currently takes trazodone for sleep. - Continue trazodone at bedtime. Constipation : Reports no bowel movement for two days and ongoing constipation. Add MiraLAX. Follow-up : Need for coordinated outpatient care post-discharge. - Send hospitalization note to primary care provider (Dr. Raúl Singh). - Provide discharge paperwork to patient to share with outpatient clinicians. - Reassess daily; discharge once tolerating oral intake, afebrile, and clinically improved. PDMP PDMP Reviewed: Not Reviewed Attestations 2 Medical Necessity Statement*: Requiring admission of over 2 midnights for assessment and management of pyelonephritis with KACEY and CKD complicated by acute metabolic encephalopathy with delirium and hallucinations. and High MDM includes amount and/or complexity of data reviewed/ordered [ resulted lab(s)/test(s), ordered lab(s)/test(s), independent historian and other healthcare professional discussion] as documented Diagnoses Pyelonephritis N12 Acute kidney injury superimposed on CKD N17.9; N18.9
[2025-04-13 16:06] VITALS: BP 96/57; PULSE 86; RESP 18; TEMP 36.6; O2SAT 95
[2025-04-13 19:50] VITALS: BP 160/67; PULSE 105; RESP 15; TEMP 37; O2SAT 95
[2025-04-13] MEDS: insulin glargine 100 units/1 mL 40 UNIT SUBCUT (21:03)
[2025-04-13 23:58] VITALS: BP 126/72; PULSE 85; RESP 16; TEMP 36.7; O2SAT 95
[2025-04-14 04:00] VITALS: BP 113/68; PULSE 93; RESP 16; TEMP 36.6; O2SAT 95
[2025-04-14 04:48] LABS: Hematocrit 30.8 % (36-47); Hemoglobin 10.00 g/dL (11.27-16.99); Mean Corpuscular HGB Conc 32.5 g/dL (30-55); Mean Corpuscular Hemoglobin 27.5 pg (27-33); Mean Corpuscular Volume 84.6 fl (85-98); Nucleated Red Blood Cells % 0 %; Platelet Count 190 10^3/cmm (157-399); Red Blood Count 3.64 10^6/uL (3.85-5.65); White Blood Count 9.10 10^3/uL (3.29-11.43)
[2025-04-14 05:11] LABS: Alanine Aminotransferase 13 U/L (0-33); Albumin Level 3.2 g/dL (3.5-5.2); Alkaline Phosphatase 107 U/L (35-105); Anion Gap 13.4 (5-19); Aspartate Amino Transferase 9 U/L (0-32); Blood Urea Nitrogen 16 mg/dL (8-23); Calcium 8.9 mg/dL (8.5-10.5); Carbon Dioxide 26 mmol/L (22-29); Chloride 103 mmol/L (98-107); Creatinine Clr Calc Pharmacy 35.1323; Globulin 3.2 g/dL (1.3-4.6); Glucose 315 mg/dL (65-115); Osmolality Calculated 299 mOsm/kg (285-295); Potassium 4.4 mmol/L (3.5-5.1); Sodium 138 mmol/L (136-145); Total Protein 6.4 g/dL (6.6-8.7)
[2025-04-14 08:01] VITALS: BP 172/79; PULSE 85; RESP 18; TEMP 36.9; O2SAT 95
--- NOTE | 2025-04-14 08:18 | P.DS_ITS ---
Discharge Providers Date of Admission: 04/13/25 10:58 Date of Discharge: April 14, 2025 Attending Provider at Admission: Robbie Stapleton Attending Provider at Discharge: Robbie Stapleton Primary Care Provider: Kati Singh DO Diagnoses at Discharge Discharge Diagnosis 1. Pyelonephritis: 2. Acute kidney injury superimposed on CKD: Reason for Visit Reason for Visit: N/V Brief History: Julia Lovett is a 60 year old woman with a history of type 2 diabetes mellitus, gastroesophageal reflux disease, major depressive disorder, borderline intellectual functioning, chronic kidney disease, hypertension, and hyperlipidemia who presented to the emergency department overnight for new-onset nausea and vomiting beginning in the middle of last night, accompanied by lower abdominal cramping. She denies diarrhea but reports constipation over the past two days without bowel movement. No hematemesis, melena, hematochezia, fever, cough, dyspnea, or sputum production. In the emergency department she received 2 L normal saline, ceftriaxone, morphine, and ondansetron and notes some ongoing abdominal discomfort. Prior urine cultures (November, January, February) grew Proteus species resistant to ampicillin. Computed tomography of the abdomen/pelvis demonstrated bilateral pyelonephritis (right > left), mild hydronephrosis/ureterectasis, a non-obstructing 2 mm distal right ureteral calculus, fatty liver infiltration, a small ventral hernia, and thickened endometrium (13 mm) concerning for hyperplasia/neoplasia. She confirms long- standing recurrent urinary tract infections and has not yet seen a urologist. Current insulin regimen is Lantus 50 units at bedtime with sliding-scale Humalog before meals; she also takes amlodipine, lisinopril, a statin, a proton-pump inhibitor, and trazodone. She is a former smoker and regularly drinks dark sodas. No drug or alcohol use reported. Hospital Course Hospital Course She was treated empirically with ceftriaxone for bilateral nonobstructive pyelonephritis. Urine culture eventually again growing the same organism with Proteus mirabilis resistant to ampicillin. Transient encephalopathy with delirium and hallucinations resolved. Fever resolved. Without leukocytosis. KACEY on CKD resolved. Please follow-up after the complicated recurrent UTI. She is asked to follow-up with urology due to recurrent UTIs as well as incidentally noted left renal pelvo/ ureterectasis incidentally found tiny nonobstructing stone. Continue to optimize diabetes control. Due to soft blood pressures her lisinopril dose is decreased to 5 mg daily. Please reassess renal function. Please also follow-up regarding incidentally noted thickened endometrium, and she is referred to gynecology for assessment. Please also follow-up in further assess/manage incidentally noted fatty liver disease. Physical Exam Narrative: Overall feeling better. No recurrence of fever. Known nausea vomiting, although appetite is not the best but is eating small amounts. Accompanied by her daughter. Const: COMMON NORMALS: patient oriented x3 and alert GENERAL APPEARANCE: cooperative ORIENTATION/CONSCIOUSNESS: Yes awake HENMT: COMMON NORMALS: oropharynx normal Neck/C-Spine: COMMON NORMALS: no JVD Resp: COMMON NORMALS: normal respiratory effort and clear to auscultation bilaterally AUSCULTATION: clear to auscultation bilaterally Cardio: COMMON NORMALS: no JVD, regular rhythm, S1 normal heart sound present, S2 normal heart sound present and No murmurs present (Cardio) RHYTHM: regular rhythm HEART SOUNDS: S1 normal heart sound present and S2 normal heart sound present GI: COMMON NORMALS: Normal to inspection, nondistended, normoactive bowel sounds present, Soft to palpation and non-tender PALPATION: Yes Soft to palpation Extremity: COMMON NORMALS: no joint enlargement and no pedal edema Neuro: COMMON NORMALS: patient oriented x3 and moves all extremities SENSORIUM/ORIENTATION: Yes alert Skin: COMMON NORMALS: no rashes or lesions noted GENERAL SKIN EXAM: no rashes or lesions noted Discharge Data Studies Completed and Pending Completed Studies During Hospitalization Category Date Time Status CT abdomen pelvis w con* [id number] Stat Cat Scan 04/12/25 09:22 Completed Pending at discharge Category Date Time Status Complete Blood Count w/Auto AM LABS Lab 04/15/25 04:00 Ordered Comprehensive Metabolic Panel AM LABS Lab 04/15/25 04:00 Ordered Urine Culture Stat Lab 04/12/25 11:22 Results Radiology Impressions Abdomen/Pelvis CT 04/12/25 09:22 IMPRESSION: 1. Bilateral pyelonephritis with RIGHT greater than LEFT pelvicaliectasis and ureterectasis. 2. Tiny calculus adjacent to or in the distal RIGHT ureter is unchanged since 12/01/2024 measuring 2 mm probably incidental and nonobstructing. 3. Fatty liver. 4. Cholecystectomy. 5. Small esophageal hiatal hernia. 6. Abnormal thickening of the endometrium measuring 13 mm suspicious for neoplasia or hyperplasia in a patient this age. Recommend further evaluation. Laboratory Results WBC 9.10 10^3/uL (3.29-11.43) 04/14/25 04:39 RBC 3.64 10^6/uL (3.85-5.65) L 04/14/25 04:39 Hgb 10.00 g/dL (11.27-16.99) L 04/14/25 04:39 Hct 30.8 % (36-47) L 04/14/25 04:39 MCV 84.6 fl (85-98) L 04/14/25 04:39 MCH 27.5 pg (27-33) 04/14/25 04:39 MCHC 32.5 g/dL (30-55) 04/14/25 04:39 RDW 14.0 % (12.1-15.1) 04/14/25 04:39 Plt Count 190 10^3/cmm (157-399) 04/14/25 04:39 MPV 10.7 fL (7.4-10.4) H 04/14/25 04:39 Neut % (Auto) 63.7 % 04/14/25 04:39 Lymph % (Auto) 22.1 % 04/14/25 04:39 [place] % (Auto) 10.8 % 04/14/25 04:39 Eos % (Auto) 2.3 % 04/14/25 04:39 Baso % (Auto) 0.7 % 04/14/25 04:39 Neut # (Auto) 5.80 10^3/uL (1.8-7.7) 04/14/25 04:39 Lymph # (Auto) 2.0 10^3/uL (0.8-4.8) 04/14/25 04:39 [place] # (Auto) 1.0 10^3/uL (0.2-0.9) H 04/14/25 04:39 Eos # (Auto) 0.2 10^3/uL (0.0-0.8) 04/14/25 04:39 Baso # (Auto) 0.1 10^3/uL (0.0-0.1) 04/14/25 04:39 Nucleated RBC % (auto) 0 % 04/14/25 04:39 Nucleated RBCs # 0.0 /100WBC 04/14/25 04:39 Sodium 138 mmol/L (136-145) 04/14/25 04:39 Potassium 4.4 mmol/L (3.5-5.1) 04/14/25 04:39 Chloride 103 mmol/L (98-107) 04/14/25 04:39 Carbon Dioxide 26 mmol/L (22-29) 04/14/25 04:39 Anion Gap 13.4 (5-19) 04/14/25 04:39 BUN 16 mg/dL (8-23) 04/14/25 04:39 Creatinine 1.6 mg/dL (0.5-0.9) H 04/14/25 04:39 GFR Calculation 32.8 mL/min (90-130) L 04/14/25 04:39 Glucose 315 mg/dL (65-115) H 04/14/25 04:39 POC Glucose 345 mg/dL (70-110) H 04/14/25 06:42 Calculated Osmolality 299 mOsm/kg (285-295) H 04/14/25 04:39 Calcium 8.9 mg/dL (8.5-10.5) 04/14/25 04:39 Magnesium 1.9 mg/dL (1.7-2.3) 04/13/25 05:01 Total Bilirubin 0.3 mg/dL (0.15-1.2) 04/14/25 04:39 AST 9 U/L (0-32) 04/14/25 04:39 ALT 13 U/L (0-33) 04/14/25 04:39 Alkaline Phosphatase 107 U/L (35-105) H 04/14/25 04:39 Total Protein 6.4 g/dL (6.6-8.7) L 04/14/25 04:39 Albumin 3.2 g/dL (3.5-5.2) L 04/14/25 04:39 Globulin 3.2 g/dL (1.3-4.6) 04/14/25 04:39 Lipase 21 U/L (13-60) 04/12/25 09:34 Urine Color Yellow (Yellow) 04/12/25 11:22 Urine Appearance Clear (CLEAR) 04/12/25 11:22 Urine pH 7.5 (5-7) 04/12/25 11:22 Ur Specific [place] 1.037 (1.005-1.030) H 04/12/25 11:22 Urine Protein 1+ (Negative) A 04/12/25 11:22 Urine Glucose (UA) Negative (Normal) 04/12/25 11:22 Urine Ketones Negative (Negative) 04/12/25 11:22 Urine Blood 2+ (Negative) A 04/12/25 11:22 Urine Nitrate Negative (Negative) 04/12/25 11:22 Urine Bilirubin Negative (Negative) 04/12/25 11:22 Urine Urobilinogen 1.0 mg/dL (Negative) 04/12/25 11:22 Ur Leukocyte Esterase 3+ (Negative) A 04/12/25 11:22 Urine RBC >100 /hpf (0-2) H 04/12/25 11:22 Urine WBC >100 /hpf (0-5) H 04/12/25 11:22 Ur Squamous Epith Cells 0-5 /hpf (0-5) 04/12/25 11:22 Amorphous Sediment Not Reportable 04/12/25 11:22 Urine Bacteria None seen /hpf (NONE) 04/12/25 11:22 Hyaline Casts 0.40 /lpf 04/12/25 11:22 Vitals Last Vital Signs Temp 98.4 F 04/14/25 08:01 Pulse 85 04/14/25 08:01 Resp 18 04/14/25 08:01 BP 172/79 04/14/25 08:01 Pulse Ox 95 04/14/25 08:01 O2 Del Method Room Air 04/14/25 08:01 Discharge Plan Discharge Patient Disposition: Home Condition: Stable Prescriptions: New lisinopril 5 mg tablet 5 mg PO DAILY Qty: 30 0RF cefdinir 300 mg capsule 300 mg PO BID 8 Days Qty: 16 0RF polyethylene glycol 3350 17 gram Powder In Packet 17 g PO BID@0500,1700 Qty: 30 0RF Continued (DME) Dexcom G7 Sensor Device See Rx Instructions .Route Qty: 3 6RF Rx Instructions: As directed (DME) OneTouch Verio test strips Strip See Rx Instructions .Route Qty: 400 3RF Rx Instructions: Check Blood Sugar up to 3 Type 2 diabetes mellitus E11.42 insulin glargine [Lantus Solostar U-100 Insulin] 100 unit/mL (3 mL) insulin pen 50 unit SUBCUT BID Qty: 30 3RF rosuvastatin [Crestor] 20 mg tablet 20 mg PO DAILY Qty: 30 4RF trazodone 100 mg tablet 300 mg PO BEDTIME Qty: 90 2RF hydroxyzine HCl 25 mg tablet 50 mg PO BEDTIME Qty: 60 2RF bupropion HCl [Wellbutrin XL] 300 mg tablet extended release 24 hr 300 mg PO QAM Qty: 90 0RF montelukast [Singulair] 10 mg Tablet 10 mg PO DAILY tizanidine 2 mg tablet 2 mg PO BEDTIME PRN (Reason: Pain) omeprazole 20 mg capsule,delayed release(DR/EC) 20 mg PO DAILY glucagon HCl [Glucagon (HCl) Emergency Kit] 1 mg recon soln 1 mg IM Q20M PRN (Reason: hypoglycemia) Qty: 1 0RF Rx Instructions: until target blood sugar attained insulin lispro 100 unit/mL insulin pen 5 unit SUBCUT TID ezetimibe 10 mg tablet 10 mg PO DAILY (DME) lancets Misc See Rx Instructions .ROUTE .MEDSUPPLY Qty: 100 0RF Rx Instructions: As directed dicyclomine 20 mg tablet 40 mg PO QID pregabalin 75 mg capsule 75 mg PO BID amlodipine 5 mg tablet 5 mg PO DAILY Discontinued lisinopril 20 mg tablet 20 mg PO QAM Discharge Order = DC NOW: Discharge Order (Routine); Ordered 04/14/25 Ordered By: Robbie Stapleton Referrals: Kati Singh DO [Primary Care Provider, FOUNDATION RELATIONS MANAGER] - 04/20/25 11:15 am Zach Isaacs MD [Physician, FOUNDATION RELATIONS MANAGER] - 04/24/25 10:00 am Troy Ruiz MD [Referring, Urology] - 1 week Referral Note: Recurrent UTI, L pelvi-ureterectasis We have notified your physician's clinic of the need for a follow-up appointment to be scheduled. If you have not heard from them within the next 2 business days, please call them directly. Discharge Diet: Diabetic Discharge Activity: Increase activity as tolerated Patient Instructions: Lisinopril (By mouth), Cefdinir (By mouth), Polyethylene Glycol 3350 (By mouth) (Miralax, Healthylax..., Opioid Safety, Patient Portal & Melanie Instructions, Pyelonephritis Activity Restrictions/Additional Instructions: As discussed, follow-up with your primary provider for reassessment after kidney infection (pyelonephritis), have them follow-up the final urine culture. Complete antibiotic. Antibiotic may need to be adjusted based on final culture results. Seek medical attention in case of worsening or concerning symptoms as discussed. Continue to optimize blood glucose control. Continue to monitor blood pressures. Please decrease lisinopril dose for now to 5 mg daily due to some noted soft blood pressures. Avoid hypotension, do not take the medication if your blood pressures less than 100/60. Have your primary doctor reassess your kidney function. As well as follow-up on incidental findings including as discussed fatty liver infiltration, thickened endometrium. Follow-up with urology for assessment of recurrent urinary tract infections with some dilation of left renal pelvis and ureter. Follow-up with gynecology for assessment of incidentally noted thickened endometrium. Continue bowel regimen with MiraLAX or similar medication for constipation. Discharge Attestations Time Spent in Discharge Care*: greater than 30 min Status at Discharge: Cognitive status at discharge: mildly impaired cognition , Behavioral status at discharge: cooperative , Quality Metrics Clinical Quality Measures [ No reported AMI, CVA or VTE this stay] Coding Level of Care Code 72159 Total time (in minutes) for Discharge: 40 Diagnoses Pyelonephritis N12 Acute kidney injury superimposed on CKD N17.9; N18.9
[2025-04-14] MEDS: cefTRIAXone 1,000 mg SDV 1000 MG IVP (08:42)
[2025-04-14 10:25] VITALS: BP 113/72; PULSE 85; RESP 16; TEMP 36.9; O2SAT 95
== END 2025-04-14 09:45 | disposition home or self-care (01) | DRG 689 ==
LOC: ER 11:47 → ER IP 14:22 → MEDSURG 14:57
PROVIDERS: Admitting Provider Internal Medicine; Emergency Provider Emergency Medicine; PCP Family Medicine; Visit Provider Internal Medicine
DX: N13.6 Pyonephrosis (principal); G93.41 Metabolic encephalopathy; Z16.11 Resistance to penicillins; F33.2 Major depressive disorder, recurrent severe without psychotic features; B96.4 Proteus (mirabilis) (morganii) as the cause of diseases classified elsewhere; N17.9 Acute kidney failure, unspecified; E11.22 Type 2 diabetes mellitus with diabetic chronic kidney disease; I12.9 Hypertensive chronic kidney disease with stage 1 through stage 4 chronic kidney disease, or unspecified chronic kidney disease; N18.9 Chronic kidney disease, unspecified; K21.9 Gastro-esophageal reflux disease without esophagitis; F79 Unspecified intellectual disabilities; E78.5 Hyperlipidemia, unspecified; K76.0 Fatty (change of) liver, not elsewhere classified; K59.00 Constipation, unspecified; K43.9 Ventral hernia without obstruction or gangrene; Z79.4 Long term (current) use of insulin; Z79.891 Long term (current) use of opiate analgesic; Z87.440 Personal history of urinary (tract) infections; Z87.891 Personal history of nicotine dependence; Z86.0100 Personal history of colon polyps, unspecified
CPT/HCPCS: 36415; 36416; 74177; 80053; 81001; 82962; 83690; 83735; 85025; 87077; 87086; 87186; 93005; 96372; G0378; J0696; J1650; J1815; J2270; J2405; J7030; J7120; J7799; J9999

== ENCOUNTER → 2025-05-18 12:44 | Outpatient (BNVA) | payer MEDICARE, MEDICAID, SELFPAY ==
[2024-12-22 17:38] VITALS: BP 118/74
== END ==
PROVIDERS: PCP Family Medicine; Visit Provider Internal Medicine
DX: E11.42 Type 2 diabetes mellitus with diabetic polyneuropathy (principal); E11.40 Type 2 diabetes mellitus with diabetic neuropathy, unspecified; E78.5 Hyperlipidemia, unspecified; Z79.4 Long term (current) use of insulin
CPT/HCPCS: 36415; 80053; 80061; 82044; 83036

== ENCOUNTER 2025-05-19 15:14 | Outpatient (CLI) | payer OTHER, MEDICAID, SELFPAY ==
[2024-12-22 17:38] VITALS: BP 118/74
--- NOTE | 2025-05-19 15:30 | USR_ITS ---
PROCEDURE INFORMATION: Exam: US Pelvis, Transvaginal, Non-Obstetric Exam date and time: 05/19/2025 3:30 PM Age: 60 years old Clinical indication: Abnormal findings; Abnormal imaging test; Additional info: R93.5 - abnormal findings on diagnostic imaging of other . . . TECHNIQUE: Imaging protocol: Real-time transvaginal pelvic (non-obstetric) ultrasound with image documentation. Transvaginal imaging was used for better evaluation of the endometrium, adnexa, and/or cervix. COMPARISON: US transvaginal [id number] 02/14/2020 12:55 PM FINDINGS: Uterus: Uterus is normal. Retroflexed configuration. Endometrial stripe measures 1.1 cm. Right ovary/adnexa: Not identified. No adnexal mass Left ovary/adnexa: Not identified. No adnexal mass Urinary bladder: Urinary bladder is limited. Intraperitoneal space: No free fluid. US/US transvaginal [id number] IMPRESSION: No acute findings.
== END 2025-05-19 15:15 | disposition home or self-care (01) ==
LOC: RAD 15:17
PROVIDERS: PCP Family Medicine; Visit Provider Obstetrics & Gynecology
DX: R93.5 Abnormal findings on diagnostic imaging of other abdominal regions, including retroperitoneum (principal); N85.4 Malposition of uterus; R93.89 Abnormal findings on diagnostic imaging of other specified body structures
CPT/HCPCS: 76830

== ENCOUNTER → 2025-05-24 14:10 | Outpatient (BNVA) | payer OTHER, MEDICAID, SELFPAY ==
[2025-05-25 14:39] VITALS: BP 110/78; BMI 26.4
== END ==
PROVIDERS: PCP Family Medicine; Visit Provider Podiatrist Foot & Ankle Surgery
DX: E11.42 Type 2 diabetes mellitus with diabetic polyneuropathy (principal); B35.1 Tinea unguium; E11.8 Type 2 diabetes mellitus with unspecified complications; E11.40 Type 2 diabetes mellitus with diabetic neuropathy, unspecified; Z79.4 Long term (current) use of insulin
CPT/HCPCS: 11721

== ENCOUNTER 2025-06-22 21:03 | Emergency (ER) | payer OTHER, MEDICAID, SELFPAY ==
[2025-05-25 14:39] VITALS: BP 110/78; BMI 26.4
[2025-06-22 21:04] VITALS: BP 163/78; PULSE 117; RESP 17; TEMP 37.1; O2SAT 94; BMI 26.7
--- OUTSIDE RECORDS SUMMARY | 2025-06-22 21:07 | XMS_ITS | Patient Health Record ---
Author Organization [facility] Address [address] [place] [address] Care Team Providers Care Devulcanizer Operator Name Role Phone Jasson Tamayo Unavailable [phone] Reason For Referral No Information Problems Problem Type SNOMED Code ICD Code Onset Dates Problem Status W/U Status Risk Notes Problem Information temporarily unavailable Generalized weakness (780.79) 016 Problem resolved confirmed [id number]- Problem Information temporarily unavailable Vaginal discharge, unspecified (616.10) 017 Problem resolved confirmed [id number]- Problem Information temporarily unavailable Hypercholesterolemia (272.0) 018 Problem resolved confirmed [id number]- Problem Information temporarily unavailable Toe onychomycosis (110.1) 018 Problem resolved confirmed [id number]- Problem Information temporarily unavailable Type 2 diabetes, uncontrolled (250.02) 017 Active confirmed [id number]- Problem Information temporarily unavailable Yeast vaginitis (112.1) 016 Problem resolved confirmed [id number] 911- Problem Information temporarily unavailable Screening for colon cancer (V76.49) 016 Problem resolved confirmed [id number] 911- Problem Information temporarily unavailable Other abnormal findings on blood examination (790.99) 016 Problem resolved confirmed [id number] 911- Problem Information temporarily unavailable Sore Throat (462) 017 Problem resolved confirmed [id number] 911- Problem Information temporarily unavailable Superficial injury of foot, NEC (917.8) 016 Problem resolved confirmed [id number] 911- Problem Information temporarily unavailable Foot pain (729.5) 016 Problem resolved confirmed [id number] 911- Problem Information temporarily unavailable Peripheral neuropathy (356.9) 016 Problem resolved confirmed [id number] 911- Problem Information temporarily unavailable Precordial chest pain (786.51) Problem resolved confirmed [id number] 911- Problem Information temporarily unavailable Vaccination against other viral diseases, Influenza (V04.81) Problem resolved confirmed [id number] 911- Problem Information temporarily unavailable Yeast infection (112.9) Active confirmed [id number] 911- Problem Information temporarily unavailable Atypical skin lesion (238.2) Problem resolved confirmed [id number] 911- Problem Information temporarily unavailable Essential hypertension (401.1) Active confirmed [id number] 911- Problem Information temporarily unavailable Type 2 diabetes (250.00) Problem resolved confirmed [id number] 911- Problem Information temporarily unavailable Screening mammogram - other (V76.12) Problem resolved confirmed [id number] 911- Plan Of Treatment No Information
--- OUTSIDE RECORDS SUMMARY | 2025-06-22 21:07 | XMS_ITS ---
Laboratory report Created on: June 21, 2025 LURDES CABALLERO : 1965 Sex: Female Author Name NICOLE JACKSON Organization Unknown PROBLEMS Problems List Code Description E11.65 E78.5 E55.9 E53.8 RESULTS Laboratory Orders Date Order Code Test 2025-06-14 892460 VITAMIN D, 25-HY DROXY 2025-06-14 628889 VITAMIN B12 2025-06-14 588956 CMP14+CBC/D/PLT+ TSH 2025-06-14 871455 LIPID PANEL W/ C HOL/HDL RATIO 2025-06-14 538630 HEMOGLOBIN A1C Laboratory Results Date LOINC Test Value Unit Reference Range Interpre tation 2025-06-14 64316-5 VITAMIN D, 25-HYDROXY 36.8 NG/ML 30.0-100.0 2025-06-14 2132-9 VITAMIN B12 232 PG/ML 232-1245 2025-06-14 2345-7 GLUCOSE 418 MG/DL 70-99 H 2025-06-14 3094-0 BUN 20 MG/DL 8-27 2025-06-14 2160-0 CREATININE 1.6 MG/DL 0.57-1.00 H 2025-06-14 28070-8 EGFR 36 ML/MIN/1.73 >59 L 2025-06-14 3097-3 BUN/CREATININE RATIO 13 12-2025-06-14 2951-2 SODIUM 131 MMOL/L 134-144 L 2025-06-14 2823-3 POTASSIUM 4.6 MMOL/L 3.5-5.2 2025-06-14 2075-0 CHLORIDE 91 MMOL/L 96-106 L 2025-06-14 2028-9 CARBON DIOXIDE, TOTAL 27 MMOL/L 20-29 2025-06-14 70118-6 CALCIUM 9.4 MG/DL 8.7-10.3 2025-06-14 2885-2 PROTEIN, TOTAL 7.1 G/DL 6.0-8.5 2025-06-14 1751-7 ALBUMIN 4.2 G/DL 3.9-4.9 2025-06-14 21450-9 GLOBULIN, TOTAL 2.9 G/DL 1.5-4.5 2025-06-14 1975-2 BILIRUBIN, TOTAL .3 MG/DL 0.0-1.2 2025-06-14 6768-6 ALKALINE PHOSPHATASE 185 IU/L 49-135 H 2025-06-14 1920-8 AST (SGOT) 9 IU/L 0-40 2025-06-14 1742-6 ALT (SGPT) 16 IU/L 0-32 2025-06-14 56284-4 TSH 1.34 UIU/ML 0.450-4.500 2025-06-14 6690-2 WBC 10.6 X10E3/UL 3.4-10.8 2025-06-14 789-8 RBC 4.42 X10E6/UL 3.77-5.28 2025-06-14 718-7 HEMOGLOBIN 12.4 G/DL 11.1-15.9 2025-06-14 4544-3 HEMATOCRIT 38.2 % 34.0-46.6 2025-06-14 787-2 MCV 86 FL 79-97 2025-06-14 785-6 MCH 28.1 PG 26.6-33.0 2025-06-14 786-4 MCHC 32.5 G/DL 31.5-35.7 2025-06-14 788-0 RDW 12.4 % 11.7-15.4 2025-06-14 777-3 PLATELETS 300 X10E3/UL 134-883 8939-10-15 770-8 NEUTROPHILS 60 % 2025-06-14 736-9 LYMPHS 27 % 2025-06-14 5905-5 MONOCYTES 9 % 2025-06-14 713-8 EOS 2 % 2025-06-14 706-2 BASOS 1 % 2025-06-14 751-8 NEUTROPHILS (ABSOLUTE) 6.5 X10E3/UL 1.4-7.0 2025-06-14 731-0 LYMPHS (ABSOLUTE) 2.9 X10E3/UL 0.7-3.1 2025-06-14 742-7 MONOCYTES(ABSOLUTE) .9 X10E3/UL 0.1-0.9 2025-06-14 711-2 EOS (ABSOLUTE) .2 X10E3/UL 0.0-0.4 2025-06-14 704-7 BASO (ABSOLUTE) .1 X10E3/UL 0.0-0.2 2025-06-14 14127-9 IMMATURE GRANULOCYTES 1 % 2025-06-14 78916-4 IMMATURE GRANS (ABS) .1 X10E3/UL 0.0-0.1 2025-06-14 2093-3 CHOLESTEROL, TOTAL 251 MG/DL 100-199 H 2025-06-14 2571-8 TRIGLYCERIDES 271 MG/DL 0-149 H 2025-06-14 2085-9 HDL CHOLESTEROL 38 MG/DL >39 L 2025-06-14 48676-0 VLDL CHOLESTEROL [place] 51 MG/DL 5-40 H 2025-06-14 37689-7 LDL CHOL CALC ([facility]) 162 MG/DL 0-99 H 2025-06-14 9830-1 T CHOL/HDL RATIO 6.6 RATIO 0.0-4.4 H 2025-06-14 4548-4 HEMOGLOBIN A1C 12.3 % 4.8-5.6 H
[2025-06-22 22:35] LABS: Hematocrit 38.2 % (36-47); Hemoglobin 12.80 g/dL (11.27-16.99); Mean Corpuscular HGB Conc 33.5 g/dL (30-55); Mean Corpuscular Hemoglobin 27.5 pg (27-33); Mean Corpuscular Volume 82.0 fl (85-98); Nucleated Red Blood Cells % 0 %; Platelet Count 288 10^3/cmm (157-399); Red Blood Count 4.66 10^6/uL (3.85-5.65); White Blood Count 18.88 10^3/uL (3.29-11.43)
[2025-06-22 22:59] LABS: Alanine Aminotransferase 15 U/L (0-33); Albumin Level 4.5 g/dL (3.5-5.2); Alkaline Phosphatase 162 U/L (35-105); Anion Gap 17.2 (5-19); Aspartate Amino Transferase 14 U/L (0-32); Blood Urea Nitrogen 22 mg/dL (8-23); Calcium 10.6 mg/dL (8.5-10.5); Carbon Dioxide 29 mmol/L (22-29); Chloride 96 mmol/L (98-107); Creatinine Clr Calc Pharmacy 38.0044; Globulin 3.9 g/dL (1.3-4.6); Glucose 183 mg/dL (65-115); Osmolality Calculated 294 mOsm/kg (285-295); Potassium 4.2 mmol/L (3.5-5.1); Sodium 138 mmol/L (136-145); Total Protein 8.4 g/dL (6.6-8.7)
--- NOTE | 2025-06-23 00:27 | XRR_ITS ---
PROCEDURE INFORMATION: Exam: XR Abdomen Exam date and time: 06/23/2025 12:28 AM Age: 60 years old Clinical indication: Abdominal pain; Prior surgery; Surgery date: 6+ months; Surgery type: Mary, c sections; Additional info: N/v/d TECHNIQUE: Imaging protocol: Radiologic exam of the abdomen. Views: 2 Views. Upright and supine views. COMPARISON: CT abdomen pelvis w con* [id number] 04/12/2025 10:41 AM FINDINGS: Tubes, catheters and devices: Cholecystectomy clips are seen in the right upper quadrant. Gastrointestinal tract: Normal. No bowel dilation. Intraperitoneal space: Normal. No free air. Bones/joints: Unremarkable for age. XR/XR abdomen min 2V [id number] IMPRESSION: No acute findings.
[2025-06-23 00:42] LABS: Lipase 24 U/L (13-60)
[2025-06-23] MEDS: pantoprazole 40 mg SDV IVP (01:14)
[2025-06-23] MEDS: ondansetron 2 mg/ML SDV 2 mL 4 MG IVP ×2 (01:14→03:20)
--- NOTE | 2025-06-23 01:16 | ED_ITS ---
HPI - Nausea/Vomiting/Diarrhea 2 General: Chief complaint: Nausea/Vomiting/Diarrhea Stated complaint: n/v/d Time Seen by Provider: 06/23/25 00:05 History of Present Illness: Patient is 60-year-old female with multiple abdominal surgeries: Cholecystectomy, , tubal ligation, presents to the ED with central abdominal pain, nausea, vomiting diarrhea. This started at 1730 today. Content: No BM x 8 days. Patient stated that she started abruptly having nausea, vomiting, and diarrhea at 5:30 PM. This progressed to 6 emesis, bilious in nature. No sick contact. No chest pain, shortness of breath. Associated nausea: Yes Associated symtoms: Reports nausea; Denies anxiety, change in vision, chest pain, headache(s) or palpitations Related Data Home Medications ?Medication ?Instructions ?Recorded ?Confirmed amlodipine 5 mg tablet 5 mg PO DAILY 03/17/2506/15 dicyclomine 20 mg tablet 40 mg PO QID 03/17/25 pregabalin 75 mg capsule 75 mg PO BID 03/17/25 insulin lispro 100 unit/mL 12 unit SUBCUT TID 06/15/25 06/15/25 subcutaneous pen (Humalog KwikPen (U-100) Insulin) Previous Rx's ?Medication ?Instructions ?Recorded lancets #100 ea 12/12/24 blood sugar diagnostic (OneTouch #400 ea 01/06/25 Verio test strips) insulin glargine 100 unit/mL (3 50 unit (0.5 mL) SUBCU T BID #30 mL 01/31/25 mL) subcutaneous pen (Lantus Solostar U-100 Insulin) bupropion HCl 300 mg 24 hr tablet, 300 mg PO QAM #90 t abs 04/03/25 extended release (Wellbutrin XL) hydroxyzine HCl 25 mg tablet 50 mg (2 x 25 mg) PO BEDT JEFFREY #60 04/03/25 tabs blood-glucose sensor (Dexcom G7 #3 ea 05/23/25 Sensor device) pen needle, diabetic 31 gauge x #100 ea 05/23/25 1/ (Comfort EZ Pen [place]) trazodone 100 mg tablet 300 mg (3 x 100 mg) PO BEDTI ME #90 06/15/25 tabs ezetimibe 10 mg tablet See Rx Instructions .Route 1 .COMPLEX #30 tabs lactulose 10 gram/15 mL oral 20 g (30 mL) PO BID #237 mL 06/23/25 solution ondansetron 4 mg disintegrating 4 mg PO Q8H PRN nausea and 06/23/25 tablet vomiting 4 days #14 tabs Allergies Allergy/AdvReac Type Severity Reaction Status Date / Time No Known Allergies Allergy Verified 06/16/25 14:24 Review of Systems 2 General: Reports: 10 or more systems reviewed and unremarkable except in HPI and below Const: Denies: fever(s) or chills Eyes: Denies: change in vision or blurry vision ENMT: Denies: throat pain or mouth pain Card: Denies: chest pain or palpitations Resp: Denies: dyspnea or non-productive cough GI: Reports: abdominal pain, nausea, vomiting and diarrhea : Denies: flank pain or difficulty voiding Musc: Denies: neck pain, back pain or extremity pain Skin/Breast: Denies: rash or pruritus Neuro: Denies: headache(s) or numbness in extremities Psych: Denies: anxiety or depression Endo: Denies: polyuria or polydipsia PFSH ED 2 PFSH: Medical History (Updated 06/23/25 @ 01:21 by DIANA Vaughan) History of colon polyps GERD (gastroesophageal reflux disease) Psychiatric care Type 2 diabetes mellitus Yeast infection involving the vagina and surrounding area Borderline intellectual functioning Major depressive disorder, recurrent severe without psychotic features Surgical History (System 06/16/25 @ 14:24 by Diane Matamoros) Hx laparoscopic cholecystectomy 09/13/24 Dr. Kendall Hx of colonoscopy with polypectomy 2016 H/O tubal ligation H/O section x2 Family History (System 06/16/25 @ 14:24 by Diane Matamoros) Father Diabetes Parkinson disease Grandmother Diabetes paternal Brother Diabetes Grandfather Stroke paternal Sister Thyroid disease Denies family history of Clotting disorder Hyperlipidemia Anesthesia complication Bleeding disorder Hypertension Social History (System 06/16/25 @ 14:24 by Diane Matamoros) Smoking and tobacco/nicotine status: former use of tobacco/nicotine Quit status (tobacco/nicotine): has quit using Year quit tobacco: 2015 Second hand smoke exposure: Yes Alcohol intake: former Former alcohol use details: Doesn't remember the last time she drank, it's been a few years Substance/Drug Use: never Adopted: No Caregiver/support person: No (Is looking to get someone in her house to help with laundry ) Lives independently: Yes Household members: none Housing: Apartment Marital status: Marital status details: in 2008 Number of children: 2 Number of grandchildren: 3 Highest education level completed: 9th Grade service: No Current occupational status: disabled Current occupational exposures/hazards: No Pets and animals: No Leisure activites: clubs, music, games, reading and other Leisure activities details: dot[employer] Sexually active: No Do you think of yourself as: Straight/Heterosexual Current gender identity: Female Soraida/Mandaeism: Jew Special soraida needs: No Agree to transfusion: Yes Female Reproductive History: Para: 2 Spontaneous abortions: Yes Physical Exam 2 Const: COMMON NORMALS: no acute distress, average body habitus and patient oriented x3 HENMT: COMMON NORMALS: normocephalic, atraumatic and hearing grossly normal bilaterally HEAD & SCALP: normocephalic and atraumatic FACE & SINUS: n ormal facial exam MOUTH: Normal oral and palatal mucosa present; moist mucous membranes not abnormal (dry) THROAT: posterior oropharynx normal Resp: COMMON NORMALS: normal respiratory effort, No retractions, No use of accessory muscles, clear to auscultation bilaterally and percussion normal A USCULTATION: clear to auscultation bilaterally PERCUSSION: percussion normal GI: COMMON NORMALS: Normal to inspection, nondistended, normoactive bowel sounds present, non-tender, No hepatosplenomegaly present, no masses and no bruits AUSCULTATION: Yes Hypoactive bowel sounds present PALPATION: Yes Firmness to palpation present (GI) (semi), No Tenderness to palpation present (GI), No Guarding due to palpation present (GI), No Rigid due to palpation and Yes No hepatosplenomegaly present PERCUSSION: dullness to percussion : COMMON NORMALS: Yes no CVA tenderness BLADDER/KIDNEY EXAM: Yes no CVA tenderness Back/Pelvis: COMMON NORMALS: no CVA tenderness Extremity: COMMON NORMALS: normal to inspection, full ROM and capillary refill normal Neuro: COMMON NORMALS: patient oriented x3 Psych: COMMON NORMALS: mental status grossly normal, Normal thought process present, cooperative, normal affect and speech normal SPEECH: Yes normal speech THOUGHT PROCESS: Normal thought process present Course 2 Vital Signs: Vital signs: Vital Signs Temperature 98.7 F 06/22/25 21:04 Pulse Rate 117 H 06/22/25 21:04 Respiratory Rate 17 06/22/25 21:04 Blood Pressure 163/78 06/22/25 21:04 Pulse Oximetry 94 06/22/25 21:04 Oxygen Delivery Me thod Room Air 06/22/25 21:04 MDM - Nausea/Vomiting/Diarrhea Medical Decision Making Patient is a 60-year-old female that reports to the emergency room with a few hours of nausea, vomiting, and diarrhea with a history of obstipation x 8 days. X-ray is consistent with large fecal retention. Laboratory data does show some leukocytosis which appears to be leukemoid reaction in nature. She has had multiple emesis which would account for this issue. Her potassium is spared. Will plan on fluid replacement, PPI, and home with Zofran, and lactulose. Medical Records I reviewed the patient's medical records. Lab Data I reviewed the patient's lab results. 06/22/25 22:27 06/22/25 22: Laboratory Results WBC 18.88 10^3/uL (3.29-11.43) H 06/22/25: RBC 4.66 10^6/uL (3.85-5.65) 06/22/25 22: Hgb 12.80 g/dL (11.27-16.99) 06/22/25: Hct 38.2 % (36-47) 06/22/25: MCV 82.0 fl (85-98) L 06/22/25 22: MCH 27.5 pg (27-33) 06/22/25: MCHC 33.5 g/dL (30-55) 06/22/25: RDW 12.4 % (12.1-15.1) 06/22/25: Plt Count 288 10^3/cmm (157-399) 06/22/25 22: MPV 10.5 fL (7.4-10.4) H 06/22/25: Neut % (Auto) 88.4 % 06/22/25: Lymph % (Auto) 5.4 % 06/22/25 22: [place] % (Auto) 5.4 % 06/22/25: Eos % (Auto) 0.1 % 06/22/25: Baso % (Auto) 0.2 % 06/22/25: Neut # (Auto) 16.69 10^3/uL (1.8-7.7) H 06/22/25: Lymph # (Auto) 1.0 10^3/uL (0.8-4.8) 06/22/25: [place] # (Auto) 1.0 10^3/uL (0.2-0.9) H 06/22/25: Eos # (Auto) 0.0 10^3/uL (0.0-0.8) 06/22/25: Baso # (Auto) 0.0 10^3/uL (0.0-0.1) 06/22/25: Nucleated RBC % (auto) 0 % 06/22/25: Nucleated RBCs # 0.0 /100WBC 06/22/25 22: Sodium 138 mmol/L (136-145) 06/22/25: Potassium 4.2 mmol/L (3.5-5.1) 06/22/25: Chloride 96 mmol/L (98-107) L 06/22/25: Carbon Dioxide 29 mmol/L (22-29) 06/22/25: Anion Gap 17.2 (5-19) 06/22/25: BUN 22 mg/dL (8-23) 06/22/25: Creatinine 1.5 mg/dL (0.5-0.9) H 06/22/25 22: GFR Calculation 35.3 mL/min (90-130) L 06/22/25: Glucose 183 mg/dL (65-115) H 06/22/25 22: Calculated Osmolality 294 mOsm/kg (285-295) 06/22/25: Calcium 10.6 mg/dL (8.5-10.5) H 06/22/25: Total Bilirubin 0.4 mg/dL (0.15-1.2) 10/23/25 22:27 AST 14 U/L (0-32) 06/22/25 22:27 ALT 15 U/L (0-33) 06/22/25 22:27 Alkaline Phosphatase 162 U/L (35-105) H 06/22/25 22:27 Total Protein 8.4 g/dL (6.6-8.7) 06/22/25 22:27 Albumin 4.5 g/dL (3.5-5.2) 06/22/25 22:27 Globulin 3.9 g/dL (1.3-4.6) 06/22/25 22:27 Lipase 24 U/L (13-60) 06/22/25 22:27 XR interpretation done by ED provider, pending radiology final review Discharge Plan Discharge Patient Disposition: Home Clinical Impression: Constipation due to slow transit, Gastroenteritis Condition: Stable Prescriptions: New lactulose 10 gram/15 mL solution 20 g PO BID Qty: 237 0RF ondansetron 4 mg tablet,disintegrating 4 mg PO Q8H PRN (Reason: nausea and vomiting) 4 Days Qty: 14 0RF No Action insulin lispro [Humalog KwikPen Insulin] 100 unit/mL insulin pen 12 unit SUBCUT TID (DME) OneTouch Verio test strips Strip See Rx Instructions .Route Qty: 400 3RF Rx Instructions: Check Blood Sugar up to 3 Type 2 diabetes mellitus E11.42 insulin glargine [Lantus Solostar U-100 Insulin] 100 unit/mL (3 mL) insulin pen 50 unit SUBCUT BID Qty: 30 3RF hydroxyzine HCl 25 mg tablet 50 mg PO BEDTIME Qty: 60 2RF bupropion HCl [Wellbutrin XL] 300 mg tablet extended release 24 hr 300 mg PO QAM Qty: 90 0RF (DME) pen needle, diabetic [Comfort EZ Pen [place]] 31 gauge x 1/4 needle See Rx Instructions .Route Qty: 100 1RF Rx Instructions: As directed (DME) Dexcom G7 Sensor Device See Rx Instructions .Route Qty: 3 6RF Rx Instructions: As directed trazodone 100 mg tablet 300 mg PO BEDTIME Qty: 90 2RF ezetimibe 10 mg tablet See Rx Instructions .ROUTE .COMPLEX Qty: 30 5RF Dose Instruction: TAKE 1 TABLET BY MOUTH EVERY DAY Rx Instructions: TAKE 1 TABLET BY MOUTH EVERY DAY (DME) [facility] See Rx Instructions .ROUTE .MEDSUPPLY Qty: 100 0RF Rx Instructions: As directed dicyclomine 20 mg tablet 40 mg PO QID pregabalin 75 mg capsule 75 mg PO BID amlodipine 5 mg tablet 5 mg PO DAILY Discharge Orders: Discharge ED (Routine); Ordered 06/23/25 Ordered By: Genesis Parker Referrals: Kati Singh, [Primary Care Provider, CHANNEL SALES MANAGER] Discharge Diet: Clear Liquid Patient Instructions: Constipation (ED), Gastroenteritis (ED), Patient Portal & Melanie Instructions Activity Restrictions/Additional Instructions: - Clear liquid diet only until all of your symptoms of abdominal pain resolve - Take lactulose as directed. This can be stopped after you have had at least 3 bowel movements - Return to ED with worsening symptoms. - Caution on Zofran. This can cause increasing constipation as well. Utilize only as directed. Both Zofran and lactulose were sent to the pharmacy. Thank you for choosing [facility] for your healthcare needs today. You have been screened and evaluated and felt safe for discharge. Health conditions do change or evolve sometimes and as such it is important that you follow up with your Primary Doctor to be re checked, 3-5 days is a general good time frame for follow up. You are always welcome to return to the ED for re assessment if your symptoms are worsening or you have new concerns Print Language: Serbian Coding Level of Care Code ED Permit Coordinator for Nik Brenner
[2025-06-23 01:19] LABS: Glucose Urine UA Trace (Normal); Nitrate Urine Negative (Negative); Specific Gravity, Urine 1.013 (1.005-1.030)
[2025-06-23 01:21] VITALS: PULSE 111; O2SAT 94
[2025-06-23 01:24] LABS: Add Urine Microscopic? YES
--- NOTE | 2025-06-23 01:56 | ED_ITS ---
HPI - Nausea/Vomiting/Diarrhea 2 General: Chief complaint: Nausea/Vomiting/Diarrhea Stated complaint: n/v/d Time Seen by Provider: 06/23/25 00:05 History of Present Illness: See previous document Related Data Home Medications ?Medication ?Instructions ?Recorded ?Confirmed amlodipine 5 mg tablet 5 mg PO DAILY 03/17/2506/15 dicyclomine 20 mg tablet 40 mg PO QID 03/17/25 pregabalin 75 mg capsule 75 mg PO BID 03/17/25 insulin lispro 100 unit/mL 12 unit SUBCUT TID 06/15/25 06/15/25 subcutaneous pen (Humalog KwikPen (U-100) Insulin) Previous Rx's ?Medication ?Instructions ?Recorded lancets #100 ea 12/12/24 blood sugar diagnostic (OneTouch #400 ea 01/06/25 Verio test strips) insulin glargine 100 unit/mL (3 50 unit (0.5 mL) SUBCU T BID #30 mL 01/31/25 mL) subcutaneous pen (Lantus Solostar U-100 Insulin) bupropion HCl 300 mg 24 hr tablet, 300 mg PO QAM #90 t abs 04/03/25 extended release (Wellbutrin XL) hydroxyzine HCl 25 mg tablet 50 mg (2 x 25 mg) PO BEDT JEFFREY #60 04/03/25 tabs blood-glucose sensor (Dexcom G7 #3 ea 05/23/25 Sensor device) pen needle, diabetic 31 gauge x #100 ea 05/23/25 1/ (Comfort EZ Pen [place]) trazodone 100 mg tablet 300 mg (3 x 100 mg) PO BEDTI ME #90 06/15/25 tabs ezetimibe 10 mg tablet See Rx Instructions .Route 1 .COMPLEX #30 tabs cefdinir 300 mg capsule 300 mg PO BID 10 days #20 ca ps 06/23/25 lactulose 10 gram/15 mL oral 20 g (30 mL) PO BID #237 mL 06/23/25 solution ondansetron 4 mg disintegrating 4 mg PO Q8H PRN nausea and 06/23/25 tablet vomiting 4 days #14 tabs Allergies Allergy/AdvReac Type Severity Reaction Status Date / Time No Known Allergies Allergy Verified 06/16/25 14:24 Review of Systems 2 Narrative: See previous document PFSH ED 2 PFSH: Medical History (Updated 06/23/25 @ 01:57 by DIANA Vaughan) History of colon polyps GERD (gastroesophageal reflux disease) Psychiatric care Type 2 diabetes mellitus Yeast infection involving the vagina and surrounding area Borderline intellectual functioning Major depressive disorder, recurrent severe without psychotic features Surgical History (System 06/16/25 @ 14:24 by Diane Matamoros) Hx laparoscopic cholecystectomy 09/13/24 Dr. Kendall Hx of colonoscopy with polypectomy 2016 H/O tubal ligation H/O section x2 Family History (System 06/16/25 @ 14:24 by Diane Matamoros) Father Diabetes Parkinson disease Grandmother Diabetes paternal Brother Diabetes Grandfather Stroke paternal Sister Thyroid disease Denies family history of Clotting disorder Hyperlipidemia Anesthesia complication Bleeding disorder Hypertension Social History (System 06/16/25 @ 14:24 by Diane Matamoros) Smoking and tobacco/nicotine status: former use of tobacco/nicotine Quit status (tobacco/nicotine): has quit using Year quit tobacco: 2016 Second hand smoke exposure: Yes Alcohol intake: former Former alcohol use details: Doesn't remember the last time she drank, it's been a few years Substance/Drug Use: never Adopted: No Caregiver/support person: No (Is looking to get someone in her house to help with laundry ) Lives independently: Yes Household members: none Housing: Apartment Marital status: Marital status details: in 2008 Number of children: 2 Number of grandchildren: 3 Highest education level completed: 9th Grade service: No Current occupational status: disabled Current occupational exposures/hazards: No Pets and animals: No Leisure activites: clubs, music, games, reading and other Leisure activities details: [employer] Sexually active: No Do you think of yourself as: Straight/Heterosexual Current gender identity: Female Soraida/Presybeterian: Anglican Special soraida needs: No Agree to transfusion: Yes Female Reproductive History: Para: 2 Spontaneous abortions: Yes Physical Exam 2 Narrative: EXAM NARRATIVE: See previous document Course 2 Vital Signs: Vital signs: Vital Signs Temperature 98.7 F 06/22/25 21:04 Pulse Rate 111 H 06/23/25 01:21 Respiratory Rate 17 06/22/25 21:04 Blood Pressure 163/78 06/22/25 21:04 Pulse Oximetry 94 10/24/25 01:21 Oxygen Delivery Me thod Room Air 06/22/25 21:04 MDM - Nausea/Vomiting/Diarrhea Medical Decision Making See previous document Lab Data 06/22/25 22:27 06/22/25 22:27 Radiology Impressions Abdomen X-Ray 06/23/25 00:27 IMPRESSION: No acute findings. Laboratory Results WBC 18.88 10^3/uL (3.29-11.43) H 06/22/25 22: RBC 4.66 10^6/uL (3.85-5.65) 06/22/25 22: Hgb 12.80 g/dL (11.27-16.99) 06/22/25: Hct 38.2 % (36-47) 06/22/25: MCV 82.0 fl (85-98) L 06/22/25: MCH 27.5 pg (27-33) 06/22/25: MCHC 33.5 g/dL (30-55) 06/22/25 22: RDW 12.4 % (12.1-15.1) 06/22/25: Plt Count 288 10^3/cmm (157-399) 06/22/25: MPV 10.5 fL (7.4-10.4) H 06/22/25 22: Neut % (Auto) 88.4 % 06/22/25: Lymph % (Auto) 5.4 % 06/22/25: [place] % (Auto) 5.4 % 06/22/25: Eos % (Auto) 0.1 % 06/22/25: Baso % (Auto) 0.2 % 06/22/25: Neut # (Auto) 16.69 10^3/uL (1.8-7.7) H 06/22/25: Lymph # (Auto) 1.0 10^3/uL (0.8-4.8) 06/22/25: [place] # (Auto) 1.0 10^3/uL (0.2-0.9) H 06/22/25: Eos # (Auto) 0.0 10^3/uL (0.0-0.8) 06/22/25 22: Baso # (Auto) 0.0 10^3/uL (0.0-0.1) 06/22/25 22: Nucleated RBC % (auto) 0 % 06/22/25 22: Nucleated RBCs # 0.0 /100WBC 06/22/25 22: Sodium 138 mmol/L (136-145) 06/22/25 22: Potassium 4.2 mmol/L (3.5-5.1) 06/22/25: Chloride 96 mmol/L (98-107) L 06/22/25: Carbon Dioxide 29 mmol/L (22-29) 06/22/25: Anion Gap 17.2 (5-19) 06/22/25: BUN 22 mg/dL (8-23) 06/22/25 22: Creatinine 1.5 mg/dL (0.5-0.9) H 06/22/25 22: GFR Calculation 35.3 mL/min (90-130) L 06/22/25: Glucose 183 mg/dL (65-115) H 06/22/25 22: Calculated Osmolality 294 mOsm/kg (285-295) 06/22/25: Calcium 10.6 mg/dL (8.5-10.5) H 06/22/25: Total Bilirubin 0.4 mg/dL (0.15-1.2) 06/22/25 22: AST 14 U/L (0-32) 06/22/25: ALT 15 U/L (0-33) 06/22/25: Alkaline Phosphatase 162 U/L (35-105) H 06/22/25 22: Total Protein 8.4 g/dL (6.6-8.7) 06/22/25: Albumin 4.5 g/dL (3.5-5.2) 06/22/25: Globulin 3.9 g/dL (1.3-4.6) 06/22/25 22: Lipase 24 U/L (13-60) 06/22/25 22:27 Urine Color Yellow (Yellow) 06/23/25 01:02 Urine Appearance Cloudy (CLEAR) A 06/23/25 01:02 Urine pH 7.5 (5-7) 06/23/25 01:02 Ur Specific Protem 1.013 (1.005-1.030) 06/23/25 01:02 Urine Protein 1+ (Negative) A 06/23/25 01:02 Urine Glucose (UA) Trace (Normal) H 06/23/25 01:02 Urine Ketones Negative (Negative) 06/23/25 01:02 Urine Blood 2+ (Negative) A 06/23/25 01:02 Urine Nitrate Negative (Negative) 06/23/25 01:02 Urine Bilirubin Negative (Negative) 06/23/25 01:02 Urine Urobilinogen 1.0 mg/dL (Negative) 06/23/25 01:02 Ur Leukocyte Esterase 3+ (Negative) A 06/23/25 01:02 Urine RBC 51-100 /hpf (0-2) H 06/23/25 01:02 Urine WBC >100 /hpf (0-5) H 06/23/25 01:02 Ur Squamous Epith Cells 0-5 /hpf (0-5) 06/23/25 01:02 Amorphous Sediment Not Reportable 06/23/25 01:02 Urine Bacteria None seen /hpf (NONE) 06/23/25 01:02 Hyaline Casts 2.05 /lpf 06/23/25 01:02 XR interpretation done by ED provider, pending radiology final review Discharge Plan Discharge Patient Disposition: Home Clinical Impression: Constipation due to slow transit, Gastroenteritis, Pyuria Condition: Stable Prescriptions: New lactulose 10 gram/15 mL solution 20 g PO BID Qty: 237 0RF ondansetron 4 mg tablet,disintegrating 4 mg PO Q8H PRN (Reason: nausea and vomiting) 4 Days Qty: 14 0RF cefdinir 300 mg capsule 300 mg PO BID 10 Days Qty: 20 0RF No Action insulin lispro [Humalog KwikPen Insulin] 100 unit/mL insulin pen 12 unit SUBCUT TID (DME) OneTouch Verio test strips Strip See Rx Instructions .Route Qty: 400 3RF Rx Instructions: Check Blood Sugar up to 3 Type 2 diabetes mellitus E11.42 insulin glargine [Lantus Solostar U-100 Insulin] 100 unit/mL (3 mL) insulin pen 50 unit SUBCUT BID Qty: 30 3RF hydroxyzine HCl 25 mg tablet 50 mg PO BEDTIME Qty: 60 2RF bupropion HCl [Wellbutrin XL] 300 mg tablet extended release 24 hr 300 mg PO QAM Qty: 90 0RF (DME) pen needle, diabetic [Comfort EZ Pen [place]] 31 gauge x 1/4 needle See Rx Instructions .Route Qty: 100 1RF Rx Instructions: As directed (DME) Dexcom G7 Sensor Device See Rx Instructions .Route Qty: 3 6RF Rx Instructions: As directed trazodone 100 mg tablet 300 mg PO BEDTIME Qty: 90 2RF ezetimibe 10 mg tablet See Rx Instructions .ROUTE .COMPLEX Qty: 30 5RF Dose Instruction: TAKE 1 TABLET BY MOUTH EVERY DAY Rx Instructions: TAKE 1 TABLET BY MOUTH EVERY DAY (DME) lancets Misc See Rx Instructions .ROUTE .MEDSUPPLY Qty: 100 0RF Rx Instructions: As directed dicyclomine 20 mg tablet 40 mg PO QID pregabalin 75 mg capsule 75 mg PO BID amlodipine 5 mg tablet 5 mg PO DAILY Discharge Orders: Discharge ED (Routine); Ordered 06/23/25 Ordered By: Genesis Parker Referrals: Kati Singh DO [Primary Care Provider, SOFTWARE INSTALLATION ENGINEER] Discharge Diet: Clear Liquid Patient Instructions: Constipation (ED), Gastroenteritis (ED), Patient Portal & Melanie Instructions, Urinary Tract Infection in Women (ED) Activity Restrictions/Additional Instructions: - Clear liquid diet only until all of your symptoms of abdominal pain resolve - Take lactulose as directed. This can be stopped after you have had at least 3 bowel movements - Return to ED with worsening symptoms. - Caution on Zofran. This can cause increasing constipation as well. Utilize only as directed. Both Zofran and lactulose were sent to the pharmacy. Thank you for choosing [facility] for your healthcare needs today. You have been screened and evaluated and felt safe for discharge. Health conditions do change or evolve sometimes and as such it is important that you follow up with your Primary Doctor to be re checked, 3-5 days is a general good time frame for follow up. You are always welcome to return to the ED for re assessment if your symptoms are worsening or you have new concerns Print Language: Mongolian Coding Level of Care Code ED Component Assembler Supervisor for Nik Brenner
[2025-06-23] MEDS: cefTRIAXone 1,000 mg SDV 1000 MG IVP (03:19)
[2025-06-23] MEDS: lactulose oral liq 20 gm/30 mL UDC 30 GM PO (03:19)
[2025-06-23 03:35] VITALS: PULSE 124; O2SAT 96
== END 2025-06-23 03:26 | disposition home or self-care (01) ==
PROVIDERS: Emergency Medicine; Emergency Provider Physician Assistant; PCP Family Medicine
DX: K59.01 Slow transit constipation (principal); K52.9 Noninfective gastroenteritis and colitis, unspecified; Z79.4 Long term (current) use of insulin; Z87.891 Personal history of nicotine dependence; E11.9 Type 2 diabetes mellitus without complications
CPT/HCPCS: 36415; 74019; 80053; 81001; 83690; 85025; 87086; 96361; 96374; 96375; 96376; 99284; J0696; J2405; J2470; J7120; J9999

== ENCOUNTER 2025-06-29 12:36 | Emergency (ER) | payer OTHER, MEDICAID, SELFPAY ==
[2025-05-25 14:39] VITALS: BP 110/78; BMI 26.4
--- OUTSIDE RECORDS SUMMARY | 2025-06-29 12:41 | XMS_ITS | Patient Health Record ---
Author Organization [facility] Address [address] [place] [address] Care Team Providers Care Repair Tech Name Role Phone Jasson Tamayo Unavailable [phone] Reason For Referral No Information Problems Problem Type SNOMED Code ICD Code Onset Dates Problem Status W/U Status Risk Notes Problem General weakness (76653940) Generalized weakness (780.79) 2015 Problem resolved confirmed [id number]- Problem Vaginal discharge (finding) (229655218) Vaginal discharge, unspecified (616.10) 2016 Problem resolved confirmed [id number]- Problem Hypercholesterolemia (58202251) Hypercholesterolemia (272.0) 2017 Problem resolved confirmed [id number]- Problem Onychomycosis caused by dermatophyte (623918937) Toe onychomycosis (110.1) 2017 Problem resolved confirmed [id number]- Problem Type II diabetes mellitus uncontrolled (331424212) Type 2 diabetes, uncontrolled (250.02) 2016 Active confirmed [id number]- Problem Candidal vulvovaginitis (20642005) Yeast vaginitis (112.1) 2015 Problem resolved confirmed [id number]- Problem Screening for colon cancer (264414969) Screening for colon cancer (V76.49) 2015 Problem resolved confirmed [id number]- Problem Disorder of hematopoietic system (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) Other abnormal findings on blood examination (790.99) 2015 Problem resolved confirmed [id number]- Problem Sore throat (400529577) Sore Throat (462) 2016 Problem resolved confirmed [id number]- Problem Superficial inju ry of foot, NEC (917.8) 2015 Problem resolved confirmed [id number]- Problem Foot pain (96391203) Foot pain (729.5) 2015 Problem resolved confirmed [id number]- Problem Peripheral neuropath y (649079582) Peripheral neuropathy (356.9) 2015 Problem resolved confirmed [id number]- Problem Precordial pain (93609793) Precordial chest pain (786.51) 2016 Problem resolved confirmed [id number]- Problem Needs influenza immunization (290183956) Vaccination against other viral diseases, Influenza (V04.81) 2016 Problem resolved confirmed [id number]- Problem Candidiasis (76673560) Yeast infection (112.9) 2016 Active confirmed [facility] [place]11- Problem Neoplasm of uncertai n behavior of skin (34064369) Atypical skin lesion (238.2) 2015 Problem resolved confirmed [id number]- Problem Essential hypertension (39550127) Essential hypertension (401.1) 2015 Active confirmed [facility] [place]98 5911- Problem Diabetes mellitus type 2 (disorder) (95862158) Type 2 diabetes (250.00) 2016 Problem resolved confirmed [id number]- Problem Screening mammograph y (05042470) Screening mammogram - other (V76.12) 2015 Problem resolved confirmed [id number]- Plan Of Treatment No Information
[2025-06-29 12:44] VITALS: BP 126/73; PULSE 97; TEMP 36.5; O2SAT 96; BMI 26.1
[2025-06-29 14:04] LABS: Glucose Urine UA 1+ (Normal); Nitrate Urine Negative (Negative); Specific Gravity, Urine 1.019 (1.005-1.030)
[2025-06-29 14:25] LABS: Hematocrit 36.7 % (36-47); Hemoglobin 12.00 g/dL (11.27-16.99); Mean Corpuscular HGB Conc 32.7 g/dL (30-55); Mean Corpuscular Hemoglobin 27.9 pg (27-33); Mean Corpuscular Volume 85.3 fl (85-98); Nucleated Red Blood Cells % 0 %; Platelet Count 321 10^3/cmm (157-399); Red Blood Count 4.30 10^6/uL (3.85-5.65); White Blood Count 13.32 10^3/uL (3.29-11.43)
[2025-06-29 14:49] LABS: Alanine Aminotransferase 12 U/L (0-33); Albumin Level 3.9 g/dL (3.5-5.2); Alkaline Phosphatase 263 U/L (35-105); Anion Gap 17.8 (5-19); Aspartate Amino Transferase 9 U/L (0-32); Blood Urea Nitrogen 23 mg/dL (8-23); Calcium 9.4 mg/dL (8.5-10.5); Carbon Dioxide 25 mmol/L (22-29); Chloride 91 mmol/L (98-107); Creatinine Clr Calc Pharmacy 29.6473; Globulin 4.4 g/dL (1.3-4.6); Glucose 441 mg/dL (65-115); Lipase 28 U/L (13-60); Osmolality Calculated 291 mOsm/kg (285-295); Potassium 4.8 mmol/L (3.5-5.1); Sodium 129 mmol/L (136-145); Total Protein 8.3 g/dL (6.6-8.7)
[2025-06-29 14:51] LABS: Lactic Sepsis W/Reflex 0.7 mmol/L (0.5-2.2)
--- NOTE | 2025-06-29 16:19 | CTR_ITS ---
PROCEDURE INFORMATION: Exam: CT Abdomen And Pelvis With Contrast Exam date and time: 06/29/2025 5:17 PM Age: 60 years old Clinical indication: Abdominal pain TECHNIQUE: Imaging protocol: Computed tomography of the abdomen and pelvis with contrast. Radiation optimization: All CT scans at this facility use at least one of these dose optimization techniques: automated exposure control; mA and/or kV adjustment per patient size (includes targeted exams where dose is matched to clinical indication); or iterative reconstruction. Contrast material: EAOC105; Contrast volume: 100 ml; Contrast route: INTRAVENOUS (IV); COMPARISON: CT abdomen pelvis w con* [id number] 04/12/2025 10:41 AM RADIATION DOSE METRICS: Total DLP (mGy-cm): 507.91 FINDINGS: Lower chest: Heart size is normal. Lungs are clear. Liver: Normal. No mass. Gallbladder and biliary ducts: Status post cholecystectomy.. No ductal dilation. Pancreas: Normal. No ductal dilation. Spleen: Normal. No splenomegaly. Adrenal glands: Normal. No mass. Kidneys and ureters: More marked right hydronephrosis. Several calculi present within right renal calices largest 1 measuring 1.2 cm in diameter. More marked distension right ureter measuring up to 9.9 mm in diameter. Some increased wall thickening of the right ureter. Maybe some mild right stranding. Correlate for inflammatory/infectious change. Contains several small calculi the largest which measures 2.6 mm in diameter. Left kidney contains 5 nonobstructing left renal calculi. Largest of these measures 1.3 cm in diameter. Left ureter nondistended. Stomach and bowel: Small bowel and stomach unremarkable. Decreased amount of fecal material compared to previous study. Remains moderate amount in the cecum and ascending colon. A relative mild narrowing of the rectosigmoid colon some prominence of the harp. No surrounding stranding. This probably represents a mild underdistention. Appendix: No evidence of appendicitis. Intraperitoneal space: Unremarkable. No free air. No significant fluid collection. Vasculature: Mild atherosclerosis. No abdominal aortic aneurysm. Lymph nodes: Unremarkable. No enlarged lymph nodes. Urinary bladder: Mildly distended. No significant wall thickening. Reproductive: Unremarkable as visualized. Bones/joints: Degenerative changes lower facet joints. Soft tissues: Unremarkable. CT/CT abdomen pelvis w con* [id number] IMPRESSION: 1. Bilateral renal calculi as seen previously. Small right ureteric calculi seen. More marked right hydronephrosis and right hydroureter. Some wall thickening of the right ureter and right periureteric stranding. Findings consistent with inflammatory/infectious changes. There maybe mild partial obstructive changes due to the more distal right ureteric calculus which measures 3.3 mm in diameter. 2. Decreased amount of fecal material in descending and rectosigmoid colon . Mild wall thickening of the rectosigmoid colon probably due to some under distension. 3. Status post cholecystectomy.
--- NOTE | 2025-06-29 16:47 | W.ED.ABDPA2 ---
HPI - Abdominal Pain General: Chief Complaint: Abdominal Pain Stated Complaint: ABD Pain Time Seen by Provider: 06/29/25 16:21 History of Present Illness: 60-year-old female with a history of constipation, chronic kidney disease, polyneuropathy, insulin dependent diabetes, irritable bowel syndrome, GERD, hyperlipidemia, hypertension, diabetic neuropathy, borderline intellectual function and depression who presents to the emergency room with abdominal pain. She has been having lower abdominal pain. She was seen in the emergency room a few days ago and sent home. Said pain is worsened. She has had some nausea. She had 1 episode of vomiting previously. She said she has been having hard stools. No dysuria. Related Data Home Medications ?Medication ?Instructions ?Recorded ?Confirmed amlodipine 5 mg tablet 5 mg PO DAILY 03/17/25 06/15/25 dicyclomine 20 mg tablet 40 mg PO QID 03/17/25 06/15/25 pregabalin 75 mg capsule 75 mg PO BID 03/17/25 06/15/25 insulin lispro 100 unit/mL 12 unit SUBCUT TID 06/15/25 06/15/25 subcutaneous pen (Humalog KwikPen (U-100) Insulin) Previous Rx's ?Medication ?Instructions ?Recorded lancets #100 ea 12/12/24 blood sugar diagnostic (OneTouch #400 ea 01/06/25 Verio test strips) insulin glargine 100 unit/mL (3 50 unit (0.5 mL) SUBCUT BID #30 mL 01/31/25 mL) subcutaneous pen (Lantus Solostar U-100 Insulin) bupropion HCl 300 mg 24 hr tablet, 300 mg PO QAM #90 tabs 04/03/25 extended release (Wellbutrin XL) blood-glucose sensor (Dexcom G7 #3 ea 05/23/25 Sensor device) pen needle, diabetic 31 gauge x #100 ea 05/23/2509/03 (Comfort EZ Pen [place]) trazodone 100 mg tablet 300 mg (3 x 100 mg) PO BEDTIME #90 06/15/25 tabs ezetimibe 10 mg tablet See Rx Instructions .Route 06/19/25 .COMPLEX #30 tabs cefdinir 300 mg capsule 300 mg PO BID 10 days #20 caps 06/23/25 lactulose 10 gram/15 mL oral 20 g (30 mL) PO BID #237 mL 06/23/25 solution hydroxyzine HCl 25 mg tablet 50 mg (2 x 25 mg) PO BEDTIME #60 06/27/25 tabs cephalexin 500 mg capsule 500 mg PO BID 10 days #20 caps 06/29/25 hydrocodone 5 mg-acetaminophen 325 1 tab PO Q6H PRN pain #20 tabs 06/29/25 mg tablet ondansetron 4 mg disintegrating 4 mg PO Q8H PRN nausea and 06/29/25 tablet vomiting #10 tabs polyethylene glycol 3350 17 17 g PO DAILY #510 grams 06/29/25 gram/dose oral powder (Miralax) tamsulosin 0.4 mg capsule (Flomax) 0.4 mg PO DAILY #30 caps 06/29/25 Allergies Allergy/AdvReac Type Severity Reaction Status Date / Time No Known Allergies Allergy Verified 06/29/25 12:48 Review of Systems Narrative: Constitutional symptoms: Negative except as documented in HPI. Skin symptoms: Negative except as documented in HPI. Eye symptoms: Negative except as documented in HPI. ENMT symptoms: Negative except as documented in HPI. Respiratory symptoms: Negative except as documented in HPI. Cardiovascular symptoms: Negative except as documented in HPI. Gastrointestinal symptoms: Negative except as documented in HPI. Genitourinary symptoms: Negative except as documented in HPI. Musculoskeletal symptoms: Negative except as documented in HPI. Neurologic symptoms: Negative except as documented in HPI. Psychiatric symptoms: Negative except as documented in HPI. Endocrine symptoms: Negative except as documented in HPI. 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 Kendall Hx of colonoscopy with polypectomy 2016 H/O tubal ligation H/O section x2 Family History (System 06/16/25 @ 14:24 by Diane Matamoros) Father Diabetes Parkinson disease Grandmother Diabetes paternal Brother Diabetes Grandfather Stroke paternal Sister Thyroid disease Denies family history of Clotting disorder Hyperlipidemia Anesthesia complication Bleeding disorder Hypertension Social History (System 06/16/25 @ 14:24 by Diane Cantu Smoking and tobacco/nicotine status: former use of tobacco/nicotine Quit status (tobacco/nicotine): has quit using Year quit tobacco: 2016 Second hand smoke exposure: Yes Alcohol intake: former Former alcohol use details: Doesn't remember the last time she drank, it's been a few years Substance/Drug Use: never Adopted: No Caregiver/support person: No (Is looking to get someone in her house to help with laundry ) Lives independently: Yes Household members: none Housing: Apartment Marital status: Marital status details: in 2008 Number of children: 2 Number of grandchildren: 3 Highest education level completed: 9th Grade service: No Current occupational status: disabled Current occupational exposures/hazards: No Pets and animals: No Leisure activites: clubs, music, games, reading and other Leisure activities details: [email or web address] Sexually active: No Do you think of yourself as: Straight/Heterosexual Current gender identity: Female Soraida/Gnosticism: Cheondoism Special soraida needs: No Agree to transfusion: Yes Female Reproductive History: Para: 2 Spontaneous abortions: Yes Physical Exam Narrative: EXAM NARRATIVE: General: Alert, no acute distress. Skin: Warm, dry. Head: Normocephalic, atraumatic. Neck: Supple, trachea midline. Eye: Extraocular movements are intact. Ears, nose, mouth and throat: mucosa moist. Cardiovascular: Regular, Normal peripheral perfusion. Respiratory: Lungs are clear to auscultation, respirations are non-labored, breath sounds are equal, Symmetrical chest wall expansion. Gastrointestinal: Soft, some mild nonfocal lower abdominal tenderness, Non distended Musculoskeletal: Normal ROM, no deformity. Neurological: Alert and oriented, No focal neurological deficit observed. Psychiatric: Cooperative, appropriate mood & affect. Course Vital Signs: Vital signs: Vital Signs Temperature 97.7 F 06/29/25 12:44 Pulse Rate 84 06/29/25 18:30 Respiratory Rate 16 06/29/25 18:00 Blood Pressure 125/81 06/29/25 18:30 Pulse Oximetry 95 06/29/25 18:30 Oxygen Delivery Me thod Room Air 06/29/25 18:30 MDM - Abdominal Pain Medical Decision Making Medical decision making: Patient's reason for coming to the emergency room Social determinants: Disabled, borderline intellectual functioning I reviewed the patient's medical record. 60-year-old female with a history of constipation, chronic kidney disease, polyneuropathy, insulin dependent diabetes, irritable bowel syndrome, GERD, hyperlipidemia, hypertension, diabetic neuropathy, borderline intellectual function and depression I reviewed the patient's current home meds Alternate historians: None Differential diagnosis for patient with low central abdominal pain including but not limited to and based on the above HPI, review of systems and physical exam:-: Urinary retention. Urinary tract infection. concerns for systemic infection, renal dysfunction. Diverticulitis. Constipation. Orders placed to evaluate differential diagnosis based on the above differential, HPI and physical exam Lab Review: Laboratory results were reviewed and interpreted by myself the emergency room physician. Mild leukocytosis with a white count 13,000. BUN/creatinine are 23 and 1.9. This is at the top end of her baseline. She is being given fluids. Urinalysis is positive for infection. 11-20 whites. But no bacteria. And no leukocyte esterase so borderline for infection CT of the abdomen pelvis: Multiple stones in the kidneys. Some inflammatory changes. 3 mm stone in the distal right ureter. This was reviewed and interpreted by myself the emergency room physician. I also reviewed the radiology report. Assessment of risk: Level of risk: Moderate Hospitalization considerations: Vitals have been normal. Do not think she needs admitted today. Reexamination: Patient remained stable. No increased work of breathing. No altered mental status. No focal motor deficits. Assessment and plan: Urinary tract infection Ureterolithiasis Dehydration Chronic kidney disease ?Normal saline bolus, Rocephin and insulin in the emergency room - Discharged home - Discussed plan with patient. Answered any questions. - Evaluation and treatment of this problem were appropriate in the emergency setting. Lab Data 06/29/25 14:05 06/29/25 14:05 Labs/Radiology: Radiology Impressions Abdomen/Pelvis CT 06/29/25 16:19 IMPRESSION: 1. Bilateral renal calculi as seen previously. Small right ureteric calculi seen. More marked right hydronephrosis and right hydroureter. Some wall thickening of the right ureter and right periureteric stranding. Findings consistent with inflammatory/infectious changes. There maybe mild partial obstructive changes due to the more distal right ureteric calculus which measures 3.3 mm in diameter. 2. Decreased amount of fecal material in descending and rectosigmoid colon . Mild wall thickening of the rectosigmoid colon probably due to some under distension. 3. Status post cholecystectomy. Laboratory Results WBC 13.32 10^3/uL (3.29-11.43) H 06/29/25 14:05 RBC 4.30 10^6/uL (3.85-5.65) 06/29/25 14:05 Hgb 12.00 g/dL (11.27-16.99) 06/29/25 14:05 Hct 36.7 % (36-47) 06/29/25 14:05 MCV 85.3 fl (85-98) 06/29/25 14:05 MCH 27.9 pg (27-33) 06/29/25 14:05 MCHC 32.7 g/dL (30-55) 06/29/25 14:05 RDW 11.9 % (12.1-15.1) L 06/29/25 14:05 Plt Count 321 10^3/cmm (157-399) 06/29/25 14:05 MPV 10.4 fL (7.4-10.4) 06/29/25 14:05 Neut % (Auto) 71.6 % 06/29/25 14:05 Lymph % (Auto) 17.1 % 06/29/25 14:05 [place] % (Auto) 7.4 % 06/29/25 14:05 Eos % (Auto) 1.7 % 06/29/25 14:05 Baso % (Auto) 0.5 % 06/29/25 14:05 Neut # (Auto) 9.55 10^3/uL (1.8-7.7) H 06/29/25 14:05 Lymph # (Auto) 2.3 10^3/uL (0.8-4.8) 06/29/25 14:05 [place] # (Auto) 1.0 10^3/uL (0.2-0.9) H 06/29/25 14:05 Eos # (Auto) 0.2 10^3/uL (0.0-0.8) 06/29/25 14:05 Baso # (Auto) 0.1 10^3/uL (0.0-0.1) 06/29/25 14:05 Nucleated RBC % (auto) 0 % 06/29/25 14:05 Nucleated RBCs # 0.0 /100WBC 06/29/25 14:05 Sodium 129 mmol/L (136-145) L 06/29/25 14:05 Potassium 4.8 mmol/L (3.5-5.1) 06/29/25 14:05 Chloride 91 mmol/L (98-107) L 06/29/25 14:05 Carbon Dioxide 25 mmol/L (22-29) 06/29/25 14:05 Anion Gap 17.8 (5-19) 06/29/25 14:05 BUN 23 mg/dL (8-23) 06/29/25 14:05 Creatinine 1.9 mg/dL (0.5-0.9) H 06/29/25 14:05 GFR Calculation 26.9 mL/min (90-130) L 06/29/25 14:05 Glucose 441 mg/dL (65-115) H 06/29/25 14:05 Calculated Osmolality 291 mOsm/kg (285-295) 06/29/25 14:05 Lactic Acid 0.7 mmol/L (0.5-2.2) 06/29/25 14:05 Calcium 9.4 mg/dL (8.5-10.5) 06/29/25 14:05 Total Bilirubin 0.3 mg/dL (0.15-1.2) 06/29/25 14:05 AST 9 U/L (0-32) 06/29/25 14:05 ALT 12 U/L (0-33) 06/29/25 14:05 Alkaline Phosphatase 263 U/L (35-105) H 06/29/25 14:05 C-Reactive Protein 83.8 mg/L (0.0-4.9) H 06/29/25 14:05 Total Protein 8.3 g/dL (6.6-8.7) 06/29/25 14:05 Albumin 3.9 g/dL (3.5-5.2) 06/29/25 14:05 Globulin 4.4 g/dL (1.3-4.6) 06/29/25 14:05 Lipase 28 U/L (13-60) 06/29/25 14:05 Urine Color Yellow (Yellow) 06/29/25 13:45 Urine Appearance Clear (CLEAR) 06/29/25 13:45 Urine pH 6.5 (5-7) 06/29/25 13:45 Ur Specific [place] 1.019 (1.005-1.030) 06/29/25 13:45 Urine Protein Trace (Negative) A 06/29/25 13:45 Urine Glucose (UA) 1+ (Normal) H 06/29/25 13:45 Urine Ketones Negative (Negative) 06/29/25 13:45 Urine Blood Negative (Negative) 06/29/25 13:45 Urine Nitrate Negative (Negative) 06/29/25 13:45 Urine Bilirubin Negative (Negative) 06/29/25 13:45 Urine Urobilinogen 1.0 mg/dL (Negative) 06/29/25 13:45 Ur Leukocyte Esterase Trace (Negative) A 06/29/25 13:45 Urine RBC 0-2 /hpf (0-2) 06/29/25 13:45 Urine WBC 11-20 /hpf (0-5) H 06/29/25 13:45 Ur Squamous Epith Cells 0-5 /hpf (0-5) 06/29/25 13:45 Amorphous Sediment Not Reportable 06/29/25 13:45 Urine Bacteria None seen /hpf (NONE) 06/29/25 13:45 Hyaline Casts 0-4 /lpf H 06/29/25 13:45 All radiology interpretation(s) finalized by discharge Discharge Plan Discharge Patient Disposition: Home Clinical Impression: Ureterolithiasis, Urinary tract infection, Dehydration, CKD (chronic kidney disease) Condition: Stable Prescriptions: New hydrocodone-acetaminophen 5-325 mg tablet 1 tab PO Q6H PRN (Reason: pain) Qty: 20 0RF tamsulosin [Flomax] 0.4 mg capsule 0.4 mg PO DAILY Qty: 30 0RF cephalexin 500 mg capsule 500 mg PO BID 10 Days Qty: 20 0RF polyethylene glycol 3350 [Miralax] 17 gram/dose powder 17 g PO DAILY Qty: 510 0RF Rx Instructions: Take 1 scoop daily while taking pain medications. ondansetron 4 mg tablet,disintegrating 4 mg PO Q8H PRN (Reason: nausea and vomiting) Qty: 10 0RF No Action insulin lispro [Humalog KwikPen Insulin] 100 unit/mL insulin pen 12 unit SUBCUT TID (DME) OneTouch Verio test strips Strip See Rx Instructions .Route Qty: 400 3RF Rx Instructions: Check Blood Sugar up to 3 Type 2 diabetes mellitus E11.42 insulin glargine [Lantus Solostar U-100 Insulin] 100 unit/mL (3 mL) insulin pen 50 unit SUBCUT BID Qty: 30 3RF bupropion HCl [Wellbutrin XL] 300 mg tablet extended release 24 hr 300 mg PO QAM Qty: 90 0RF (DME) pen needle, diabetic [Comfort EZ Pen [place]] 31 gauge x 1/4 needle See Rx Instructions .Route Qty: 100 1RF Rx Instructions: As directed (DME) Dexcom G7 Sensor Device See Rx Instructions .Route Qty: 3 6RF Rx Instructions: As directed trazodone 100 mg tablet 300 mg PO BEDTIME Qty: 90 2RF ezetimibe 10 mg tablet See Rx Instructions .ROUTE .COMPLEX Qty: 30 5RF Dose Instruction: TAKE 1 TABLET BY MOUTH EVERY DAY Rx Instructions: TAKE 1 TABLET BY MOUTH EVERY DAY hydroxyzine HCl 25 mg tablet 50 mg PO BEDTIME Qty: 60 2RF (DME) lancets Misc See Rx Instructions .ROUTE .MEDSUPPLY Qty: 100 0RF Rx Instructions: As directed dicyclomine 20 mg tablet 40 mg PO QID pregabalin 75 mg capsule 75 mg PO BID amlodipine 5 mg tablet 5 mg PO DAILY lactulose 10 gram/15 mL solution 20 g PO BID Qty: 237 0RF cefdinir 300 mg capsule 300 mg PO BID 10 Days Qty: 20 0RF Discharge Orders: Discharge ED (Routine); Ordered 06/29/25 Ordered By: Génesis Baumann Referrals: Robbin Morataya [Referring, Urology] Referral Note: Please call for an appointment with urology. Either Dr. Morataya or the urologist of your choosing Kati Singh DO [Primary Care Provider, ENGINEER SECOND ASSISTANT] - 4-7 days Patient Instructions: Kidney Stones (ED), Abdominal Pain (ED), Urinary Tract Infection in Older Adults (ED), Opioid Safety, Pain Management, Patient Portal & Melanie Instructions Activity Restrictions/Additional Instructions: Call for appointment with urology. If fever (temp >100.4) develops return to the emergency room immediately, as this is an emergency. Take nausea medication prior to taking pain medications. Thank you for choosing [facility] for your healthcare needs today. You have been screened and evaluated and felt safe for discharge. Health conditions do change or evolve sometimes and as such it is important that you follow up with your Primary Doctor to be re checked, 3-5 days is a general good time frame for follow up. You are always welcome to return to the ED for re assessment if your symptoms are worsening or you have new concerns Print Language: French Coding Level of Care Code ED Data Processing Mechanic for Nik Brenner
[2025-06-29 17:01] VITALS: BP 150/91; PULSE 96; O2SAT 95
[2025-06-29] MEDS: iohexol 350 mg/mL 500 mL Btl (per mL) IV (17:22)
[2025-06-29 18:00] VITALS: RESP 16; O2SAT 97
[2025-06-29] MEDS: morphine 4 mg/mL SDV 1 mL IVP (18:00)
[2025-06-29] MEDS: ondansetron 2 mg/ML SDV 2 mL 4 MG IVP (18:00)
[2025-06-29] MEDS: cefTRIAXone 1,000 mg SDV 1000 MG IVP (18:03)
[2025-06-29] MEDS: insulin regular-human 100 units/1 mL 10 UNIT IVP (18:03)
[2025-06-29 18:30] VITALS: BP 125/81; PULSE 84; O2SAT 95
[2025-06-29 19:32] VITALS: BP 158/75; PULSE 91; O2SAT 97
== END 2025-06-29 19:33 | disposition home or self-care (01) ==
PROVIDERS: Emergency Provider Emergency Medicine; PCP Family Medicine
DX: N20.1 Calculus of ureter (principal); N39.0 Urinary tract infection, site not specified; E86.0 Dehydration; E78.5 Hyperlipidemia, unspecified; E11.22 Type 2 diabetes mellitus with diabetic chronic kidney disease; I12.9 Hypertensive chronic kidney disease with stage 1 through stage 4 chronic kidney disease, or unspecified chronic kidney disease; N18.9 Chronic kidney disease, unspecified; Z79.4 Long term (current) use of insulin; Z87.891 Personal history of nicotine dependence
CPT/HCPCS: 36415; 36416; 74177; 80053; 81001; 82962; 83605; 83690; 85025; 86140; 96361; 96374; 96375; 99285; J0696; J1815; J2270; J2405; J7030

== ENCOUNTER 2025-07-01 22:16 | Emergency (ER) | payer OTHER, MEDICAID, SELFPAY ==
[2025-05-25 14:39] VITALS: BP 110/78; BMI 26.4
[2025-07-01 22:16] VITALS: BP 170/91; PULSE 129; RESP 18; TEMP 37.7; O2SAT 96; BMI 27.4
--- OUTSIDE RECORDS SUMMARY | 2025-07-01 22:25 | XMS_ITS | Patient Health Record ---
Author Organization [facility] Address [address] [place] [address] Care Team Providers Care Awning Hanger Name Role Phone Jasson Tamayo Unavailable [phone] Reason For Referral No Information Problems Problem Type SNOMED Code ICD Code Onset Dates Problem Status W/U Status Risk Notes Problem Type II diabetes mellitus uncontrolled (541576759) Type 2 diabetes, uncontrolled (250.02) 2016 Active confirmed [id number]- Problem Candidiasis (13223060) Yeast infection (112.9) 2016 Active confirmed [id number]- Problem Essential hypertension (90806241) Essential hypertension (401.1) 2015 Active confirmed [id number]- Problem General weakness (36928814) Generalized weakness (780.79) 2015 Problem resolved confirmed [id number]- Problem Vaginal discharge (finding) (145132088) Vaginal discharge, unspecified (616.10) 2016 Problem resolved confirmed [id number]- Problem Hypercholesterolemia (66214342) Hypercholesterolemia (272.0) 2017 Problem resolved confirmed [id number]- Problem Onychomycosis caused by dermatophyte (788010130) Toe onychomycosis (110.1) 2017 Problem resolved confirmed [id number]- Problem Candidal vulvovaginitis (81491994) Yeast vaginitis (112.1) 2015 Problem resolved confirmed [id number]- Problem Screening for colon cancer (346933645) Screening for colon cancer (V76.49) 2015 Problem resolved confirmed Phil-[id number] [id number]- Problem Disorder of hematopoietic system (07231207) Other abnormal findings on blood examination (790.99) 2015 Problem resolved confirmed [id number]- Problem Sore throat (759318561) Sore Throat (462) 2016 Problem resolved confirmed [id number]- Problem Superficial inju ry of foot, NEC (917.8) 2015 Problem resolved confirmed Phil-[id number] [id number]- Problem Foot pain (39624771) Foot pain (729.5) 2015 Problem resolved confirmed Phil-98 [id number]- Problem Peripheral neuropath y (000749820) Peripheral neuropathy (356.9) 2015 Problem resolved confirmed Phil-[id number] [id number]- Problem Precordial pain (11249471) Precordial chest pain (786.51) 2016 Problem resolved confirmed Phil-98 5911- Problem Needs influenza immunization (491242705) Vaccination against other viral diseases, Influenza (V04.81) 2016 Problem resolved confirmed Phil-98 [id number]- Problem Neoplasm of uncertai n behavior of skin (17682612) Atypical skin lesion (238.2) 2015 Problem resolved confirmed [id number] [id number]- Problem Diabetes mellitus type 2 (disorder) (41117962) Type 2 diabetes (250.00) 2016 Problem resolved confirmed [id number]- Problem Screening mammograph y (34609213) Screening mammogram - other (V76.12) 2015 Problem resolved confirmed [id number]- Plan Of Treatment No Information
--- NOTE | 2025-07-01 22:42 | CTR_ITS ---
PROCEDURE INFORMATION: Exam: CT Abdomen And Pelvis Without Contrast Exam date and time: 07/01/2025 11:07 PM Age: 60 years old Clinical indication: Other: Uti/hyperclycemia; Prior surgery; Surgery date: 6+ months; Surgery type: Gb. Csection; Hyperclycemia with UTI and patricia. RT distal ureteral calculus noted on CT from 06/29/2025. ; Additional info: R distal ureter stone HX with UTI TECHNIQUE: Imaging protocol: Computed tomography of the abdomen and pelvis without contrast. Radiation optimization: All CT scans at this facility use at least one of these dose optimization techniques: automated exposure control; mA and/or kV adjustment per patient size (includes targeted exams where dose is matched to clinical indication); or iterative reconstruction. COMPARISON: CT abdomen pelvis w con* [id number] 06/29/2025 5:17 PM RADIATION DOSE METRICS: Total DLP (mGy-cm): 1025.75 FINDINGS: Lungs: There are dependent opacities in the visualized lower loops of the lungs, likely subsegmental atelectasis Pleural spaces: No pleural effusion. Small volume pleural effusion Heart: Mild cardiomegaly. Liver: Redemonstration of hepatomegaly. No mass. Gallbladder and biliary ducts: The patient is status post cholecystectomy. Pancreas: Normal. No ductal dilation. Spleen: Normal. No splenomegaly. Adrenal glands: Normal. No mass. Kidneys and ureters: There is right hydronephrosis and hydroureter with multiple calcified stones throughout the right ureter. No left hydronephrosis. Stomach and bowel: There is colonic diverticulosis without CT evidence of acute diverticulitis. No evidence of intestinal obstruction. Appendix: No evidence of appendicitis. Intraperitoneal space: Unremarkable. No free air. No significant fluid collection. Vasculature: There are atherosclerotic calcifications of the abdominal aorta and its branches. Lymph nodes: Scattered small retroperitoneal/para-aortic lymph nodes are nonspecific. Urinary bladder: Unremarkable as visualized. Reproductive: Unremarkable as visualized. Bones/joints: There are degenerative changes of the spine. Soft tissues: 3 and unsteadiness calcifications are again noted, demonstrating multiple bilateral stones and papillary calcifications. CT/CT kidney stone [id number] IMPRESSION: 1. Right hydronephrosis and hydroureter with multiple stones within the right ureter. 2. Additional bilateral nonobstructing renal stones and calcifications as outlined. 3. Redemonstration of hepatomegaly. 4. Additional findings as detailed in the body of the report.
--- NOTE | 2025-07-01 22:42 | XRR_ITS ---
PROCEDURE INFORMATION: Exam: XR Chest Exam date and time: 07/01/2025 10:59 PM Age: 60 years old Clinical indication: Prior surgery; Surgery date: 6+ months; Surgery type: Gb; EMS arrival for ams/confusion TECHNIQUE: Imaging protocol: Radiologic exam of the chest. Views: 1 view. COMPARISON: CR XR chest 1V portable [id number] 11/30/2024 9:41 PM FINDINGS: Lungs: There is increased bronchovascular markings and mildly increased pulmonary vascular hilar shadows. There are bibasilar opacities, likely atelectasis. Pleural spaces: The costophrenic angles are slightly obscured, possibly related to superimposition of shadows. Trace layering pleural effusions can not be totally excluded. No large pleural effusion is identified. No pneumothorax is identified. Heart/Mediastinum: Mild cardiomegaly. Vasculature: The thoracic aorta is tortuous and atherosclerotic. Bones/joints: Mild degenerative changes of the spine. XR/XR chest 1V portable [id number] IMPRESSION: 1. Redemonstration of mild cardiomegaly. 2. Redemonstration of dependent opacities, likely atelectasis. 3. New acute cardiopulmonary findings are identified.
--- NOTE | 2025-07-01 22:43 | ECG_ITS ---
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 Measurements Intervals [place] Rate: 99 P: 54 LA: 159 QRS: -8 QRSD: 80 T: 56 QT: 349 QTc: 449 Interpretive Statements SINUS RHYTHM Compared to ECG 04/12/2025 14:04:39 Sinus tachycardia no longer present T-wave abnormality no longer present Electronically Signed On 07-02-2025 14:12:55 SECURITY SYSTEM INSTALLER by Gerald Castañeda M.D. [email or web address]
[2025-07-01 22:53] LABS: Hematocrit 34.7 % (36-47); Hemoglobin 11.50 g/dL (11.27-16.99); Mean Corpuscular HGB Conc 33.1 g/dL (30-55); Mean Corpuscular Hemoglobin 27.7 pg (27-33); Mean Corpuscular Volume 83.6 fl (85-98); Nucleated Red Blood Cells % 0 %; Platelet Count 359 10^3/cmm (157-399); Red Blood Count 4.15 10^6/uL (3.85-5.65); White Blood Count 11.37 10^3/uL (3.29-11.43)
[2025-07-01 22:56] LABS: Ketone (Acetest) Serum Negative (Negative)
--- NOTE | 2025-07-01 23:03 | W.ED.RECABL ---
HPI - Recheck/Abnormal Lab/Rx General: Chief Complaint: Recheck/Abnormal Lab/Rx Stated Complaint: HIGH BLOOD SUGAR Time Seen by Provider: 07/01/25 22:18 History of Present Illness: Patient is a 60-year-old female who presents today not feeling well. She reports having been diagnosed with a UTI and kidney stone recently, for which she was prescribed antibiotics. She states she has taken probably a couple doses of the antibiotics since being sent home. The patient reports constipation, which she describes as bad. She has been experiencing shaking episodes. Patient also has elevated blood sugar, which appears to be a concern. She denies vomiting today, though this suggests she may have had emesis previously. The patient reports having a low-grade fever. Additionally, it is noted that her heart rate is elevated. Related Data Home Medications ?Medication ?Instructions ?Recorded ?Confirmed amlodipine 5 mg tablet 5 mg PO DAILY 03/17/25 06/15/25 dicyclomine 20 mg tablet 40 mg PO QID 03/17/25 06/15/25 pregabalin 75 mg capsule 75 mg PO BID 03/17/25 06/15/25 insulin lispro 100 unit/mL 12 unit SUBCUT TID 06/15/25 06/15/25 subcutaneous pen (Humalog KwikPen (U-100) Insulin) Previous Rx's ?Medication ?Instructions ?Recorded lancets #100 ea 12/12/24 blood sugar diagnostic (OneTouch #400 ea 01/06/25 Verio test strips) insulin glargine 100 unit/mL (3 50 unit (0.5 mL) SUBCUT BID #30 mL 01/31/25 mL) subcutaneous pen (Lantus Solostar U-100 Insulin) bupropion HCl 300 mg 24 hr tablet, 300 mg PO QAM #90 tabs 04/03/25 extended release (Wellbutrin XL) blood-glucose sensor (Dexcom G7 #3 ea 05/23/25 Sensor device) pen needle, diabetic 31 gauge x #100 ea 05/23/2509/03 (Comfort EZ Pen [place]) trazodone 100 mg tablet 300 mg (3 x 100 mg) PO BEDTIME #90 06/15/25 tabs ezetimibe 10 mg tablet See Rx Instructions .Route 06/19/25 .COMPLEX #30 tabs cefdinir 300 mg capsule 300 mg PO BID 10 days #20 caps 06/23/25 lactulose 10 gram/15 mL oral 20 g (30 mL) PO BID #237 mL 06/23/25 solution hydroxyzine HCl 25 mg tablet 50 mg (2 x 25 mg) PO BEDTIME #60 06/27/25 tabs cephalexin 500 mg capsule 500 mg PO BID 10 days #20 caps 06/29/25 hydrocodone 5 mg-acetaminophen 325 1 tab PO Q6H PRN pain #20 tabs 06/29/25 mg tablet ondansetron 4 mg disintegrating 4 mg PO Q8H PRN nausea and 06/29/25 tablet vomiting #10 tabs polyethylene glycol 3350 17 17 g PO DAILY #510 grams 06/29/25 gram/dose oral powder (Miralax) tamsulosin 0.4 mg capsule (Flomax) 0.4 mg PO DAILY #30 caps 06/29/25 Allergies Allergy/AdvReac Type Severity Reaction Status Date / Time No Known Allergies Allergy Verified 06/29/25 12:48 PFS ED PFSH: Medical History History of colon polyps GERD (gastroesophageal reflux disease) Psychiatric care Type 2 diabetes mellitus Yeast infection involving the vagina and surrounding area Borderline intellectual functioning Major depressive disorder, recurrent severe without psychotic features Surgical History Hx laparoscopic cholecystectomy 09/13/24 Dr. Kendall Hx of colonoscopy with polypectomy 2016 H/O tubal ligation H/O section x2 Family History (System 06/16/25 @ 14:24 by Diane Matamoros) Father Diabetes Parkinson disease Grandmother Diabetes paternal Brother Diabetes Grandfather Stroke paternal Sister Thyroid disease Denies family history of Clotting disorder Hyperlipidemia Anesthesia complication Bleeding disorder Hypertension Social History Smoking and tobacco/nicotine status: former use of tobacco/nicotine Quit status (tobacco/nicotine): has quit using Year quit tobacco: 2015 Second hand smoke exposure: Yes Alcohol intake: former Former alcohol use details: Doesn't remember the last time she drank, it's been a few years Substance/Drug Use: never Adopted: No Caregiver/support person: No (Is looking to get someone in her house to help with laundry ) Lives independently: Yes Household members: none Housing: Apartment Marital status: Marital status details: in 2008 Number of children: 2 Number of grandchildren: 3 Highest education level completed: 9th Grade service: No Current occupational status: disabled Current occupational exposures/hazards: No Pets and animals: No Leisure activites: clubs, music, games, reading and other Leisure activities details: [employer] Sexually active: No Do you think of yourself as: Straight/Heterosexual Current gender identity: Female Soraida/Amish: Mandaen Special soraida needs: No Agree to transfusion: Yes Female Reproductive History: Para: 2 Spontaneous abortions: Yes Physical Exam Const: COMMON NORMALS: no acute distress EXAM LIMITATIONS: altered mental status GENERAL APPEARANCE: cooperative ORIENTATION/CONSCIOUSNESS: Yes awake, Yes oriented to person, Yes oriented to place and Yes confused; not oriented to time HENMT: COMMON NORMALS: normocephalic and atraumatic HEAD & SCALP: normocephalic and atraumatic FACE & SINUS: normal facial exam and face symmetric Eye: COMMON NORMALS: Equal, round and reactive pupils present and EOMs intact bilaterally PUPIL: Yes Equal, round and reactive pupils present Neck/C-Spine: GENERAL: Yes trachea midline Chest: CHEST: Yes Symmetrical chest wall rise Resp: COMMON NORMALS: normal respiratory effort, No use of accessory muscles and clear to auscultation bilaterally AUSCULTATION: clear to auscultation bilaterally Cardio: COMMON NORMALS: regular rhythm RATE: tachycardic RHYTHM: regular rhythm GI: COMMON NORMALS: Soft to palpation PALPATION: Yes Soft to palpation Neuro: BIANKA COMA SCALE: document GCS findings Bianka coma scale eye opening: Spontaneous [place] coma scale verbal response: Confused Bianka coma scale motor response: Obey commands [place] coma scale total score: 14 SENSORIUM/ORIENTATION: Yes oriented to person, Yes oriented to place and No oriented to time SPEECH: speech normal SENSORY EXAM: Yes extremities (intact) Course Vital Signs: Vital signs: Vital Signs Temperature 99.8 F H 07/01/25 22:16 Pulse Rate 129 H 07/01/25 22:16 Respiratory Rate 18 07/01/25 22:16 Blood Pressure 170/91 07/01/25 22:16 Pulse Oximetry 96 07/01/25 22:16 Oxygen Delivery Me thod Room Air 07/01/25 22:16 MDM - Recheck/Abnormal Lab/Rx Medical Decision Making 60-year-old female with mental status changes. She has a temperature 99.8. She was tachycardic and hypertensive on arrival. She was given a sepsis bolus. She is no longer tachycardic. Heart rates in the 90s. Blood pressure is 149/71. Saturation is 97% on room air. Respirations 15. White blood cell count is 11.4. Hemoglobin 11.5. Blood sugar was initially 593. She has no gap, no acidosis, and ketones are negative. Creatinine is 2.1 which is a bit of a bump from her baseline. Sodium is 130, indicating pseudohyponatremia from hyperglycemia. Urinalysis is negative for infection. The patient has a right hydronephrosis from a 3 mm stone within the right ureter. Chest x-ray is negative for consolidation. She is given a gram of Rocephin after blood cultures here. There is a lady with a temperature, is tachycardic, but without significant white blood cell count elevation, lactic acidosis, or significant elevation in CRP. She has significant mental status changes, is profoundly hyperglycemic, and is requiring IV insulin. Repeat blood sugars in the 300s after bolus of 10 units. She will require admission. This patient has a distal right ureteral stone complicating her course. We have no urology services available at this facility. She will require transfer to a facility with urology, in case management of the stone becomes essential to her care. I spoke with Dr. Soares at [facility] in [place]. He agrees to consult on the patient. Hospitalist agrees to admit. She will go by ground ambulance. She is stable for transfer. Lab Data 07/01/25 22:22 07/01/25 22:22 Radiology Impressions Abdomen/Pelvis CT 07/01/25 22:42 IMPRESSION: 1. Right hydronephrosis and hydroureter with multiple stones within the right ureter. 2. Additional bilateral nonobstructing renal stones and calcifications as outlined. 3. Redemonstration of hepatomegaly. 4. Additional findings as detailed in the body of the report. Chest X-Ray 07/01/25 22:42 IMPRESSION: 1. Redemonstration of mild cardiomegaly. 2. Redemonstration of dependent opacities, likely atelectasis. 3. New acute cardiopulmonary findings are identified. Laboratory Results WBC 11.37 10^3/uL (3.29-11.43) 07/01/25 22:22 RBC 4.15 10^6/uL (3.85-5.65) 07/01/25 22:22 Hgb 11.50 g/dL (11.27-16.99) 07/01/25 22:22 Hct 34.7 % (36-47) L 07/01/25 22:22 MCV 83.6 fl (85-98) L 07/01/25 22:22 MCH 27.7 pg (27-33) 07/01/25 22:22 MCHC 33.1 g/dL (30-55) 07/01/25 22:22 RDW 12.0 % (12.1-15.1) L 07/01/25 22:22 Plt Count 359 10^3/cmm (157-399) 07/01/25 22:22 MPV 10.5 fL (7.4-10.4) H 07/01/25 22:22 Neut % (Auto) 59.3 % 07/01/25 22:22 Lymph % (Auto) 29.3 % 07/01/25 22:22 Callahan % (Auto) 6.8 % 07/01/25 22:22 Eos % (Auto) 1.6 % 07/01/25 22:22 Baso % (Auto) 0.6 % 07/01/25 22:22 Neut # (Auto) 6.75 10^3/uL (1.8-7.7) 07/01/25 22:22 Lymph # (Auto) 3.3 10^3/uL (0.8-4.8) 07/01/25 22:22 Callahan # (Auto) 0.8 10^3/uL (0.2-0.9) 07/01/25 22:22 Eos # (Auto) 0.2 10^3/uL (0.0-0.8) 07/01/25 22:22 Baso # (Auto) 0.1 10^3/uL (0.0-0.1) 07/01/25 22:22 Nucleated RBC % (auto) 0 % 07/01/25: Nucleated RBCs # 0.0 /100WBC 07/01/25 22:22 Sodium 130 mmol/L (136-145) L 07/01/25 22:22 Potassium 4.9 mmol/L (3.5-5.1) 07/01/25 22:22 Chloride 93 mmol/L (98-107) L 07/01/25 22:22 Carbon Dioxide 28 mmol/L (22-29) 07/01/25 22:22 Anion Gap 13.9 (5-19) 07/01/25 22:22 BUN 15 mg/dL (8-23) 07/01/25 22:22 Creatinine 2.1 mg/dL (0.5-0.9) H 07/01/25 22:22 GFR Calculation 23.9 mL/min (90-130) L 07/01/25 22:22 Glucose 593 mg/dL (65-115) H* 07/01/25 22:22 POC Glucose 362 mg/dL (70-110) H 07/02/25 00:47 Calculated Osmolality 298 mOsm/kg (285-295) H 07/01/25 22:22 Lactic Acid 1.9 mmol/L (0.5-2.2) 07/01/25 22:22 Calcium 9.3 mg/dL (8.5-10.5) 07/01/25 22:22 Total Bilirubin 0.3 mg/dL (0.15-1.2) 07/01/25 22:22 AST 12 U/L (0-32) 07/01/25 22:22 ALT 13 U/L (0-33) 07/01/25 22:22 Alkaline Phosphatase 224 U/L (35-105) H 07/01/25 22:22 C-Reactive Protein 57.1 mg/L (0.0-4.9) H 07/01/25 22:22 Total Protein 8.0 g/dL (6.6-8.7) 07/01/25 22:22 Albumin 3.8 g/dL (3.5-5.2) 07/01/25 22:22 Globulin 4.2 g/dL (1.3-4.6) 07/01/25 22:22 Urine Color Yellow (Yellow) 07/01/25 23:32 Urine Appearance Clear (CLEAR) 07/01/25 23:32 Urine pH 7.0 (5-7) 07/01/25 23:32 Ur Specific [place] 1.016 (1.005-1.030) 07/01/25 23:32 Urine Protein Negative (Negative) 07/01/25 23:32 Urine Glucose (UA) 3+ (Normal) H 07/01/25 23:32 Urine Ketones Negative (Negative) 07/01/25 23:32 Urine Blood Negative (Negative) 07/01/25 23:32 Urine Nitrate Negative (Negative) 07/01/25 23:32 Urine Bilirubin Negative (Negative) 07/01/25 23:32 Urine Urobilinogen 0.2 mg/dL (Negative) 07/01/25 23:32 Ur Leukocyte Esterase Trace (Negative) A 07/01/25 23:32 Urine RBC 0-2 /hpf (0-2) 07/01/25 23:32 Urine WBC 0-5 /hpf (0-5) 07/01/25 23:32 Ur Squamous Epith Cells 0-5 /hpf (0-5) 07/01/25 23:32 Amorphous Sediment Not Reportable 07/01/25 23:32 Urine Bacteria None seen /hpf (NONE) 07/01/25 23:32 Hyaline Casts 0-4 /lpf H 07/01/25 23:32 Serum Ketones Negative (Negative) 07/01/25 22:22 All radiology interpretation(s) finalized by discharge Discharge Plan Discharge Patient Disposition: Xfer Short-Term Hosp Clinical Impression: Ureterolithiasis, KACEY (acute kidney injury), Acute alteration in mental status, Acute hyperglycemia Condition: Stable Referrals: Kati Singh DO [Primary Care Provider, C UNIX DEVELOPER] Print Language: Mongolian Coding Level of Care Code ED Geospatial Systems Integrator for Mecheg Jordin
[2025-07-01 23:08] LABS: Alanine Aminotransferase 13 U/L (0-33); Albumin Level 3.8 g/dL (3.5-5.2); Alkaline Phosphatase 224 U/L (35-105); Anion Gap 13.9 (5-19); Aspartate Amino Transferase 12 U/L (0-32); Blood Urea Nitrogen 15 mg/dL (8-23); Calcium 9.3 mg/dL (8.5-10.5); Carbon Dioxide 28 mmol/L (22-29); Chloride 93 mmol/L (98-107); Creatinine Clr Calc Pharmacy 27.4684; Globulin 4.2 g/dL (1.3-4.6); Lactic Sepsis W/Reflex 1.9 mmol/L (0.5-2.2); Osmolality Calculated 298 mOsm/kg (285-295); Potassium 4.9 mmol/L (3.5-5.1); Sodium 130 mmol/L (136-145); Total Protein 8.0 g/dL (6.6-8.7)
[2025-07-01 23:09] LABS: Glucose 593 mg/dL (65-115)
[2025-07-01] MEDS: cefTRIAXone 1,000 mg SDV 1000 MG IVP (23:29)
[2025-07-01] MEDS: insulin regular-human 100 units/1 mL 10 UNIT IVP (23:30)
[2025-07-01] MEDS: sodium chloride 0.9% (100 ml) 100 ML (23:30)
[2025-07-01 23:44] LABS: Glucose Urine UA 3+ (Normal); Nitrate Urine Negative (Negative); Specific Gravity, Urine 1.016 (1.005-1.030)
[2025-07-01 23:49] LABS: Add Urine Microscopic? YES
[2025-07-02] MEDS: HYDROcodone-acetaminophen 7.5-325 mg Tablet 1 TAB PO (01:11)
[2025-07-02 02:01] VITALS: BP 164/83; PULSE 84; RESP 18; O2SAT 94
== END 2025-07-02 02:07 | disposition short-term general hospital (02) ==
PROVIDERS: Emergency Provider Emergency Medicine; PCP Family Medicine
DX: E11.65 Type 2 diabetes mellitus with hyperglycemia (principal); N20.1 Calculus of ureter; N17.9 Acute kidney failure, unspecified; R41.82 Altered mental status, unspecified; Z87.891 Personal history of nicotine dependence
CPT/HCPCS: 36415; 36416; 71045; 74176; 80053; 81001; 82009; 82962; 83605; 85025; 86140; 87040; 93005; 96374; 96375; 99285; J0696; J1815; J7030; J9999

== ENCOUNTER → 2025-07-19 11:23 | Outpatient (BNVA) | payer MEDICARE, MEDICAID, OTHER, SELFPAY ==
[2025-05-25 14:39] VITALS: BP 110/78; BMI 26.4
== END ==
PROVIDERS: PCP Family Medicine; Visit Provider Internal Medicine Cardiovascular Disease
DX: E78.5 Hyperlipidemia, unspecified (principal); I10 Essential (primary) hypertension; E11.9 Type 2 diabetes mellitus without complications; Z79.4 Long term (current) use of insulin; F33.2 Major depressive disorder, recurrent severe without psychotic features; Z87.891 Personal history of nicotine dependence
CPT/HCPCS: 99214

== ENCOUNTER → 2025-08-09 13:42 | Outpatient (BNVA) | payer OTHER, MEDICAID, SELFPAY ==
[2025-05-25 14:39] VITALS: BP 110/78; BMI 26.4
== END ==
PROVIDERS: PCP Family Medicine; Visit Provider Podiatrist Foot & Ankle Surgery
DX: E11.8 Type 2 diabetes mellitus with unspecified complications (principal); B35.1 Tinea unguium; E11.40 Type 2 diabetes mellitus with diabetic neuropathy, unspecified; E11.42 Type 2 diabetes mellitus with diabetic polyneuropathy; Z79.4 Long term (current) use of insulin; L85.3 Xerosis cutis
CPT/HCPCS: 11721; 99213